=== PATIENT | female | born 1975 | race Caucasian/White ===

== ENCOUNTER 2018-03-03 14:35 | Emergency (ER) | payer MEDICAID, SELFPAY ==
[2018-03-03 14:37] VITALS: BP 146/89; PULSE 102; RESP 16; TEMP 36.8; O2SAT 94; BMI 46.2
--- NOTE | 2018-03-03 15:16 | ED.DCSUM_ITS ---
- ER Visit Summary Date of Service: 03/03/18 Chief Complaint: Concern for hemorrhagic pyelonephritis History of Present Illness: The patient is a 42 F who is 15 weeks who presents concerned she may have hemorrhagic pyelonephritis. Patient states last night she noted abdominal bruising on her mid abdomen. She was washing she noted blood on her washcloth after cleansing her genital region. She does not know if it is vaginal blood or urethral. She is having left-sided abdominal and back pain. She has been having increased urination without dysuria. She denies any fever but states she has felt cold. No diarrhea or constipation. No nausea or vomiting. Patient denies any known history of bruising to the abdomen. She began a new job [employer] yesterday. Patient had a history of hemorrhagic pyelonephritis 5 years ago with a prior . Physical Examination: Vital signs: afebrile, hemodynamically stable, no hypoxia on room air General: well nourished, well developed, BMI of 46, in no distress Skin: warm, dry, no rash, no pallor, stripe of bruising on the anterior left mid abdomen, supraumbilical HEENT: normocephalic and atraumatic; PERRL, EOMI, moist mucous membranes Cardiovascular: Tachycardic rate and rhythm without murmurs, no peripheral edema, 2+ pulses all distal extremities Respiratory: No increased work of breathing, lungs are clear to auscultation bilaterally, no rales, rhonchi or wheezing Abdominal: Abdomen is soft, obese, diffusely tender to light palpation with normoactive bowel sounds, no guarding or rebound, no masses, bilateral CVA tenderness to light percussion, diffuse back tenderness to light palpation : No external genitalia lesions, no vaginal bleeding, no blood noted in vault, cervix nontender with closed os no adnexal tenderness MSK: Moves all extremities, no deformities, normal strength Neuro: Awake and alert, oriented ?4. No facial droop, sensation and motor function intact and symmetric Test Results: Abnormal Lab Results 03/03/18 03/03/18 03/03/18 14:50 15:20 15:20 WBC 8.9 RBC 3.93 L Hgb 12.1 Hct 34.9 L MCV 88.8 MCH 30.8 MCHC 34.7 RDW 13.7 RDW Differential 43.3 Plt Count 164 MPV 11.7 Immature Gran % (Auto) 1.000 H Neut % (Auto) 75.8 H Lymph % (Auto) 15.2 L Hand % (Auto) 6.6 Eos % (Auto) 1.3 Baso % (Auto) 0.1 Absolute Neuts (auto) 6.7 Absolute Lymphs (auto) 1.35 Total Counted Not Reportable Sodium 136 Potassium 3.4 L Chloride 103 Carbon Dioxide 25.0 Anion Gap 8 BUN 10 Creatinine 0.57 Estim Creat Clear Calc 94.24 Est GFR (MDRD) Af Amer 150 Est GFR (MDRD) Non-Af 124 BUN/Creatinine Ratio 17.5 Glucose 83 Calcium 8.6 Total Bilirubin 0.40 AST 11 L ALT 16 Alkaline Phosphatase 62 Total Protein 6.9 Albumin 2.8 L Globulin 4.1 Albumin/Globulin Ratio 0.7 L Urine Color Yellow Urine Clarity Clear Urine pH 6.0 Ur Specific [place] 1.020 Urine Protein 15 H Urine Glucose (UA) Normal Urine Ketones 5 H Urine Occult Blood Negative Urine Nitrite Negative Urine Bilirubin Negative Urine Urobilinogen 1 H Ur Leukocyte Esterase 25 H Urine RBC 0 SEEN Urine WBC 0 SEEN Ur Squamous Epith Cells 10-25 SEEN Urine Bacteria 0 SEEN Urine Mucus 1+ Medications Given Discontinued Medications Acetaminophen (Tylenol) 1,000 mg PO X1 ONE Stop: 03/03/18 15:39 Last Admin: 03/03/18 15:46 Dose: 1,000 mg Sodium Chloride () 1,000 mls @ 1,000 mls/hr IV .Q1H ONE Stop: 03/03/18 16:06 Last Admin: 03/03/18 15:46 Dose: 1,000 mls/hr Emergency Department Course and Treatment: Patient presents concern for recurrence of hemorrhagic pyelonephritis after noticing blood on her wash cloth last night and noticing bruising on her abdomen. Patient has a large amount of abdominal adipose tissue, and the bruising seems superficial on the skin. It is brownish yellow in color and appears subacute, and looks like she may have leaned against something causing the bruising. There is no ecchymosis such as Cullens Sign or Staley Turcios sign. Patient is diffusely tender on the back and abdomen with only light palpation, which does not exert force on the abdominal cavity and makes intra-abdominal pathology less suspicious. Pelvic exam will be performed showing no vaginal bleeding, lacerations, no external genital lesions, no urethral abnormalities. Urinalysis performed showed no signs of infection or hematuria. Patient was offered and declined pain medication initially but later asked for some and was given Tylenol. Patient's workup showed no abnormalities in electrolytes, renal function, or urine. She was feeling better added evaluation. She was discharged home with no signs of pyelonephritis or other infection. Treatment Plan: [] Disposition: [] Impression: Abdominal pain and female This note was generated with [employer] dictation software. It may contain incorrect words, spelling, and punctuation that were not noted in review of the chart prior to signing ED Disposition - Plan for ED Patient: Disposition: Home or Assisted Living Chief Complaint: Complaint Instructions: ED Abdominal Pain Unkn Cause Referrals: Care Physician,No Primary [NON-STAFF] - OB Physicians,[facility] [GROUP OF PHYSICIANS] - 3-5 Days if not improving Additional Instructions: Your urine showed no signs of infection or blood. Your lab work showed no concerning findings. Please continue Tylenol as needed for abdominal pain. Follow-up with your OB physician at [facility] if you continue to have cramping. If you have any worsening of your condition or any new concerning symptoms, please return immediately to the emergency department for another evaluation.
[2018-03-03 15:39] LABS: Absolute Lymphocyte Count 1.35 X10^3/ul (0.83-4.51); Absolute Neutrophil Count 6.7 X10^3/uL (2.0-7.7); Basophil# 0.01 X10^3/uL; Basophil% 0.1 % (0-1); Eosinophil# 0.12 X10^3/uL; Eosinophils% 1.3 % (0-5); Hematocrit 34.9 % (37-47); Hemoglobin 12.1 g/dl (12.0-15.0); Lymphocyte # 1.35 X10^3/ul (4.0); Lymphocyte % 15.2 % (19-41); Mean Corp Hgb Conc 34.7 g/gl (32-36); Mean Corpuscular Hgb 30.8 pg (27.0-32.0); Mean Corpuscular Volume 88.8 fL (81-99); Mean Platelet Vol. 11.7 fl (6.2-12.0); Monocyte# 0.59 X10^3/uL; Monocyte% 6.6 % (0-10); Neutrophil # 6.74 X10^3/uL (2.7-7.7); Neutrophil % 75.8 % (47-70); Platelet Count 164 K/mm3 (150-450); RBC Distribution Width CV 13.7 % (11.6-14.6); RBC Distribution Width SD 43.3 fl (35.1-43.9); Red Blood Count 3.93 M/mm3 (4.2-5.4); White Blood Count 8.9 K/mm3 (4.4-11.0)
[2018-03-03 15:44] LABS: POSITIVE COUNT NO; POSITIVE DIFFERENTIAL NO; POSITIVE MORPHOLOGY NO
[2018-03-03] MEDS: 0.9% Normal Saline 1,000 ML 1000 ML IV (15:46)
[2018-03-03] MEDS: Acetaminophen 500 MG Tablet 1000 MG PO (15:46)
[2018-03-03 15:47] LABS: ALB/GLOB Ratio 0.7 RATIO (0.9-2.4); AST(SGOT) 11 U/L (15-37); Alanine Aminotransfer ALT/SGPT 16 U/L (13-56); Albumin, Serum 2.8 g/dL (3.2-5.0); Alkaline Phosphatase 62 U/L (45-117); Anion Gap 8 (5-15); BUN 10 mg/dL (7-18); BUN/Creat Ratio 17.5 RATIO (10-20); Calcium,Total 8.6 mg/dL (8.5-10.1); Chloride 103 mmol/L (98-107); Creatinine, Serum 0.57 mg/dL (0.55-1.02); EST Glomerular Filtration Rate 124 mL/min (>60); Est Glom Filt Rate - Afr Amer 150 mL/min (>60); Estimated Creatinine Clearance 94.24 ml/min; Globulin 4.1 g/dL (2.2-4.2); Glucose 83 mg/dL (74-106); Potassium 3.4 mmol/L (3.5-5.1); Protein, Total 6.9 g/dL (6.4-8.2); Sodium Level 136 mmol/L (136-145)
[2018-03-03 15:51] LABS: Bacteria 0 SEEN /hpf (None Seen); Red Blood Cells-Urine 0 SEEN /hpf (0-5); White Blood Cells 0 SEEN /hpf (0-5)
[2018-03-03 15:53] LABS: Color, Urine Yellow (Yellow); Glucose, Dipstick Normal (Normal); Ketone-Dipstick 5 mg/dl (Negative); Leukocyte Esterase-Dipstick 25 /ul (Negative); Nitrite-Dipstick Negative (Negative); Occult Blood-Urine Negative /ul (Negative); Protein-Dipstick 15 mg/dl (Negative); Urine Bilirubin Dipstick Negative (Negative); Urine Clarity Clear (Clear); Urine Urobilinogen 1 mg/dl (Normal)
[2018-03-03 16:25] LABS: Mucous, Urine 1+ /hpf (<or=2+); Squamous Epithelial Cells - UA 10-25 SEEN /hpf (5-10)
[2018-03-03 16:36] VITALS: RESP 17
--- NOTE | 2018-03-03 16:47 | ED.DEP ---
ED Disposition - Plan for ED Patient: Disposition: Home or Assisted Living Chief Complaint: Complaint Instructions: ED Abdominal Pain Unkn Cause Referrals: Care Physician,No Primary [NON-STAFF] - OB Physicians,[facility] [GROUP OF PHYSICIANS] - 3-5 Days if not improving Additional Instructions: Your urine showed no signs of infection or blood. Your lab work showed no concerning findings. Please continue Tylenol as needed for abdominal pain. Follow-up with your OB physician at [facility] if you continue to have cramping. If you have any worsening of your condition or any new concerning symptoms, please return immediately to the emergency department for another evaluation.
--- NOTE | 2018-03-03 16:50 | DCINST.ED_ITS ---
ED Disposition - Plan for ED Patient: Disposition: Home or Assisted Living Chief Complaint: Complaint Instructions: ED Abdominal Pain Unkn Cause Referrals: Care Physician,No Primary [NON-STAFF] - OB Physicians,[facility] [GROUP OF PHYSICIANS] - 3-5 Days if not improving Additional Instructions: Your urine showed no signs of infection or blood. Your lab work showed no concerning findings. Please continue Tylenol as needed for abdominal pain. Follow-up with your OB physician at [facility] if you continue to have cramping. If you have any worsening of your condition or any new concerning symptoms, pl ease return immediately to the emergency department for another evaluation.
[2018-03-03 17:08] VITALS: BP 126/93; PULSE 85; RESP 17; O2SAT 98
== END 2018-03-03 17:10 | disposition home or self-care (01) ==
PROVIDERS: Emergency Provider Emergency Medicine; Family Provider Family Medicine; PCP Family Medicine
DX: O26.892 Other specified pregnancy related conditions, second trimester (principal); R10.9 Unspecified abdominal pain; O99.212 Obesity complicating pregnancy, second trimester; E66.9 Obesity, unspecified; Z68.42 Body mass index [BMI] 45.0-49.9, adult; Z3A.15 15 weeks gestation of pregnancy; O99.332 Smoking (tobacco) complicating pregnancy, second trimester
CPT/HCPCS: 80053; 81001; 85025; 96360; 99284; J7030; A4216

== ENCOUNTER → 2018-03-25 19:15 | Outpatient (CLI) | payer MEDICAID, SELFPAY ==
[2018-03-25 21:56] LABS: Chlamydia Trachomatis by PCR Negative (Negative); Neisserai gonorrhoeae by PCR Negative (Negative); Probe Check PASS; Sample Adequacy Control PASS; Specimen Processing Control PASS
[2018-03-30 14:41] LABS: HPV Reflexed? NOT INDICATED
== END ==
PROVIDERS: Family Provider Family Medicine; PCP Family Medicine; Referring Provider Obstetrics & Gynecology; Visit Provider Obstetrics & Gynecology
DX: Z32.01 Encounter for pregnancy test, result positive (principal); Z12.4 Encounter for screening for malignant neoplasm of cervix; Z11.3 Encounter for screening for infections with a predominantly sexual mode of transmission
CPT/HCPCS: 87491; 87591; 88175; G0145

== ENCOUNTER → 2018-04-08 16:24 | Outpatient (CLI) | payer MEDICAID, SELFPAY ==
[2018-04-08 17:11] LABS: Color, Urine Yellow (Yellow); Glucose, Dipstick Normal (Normal); Ketone-Dipstick 5 mg/dl (Negative); Leukocyte Esterase-Dipstick 25 /ul (Negative); Nitrite-Dipstick Negative (Negative); Occult Blood-Urine Negative /ul (Negative); Protein-Dipstick 15 mg/dl (Negative); Specific Gravity, Urine 1.025 (1.002-1.030); Urine Bilirubin Dipstick Negative (Negative); Urine Clarity Turbid (Clear); Urine Urobilinogen Normal (Normal)
[2018-04-08 17:34] LABS: Amphetamine Urine VISTA NEGATIVE (<1000 ng/mL); Barbiturate Urine VISTA NEGATIVE (< 200 ng/mL); Benzodiazepine Urine VISTA NEGATIVE (< 200 ng/mL); Cocaine Urine VISTA NEGATIVE (< 300 ng/mL); Ecstacy Urine VISTA NEGATIVE (< 500 ng/mL); Methadone Urine VISTA NEGATIVE (< 300 ng/mL); PCP Urine VISTA NEGATIVE (< 25 ng/mL); THC Urine VISTA POSITIVE (< 50 ng/mL); Vista UDS pH Range 6
[2018-04-08 17:38] LABS: Absolute Lymphocyte Count 1.46 X10^3/ul (0.83-4.51); Basophil# 0.01 X10^3/uL; Basophil% 0.1 % (0-1); Eosinophil# 0.12 X10^3/uL; Eosinophils% 1.3 % (0-5); Hematocrit 35.4 % (37-47); Hemoglobin 11.8 g/dl (12.0-15.0); Lymphocyte # 1.46 X10^3/ul (4.0); Lymphocyte % 15.8 % (19-41); Mean Corp Hgb Conc 33.3 g/gl (32-36); Mean Corpuscular Hgb 30.2 pg (27.0-32.0); Mean Corpuscular Volume 90.5 fL (81-99); Mean Platelet Vol. 12.7 fl (6.2-12.0); Monocyte# 0.52 X10^3/uL; Monocyte% 5.6 % (0-10); Neutrophil # 7.01 X10^3/uL (2.7-7.7); Neutrophil % 75.7 % (47-70); Platelet Count 179 K/mm3 (150-450); RBC Distribution Width CV 13.7 % (11.6-14.6); RBC Distribution Width SD 44.5 fl (35.1-43.9); Red Blood Count 3.91 M/mm3 (4.2-5.4); White Blood Count 9.3 K/mm3 (4.4-11.0)
[2018-04-08 18:06] LABS: POSITIVE COUNT NO; POSITIVE DIFFERENTIAL NO; POSITIVE MORPHOLOGY NO
[2018-04-08 18:14] LABS: Thyroid Stim Hormone (TSH) 0.89 uIU/mL (0.358-3.74)
[2018-04-08 18:31] LABS: COTININE Drug Screen Positive (<200 ng/mL)
[2018-04-08 18:54] LABS: HIV - WCH Non-Reactive (Nonreactive); Rubella IgG 292.3 IU/mL
[2018-04-09 01:59] LABS: Prenatal RPR NONREACTIVE (NONREACTIVE)
[2018-04-12 11:52] LABS: HEPATITIS B SURFACE AG Negative (Negative); Hep C Antibodies <0.1 s/co ratio (0.0-0.9)
== END ==
PROVIDERS: Family Provider Family Medicine; PCP Family Medicine; Visit Provider Obstetrics & Gynecology
DX: Z34.82 Encounter for supervision of other normal pregnancy, second trimester (principal)
CPT/HCPCS: 36415; 80307; 81002; 84443; 85025; 86703; 86762; 86803; 87340

== ENCOUNTER 2018-05-05 00:50 | Outpatient (CLI) | payer MEDICAID, SELFPAY ==
[2018-05-05 02:02] LABS: Mucous, Urine 0 SEEN /hpf (<or=2+)
[2018-05-05 02:04] LABS: Color, Urine Yellow (Yellow); Glucose, Dipstick Normal (Normal); Ketone-Dipstick 50 mg/dl (Negative); Leukocyte Esterase-Dipstick 25 /ul (Negative); Nitrite-Dipstick Negative (Negative); Occult Blood-Urine Negative /ul (Negative); Protein-Dipstick 15 mg/dl (Negative); Specific Gravity, Urine 1.025 (1.002-1.030); Urine Bilirubin Dipstick Negative (Negative); Urine Clarity Sl. Cloudy (Clear); Urine Urobilinogen Normal (Normal)
[2018-05-05 02:15] LABS: Bacteria RARE /hpf (None Seen); Red Blood Cells-Urine 0-5 SEEN /hpf (0-5); Squamous Epithelial Cells - UA 5-10 SEEN /hpf (5-10); White Blood Cells 0-5 SEEN /hpf (0-5)
[2018-05-05 02:21] VITALS: BMI 46.8
[2018-05-05] MEDS: Acetaminophen 500 MG Tablet 1000 MG PO (02:46)
--- NOTE | 2018-05-05 08:04 | OB.TRI.NOTE ---
History of Present Illness Date of Service: 05/05/18 Was patient seen by the physician?: Yes Reason For Visit: R/BILLIE TAYLOR PAIN Date of Service: 05/05/18 Gestational age: 24 weeks History of Present Illness: 43 yo female at 24 + wks. Presents with frontal COLEMAN x two days and states no relief with tylenol. Presented approx 2 am No tylenol since approx 6-6:30 pm day prior. Also C/O pain at LLQ. Denies constipation. On her feet a lot. H/O two prior C/S deliveries. Allergies acetaminophen [From Vicodin] Allergy (Verified 05/05/18 02:23) Itching hydrocodone bitartrate [From Vicodin] Allergy (Verified 05/05/18 02:23) Itching ondansetron HCl [From Zofran (as hydrochloride)] Allergy (Verified 05/05/18 02:23) Rash Penicillins [PCN] Allergy (Verified 05/05/18 02:23) Rash Laboratory Studies: Laboratory Tests 05/05/18 Range/Units 01:45 Urine Color Yellow (Yellow) Urine Clarity Sl. Cloudy (Clear) Urine pH 6.0 (5.0 - 8.0) Ur Specific [place] 1.025 (1.002-1.030) Urine Protein 15 H (Negative) mg/dl Urine Glucose (UA) Normal (Normal) mg/dl Urine Ketones 50 H (Negative) mg/dl Urine Occult Blood Negative (Negative) /ul Urine Nitrite Negative (Negative) Urine Bilirubin Negative (Negative) mg/dL Urine Urobilinogen Normal (Normal) mg/dl Ur Leukocyte Esterase 25 H (Negative) /ul Urine RBC 0-5 SEEN (0-5) /hpf Urine WBC 0-5 SEEN (0-5) /hpf Ur Squamous Epith Cells 5-10 SEEN (5-10) /hpf Urine Bacteria RARE (None Seen) /hpf Urine Mucus 0 SEEN (<or=2+) /hpf Review of Systems HEENT: Reports: Head Aches - frontal x two days Gastrointestinal: Reports: Abdominal Pain - LLQ from upper to lower abdomen. Denies: Constipation, Diarrhea Genitourinary: Denies: Dysuria - states pain does not feel like a kidney stone (had one prior) Physical Exam Vitals: BP wnl See nurse separate chart for details. General: Alert, Oriented x3, Cooperative, No apparent distress HEENT: Atraumatic Abdomen: Soft, Gravid, Obese Neurological: Cranial nerves II-XII grossly intact NST - FHR Rate Baby A Baseline: 110s NST Reactive:: Appropriate for gestational age Uterine Activity:: no UCs noted. Impression/Plan 24 + wk EGA H/O two prior C/S deliveries H/O kidney stones UA sent and negative for infection. Rare bacteria, no blood. SpGr 1.025 Encouraged to drink more [place]: no UCs LLQ abdominal pain likely musculoskeletal. Tylenol, rest, maternity support band recommended. Advised prior pregnancies, now 43 yo. COLEMAN: suspect sinus COLEMAN. Recommend rest, home to sleep. May also take Benadryl at home Tylenol 1 gm po given Sudafed 30 mg po x one. COLEMAN improved Elected to go home. RTO for next ofc appt as scheduled.
--- OUTSIDE RECORDS SUMMARY | 2018-06-30 10:46 | XMS RPT_ITS ---
:1975 Author Organization OHIP Care Team Providers Name Role Phone Nehemias Willingham Attending Unavailable Nehemias Willingham Referring Unavailable Baker, Dylan Primary Care Unavailable Estephania Dozier Attending Unavailable Baker, Dylan Primary Care Unavailable Nehemias Willingham Attending Unavailable Samuel, Dylan Primary Care Unavailable Nehemias Willingham Referring Unavailable Nehemias Willingham Attending Unavailable Baker, Dylan Primary Care Unavailable Patsy Traore Attending Unavailable Baker, Dylan Primary Care Unavailable JAQUELIN WEATHERS GARCÍA Attending Unavailable NO, PHYSICIAN Primary Care Unavailable HANNA CHINCHILLA Attending Unavailable RUBY CAMPBELL Primary Care Unavailable RUBY CAMPBELL Attending Unavailable RUBY CAMPBELL Primary Care Unavailable Ivanauskas, Saulius Admitting Unavailable Ivanauskas, Saulius Attending Unavailable No Doctor Assigned, Nodr Primary Care Unavailable Eugenio Baker Attending Unavailable No Doctor Assigned, Nodr Primary Care Unavailable PROBLEMS PROBLEMS DATE TYPE CONDITION / CODE ATTENDING STATUS SOURCE 03/26/2018 Unknown Z32.01 - Encounter Nehemias Willingham Active [facility] for test, Community result positive / Hospital Z32.01(ICD-10) Repository 03/26/2018 Unknown Z12.4 - Encounter SealNehemias nunez [facility] for screening for Community malignant neoplasm Hospital of cervix / Repository Z12.4(ICD-10) 03/26/2018 Unknown Z11.3 - Encounter SealNehemias nunez Active [facility] for screening for Community infections with a Hospital predominantly Repository sexual mode of transmission / Z11.3(ICD-10) 01/05/2018 Admitting Less than 8 weeks ME JASIELENAL Active [facility] diagnosis gestation of GARCÍA Repository / Z3A.01(ICD-10) 01/05/2018 Admitting Constipation, JASIEL, JAQUELIN Active [facility] diagnosis unspecified / GARCÍA Repository K59.00(ICD-10) 01/05/2018 Admitting Nausea / JASIEL, JAQUELIN Active [facility] Two diagnosis R11.0(ICD-10) GARCÍA Repository 01/05/2018 Admitting Other specified JASIEL, JAQUELIN Active [facility] diagnosis related GARCÍA Repository conditions, first trimester / O26.891(ICD-10) 01/05/2018 Admitting Unspecified JASIEL, JAQUELIN Active [facility] diagnosis abdominal pain / GARCÍA Repository R10.9(ICD-10) 01/05/2018 Admitting Unspecified JASIEL, JAQUELIN Active [facility] diagnosis hemorrhoids / GARCÍA Repository K64.9(ICD-10) 06/08/2017 Admitting Unknown / HANNA CHINCHILLA Diagnosis UNK(Unknown) [facility] Repository PROCEDURES PROCEDURES No Procedure Records FoundRESULTS RESULTS URINALYSIS, COMPLETE Collected: 05/05/2018 Status: F Source: [facility] 1:45 AM [facility] REPOSITORY Order Comment: How was Urine Obtained? CLEAN CATCH TYPE CODE TESTS RESULT OUT OF RANGE REFERENCE UNITS LAB L400.3000 Yellow COLOR Normal Yellow LAB L400.3050 Clear Normal CLARITY Sl. Cloudy LAB L400.3200 Normal mg/dl Normal GLUCOSE, UR Normal LAB L400.3300 Negative mg/dL Normal BILIRUBIN URINE Negative LAB L400.3400 Negative mg/dl High 50 KETONE UR LAB L400.3465 1.002-1.030 Normal SP.GR. DIPSTX 1.025 LAB L400.3550 5.0 - 8.0 pH UR Normal 6.0 LAB L400.3600 Negative mg/dl High PROT 15 DIPSTX LAB L400.3700 Normal mg/dl Normal UROBILI Normal LAB L400.3750 Negative Normal NITRITE UR Negative LAB L400.3780 Negative /ul Normal OCCULT BLOOD-UR Negative LAB L400.3800 Negative /ul High LEUK 25 ESTERASE LAB L400.4050 0-5 /hpf WBC Normal 0-5 SEEN LAB L400.4100 0-5 /hpf Normal RBC-UA 0-5 SEEN LAB L400.4150 5-10 /hpf SQUAM Normal EPI 5-10 SEEN LAB L400.4300 None Seen /hpf Normal BACTERIA RARE LAB L400.4350 <or=2+ /hpf 0 Normal MUCUS, URINE SEEN Performed By: #### L400.0001 #### [facility] [address] [place], [address] URINE DRUG SCREEN Collected: 04/08/2018 Status: F Source: [facility] ([place]) 4:27 PM [facility] REPOSITORY Order Comment: List of Drugs Taken or Suspected? U TYPE CODE TESTS RESULT OUT OF RANGE REFERENCE UNITS LAB L505.0075 TO BE Normal CONFIRMED Result Comment: CONFIRMATORY TESTING FOR ALL POSITIVE URINE DRUG SCREEN RESULTS WILL ONLY BE SENT OUT UPON PHYSICIAN ORDER. [place] Urine Drug Screen methods provide only preliminary analytical test results. A more specific alternate chemical method must be used in order to obtain a confirmed analytical result. Gas chromatography/mass spectrometery (GC/MS) is the preferred confirmatory method. Clinical consideration and professional judgement should be applied to any drug of abuse test result, particularly when preliminary positive results are used. URINE TCA TESTING MUST BE ORDERED SEPARATELY. USE TEST MNEMONIC: [facility] LAB L505.5005 VISTA UDS PH 6 Normal LAB L505.5015 <1000 ng/mL AMPHETAMINES Normal NEGATIVE LAB L505.5025 < 200 ng/mL BARBITIURATES Normal NEGATIVE LAB L505.5035 < 200 ng/mL BENZODIAZIPINE Normal NEGATIVE LAB L505.5045 < 300 ng/mL COCAINE Normal NEGATIVE LAB L505.5055 < 500 ng/mL ECSTACY Normal NEGATIVE LAB L505.5065 < 300 ng/mL METHADONE Normal NEGATIVE LAB L505.5075 < 300 ng/mL OPIATES Normal NEGATIVE LAB L505.5085 < 25 ng/mL PCP Normal NEGATIVE LAB L505.5095 < 50 High ng/mL THC POSITIVE Performed By: #### L505.5000, L505.6240 #### [facility] [address] [facility] [place], [place], [id number] NICOTINE URINE DRUG Collected: 04/08/2018 Status: F Source: [facility] SCREEN 4:27 PM [facility] REPOSITORY Order Comment: List of Drugs Taken or Suspected? U TYPE CODE TESTS RESULT OUT OF RANGE REFERENCE UNITS LAB L505.6250 TO BE Normal CONFIRMED Result Comment: CONFIRMATORY TESTING FOR ALL POSITIVE URINE DRUG SCREEN RESULTS WILL ONLY BE SENT OUT UPON PHYSICIAN ORDER. The results of Urine Drug Screen methods provide only preliminary analytical test results. A more specific alternate chemical method must be used in order to obtain a confirmed analytical result. Gas chromatography/mass spectrometery (GC/MS) is the preferred confirmatory method. Clinical consideration and professional judgement should be applied to any drug of abuse test result, particularly when preliminary positive results are used. LAB L505.6270 <200 ng/mL High COT DRG Positive SCREEN Result Comment: Cotinine is the first-stage metabolite of Nicotine. Performed By: #### L505.5000, L505.6240 #### [facility] [address] [place], [address] URINALYSIS, ROUTINE Collected: 04/08/2018 Status: F Source: [facility] ([place]) 4:27 PM [facility] REPOSITORY Order Comment: How was Urine Obtained? CLEAN CATCH TYPE CODE TESTS RESULT OUT OF RANGE REFERENCE UNITS LAB L400.3000 Yellow COLOR Normal Yellow LAB L400.3050 Clear Normal CLARITY Turbid LAB L400.3200 Normal mg/dl Normal GLUCOSE, UR Normal LAB L400.3300 Negative mg/dL Normal BILIRUBIN URINE Negative LAB L400.3400 Negative mg/dl High 5 KETONE UR LAB L400.3465 1.002-1.030 Normal SP.GR. DIPSTX 1.025 LAB L400.3550 5.0 - 8.0 pH UR Normal 6.0 LAB L400.3600 Negative mg/dl High PROT 15 DIPSTX LAB L400.3700 Normal mg/dl Normal UROBILI Normal LAB L400.3750 Negative Normal NITRITE UR Negative LAB L400.3780 Negative /ul Normal OCCULT BLOOD-UR Negative LAB L400.3800 Negative /ul High LEUK 25 ESTERASE Performed By: #### L400.2010 #### [facility] [address] [place], [place], [address] CBC W/DIFF, AUTOMATED Collected: 04/08/2018 Status: F Source: [place] 4:27 PM [facility] REPOSITORY TYPE CODE TESTS RESULT OUT OF RANGE REFERENCE UNITS LAB L100.1000 4.4-11.0 K/mm3 Normal WBC 9.3 LAB L100.1200 4.2-5.4 M/mm3 Low RBC 3.91 LAB L100.1300 12.0-15.0 g/dl Low HGB 11.8 LAB L100.1400 37-47 % Low HCT 35.4 LAB L100.1500 81-99 fL Normal MCV 90.5 LAB L100.1600 27.0-32.0 pg Normal MCH 30.2 LAB L100.1700 32-36 g/gl Normal MCHC 33.3 LAB L100.1810 11.6-14.6 % Normal RDW CV 13.7 LAB L100.1820 35.1-43.9 fl High RDW SD 44.5 LAB L100.1900 150-450 K/mm3 Normal PLT 179 LAB L100.2000 6.2-12.0 fl High MPV 12.7 LAB L100.2100 47-70 % High NEUT% 75.7 LAB L100.2200 19-41 % Low LY% 15.8 LAB L100.2300 0-10 % Normal MONO% 5.6 LAB L100.2400 0-5 % Normal EO% 1.3 LAB L100.2500 0-1 % Normal BASO% 0.1 LAB L100.2550 0.0-0.9 % High IM GRAN % 1.500 Result Comment: IG% - Immature Granulocytes (promyelocytes, myelocytes and metamyelocytes) > 1% indicates that a LEFT SHIFT is Present. LAB L100.2620 2.0-7.7 X10 3/uL Normal Absolute Neut 7.0 LAB L100.2720 0.83-4.51 X10 3/ul Normal Absolute Lymph 1.46 Performed By: #### L100.0100 #### [facility] [address] [facility] [facility] [address] THYROID STIM HORMONE Collected: 04/08/2018 Status: F Source: [place] ([place]) 4:27 PM [facility] REPOSITORY TYPE CODE TESTS RESULT OUT OF RANGE REFERENCE UNITS LAB L501.9520 0.358-3.74 uIU/mL Normal TSH 0.89 Performed By: #### L501.9520 #### [facility] [id number] T AND S-NO Collected: 04/08/2018 Status: F Source: [place] CHARGE W/PNP 4:27 PM [facility] REPOSITORY Order Comment: Reason for Type AND Screen/Red Cells: Surgery? N TYPE CODE TESTS RESULT OUT OF RANGE REFERENCE UNITS LAB B10.0800 A Normal BLOOD NEGATIVE TYPE GEL LAB B100.4050 Normal Ab SCREEN NEGATIVE GEL Performed By: #### B100.7550 #### [facility]. [place], [place], [address] RUBELLA IGG Collected: 04/08/2018 Status: F Source: [facility] 4:27 PM [facility] REPOSITORY TYPE CODE TESTS RESULT OUT OF RANGE REFERENCE UNITS LAB L509.4000 IU/mL Normal Rubella IgG 292.3 Result Comment: Antibody results Interpretation of Immune Status < 5 IU/ml Presumed Non-immune 5 - < 10 IU/ml Equivocal > or = 10 IU/ml Presumed Immune Performed By: #### L509.4000, L3890.6005 #### [facility] [place], [address] HIV - WCH Collected: 04/08/2018 Status: F Source: [facility] 4:27 PM [facility] REPOSITORY TYPE CODE TESTS RESULT OUT OF RANGE REFERENCE UNITS LAB L3890.6005 Nonreactive Normal HIV - [facility] Non-Reactive Performed By: #### L509.4000, L3890.6005 #### [facility] [address] [place], [place], [id number] RPR Collected: 04/08/2018 Status: F Source: [facility] 4:27 PM [facility] REPOSITORY TYPE CODE TESTS RESULT OUT OF REFERENCE UNITS RANGE LAB L700.5100 NONREACTIVE Normal RPR NONREACTIVE Performed By: #### L700.5100 #### [facility] [address] [place], [place], [address] HEPATITIS B SURFACE Collected: 04/08/2018 Status: F Source: [place] AG 4:27 PM [facility] REPOSITORY TYPE CODE TESTS RESULT OUT OF RANGE REFERENCE UNITS LAB L3100.0400 Negative Normal HB Negative SURF AG Result Comment: Performed at: - [facility] [id number] Hunter Trapper: Cortes Orozco PhD, Phone: [phone] Performed By: #### L3100.0390, L3100.0625 #### [facility] (refer to report for specific site) refer to report for address and phone number HEPATITIS C ANTIBODIES Collected: 04/08/2018 Status: F Source: [place] 4:27 PM [facility] REPOSITORY TYPE CODE TESTS RESULT OUT OF RANGE REFERENCE UNITS LAB L3100.0650 0.0-0.9 s/co ratio Normal HEP C AB <0.1 Result Comment: Negative: < 0.8 Indeterminate: 0.8 - 0.9 Positive: > 0.9 The CDC recommends that a positive HCV antibody result be followed up with a HCV Nucleic Acid Amplification test (060988). Performed By: #### L3100.0390, L3100.0625 #### [facility] (refer to report for specific site) refer to report for address and phone number CT/NG WCH BY PCR Collected: 03/25/2018 Status: F Source: [facility] 3:30 PM [facility] REPOSITORY TYPE CODE TESTS RESULT OUT OF RANGE REFERENCE UNITS LAB L8200.2100 Negative Normal Chlam Negative Trac PCR LAB L8200.2200 Negative Normal NG by Negative PCR Performed By: #### L8200.2000 #### [facility] [address] 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 of containers..01 ThinPrep Vial TYPE CODE TESTS RESULT OUT OF RANGE REFERENCE UNITS LAB L7400.0800 . Normal DIAGN Comment Result Comment: NEGATIVE FOR INTRAEPITHELIAL LESION AND MALIGNANCY. LAB L7400.0900 . Normal ADEQ Comment Result Comment: Satisfactory for evaluation. Endocervical and/or squamous metaplastic cells (endocervical component) are present. LAB L7400.1400 . Normal PERFORM Comment Result Comment: Lisa Fonseca, Energy Consultant (ASCP) LAB L7400.2575 . Normal TEST METHOD Comment Result Comment: This liquid based ThinPrep(R) pap test was screened with the use of an image guided system. LAB L7400.2600 . Normal . COMM LAB L7400.2700 . Normal PAPSMR Comment Result Comment: The Pap smear is a screening test designed to aid in the detection of premalignant and malignant conditions of the uterine cervix. It is not a diagnostic procedure and should not be used as the sole means of detecting cervical cancer. Both false-positive and false-negative reports do occur. LAB L7400.2800 . Normal HPV RFLX Comment Result Comment: The HPV DNA reflex criteria were not met with this specimen result therefore, no HPV testing was performed. Performed at: [address] [id number] Hunter Trapper: Jodie Moseley MD, Phone: [phone] Performed By: #### L7400.0350 #### [facility] (refer to report for specific site) refer to report for address and phone number EMERGENCY DEPARTMENT Observed: 03/04/2018 Status: F Source: [place] SUMMARY 2:01 AM [facility] REPOSITORY [facility] Medical Records Department [address] [place] [address] Emergency Department Summary 03/03/18 1512 MR#: [id number] Acct: [id number] Name: DEANNA ALMANZA Rep #: [id number] : 1975 42 From: Estephania Dozier MD PCP: Eugenio Baker MD Status: DEP ER - ER Visit Summary Date of Service: 03/03/18 Chief Complaint: Concern for hemorrhagic pyelonephritis History of Present Illness: The patient is a 42 F who is 15 weeks who presents concerned she may have hemorrhagic pyelonephritis. Patient states last night she noted abdominal bruising on her mid abdomen. She was washing she noted blood on her washcloth after cleansing her genital region. She does not know if it is vaginal blood or urethral. She is having left-sided abdominal and back pain. She has been having increased urination without dysuria. She denies any fever but states she has felt cold. No diarrhea or constipation. No nausea or vomiting. Patient denies any known history of bruising to the abdomen. She began a new job [employer] yesterday. Patient had a history of hemorrhagic pyelonephritis 5 years ago with a prior . Physical Examination: Vital signs: afebrile, hemodynamically stable, no hypoxia on room air General: well nourished, well developed, BMI of 46, in no distress Skin: warm, dry, no rash, no pallor, stripe of bruising on the anterior left mid abdomen, supraumbilical HEENT: normocephalic and atraumatic; PERRL, EOMI, moist mucous membranes Cardiovascular: Tachycardic rate and rhythm without murmurs, no peripheral edema, 2+ pulses all distal extremities Respiratory: No increased work of breathing, lungs are clear to auscultation bilaterally, no rales, rhonchi or wheezing Abdominal: Abdomen is soft, obese, diffusely tender to light palpation with normoactive bowel sounds, no guarding or rebound, no masses, bilateral CVA tenderness to light percussion, diffuse back tenderness to light palpation : No external genitalia lesions, no vaginal bleeding, no blood noted in vault, cervix nontender with closed os no adnexal tenderness MSK: Moves all extremities, no deformities, normal strength Neuro: Awake and alert, oriented 4. No facial droop, sensation and motor function intact and symmetric Test Results: Abnormal Lab Results Medications Given Discontinued Medications Acetaminophen (Tylenol) 1,000 mg PO X1 ONE Stop: 03/03/18 15:39 Last Admin: 03/03/18 15:46 Dose: 1,000 mg Sodium Chloride () 1,000 mls @ 1,000 mls/hr IV .Q1H ONE Stop: 03/03/18 16:06 Last Admin: 03/03/18 15:46 Dose: 1,000 mls/hr Emergency Department Course and Treatment: Patient presents concern for recurrence of hemorrhagic pyelonephritis after noticing blood on her wash cloth last night and noticing bruising on her abdomen. Patient has a large amount of abdominal adipose tissue, and the bruising seems superficial on the skin. It is brownish yellow in color and appears subacute, and looks like she may have leaned against something causing the bruising. There is no ecchymosis such as Cullens Sign or Staley Chinchilla sign. Patient is diffusely tender on the back and abdomen with only light palpation, which does not exert force on the abdominal cavity and makes intra-abdominal pathology less suspicious. Pelvic exam will be performed showing no vaginal bleeding, lacerations, no external genital lesions, no urethral abnormalities. Urinalysis performed showed no signs of infection or hematuria. Patient was offered and declined pain medication initially but later asked for some and was given Tylenol. Patient's workup showed no abnormalities in electrolytes, renal function, or urine. She was feeling better added evaluation. She was discharged home with no signs of pyelonephritis or other infection. Treatment Plan: [] Disposition: [] Impression: Abdominal pain and female This note was generated with Autopilot (formerly Bisl[employer]) dictation software. It may contain incorrect words, spelling, and punctuation that were not noted in review of the chart prior to signing ED Disposition - Plan for ED Patient: Disposition: Home or Assisted Living Chief Complaint: Complaint Instructions: ED Abdominal Pain Unkn Cause Referrals: Care Physician,No Primary [NON-STAFF] - OB Physicians,[facility] [GROUP OF PHYSICIANS] - 3-5 Days if not improving Additional Instructions: Your urine showed no signs of infection or blood. Your lab work showed no concerning findings. Please continue Tylenol as needed for abdominal pain. Follow- up with your OB physician at [facility] if you continue to have cramping. If you have any worsening of your condition or any new concerning symptoms, please return immediately to the emergency department for another evaluation. What to do if you have Problems For any increased pain, shortness of breath, bleeding, nausea or vomiting, chest pain, or any unexpected problems, contact your Primary Care Provider. Call [facility] ([phone]) or report to the closest Emergency Room. Call 911 if necessary. 03/04/18 0201 <Electronically signed by Estephania Dozier MD> Date Estephania Dozier MD Cosigner Signature (If Indicated): Date CC: Eugenio Baker MD DISCHARGE INSTRUCTION Observed: 03/04/2018 Status: F Source: [place] 12:24 AM [facility] REPOSITORY [facility] Medical Records Department [address] [place] [id number] Discharge Instruction 03/03/18 1647 MR#: [id number] Acct: [id number] Name: DEANNA ALMANZA Chapito Rep #: [id number] : 1975 42 From: Estephania Dozier MD PCP: Eugenio Baker MD Status: [facility] ER ED Disposition - Plan for ED Patient: Disposition: Home or Assisted Living Chief Complaint: Complaint Instructions: ED Abdominal Pain Unkn Cause Referrals: Care Physician,No Primary [NON-STAFF] - [facility] Physicians,[facility] [GROUP OF PHYSICIANS] - 3-5 Days if not improving Additional Instructions: Your urine showed no signs of infection or blood. Your lab work showed no concerning findings. Please continue Tylenol as needed for abdominal pain. Follow- up with your OB physician at [facility] if you continue to have cramping. If you have any worsening of your condition or any new concerning symptoms, please return immediately to the emergency department for another evaluation. What to do if you have Problems For any increased pain, shortness of breath, bleeding, nausea or vomiting, chest pain, or any unexpected problems, contact your Primary Care Provider. Call [facility] ([phone]) or report to the closest Emergency Room. Call 911 if necessary. 03/04/18 0024 <Electronically signed by Estephania Dozier MD> Date Estephania Dozier MD Cosigner Signature (If Indicated): Date CC: Eugenio Baker MD CBC W/DIFF, AUTOMATED Collected: 03/03/2018 Status: F Source: [place] 3:20 PM [facility] REPOSITORY TYPE CODE TESTS RESULT OUT OF RANGE REFERENCE UNITS LAB L100.1000 4.4-11.0 K/mm3 Normal WBC 8.9 LAB L100.1200 4.2-5.4 M/mm3 Low RBC 3.93 LAB L100.1300 12.0-15.0 g/dl Normal HGB 12.1 LAB L100.1400 37-47 % Low HCT 34.9 LAB L100.1500 81-99 fL Normal MCV 88.8 LAB L100.1600 27.0-32.0 pg Normal MCH 30.8 LAB L100.1700 32-36 g/gl Normal MCHC 34.7 LAB L100.1810 11.6-14.6 % Normal RDW CV 13.7 LAB L100.1820 35.1-43.9 fl Normal RDW SD 43.3 LAB L100.1900 150-450 K/mm3 Normal PLT 164 LAB L100.2000 6.2-12.0 fl Normal MPV 11.7 LAB L100.2100 47-70 % High NEUT% 75.8 LAB L100.2200 19-41 % Low LY% 15.2 LAB L100.2300 0-10 % Normal MONO% 6.6 LAB L100.2400 0-5 % Normal EO% 1.3 LAB L100.2500 0-1 % Normal BASO% 0.1 LAB L100.2550 0.0-0.9 % High IM GRAN % 1.000 Result Comment: IG% - Immature Granulocytes (promyelocytes, myelocytes and metamyelocytes) > 1% indicates that a LEFT SHIFT is Present. LAB L100.2620 2.0-7.7 X10 3/uL Normal Absolute Neut 6.7 LAB L100.2720 0.83-4.51 X10 3/ul Normal Absolute Lymph 1.35 Performed By: #### L100.0100 #### [facility] [address] [place], [address] COMPREHENSIVE METABOLIC Collected: 03/03/2018 Status: F Source: [facility] 3:20 PM [facility] REPOSITORY TYPE CODE TESTS RESULT OUT OF RANGE REFERENCE UNITS LAB L501.0100 74-106 mg/dL Normal GLU 83 Result Comment: Please note revised GLUCOSE reference range effective 2017. LAB L501.1000 7-18 mg/dL Normal BUN 10 LAB L501.1100 0.55-1.02 mg/dL Normal CREAT,SERUM 0.57 Result Comment: The validity of the calculated GFR AND GFRAA in patients over 70 years has not been determined. Clinical correlation is essential. LAB L501.1110 >60 mL/min Normal EST GFR 124 Result Comment: Non- GFR Calc LAB L501.1115 >60 mL/min Normal EST GFR - AA 150 Result Comment: GFR Calc LAB L501.1255 ml/min Normal Estimated CRCL 94.24 LAB L501.1300 10-20 RATIO Normal BUN/CRE 17.5 LAB L501.1500 6.4-8. g/dL Normal 2 T PROT 6.9 LAB L501.1800 3.2-5. g/dL Low 0 ALB 2.8 LAB L501.1950 2.2-4. g/dL Normal 2 GLOB 4.1 LAB L501.2000 0.9-2. RATIO Low 4 A/G 0.7 LAB L501.2200 8.5-10 mg/dL Normal .1 CA 8.6 LAB L501.4100 15-37 U/L Low AST 11 LAB L501.4305 45-117 U/L Normal ALK P 62 LAB L501.4405 13-56 U/L Normal ALT 16 LAB L501.4600 0.20-1 mg/dL Normal .00 T BILI 0.40 LAB L501.5300 136-14 mmol/L Normal 5 NA 136 LAB L501.5600 3.5-5. mmol/L Low 1 K 3.4 LAB L501.5900 98-107 mmol/L Normal CL 103 LAB L501.6100 21.0-3 mmol/L Normal 2.0 CO2 25.0 LAB L501.6200 5-15 Normal GAP 8 Performed By: #### L500.4050 #### [facility] [address] [place], [address] URINALYSIS, COMPLETE Collected: 03/03/2018 Status: F Source: [place] 2:50 PM [facility] REPOSITORY Order Comment: How was Urine Obtained? CLEAN CATCH TYPE CODE TESTS RESULT OUT OF RANGE REFERENCE UNITS LAB L400.3000 Yellow COLOR Normal Yellow LAB L400.3050 Clear Normal CLARITY Clear LAB L400.3200 Normal mg/dl Normal GLUCOSE, UR Normal LAB L400.3300 Negative mg/dL Normal BILIRUBIN URINE Negative LAB L400.3400 Negative mg/dl High 5 KETONE UR LAB L400.3465 1.002-1.030 Normal SP.GR. DIPSTX 1.020 LAB L400.3550 5.0 - 8.0 pH UR Normal 6.0 LAB L400.3600 Negative mg/dl High PROT 15 DIPSTX LAB L400.3700 Normal mg/dl High 1 UROBILI LAB L400.3750 Negative Normal NITRITE UR Negative LAB L400.3780 Negative /ul Normal OCCULT BLOOD-UR Negative LAB L400.3800 Negative /ul High LEUK 25 ESTERASE LAB L400.4050 0-5 /hpf WBC 0 Normal SEEN LAB L400.4100 0-5 /hpf 0 Normal RBC-UA SEEN LAB L400.4150 5-10 /hpf SQUAM Normal EPI 10-25 SEEN LAB L400.4300 None Seen /hpf 0 Normal BACTERIA SEEN LAB L400.4350 <or=2+ /hpf 1+ Normal MUCUS, URINE Performed By: #### L400.0001 #### [facility] [place], [address] US OB 1ST TRIMESTER Observed: 01/05/2018 Status: F Source: [facility] TRANSABDOMINAL SINGLE 3:55 PM TWO REPOSITORY FETUS Order Comment: Reason for exam?:constipation Injury/Trauma or Illness?:Illness/Other How long have you had these symptoms (acute/chronic)?:Unknown History of cancer?:. Surgeries, chemotherapy, or radiation?:. Type of Exam?:Unknown Additional signs and symptoms?:. EXAMINATION: US OB 1ST TRIMESTER TRANSABDOMINAL SINGLE FETUS HISTORY: ORDERING SYSTEM PROVIDED HISTORY: + test. Presents with abd cramp and constipation., TECHNOLOGIST PROVIDED HISTORY: Reason for exam: constipation Illness/Other Cancer History: . Surgery, RadiationHistory: . Encounter Type: Unknown Additional signs and symptoms: . ORDERING SYSTEM PROVIDED DIAGNOSIS CODES: COMPARISON: Pelvic ultrasound dated 06/16/2015. TECHNIQUE: Transabdominal and transvaginal sonographic imaging of the pelvis using grayscale B-mode, and M-mode. FINDINGS: TRANSABDOMINAL: The uterus measures 12 x 7.3 x 6.8 cm and contains a probable gestational sac that is not well visualized transabdominally. The ovaries are not well visualized transabdominally. TRANSVAGINAL: The uterus is anteverted. There is a gestational sac with yolk sac and pole in the endometrial cavity. The heart rate is 150 beats per minute. The average crown-rump length is 0.65 cm, which corresponds to an estimated gestational age of 6 weeks and 4 days. The gestational sac measures 2 cm, which corresponds to an estimated gestational age of 6 weeks and 6 days. No focal abnormality associated with the gestational sac. The right ovary measures 2.3 x 2.2 x 1.7 cm, and is normal in size, shape and echogenicity. The left ovary measures 2.4 x 2.4 x 1.8 cm and contains a cystic lesion measuring 1.5 x 1.9 x 2.1 cm, likely representing a corpus luteal cyst. IMPRESSION: 1. Single live intrauterine with heart rate of 150 beats per minute. The estimated gestational age is 6 weeks and 4 days, with an estimated due date of 08/26/2018. 2. Probable corpus luteal cyst in the left ovary. [facility] Workstation ID: [id number] Dictated by: UVALDO FRANK on ThuJan 05, 2018 4:01:14 PM EDT Transcribed by: KEON BERMUDEZ on ThuJan 05, 2018 4:04:18 PM EDT Finalized by: UVALDO FRANK on ThuJan 05, 2018 5:19:28 PM EDT PATIENT SUMMARY Observed: 06/26/2017 Status: F Source: [facility] 12:48 PM HEALTH SYSTEM REPOSITORY PATIENT DISCHARGE INSTRUCTIONS If you are having an emergency and are not able to reach your physician, CALL 911 or go to the nearest emergency room and take this document with you. [facility] [place] 06/26/17 12:48 [address] [place]. [address] PATIENT INFORMATION Name: DEANNA ALMANZA Address: [address] [place] [id number] Age: 42 Years Phone: [phone] : 1975 12:00 MRN: [id number] Sex: Female Race: White Ethnicity: Not Hispan/Lat Admitted From: Clinic or [facility] Medical Service: Orthopedic Surgery Nurse Unit/Bed: ([place]) [facility] N/A Admit Date: 06/26/2017 06:49 PCP: Ruby Campbell DO PHYSICIANS INVOLVED WITH CARE Attending Physicians: Hanna Chinchilla MD - Orthopaedic Surg Admitting Physician: None found Primary Care Physician:Ruby Campbell DO,,,,,,, - Consults: None found FOLLOW-UP APPOINTMENTS: Provider: Specialty: Address: Date: Hanna Chinchilla MD Orthopaedic Surg [address] [address] (1) Two Weeks Provider: Specialty: Address: Date: Ruby Mireles Adrian DO [address] [place] [facility] [address] (1) Follow-up as needed ALLERGIES: Zofran : Reaction:Rash amoxicillin : Reaction:Rash Vicodin : Reaction:Rash MEASUREMENTS: Last Charted: Weight: Admission 118.0 kg /260 lbs 2 oz ( 06/26/17 07:53:00 ) MEDICATIONS For: DEANNA ALMANZA This is your list of medication(s). Keep it with you at all times. Your doctor may have changed doses, add, held or stopped some of your medications. Please share this information with your family alondra r. Carry this list of medications with you in case of an emergency. Update it when medications are stopped, doses are changed, or new medications (including [id number]-aprpkmi products) are added. Ask your doctor if you have any questions. THESE ARE THE MEDICATIONS YOU SHOULD BE TAKING Acetaminophen-OxyCODONE (acetaminophen-oxyCODONE 325 mg-5 mg oral tablet) May take 1-2 Tab PO q4-6 hours ICD G56.22; as needed Pain/Discomfort. Refills: 0. dicyclomine (Bentyl 10 mg oral capsule) 1 Capsule By Mouth 4 Times/Day for 7 Days. Refills: 0. naproxen (naproxen 500 mg oral enteric coated tablet) 1 Tab(s) By Mouth As Needed. omeprazole 20 Milligram By Mouth once a day. promethazine (Phenergan 12.5 mg oral tablet) 1 Tab(s) By Mouth every 4 hours as needed for nausea/vomiting. Refills: 0. MEDICATION CHANGE DETAILS (Not your Final Home Medication List) During the course of your visit, your home medication list was updated with the most current information. The details of those changes are shown below: NEW MEDICATIONS Printed Prescriptions Acetaminophen-OxyCODONE (acetaminophen-oxyCODONE 325 mg-5 mg oral tablet) May take 1-2 Tab PO q4-6 hours ICD G56.22; as needed Pain/Discomfort. Refills: 0. Comment UPDATED MEDICATIONS None UNCHANGED MEDICATIONS Other Medications dicyclomine (Bentyl 10 mg oral capsule) 1 Capsule By Mouth 4 Times/Day for 7 Days. Refills: 0. Comment naproxen (naproxen 500 mg oral enteric coated tablet) 1 Tab(s) By Mouth As Needed. Comment omeprazole 20 Milligram By Mouth once a day. Comment promethazine (Phenergan 12.5 mg oral tablet) 1 Tab(s) By Mouth every 4 hours as needed for nausea/vomiting. Refills: 0. Comment STOP TAKING THESE MEDICATIONS None DO NOT TAKE UNTIL YOU TALK TO YOUR DOCTOR None NON-MEDICATION PRESCRIPTION SCHEDULING PHONE NUMBER: ADVANCE DIRECTIVE/HEALTH CARE DECISIONS: Advance Directive/Health Care Decisions Executed by Patient: : No Information Obtained From: Patient Advance Directive Health Care Information Offered: Patient declines SUICIDE HOTLINE: Your mental and emotional well-being are important. If you are in a mental health crisis, or having thoughts of suicide, please call the nationwide suicide hotline, anytime day or night, at 8-993-305-RQKZ. Important information about accessing your health information through the [facility] patient portal If you initiated the self-registration process for [facility] during your stay, please check your personal email for an invitation to enroll in [facility] and complete the steps outlined in the email. If you would prefer to enroll while in the hospital, ask a member of your care team. We would be happy to assist you. If you have already enrolled in [facility], go to [email or web address] to login and access your health information. Thank you for choosing [facility]. PATIENT EDUCATION What You Should Know About Opioid Medicine What is an Opioid? Opioid medications are used to treat moderate to severe pain. Morphine, Oxycodone (Percocet?), Hydromorphone (Dilaudid?) and Hydrocodone ([place]?) are some types of opioids. How do Opioids work? Opioids reduce the pain signals sent to your brain, which decrease your feelings of pain. Opioids may reduce your pain, but may not take all the pain away. What are the risks from taking opioids? Prescription opioids carry serious risks of physical dependence, addiction and overdose, with lobsterman use. If you take too much of an opioid it can cause sudden . Other risks include but are not limited to: - Physical dependence means you have symptoms of withdrawal when a medication is stopped. - Addiction is a brain disease. Medications change the structure of the brain and how the brain works. These brain changes may be long lasting and can lead to harmful behaviors. - Overdose means you took too much medication. Opioid overdose can result in . Make sure you read all of the medication sheet you received with your prescription. Call 911 right away if you have any of these signs of overdose: - Pale or bluish skin color - Trouble breathing - Severe confusion; not knowing where you are - Your heart is beating slower than normal - You see or hear things that are not real Tell the people you live with that you are taking a medicine that can stop your breathing. Ask them to watch for slow, shallow, or trouble breathing. Tell them to call 911 right away if you have trouble breathing or they cannot wake you up. What you need to know while taking Opioid medication: - Do Not take more medication, or higher doses than prescribed, as you may stop breathing or pass out. - Do not take opioids more often or in higher doses than prescribed. Call your doctor if your pain is not controlled. - Do Not drink alcohol (beer, wine or liquor) while taking this medication, as you may stop breathing or pass out. - Do Not take sleeping pills (like zolpidem (Ambien?) or temazepam (Restoril?)or anti-anxiety medication (like alprazolam (Xanax?), diazepam (Valium?), and lorazepam (Ativan ?) while taking this me dication, as you may stop breathing or pass out. - Do Not crush or alter opioid medication or take it in ways not prescribed by your doctor. - Do Not drive or do tasks that require you to be alert after taking this medication. - If you are , talk to your doctor. Opioids may harm your or baby. What are the side effects from taking opioids? The most common side effects are: - Hard stools (Constipation) - Upset stomach, throwing up and dry mouth - Feeling sleepy - Feeling more pain - Confusion - Depression, low mood, feeling sad or nervous - Itching and sweating - Trouble passing urine Will I become addicted to opioid medication? Addiction is not common when this medication is used for a short time. But, when opioid medications are misused addiction is possible. Talk with your doctor about how to switch to using only non-opio id pain treatment. Please talk to your doctor about your concerns about addiction. How do I safely store and dispose of my opioids? Storage: - Keep your medications secure. - Keep your medications, including any medication patches,out of reach of others (this includes children, friends, family and pets). - Keep your opioids, and all medications, in the pill bottle from the pharmacy. Keep the lid closed. Disposal: - Safely throw out unused opioids: Contact your local pharmacy for how to throw out unused opioid medications or find your local medicine take-back site (http://disposemymeds.org/) - Follow these steps if you can't find a medicine take- back site to throw out , unused or unwanted medicines: Step #1: Mix medicine with used coffee grounds, dirt, or christa litter. Step #2: Put medicines in a sealed plastic bag. Step #3: Place plastic bag in the trash. Step #4: Take prescription bottle and scratch out personal information, then recycle or throw away. - Throw out patch medications by folding them in half with the sticky sides together,and then flushing them down a toilet. Do not place them in the household trash where children or pets can find them. It is against the law to share or sell your opioid medication. What else can I use to treat my pain? Non-opioid pain medications (such as Tylenol?, Motrin?, and Aleve?) may also help with your pain. If your doctor approves, these medications may be used with an opioid medication ordered for you. Non- opioid pain medications also have risks and side effects; please ask your doctor if these medications are safe for you. Many opioid medications also have acetaminophen (Tylenol?) in it. Very bad, and sometimes deadly, liver problems can happen with too much acetaminophen use. What are other ways to help ease your pain? - Heat or ice - Stretching - A pillow under the painful area - Massage - Talking to someone about how your thoughts and feelings affect your pain - Listening to music Talk to your doctor to make sure these actions are safe for you PATIENT DISCHARGE INSTRUCTION Signature Page for: DEANNA ALMANZA Date/Time: 06/26/2017 12:48:18 A Clinician has explained the information on my discharge instructions and has provided me with a copy. My questions have been answered to my satisfaction. Patient Signature Date/Time Responsible Party Date/Time Relationship to Patient Clinician Signature Date/Time CLINICAL SUMMARY Observed: 06/26/2017 Status: F Source: [facility]ACI 12:48 PM HEALTH SYSTEM REPOSITORY CLINICAL SUMMARY Please take this summary document to your follow up appointments. Diony [facility] [place] 06/26/17 12:48 [address] [place]. [address] PATIENT INFORMATION Name: DEANNA ALMANZA Address: [address] [facility] [address] Age: 42 Years Phone: [phone] : 1975 12:00 MRN: [id number] Sex: Female Race: White Ethnicity: Not Hispan/Lat Admitted From: Clinic or [facility] Medical Service: Orthopedic Surgery Nurse Unit/Bed: ([place]) [facility] N/A Admit Date: 06/26/2017 06:49 PCP: Ruby Campbell DO PHYSICIANS INVOLVED WITH CARE Attending Physicians: Tam CHAUDHRY , Hanna Adam Orthopaedic Surg Admitting Physician: None found Primary Care Physician:Ruby Campbell DO,,,,,,, - Consults: None found Problems Active Bipolar 1 disorder Anxiety GERD (gastroesophageal reflux disease) Ulcerative colitis CD (celiac disease) Allergies Zofran (Rash) amoxicillin (Rash) Vicodin (Rash) Procedures Transposition of ulnar nerve at elbow (06/26/2017) MEASUREMENTS: Last Charted: Weight: Admission 118.0 kg /260 lbs 2 oz ( 06/26/17 07:53:00 ) VITAL SIGNS: Last Charted: Pulse Rate: 86 BPM (06/26 12:25) Blood Pressure: 142/74 mm Hg (06/26 12:25) Pain Score: 0(06/26 12:25) Last Bowel Movement: Date/Time: 06/26 08:00 06/25/2017 00:00 MENTAL STATUS: Level of Conciousness: Alert (06/26 12:25) Orientation: Oriented x 4 (06/26 12:25) MEDICATIONS ORDERED / RECOMMENDED TO BE CONTINUED for: DEANNA ALMANZA Acetaminophen-OxyCODONE (acetaminophen-oxyCODONE 325 mg-5 mg oral tablet) May take 1-2 Tab PO q4-6 hours ICD G56.22; as needed Pain/Discomfort. Refills: 0. dicyclomine (Bentyl 10 mg oral capsule) 1 Capsule By Mouth 4 Times/Day for 7 Days. Refills: 0. naproxen (naproxen 500 mg oral enteric coated tablet) 1 Tab(s) By Mouth As Needed. omeprazole 20 Milligram By Mouth once a day. promethazine (Phenergan 12.5 mg oral tablet) 1 Tab(s) By Mouth every 4 hours as needed for nausea/vomiting. Refills: 0. MEDICATION CHANGE DETAILS NEW MEDICATIONS Printed Prescriptions Acetaminophen-OxyCODONE (acetaminophen-oxyCODONE 325 mg-5 mg oral tablet) May take 1-2 Tab PO q4-6 hours ICD G56.22; as needed Pain/Discomfort. Refills: 0. Comment UPDATED MEDICATIONS None UNCHANGED MEDICATIONS Other Medications dicyclomine (Bentyl 10 mg oral capsule) 1 Capsule By Mouth 4 Times/Day for 7 Days. Refills: 0. Comment naproxen (naproxen 500 mg oral enteric coated tablet) 1 Tab(s) By Mouth As Needed. Comment omeprazole 20 Milligram By Mouth once a day. Comment promethazine (Phenergan 12.5 mg oral tablet) 1 Tab(s) By Mouth every 4 hours as needed for nausea/vomiting. Refills: 0. Comment STOP TAKING THESE MEDICATIONS None DO NOT TAKE UNTIL YOU TALK TO YOUR DOCTOR None RECONCILING PROVIDER(S) 06/26/17 10:52:44 EST Electronically Signed by Jose Alfredo Rust MD Acetaminophen-OxyCODONE (acetaminophen-oxyCODONE 325 mg- 5 mg oral tablet) dicyclomine (Bentyl 10 mg oral capsule) naproxen (naproxen 500 mg oral enteric coated tablet) omeprazole promethazine (Phenergan 12.5 mg oral tablet) Inpatient Medication History (active at the time of summary): Do not administer these medications until re-evaluated by a provider at the next level of care. oxygen Nasal Cannula, FIO2/LPM: 2, Target O2 Sat: Greater Than 92%, Supplemental oxygen titration to maintain saturation greater than 92% Lidocaine 1% Inj 2 mL PF (Xylocaine GEq) (lidocaine) 2 mg = 0.2 mL, IntraDermal, Inject, preop, x 30 Day(s) Pharmacy Communication Order 1 Each, Comm, Communication, x 30 Day(s) COMMENTS and SPECIAL INSTRUCTIONS: A significant weight variance has been documented. Verify with the patient's nurse that the weight is correct. Make sure that a correct weight is entered if this variance is an error. Medication doses that are weight based may need to be adjusted. Previous documented Weight is 118.6 kg. Current documented Weight is 11.6 kg. Ketorolac 30 mg/mL Vial 1 mL (Toradol GEq) (Toradol Inj*) 30 mg = 1 mL, IV Push, Inject, Once, PRN, Pain/Discomfort, 06/26/17 10:49:00 EST COMMENTS and SPECIAL INSTRUCTIONS: Do NOT give with other NSAID Medications HYDROmorphone 0.5 mg/0.5 mL INJ 0.5 mL (Dilaudid GEq) (Dilaudid Inj*) 0.5 mg = 0.5 mL, IV Push, Inject, Once, PRN, Pain/Discomfort, 06/26/17 10:49:00 EST COMMENTS and SPECIAL INSTRUCTIONS: May repeat x 1 in 15 minutes if pain persists. OxyCODONE/Acetaminophen 5 mg/325 mg Tab (Percocet GEq) (Percocet 5 mg/325 mg*) 2 Tab, PO, Tab, Once, PRN Pain/Discomfort, 06/26/17 10:49:00 EST COMMENTS and SPECIAL INSTRUCTIONS: Maximum 4 Gm Acetaminophen/Day for Adults Ondansetron 2 mg/mL Inj 2 mL (Zofran GEq) (Zofran Inj*) 4 mg = 2 mL, IV Push, Inject, Once, PRN, Nausea/Vomiting, 06/26/17 10:49:00 EST COMMENTS and SPECIAL INSTRUCTIONS: Administer IV Over 2 Minutes Promethazine 25 mg/mL Inj 1 mL (Phenergan GEq) (Phenergan Inj) 6.25 mg = 0.25 mL, IV Push, Inject, Once, PRN, Nausea/Vomiting, 06/26/17 10:49:00 EST COMMENTS and SPECIAL INSTRUCTIONS: May repeat x 1 in 15 minutes if nausea/vomiting persists FentaNYL 50 mcg/mL Inj 2 mL (Sublimaze GEq) (Sublimaze) 25 mcg = 0.5 mL, IV Push, Inject, Q5min, PRN, Pain - Mild, x 4 Time(s)/Dose(s), 06/26/17 10:09:00 EST COMMENTS and SPECIAL INSTRUCTIONS: Mild pain is defined on a numeric rating scale of 1-3. (Medication is to be administered in PACU Only) TOTAL FENTANYL SHOULD NOT EXCEED 200mcg FentaNYL 50 mcg/mL Inj 2 mL (Sublimaze GEq) (Sublimaze) 50 mcg = 1 mL, IV Push, Inject, Q5min, PRN, Pain - Severe, x 2 Time(s)/Dose(s), 06/26/17 10:09:00 EST COMMENTS and SPECIAL INSTRUCTIONS: in PACU ONLY - 50 mcg up to a maximum cumulative dose of 200 mcg. Severe pain is defined on a numeric rating scale of 10/10. (Medication is to be administered in PACU Only) TOTAL FENTANYL SHOULD NOT EXCEED 200mcg HYDROmorphone 0.5 mg/0.5 mL INJ 0.5 mL (Dilaudid GEq) (Dilaudid Inj*) 0.5 mg = 0.5 mL, IV Push, Inject, Q5min, PRN, Pain - Moderate, x 8 Time(s)/Dose(s), 06/26/17 10:09:00 EST COMMENTS and SPECIAL INSTRUCTIONS: in PACU ONLY; 0.5 mg to a maximum cumulative dose of 4 mg. Moderate pain is defined on the numeric rating scale as 4-9. (Medication is to be administered in PACU Only) EPHEDrine 5 mg/mL Syringe 5 mL (EPHEDrine Inj*) 5 mg = 1 mL, IV Push, Inject, Q5min, PRN, See Comments, x 5 Time(s)/Dose(s), 06/26/17 10:09:00 EST COMMENTS and SPECIAL INSTRUCTIONS: PRN for hypotension. Give if systolic less than 80 and/or diastolic less than 40. (Medication is to be administered in PACU Only) HydrALAZINE 20 mg/mL Vial 1 mL (Apresoline GEq) (Apresoline Inj*) 5 mg = 0.25 mL, IV Push, Inject, Q20min, PRN, See Comments, x 4 Time(s)/Dose(s), 06/26/17 10:09:00 EST COMMENTS and SPECIAL INSTRUCTIONS: PRN for hypertension. Give if systolic exceeds 200 and/or diastolic exceeds 110. (Medication is to be administered in PACU Only) Labetalol 5 mg/mL Syringe 4 mL (Trandate GEq) (Labetalol (Trandate/Normodyne)*) 5 mg = 1 mL, IV Push, Inject, Q5min, PRN, See Comments, x 5 Time(s)/Dose(s), 06/26/17 10:09:00 EST COMMENTS and SPECIAL INSTRUCTIONS: PRN SBP Greater than 200, DBP Greater than 110. Hold for pulse less than 60. (Medication is to be administered in PACU Only) Naloxone 0.4 mg/mL Vial 1 mL (Narcan GEq) (Narcan*) 0.04 mg = 0.1 mL, IV Push, Inject, Q1min, PRN, See Comments, x 5 Time(s)/Dose(s), 06/26/17 10:09:00 EST COMMENTS and SPECIAL INSTRUCTIONS: Notify anesthesia with inadequate respiration and sedation level without significant discomfort. May repeat at 1 minute intervals up to a total of 5 doses or 0.4 mg. (Medication is to be administered in PACU Only) Meperidine 25 mg/mL Syringe 1 mL (Demerol GEq) (Demerol Inj*) 12.5 mg = 0.5 mL, IV Push, Inject, Q20min, PRN, See Comments, x 2 Time(s)/Dose(s), 06/26/17 10:09:00 EST COMMENTS and SPECIAL INSTRUCTIONS: PRN for shivering (Medication is to be administered in PACU Only) EPHEDrine 5 mg/mL Syringe 5 mL (EPHEDrine Inj) 25 mg = 5 mL, IM, Inject, Once, PRN, See Comments, 06/26/17 10:09:00 EST COMMENTS and SPECIAL INSTRUCTIONS: For persistent hypotension for SBP less than 80. (Medication is to be administered in PACU Only) DiphenhydrAMINE 50 mg/mL Vial 1 mL (Benadryl GEq) (Benadryl Inj) 12.5 mg = 0.25 mL, IV Push, Inject, Q20min, PRN, Itching/Pruritus, x 2 Time(s)/Dose(s), 06/26/17 10:09:00 EST COMMENTS and SPECIAL INSTRUCTIONS: (Medication is to be administered in PACU Only) Albuterol 2.5 mg/3 mL Inh Aniya (Proventil/Ventolin GEq) (Albuterol Inh Aniya) 5 mg = 6 mL, Nebul, Aniya, Q30min, PRN, Shortness of Breath, x 2 Time(s)/Dose(s), 06/26/17 10:09:00 EST COMMENTS and SPECIAL INSTRUCTIONS: (Medication is to be administered in PACU Only) Promethazine 25 mg/mL Inj 1 mL (Phenergan GEq) (Promethazine Inj) 6.25 mg = 0.25 mL, IV, Inject, Q30min, PRN, Nausea/Vomiting, x 2 Time(s)/Dose(s), 06/26/17 10:09:00 EST COMMENTS and SPECIAL INSTRUCTIONS: Second line anti-emetic. May repeat to a maximum of 12.5 mg(PACU use only) Scopolamine 1.5 mg Patch (Transderm Scop GEq) (Scopolamine Patch) 1.5 mg = 1 Patch, TransDermal, Patch, Once, PRN, Nausea/Vomiting, 06/26/17 10:09:00 EST COMMENTS and SPECIAL INSTRUCTIONS: Third line anti-emetic. Use only if not applied in pre-op or OR (PACU use only) Haloperidol Lactate 5 mg/mL Vial 1 mL (Haldol GEq) (Haldol Lactate Inj) 0.5 mg = 0.1 mL, IV Push, Inject, Q5min, PRN, Nausea/Vomiting, x 4 Time(s)/Dose(s), 06/26/17 10:09:00 EST COMMENTS and SPECIAL INSTRUCTIONS: Haloperidol is the first line PONV agent. PACU USE ONLY. Maximum dose 2mg total, including any dose given in operating room. Do not exceed 5 mg/min (for IV Push). Atropine 0.1 mg/mL Syringe 10 mL 0.5 mg = 5 mL, IV Push, Inject, Q3min, PRN, See Comments, x 6 Time(s)/Dose(s), 06/26/17 10:09:00 EST COMMENTS and SPECIAL INSTRUCTIONS: as needed for symptomatic bradycardia with a heart rate less than 50 beats per minute. If needed, may repeat doses in 3 - 5 minutes up to a TOTAL of 3 mg. Nitroglycerin Subl Tab 0.4 mg #25 (Nitrostat GEq) (Nitrostat*) 0.4 mg = 1 Tab, Subl, Tab Subl, Q5min, PRN, See Comments, x 30 Day(s), 06/26/17 10:09:00 EST COMMENTS and SPECIAL INSTRUCTIONS: PRN Chest Pain - Administer Q5 min x 3 doses as needed per episode of chest pain. If no relief after 3 doses contact Physician. Hold if systolic blood pressure less than 100 mmHg. Patch Removal 1 Patch, TransDermal, Patch, Once, Nausea/Vomiting COMMENTS and SPECIAL INSTRUCTIONS: SCOPOLAMINE *Check for Patch from Home* Remove Old Patch Before Applying New Lactated Ringers 1,000 mL 1,000 mL, 25 mL/hr, IV, x 1 Time(s)/Dose(s), 1,000 mL, Infusion, 117.6 kg Last Dose: 06/26/17 08:14:00 Lactated Ringers (Lactated Ringers Bolus) 500 mL, IV, Infusion, Q30min, x 3 Time(s)/Dose(s), PRN See Comments, 06/26/17 10:09:00 EST COMMENTS and SPECIAL INSTRUCTIONS: Bolus for pt presenting with hypotension or decreased urine output. Call anesthesiologist carbon setter if hypotension persists after first bolus. (Medication is to be administered in PACU Only) INACTIVE MEDICATIONS GIVEN IN THE LAST 36 HOURS: Medications Discontinued or Completed in the last 36 hours: Midazolam 1 mg/mL Vial 2 mL (Versed GEq) 2 mg = 2 mL, IV, Inject, Once Last Dose: 06/26/17 10:48:00 COMMENTS and SPECIAL INSTRUCTIONS: 2mg/2mL Dose/Total Volume (Anesthesia) FentaNYL 50 mcg/mL Inj 2 mL (Sublimaze GEq) 50 mcg = 1 mL, IV, Inject, Once Last Dose: 06/26/17 10:43:00 COMMENTS and SPECIAL INSTRUCTIONS: 50mcg/1mL Dose/Total Volume (Anesthesia) FentaNYL 50 mcg/mL Inj 2 mL (Sublimaze GEq) 25 mcg = 0.5 mL, IV, Inject, Once Last Dose: 06/26/17 10:30:00 COMMENTS and SPECIAL INSTRUCTIONS: 25mcg/0.5mL Dose/Total Volume (Anesthesia) FentaNYL 50 mcg/mL Inj 2 mL (Sublimaze GEq) 25 mcg = 0.5 mL, IV, Inject, Once Last Dose: 06/26/17 10:19:00 COMMENTS and SPECIAL INSTRUCTIONS: 25mcg/0.5mL Dose/Total Volume (Anesthesia) FentaNYL 50 mcg/mL Inj 2 mL (Sublimaze GEq) 25 mcg = 0.5 mL, IV, Inject, Once Last Dose: 06/26/17 10:09:00 COMMENTS and SPECIAL INSTRUCTIONS: 25mcg/0.5mL Dose/Total Volume (Anesthesia) FentaNYL 50 mcg/mL Inj 2 mL (Sublimaze GEq) 25 mcg = 0.5 mL, IV, Inject, Once Last Dose: 06/26/17 10:01:00 COMMENTS and SPECIAL INSTRUCTIONS: 25mcg/0.5mL Dose/Total Volume (Anesthesia) FentaNYL 50 mcg/mL Inj 2 mL (Sublimaze GEq) 50 mcg = 1 mL, IV, Inject, Once Last Dose: 06/26/17 09:43:00 COMMENTS and SPECIAL INSTRUCTIONS: 50mcg/1mL Dose/Total Volume (Anesthesia) FentaNYL 50 mcg/mL Inj 2 mL (Sublimaze GEq) 25 mcg = 0.5 mL, IV, Inject, Once Last Dose: 06/26/17 09:37:00 COMMENTS and SPECIAL INSTRUCTIONS: 25mcg/0.5mL Dose/Total Volume (Anesthesia) FentaNYL 50 mcg/mL Inj 2 mL (Sublimaze GEq) 25 mcg = 0.5 mL, IV, Inject, Once Last Dose: 06/26/17 09:30:00 COMMENTS and SPECIAL INSTRUCTIONS: 25mcg/0.5mL Dose/Total Volume (Anesthesia) Dexamethasone Sodium Phosphate 4 mg/mL Vial 1 mL (Decadron GEq) 4 mg = 1 mL, IV, Inject, Once Last Dose: 06/26/17 09:30:00 COMMENTS and SPECIAL INSTRUCTIONS: 4mg/1mL Dose/Total Volume (Anesthesia) FentaNYL 50 mcg/mL Inj 2 mL (Sublimaze GEq) 25 mcg = 0.5 mL, IV, Inject, Once Last Dose: 06/26/17 09:25:00 COMMENTS and SPECIAL INSTRUCTIONS: 25mcg/0.5mL Dose/Total Volume (Anesthesia) Lidocaine 2% Vial 5 mL PF (Xylocaine GEq) 100 mg = 5 mL, IV, Inject, Once Last Dose: 06/26/17 09:23:00 COMMENTS and SPECIAL INSTRUCTIONS: 100mg/5mL Dose/Total Volume (Anesthesia) Propofol 10 mg/mL Vial 20 mL (Diprivan GEq) 200 mg = 20 mL, IV, Inject, Once Last Dose: 06/26/17 09:23:00 COMMENTS and SPECIAL INSTRUCTIONS: 200mg/20mL Dose/Total Volume (Anesthesia) FentaNYL 50 mcg/mL Inj 2 mL (Sublimaze GEq) 25 mcg = 0.5 mL, IV, Inject, Once Last Dose: 06/26/17 09:20:00 COMMENTS and SPECIAL INSTRUCTIONS: 25mcg/0.5mL Dose/Total Volume (Anesthesia) Clindamycin (RTU) 900 mg, IVPB, preop,, x 30 Day(s), 06/26/17 9:07:00 EST, Prophylaxis Last Dose: 06/26/17 09:35:00 Haloperidol Lactate 5 mg/mL Vial 1 mL (Haldol GEq)(unverified) 2 mg = 0.4 mL, IV Push, Inject, Once,, 06/26/17 10:50:00 EST Last Dose: 06/26/17 10:50:00 Lactated Ringers 1000 mL IV, 1,000 mL, Infusion, Once Last Dose: 06/26/17 10:50:00 FOLLOW-UP APPOINTMENTS: Provider: Specialty: Address: Date: Hanna Chinchilla MD Orthopaedic Surg [address] [address] (1) Two Weeks Provider: Specialty: Address: Date: Ruby aCmpbell DO [address] [facility] [address] (1) Follow-up as needed ADVANCE DIRECTIVE/HEALTH CARE DECISIONS: Advance Directive/Health Care Decisions Executed by Patient: : No Information Obtained From: Patient Advance Directive Health Care Information Offered: Patient declines Physician Signature Date/Time PATIENT EDUCATION ANESTHESIA POSTOPERATIVE Observed: 06/26/2017 Status: F Source: [facility] NOTE 12:25 PM HEALTH SYSTEM REPOSITORY Patient: DEANNA ALMANZA MRN: ([id number] Age: 42 years Sex: Female : 1975 Associated Diagnoses: None Author: Sergo Rubio DO Supervising Physician Comments Documentation By: Consulting Physician. Subjective Subjective: Patient participated in the evaluation: Yes. Nausea: not present. Vomiting: not present. Pain: acceptable pain control. Objective Objective: Vital Signs: Last Charted Vital Signs Temperature: 97.4 (06/26 12:15) Pulse: 93 (06/26 12:15) Respiration: 17 (06/26 12:15) BP: 160/95 (06/26 12:15) Pulse Ox: 94 (06/26 12:15) Oxygen Delivery: Room air (06/26 12:15) Pain Score: 10 (06/26 10:49) . Mental Status: Unchanged from preanesthesia assessment. Postoperative hydration: adequate. Assessment Assessment: Post anesthetic condition: no anesthetic complications. Airway patent: yes. Plan Plan: Postanesthesia Plan: post anesthetic surveillance concluded. POST OPERATIVE NOTE Observed: 06/26/2017 Status: F Source: [facility] 10:46 AM HEALTH SYSTEM REPOSITORY Patient: DEANNA ALMANZA MRN: [id number])-[id number] Age: 42 years Sex: Female : 1975 Associated Diagnoses: None Author: Hanna Chinchilla MD Operative Information Date of surgery: 06/26/17 09:43 . Postoperative Diagnosis: G56.22 Lesion of ulnar nerve, left upper limb . Procedure Performed: Primary Procedure: ULNAR TRANSPOSITION LEFT ELBOW . Surgeon: Primary Surgeon: Hanna Chinchilla MD . 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 Type of Anesthesia: General Laryngeal Mask Airway. Estimated Blood Loss: Minimal less than 10mL. Procedure Findings: same. Specimen(s) Removed: None. PREOP NURSING Observed: 06/26/2017 Status: C Source: [facility] 10:42 AM [facility] RE[facility]IT[facility] PreOp Nursing Record Summary Primary Physician: Hanna Chinchilla MD Finalized Date/Time: 06/26/17 13:02:22 Pt. Name: DEANNA ALMANZA/Sex: 1975 Female Med Rec #: [id number] Physician: Financial #: [id number] Pt. Type: A Room/Bed: [address] [place] [address] Admit/Disch: 06/26/17 06:49:00 - Institution: [facility] PreOp Case Times Entry 1 PreOp Case Times In Room Time 06/26/17 07:40:00 Out Room Time 06/26/17 09:15:00 Last Modified By: Lyubov Bahena RN 06/26/17 09:55:03 [facility] PreOp Case Attendees Entry 1 Case Attendee Ravinder THAPA , Whitley Sweeney RN Last Modified By: Whitley Castellon RN 06/26/17 08:36:54 Finalized By: Fallon Yanez RN Document Signatures Signed By: Lyubov Bahena RN 06/26/17 09:55 Fallon Yanez RN 06/26/17 13:02 OR NURSING Observed: 06/26/2017 Status: F Source: [facility] 10:42 AM [facility] OR Nursing Record Summary Primary Physician: Hanna Chinchilla MD Finalized Date/Time: 06/26/17 11:03:27 Pt. Name: DEANNA ALMANZA/Sex: 1975 Female Med Rec #: [id number] Physician: Financial #: [id number] Pt. Type: A Room/Bed: / Admit/Disch: 06/26/17 06:49:00 - Institution: [facility] OR Case Times Entry 1 Patient Times Patient In Room 06/26/17 09:16:00 Patient Out Room 06/26/17 10:44:00 Surgical Times Start Time 06/26/17 09:43:00 Stop Time 06/26/17 10:42:00 Last Modified By: Josef RN , Lyubov 06/26/17 10:53:26 [facility] Case Attendees Entry 1 Entry 2 Entry 3 Case Attendee Tam CHAUDHRY , Hanna Winston MD , Zander TREVINO, Mina Ashby Role Performed Primary Surgeon Anesthesiologist Nurse Vp Project Time In 06/26/17 09:16:00 06/26/17 09:16:00 06/26/17 09:16:00 Time Out 06/26/17 10:44:00 06/26/17 10:44:00 06/26/17 10:44:00 Procedure Release Elbow(Left) Release Elbow(Left) Release Elbow(Left) Attendee Comment Relief Reason Last Modified By: Josef RN , Lyubov Bahena RN , Lyubov Bahena RN , Lyubov 06/26/17 10:53:32 06/26/17 10:53:32 06/26/17 10:53:32 Entry 4 Entry 5 Entry 6 Case Attendee Lillian RN , Xena Bahena RN , Lyubov Bustillos, Attendee Other Role Performed First Scrub jewelry mechanic Student Java Programmer Analyst Time In 06/26/17 09:16:00 06/26/17 09:16:00 06/26/17 09:16:00 Time Out 06/26/17 10:44:00 06/26/17 10:44:00 06/26/17 10:44:00 Procedure Release Elbow(Left) Release Elbow(Left) Release Elbow(Left) Attendee Comment MARY LUITEL-FORTIS Relief Reason Last Modified By: Josef RN , Lyubov Bahena RN , Lyubov Bahena RN , Lyubov 06/26/17 10:53:32 06/26/17 10:53:32 06/26/17 10:53:32 Entry 7 Case Attendee Jose Alfredo Rust MD Role Performed Resident Time In 06/26/17 09:16:00 Time Out 06/26/17 10:44:00 Procedure Release Elbow(Left) Attendee Comment Relief Reason Last Modified By: Josef THAPA , Lyubov 06/26/17 10:53:32 [facility] OR General Case License Inspector 1 OR CO W 16 ASA Class 3 Case Wound Class Clean Specialty Orthopedic Surgery Case Level Ortho Major Diagnosis Preop Diagnosis G56.22 Lesion of ulnar Postop Same As Preop Yes nerve, left upper limb Postop Diagnosis G56.22 Lesion of ulnar nerve, left upper limb This is a down time No record. Last Modified By: Lyubov Bahena RN 06/26/17 09:13:33 [facility] Surgical Procedures Entry 1 Procedure Release Elbow Primary Procedure Yes Modifiers Left Procedure Wound Clean Class Primary Surgeon Tam CHAUDHRY , Hanna Smith Surgical Service Orthopedic Surgery Anesthesia Type General Procedure Performed ULNAR TRANSPOSITION LEFT ELBOW Start 06/26/17 09:43:00 Stop 06/26/17 10:42:00 Last Modified By: Lyubov Bahena RN 06/26/17 10:45:15 [facility] OR Patient Positioning Entry 1 Body Position Supine Pressure Points Yes Assessed? Right Arm Position On armboard Left Arm Position On armboard Positioning Device Hand Table Right Leg Position Straight Left Leg Position Straight Safety Strap Applied Yes Safety Strap Thighs Procedure Release Elbow(Left) Location Last Modified By: Lyubov Bahena RN 06/26/17 11:03:22 [facility] OR Tourniquet Entry 1 Site Upper arm left Applied By Yocasta CHAUDHRY, Jose Alfredo Padbethany Webroll/Softroll Cuff Size 18 Inch Unit ID Number H Setting 250 mmHg Inflated 06/26/17 09:42:00 Deflated 06/26/17 10:40:00 Last Modified By: Lyubov Bahena RN 06/26/17 10:41:02 [facility] Skin Prep Entry 1 Hair Removal Method None Skin Prep Prep Agents Chlorhexidine Gluconate Prep Site left arm 2% w Alcohol Procedure Release Elbow(Left) Last Modified By: Lyubov Bahena RN 06/26/17 09:13:55 [facility] Fire Risk Assessment Entry 1 Alcohol Based Prep Yes Solution Dry Time >3 Minutes or According to Manufactures Instructions. No Pooling Observed. (No Alcohol Prep used Select N/A) Fire Risk Factors Yes = 1, No or N/A = 0 Procedure Yes Open O2 Source No Site/Incision Above (Face Mask/Nasal Xyphoid Process Cannula) Ignition source Yes Fire Risk Total 2 (Cautery, Laser, Score Fiberoptic Light Source) Last Modified By: Lyubov Bahena RN 06/26/17 09:53:43 Post-Care Text: Standard Fire Safety precautions - Score 1 or 2 Prep drying time - minimum three minutes Protected heat source (i.e bovie damon) Standard draping procedure HIGH RISK FIRE PRACTICES - SCORE 3 *RN verbalizes to the team the presence of high-risk score and verifies the fire triangle *Write High Risk on the white board *Verbally confirm lowest effective setting on the heat source *Minimize 02 entrapment by proper draping of the patient *Encourage use of wet sponges *Available basin with sterile water and bulb syringe for suppression *Anesthesia Awareness and communication of oxygen flows/concentration *Allow for dispersion of 02 at least 1 minute before and during electrosurgical and laser use and communicate to surgeon *Use lowest tolerable concentration of 02 (less than 30% when able) [facility] OR Surgical Safety Checklist Entry 1 TIme Out Verified 06/26/17 09:41:00 Procedure Release Elbow(Left) At: Pre-Induction Patient confirms Before Introduction of Additional identity, site and Incision/Suspend surgical team and/or Verification procedure, Anesthesia all Activities new members, Entire safety check complete, (Before surgical team verbally pulse ox on, Confirm Incision/Start of confirm patient, site, patient allergies, Procedure) procedure, Surgeon Patient aspiration risk reviews: what are the was assessed and critical or unexpected equipment/assistance steps, operative available if necessary, duration, and Blood loss assessment; anticipated blood if risk of >500 mL loss?, Anesthesia blood loss (7mL/kg in reviews: are there any children) adequate IV patient-specific access, fluids and/or concerns?, Nursing team blood products planned, reviews: has sterility Implants, devices, been confirmed and are special equipment there any available and patient-specific functioning concerns?, Antibiotic infused/ing and redosing discussed if applicable, Relevant images and results properly labeled and correctly displayed if applicable Fire Risk Yes Assessment Completed Last Modified By: Lyubov Bahena RN 06/26/17 09:53:06 [facility] Cautery Entry 1 Cautery and Settings Type Bipolar Unit ID Number [id number] Last Modified By: Lyubov Bahena RN 06/26/17 09:53:18 [facility] Medication Entry 1 Medication COW BUPIVACAINE 0.5% Medication Dosage 30 ML 5MG/ML INJECTION MARCAINE Route of INJECTION Meds Administered By Tam CHAUDHRY [facility] Administration Last Modified By: Lyubov Bahena RN 06/26/17 09:53:34 [facility] Irrigation Entry 1 Irrigant 0.9% Saline Irrigant Volume 1000 mL Last Modified By: Lyubov Bahena RN 06/26/17 09:52:30 [facility] Counts Entry 1 Entry 2 Instrument Count N/A N/A Surgeon Notified of No Count Sponge Count Initial Count Done 1st count correct X-ray Taken No No Sharps/Miscellaneous Initial Count Done 1st count correct Count RN Performing Count Lillian THAPA , Lyubov Donnelly RN Count Performed with Case, Attendee Other Case, Attendee Other Comment Procedure Release Elbow(Left) Release Elbow(Left) Last Modified By: Josef THAPA , Lyubov Bahena RN , Lyubov 06/26/17 09:53:55 06/26/17 10:26:17 [facility] Dressing/Packing Entry 1 Entry 2 Entry 3 Dressing Dressing/Packing DRESSING ADAPTIC 3 X 16 BANDAGE ELAST [id number] GAUZE BANDAGE ROLL Type NON-ADHERING [id number] LF STER [id number] KERLIX [id number] Dressing/Packing LEFT ARM Site Tape Dressing/Packing Comment Last Modified By: Josef THAPA , Lyubov Bahena RN , Lyubov Bahena RN , Lyubov 06/26/17 10:26:04 06/26/17 10:26:04 06/26/17 10:26:04 Entry 4 Entry 5 Dressing Dressing/Packing DRESSING PAD ABD [id number] SLING ARM CHIEFTAIN LG Type STERILE [id number] Dressing/Packing Site Tape Dressing/Packing Comment Last Modified By: Josef THAPA , Lyubov Bahena RN , Lyubov 06/26/17 10:26:04 06/26/17 10:29:58 [facility] Temperature Regulation Entry 1 Unit ID NA Warm blankets, Warm fluids Last Modified By: Lyubov Bahena RN 06/26/17 09:54:02 [facility] Final Count Entry 1 Sponges Correct Yes Sharps/Miscellaneous Yes Correct Instruments Correct n/a Count Performed with Case, Attendee Other RN Performing Count Lyubov Bahena RN Surgeon Notified of Yes Count X-ray Taken No Procedure Release Elbow(Left) Last Modified By: Lyubov Bahena RN 06/26/17 10:26:30 [facility] OR PNDS Risk of Impaired Skin Entry 1 Interventions/Activi Identifies physical OUTCOME STATEMENTS: The patient is free ties: alterations that may from visible signs and affect symptoms of injury procedure-specific related to positioning, positioning., Positions immobilization, the patient., pressure and/or Implements protective shearing forces. measures to prevent skin or tissue injury due to thermal, chemical, or mechanical sources., Uses supplies and equipment within safe parameters., Evaluates for signs and symptoms of injury as a result of positioning, immobilization, pressure and/or shearing forces. Last Modified By: Lyubov Bahena RN 06/26/17 09:54:07 [facility] OR PNDS Risk of Infection Entry 1 INTERVENTIONS/ACTIVI Implements aseptic OUTCOME STATEMENT: The patient is free of TIES: technique., Classifies signs and symptoms of surgical wound., infection at the Assesses susceptibility conclusion of the for infection., operative period. Performs skin preparations., Protects from cross-contamination., Monitors for signs and symptoms of infection., Initiates traffic control. Last Modified By: Lyubov Bahena RN 06/26/17 09:54:13 [facility] OR PNDS Risk of Injury Entry 1 Interventions/Activi Implements protective OUTCOME STATEMENT: The patient is free ties: measures to prevent from visible signs and injury due to symptoms of injury electrical sources., related to electrical, Implements protective mechanical, radiation measures to prevent or laser. injury due to mechanical sources, Implements latex allergy precautions as needed, Records devices implanted during invasive procedure., Performs required counts., Evaluates for signs and symptoms of laser, electrical, mechanical and radiation injury. Last Modified By: Lyubov Bahena RN 06/26/17 09:54:17 [facility] Patient Debriefing Entry 1 Patient Debriefing Verify name of Skin Assessment Unchanged from procedure(s) performed After Pre-Procedure including site/side, Sponge and needle counts are correct, N/A review specimens and how each is labeled, Discuss equipment, instrument problems reported and case improvements, Review aquino concerns for further patient management Last Modified By: Lyubov Bahena RN 06/26/17 09:54:24 [facility] Transport from OR Entry 1 Patient Status Awakening Post-op Destination PACU Phase I Via Bed Last Modified By: Lyubov Bahena RN 06/26/17 09:54:38 Case Comments <None> Finalized By: Lyubov Bahena RN Document Signatures Signed By: Lyubov Bahena RN 06/26/17 11:03 PACU I NURSING Observed: 06/26/2017 Status: C Source: [facility] 10:42 AM [facility] RE[facility]IT[facility] PACU I Nursing Record Summary Primary Physician: Hanna Chinchilla MD Finalized Date/Time: 06/26/17 13:02:56 Pt. Name: DEANNA ALMANZA/Sex: 1975 Female Med Rec #: [id number] Physician: Financial #: [id number] Pt. Type: A Room/Bed: 0416/ Admit/Disch: 06/26/17 06:49:00 - Institution: [facility] Main PACU I Case Times Entry 1 In PACU I 06/26/17 10:48:00 Ready for PACU I 06/26/17 12:15:00 Discharge Discharge from PACU 06/26/17 12:15:00 PACU I Discharge NA I Delay Reason Last Modified By: Aura Sanchez RN 06/26/17 12:18:13 [facility] Main PACU I Case Attendees Entry 1 Case Attendee Daniel THAPA , Aura Ackerman Role Performed RN Last Modified By: Aura Sanchez RN 06/26/17 10:57:45 Finalized By: Fallon Yanez RN Document Signatures Signed By: Aura Sanchez RN 06/26/17 12:18 Aura Sanchez RN 06/26/17 12:18 Fallon Yanez RN 06/26/17 13:02 POST PACU NURSING Observed: 06/26/2017 Status: F Source: [facility] 10:42 AM [facility] RE[facility] PACU II Nursing Record Summary Primary Physician: Hanna Chinchilla MD Finalized Date/Time: 06/26/17 14:46:33 Pt. Name: DEANNA ALMANZA/Sex: 1975 Female Med Rec #: [id number] Physician: Financial #: [id number] Pt. Type: A Room/Bed: [facility]6/ Admit/Disch: 06/26/17 06:49:00 - 06/26/17 13:43:00 Institution: [facility] OR PACU II Case Times Entry 1 In PACU II 06/26/17 12:25:00 Ready for PACU II 06/26/17 13:41:00 Discharge Discharge from PACU 06/26/17 13:41:00 II Last Modified By: Amna Garcia RN 06/26/17 13:41:43 [facility] PACU II Case Attendees Entry 1 Case Attendee Amna Garcia RN Role Performed RN Last Modified By: Amna Garcia RN 06/26/17 13:41:22 Finalized By: Fallon Yanez RN Document Signatures Signed By: Fallon Yanez RN 06/26/17 14:46 ANESTHESIA PREOPERATIVE Observed: 06/26/2017 Status: F Source: [facility] ASSESSMENT 9:02 AM [facility] SYSTEM REPOSITORY Patient: DEANNA ALMANZA MRN: [id number] Age: 42 years Sex: Female : 1975 Associated Diagnoses: None Author: Mina Fermin CRNA Surgery Date: 06/26/17 Preoperative Information Source of History Source of History: the patient. Planned Procedure Planned Procedure left elbow ulnar transposition . Histories Past Medical History: Active Anxiety Bipolar 1 disorder CD (celiac disease) GERD (gastroesophageal reflux disease) Ulcerative colitis Resolved Kidney calculi , Cardiovascular: Greater than or equal to 4 metabolic equivalents (METS) without symptoms, Respiratory, Renal, Endocrine, Neurological, Musculoskeletal, Gastrointestinal, Hematology, 06/26 07:54 Gastro-esophageal reflux disease without esophagitis - Marc[facility] Franco CNP 06/26 07:54 Lesion of ulnar nerve, left upper limb - Marciano Franco CNP 06/26 07:54 Encounter for preprocedural cardiovascular examination - Marciano Franco CNP Social History: Type of Tobacco Use: Cigarettes Pt Accepted Tobacco Use..: No Tobacco Use Cessation I..: No Smoking Status: Former smoker, quit within the past 30 days How Often Do You Drink ..: Never (0) Surgical/Procedure History: Surgical/Procedure Hx Hernia umbilical ([id number]). Gallbladder laparascopic cholecystectomy ([id number]). delivery ([id number]). Lithotripsy ([id number]). Anesthesia History: No previous anesthetic complications, PONV Risk Factors (One point for each of the following risk factors): A. Nonsmoker (_) B. Female (X_) C. Previous PONV (_) D. Hx Motion Sickness (_) E. Surgery > 30 min use (X_) F. PONV Risk Score [2_] 06/26 07:54 [facility] 06/26 07:54 Lesion of ulnar nerve, left upper limb - [facility] Marciano MAYEN 06/26 07:54 Encounter for preprocedural cardiovascular examination - [facility] Marciano MAYEN Social History Drug Use Medications Allergies Zofran: Severity not charted, Rash amoxicillin: Severity not charted, Rash Vicodin: Severity not charted, Rash All Medications Admission Med Reconciliation: Not Complete Home Medications: omeprazole 20 mg, PO, Daily,,, Each Last Dose: 06/25/17 18:00 Still taking, as prescribed naproxen 500 mg = 1 Tab, PO, PRN,,, Each Last Dose: Not Charted dicyclomine 10 mg = 1 Cap, PO, QID, x 7 Day(s), 28,, Cap Last Dose: Not Charted promethazine 12.5 mg = 1 Tab, PO, Q4h, PRN, Last Dose: Not Charted Inpatient Medications: Lidocaine 1% Inj 2 mL PF (Xylocaine GEq) 2 mg = 0.2 mL, IntraDermal, Inject, preop x 30 Day(s) Last Dose: Not Given Pharmacy Communication Order (unverified) 1 Each, Comm, Communication x 30 Day(s) , Comment: A significant weight variance has been documented. Verify with the patient's nurse that the weight is correct. Make sure that a correct Last Dose: Not Given Current IV Orders: CeFAZolin 2 Gm, IVPB, preop x 30 Day(s) Last Dose: Not Given Comment: Refrigerate Lactated Ringers 1,000 mL 1,000 mL, 1,000 mL, 25 mL/hr, IV x 1 Time(s)/Dose(s), Infusion, 117.6 kg Last Dose: 06/26/17 08:14:00 Quality Measures Documentation Surgical care core measures Physical Examination VS/Measurements: Last Charted Vital Signs Temperature: 97.7 (06/26 08:00) Pulse: 76 (06/26 08:00) Respiration: 20 (06/26 08:00) BP: 128/81 (06/26 08:00) Pulse Ox: 96 (06/26 08:00) Oxygen Delivery: Room air (06/26 08:00) Pain Score: 6 (06/26 08:00) , Measurements Height: 152.40 cm /60.00 in (Pt reported) (06/26/2017 07:53:00) Weight: 118 kg/ 260 lbs 2.3 oz (Actual) (06/26/2017 07:53:00) Body Surface Area: 2.24 m2 Body Mass Index: 50.81 . Mouth/Airway: Dental (from Forms) No dental information charted . Mallampati: Class 2. Dental status: Teeth in good repair. Neck: Full range of movement. Mouth: Mouth opening unrestricted. Jaw: Normal jaw. Respiratory: Breath sounds equal bilaterally, no wheezing, no rhonchi, no rales. Cardiovascular: Cardiac sounds: regular rhythm, no murmurs, no gallops. Neurologic: Oriented to person, time, place, and situation. No gross neurological deficits noted. Results Review General results Laboratory Last 90 Days Hematology 06/04/17 13:53, WBC = 6.1 thou/mcL 06/04/17 13:53, RBC = 4.41 million/mcL 06/04/17 13:53, Hb = 12.9 gm/dL 06/04/17 13:53, Hematocrit = 38.3 % 06/04/17 13:53, Platelets = 199 thou/mcL 06/04/17 13:53, MCV = 86.9 FL 06/04/17 13:53, MCH = 29.3 Picograms 06/04/17 13:53, RDW = 14.1 % 06/04/17 13:53, MCHC = 33.7 gm/dL 06/04/17 13:53, Neutrophil Ab = 4.10 thou/mcL 06/04/17 13:53, Monocyte Ab = 0.40 thou/mcL 06/04/17 13:53, Eosinophil Ab = 0.20 thou/mcL 06/04/17 13:53, Basophil Ab = 0.00 thou/mcL 06/04/17 13:53, Lymphocyte Ab = 1.50 thou/mcL Other Labs 06/04/17 13:53, MPV = 10.3 FL 06/04/17 13:53, Neutrophil = 66.1 % 06/04/17 13:53, Lymphocyte = 24.3 % 06/04/17 13:53, Monocyte = 6.3 % 06/04/17 13:53, Eosinophil = 2.6 % 06/04/17 13:53, Basophil = 0.7 % 04/16/17 14:17, HCG Quantitative = <1 mIU/mL Point Of Care Tests No point of care testing charted Assessment ASA Classification 3. Oral intake status Nothing after midnight. Plan Anesthesia Discussion The patient was interviewed:: Yes. The patient was examined:: Yes. Informed Consent:: Obtained. The anesthetic plan, options, risks, and benefits were discussed:: With the patient. Anesthesia Preoperative Plan Proposed Anesthesia Type: General with Laryngeal Mask Airway. The participation of Certified Registered Nurse Anesthetists was discussed: Yes. Patient requests/comments: Blood Product Preference: Yes blood products. The following risks/potential anesthesia problems were discussed: Nausea, Vomiting, Headache, Sore throat, Dental injury, Serious complications. Preoperative Information Planned Procedure left elbow ulnar transposition HISTORY AND PHYSICAL Observed: 06/26/2017 Status: F Source: [facility] 7:23 AM [facility] REPOSITORY Patient: DEANNA ALMANZA MRN: ([id number] Age: 42 years Sex: Female : 1975 Associated Diagnoses: None Author: Marciano Mccray CNP Supervising Physician Comments Documentation By: Nurse Practitioner. Admission Information Reason for admission Chief complaint: preoperative risk assessment. Source of History Source of History: the patient. History of Present Illness 42 year old female relates history of left elbow pain, began in 02/2018, radiates into left hand, reports chronic numbness/tingling in half of left hand. Has had symptoms evaluated, been diagnosed with lesion of ulnar nerve, left upper limb, and plans to have ulnar transposition left elbow today with Dr. Chinchilla. Presents today for a perioperative risk assessment prior to surgery. Climbs stairs in h ome, denies dyspnea/chest pain with activity, able to reach 4 mets. Patient denies history of adverse reaction to anesthesia. PCP: Dr. Campbell Director Of Land: None Past Medical History Active Anxiety Bipolar 1 disorder CD (celiac disease) GERD (gastroesophageal reflux disease) Ulcerative colitis Surgical History Surgical/Procedure Hx Hernia umbilical ([id number]). Gallbladder laparascopic cholecystectomy ([id number]). delivery ([id number]). Lithotripsy (296358541). Health Status Allergies Allergic Reactions (Selected) Severity Not Documented Amoxicillin- Rash. Ibuprofen- Nausea and vomiting control behavior. Vicodin- Rash. Zofran- Rash. Medication List (Selected) Prescriptions Prescribed Bentyl 10 mg oral capsule: 1 Cap, PO, QID, for 7 Day(s), 28 Cap, 0 Refill(s) Pepcid 40 mg oral tablet: 1 Tab, PO, Daily, 15 Tab, 0 Refill(s) Zofran ODT 4 mg oral tablet, disintegratin Tab, Subl, Q6h, for 2 Day(s), PRN: Nausea and Vomitting, 8 Tab, 0 Refill(s) Documented Medications Documented naproxen 500 mg oral enteric coated tablet: 1 Tab, PO, PRN, Each, 0 Refill(s) Review of Systems Review of Systems Constitutional: fever (low grade fever at home of 99.0), denies chills, denies general weakness. Head/Neck: denies lightheadedness, denies neck pain. Eye: denies visual disturbance. Ear/Nose/Mouth/Throat: nasal congestion, denies earache, denies sore throat. Neurologic: paresthesias (HPI), denies seizure, denies syncope. Cardiovascular: denies chest pain, denies palpitations, denies peripheral edema. Respiratory: cough, denies shortness of breath. Gastrointestinal: diarrhea (recently then resolved), denies abdominal pain, denies nausea, denies vomiting, denies constipation, denies melena, denies reflux symptoms. Genitourinary: denies dysuria, denies frequency, denies hematuria. Musculoskeletal: joint pain, denies back pain. Skin: denies breakdown, denies rash, denies lesion. Endocrine: denies hyperglycemia. Hematologic: denies anemia, denies bleeding tendency, denies bruising tendency. Psychiatric: anxiety, bipolar disorder , denies depression, denies suicidal. Pertinent positives noted above. The remainder of review of systems x 10 is negative except as stated above and in the HPI. Sleep Apnea Screenin. Snoring? N 2. Tired during the day? N 3. Observed apnea? N 4. Are you being treated for HTN? N 5. BMI>35? Y 6. Age >50? N 7. Male? N Score: Greater than 3 positive responses indicates high risk for sleep apnea Social History Social History (from Forms) Type of Tobacco Use: Cigarettes Pt Accepted Tobacco Use..: No Tobacco Use Cessation I..: No Smoking Status: Former smoker, quit within the past 30 days How Often Do You Drink ..: Never (0) Family History Sjorgen's syndrome, HTN Physical Examination Last Charted Vital Signs Temperature 97.7 Pulse 76 Respirations 20 Blood Presure 128/81 Pulse ox 96% room air Pain 6 General Vital Signs/Measurements 48 hour : Vital Signs/Measurements 06/24/2017 10:32 EST Weight 117.6 kg (Modified) Weight Type Pt reported Weight Lb 259 lbs (Modified) Weight Oz 4.22 oz (Modified) Height 152.4 cm Height Type Pt reported Height Ft 5 ft Height in 0 Inch BSA 2.08 m2 (Modified) Body Mass Index 50.6 kg/m2 (Modified) . Exam: Alert and oriented x3, vital signs stable, no acute distress, calm, appropriate, cooperative. Nutritional status: obese. Eye Eye: Bilateral, PERRL, conjunctiva clear, extraocular movement intact. HENT/Mouth Head: normocephalic, atraumatic, no abrasions, face symmetrical. Ear: hearing grossly normal. Nose: no discharge. Throat: no erythema, no enlargement of tonsils noted, no edema of uvula or posterior pharynx noted, no drainage, no exudates. Mouth: lips pink, mucosal lining pink and moist without lesions, no masses, normal tongue, teeth in adequate repair. Neck Exam: supple, no lymphadenopathy, no thyromegaly, no masses, trachea midline, no carotid bruits. Respiratory Lungs: bilateral, clear to auscultation, breath sounds equal. Respirations even and unlabored. Cardiovascular Exam: Regular rate and rhythm, no murmur, no lower extremity edema, capillary return brisk. Posterior tibial pulses + 2 palpable.. Gastrointestinal Exam: bowel sounds present, abdomen soft, non tender, no masses palpated, no distention, no organomegaly. obese; limited exam secondary to body habitus. Abdomen non-distended. Musculoskeletal Movement of extremities x 4. No limitation in range of motion or strength of extremities is noted.. Integumentary Exam: no rashes. General: intact, warm, dry. Neurologic Exam: Alert and oriented x 3, cranial nerves intact. Psychiatric Exam: alert, appropriate, calm, cooperative. Results Review Urine test from today is negative Impression and Plan Impression: 42 year old female with history of lesion of ulnar nerve, left upper limb, that presents today for a preoperative evaluation prior to a scheduled ulnar transposition left elbow today with Dr. Chinchilla. Impression and Plan Diagnosis Preoperative cardiovascular examination (BKY58-RN Z01.810, Working, Medical). Lesion of ulnar nerve, left upper limb (JIE13-TO G56.22, Working, Medical). GERD (gastroesophageal reflux disease) (EWE74-JD K21.9, Working, Patient Stated). Narrative Description: 1. Preoperative Risk Assessment- According to ACC/AHA guidelines, this patient is considered low risk for this intermediate risk procedure, with a revised cardiac risk index score of: 0.4%. This [place] ent is considered low risk for pulmonary complications with this procedure. Reflux symptoms controlled with medication. OPERATIVE/PROCEDURE REPORT Observed: 06/26/2017 Status: F Source: [facility] 12:00 AM [facility] REPOSITORY DICTATED BY:HANNA CHINCHILLA MD SERVICE DATE:06/26/2017 PREOPERATIVE DIAGNOSIS: Ulnar nerve entrapment, left elbow. POSTOPERATIVE DIAGNOSIS: Ulnar nerve entrapment, left elbow. PROCEDURE: Left ulnar nerve transposition. SURGEON: Hanna Chinchilla MD PREFABRICATED HOUSES TRIMMER: Jose Alfredo Rust MD ANESTHESIA: General. DESCRIPTION OF PROCEDURE: After satisfactory induction of general anesthesia, the left arm was prepped and draped in the usual fashion. Tourniquet was in place and was inflated to 250 mmHg. A timeout was taken to confirm the a ppropriate patient, the appropriate extremity and the appropriate procedure. We made a curvilinear incision centered over the medial epicondyle. This was carried down through skin and subcutaneous tis micaela. Hemostasis was obtained with bipolar electrocautery. We identified the ulnar nerve just behind the epicondyle and opened up the fascia over it. It was noted that particularly just behind the epi condyle, this nerve was significantly encased in scar tissue. We did release this proximally under direct vision. We were able to palpate up to the arcade and did not find any further entrapment. Dis tally, we did a significant amount of dissection to get this nerve free from behind the epicondyle. We did encounter 1 major branch to the extensor carpi radialis brevis that was preserved. We release d the nerve down into the substance of the ECRB such that we could easily transpose it anterior to the epicondyle. We removed a considerable amount of fat from the fascia anterior to the epicondyle and were able to easily transpose the nerve. We irrigated the surgical incision at that point. We then placed interrupted sutures of 0 Vicryl to maintain a tunnel anterior to the epicondyle. We closed t he previous tunnel with interrupted sutures of 3-0 Vicryl, the subcutaneous with interrupted sutures of 3-0 Vicryl and the skin with interrupted simple sutures of 3-0 nylon. Surgical incision was infil trated with 0.5% Marcaine. Compression dressing was applied. The patient tolerated the procedure well and was sent to PACU in good condition. DEANNA ALMANZA Birthdate: 1975 #: [id number] D/06/26/2017 14:02:28 T/06/26/2017 14:30:27 VOICE JOB ID:[id number] Diony Rebollar thanks you for the opportunity to care for your patient. DID: [id number] CBC WITH DIFFERENTIAL Collected: 06/04/2017 Status: F Source: [facility] 1:53 PM [facility] SYSTEM REPOSITORY TYPE CODE TESTS RESULT OUT OF REFERENCE UNITS RANGE LAB 05994-3(LO 0.0-12.0 % INC) Normal Monocyte 6.3 LAB 58913-5(LO 80.0-97.0 FL INC) MCV Normal 86.9 LAB 80499-6(LO 6.2-12.1 FL INC) MPV Normal 10.3 LAB 06935-4(LO 0.0-2.0 % INC) Normal Basophil 0.7 LAB 704-7(LOIN 0.00-0.20 thou/mcL C) Normal Basophil 0.00 Absolute LAB 97442-8(LO 3.80-5.10 million/mcL INC) Red Normal Blood Cell 4.41 Count LAB 731-0(LOIN 1.00-4.80 thou/mcL C) Normal Lymphocyte 1.50 Absolute LAB 45949-5(LO 32.0-36.0 gm/dL INC) MCHC Normal 33.7 LAB 64167-3(LO 22.0-44.0 % INC) Normal Lymphocyte 24.3 LAB 40024-2(LO 35.0-45.0 % INC) Normal Hematocrit 38.3 LAB 08716-0(LO 142-424 thou/mcL INC) Normal Platelet Count 199 LAB 25394-9(LO 0.0-7.0 % INC) Normal Eosinophil 2.6 LAB 711-2(LOIN 0.00-0.70 thou/mcL C) Normal Eosinophil 0.20 Absolute LAB 19203-8(LO 4.6-10.2 thou/mcL INC) WBC Normal Count 6.1 LAB 58978-8(LO 27.0-34.0 Picograms INC) MCH Normal 29.3 LAB 03791-3(LO 40.0-70.0 % INC) Normal Neutrophil 66.1 LAB 751-8(LOIN 1.80-7.70 thou/mcL C) Normal Neutrophil 4.10 Absolute LAB 718-7(LOIN 12.0-16.0 gm/dL C) Normal Hemoglobin 12.9 LAB 742-7(LOIN 0.00-0.90 thou/mcL C) Normal Monocyte 0.40 Absolute LAB 13663-1(LO 11.0-14.8 % INC) RDW Normal 14.1 Performed By: #### 89218-6 #### [facility] [address] [place], [place] ALLERGIES ALLERGIES DATE TYPE / NAME / CODE REACTION SEVERITY SOURCE CODE 05/24/2018 Drug hydrocodone Itching Unknown [place] Allergy/41 bitartrate/[id number] [facility] [id number][facility] 05/24/2018 Drug ondansetron Rash Unknown [place] Allergy/41 HCl/[id number](RXNOR Community 6938391([facility]) Repository 05/24/2018 Drug Penicillins/[id number] Rash Unknown [place] Allergy/41 76(RXNORM) [facility] 5061474([facility]) Repository 05/24/2018 Drug acetaminophen/H25740 Itching Unknown [place] Allergy/41 1605(RXNORM) Community 1235162( Hospital OMED CT) Repository 01/05/2018 DRUG/07038 OXYCODONE-ACETAMINOP Nausea [facility] 1003(SNOME HEN Repository D CT) 01/16/2015 DRUG METOCLOPRAMIDE HCL Other [facility] INGREDI/41 Repository 2766621(SN OMED CT) 01/15/2015 DRUG/83915 HYDROCODONE-ACETAMIN [facility] 1003(SNOME OPHEN Repository D CT) 01/15/2015 DRUG ONDANSETRON [facility] INGREDI/41 Repository 1664935(SN OMED CT) 01/15/2015 Drug PENICILLINS [facility] Class/4195 Repository 26216([facility] ED CT) Drug/48174 Reglan aggitation [facility]) System Repository Drug/84058 penicillins [facility] 1003([facility]) System Repository Drug/82962 Vicodin Itching [facility] 1003([facility]) System Repository Drug/86967 Zofran [facility] 1003([facility]) System Repository ENCOUNTERS ENCOUNTERS ADMIT/DISCHARGE ACCOUNT NUMBER ADMITTING ENCOUNTER LOCATION SOURCE CLASS 05/24/2018/05/24/20 [id number] Ambulatory [address] ing:WPOUTRoom Repository : WP015 05/05/2018/05/05/20 [id number] Ambulatory [address] ing:WPOUTRoom Repository : WP016 04/08/2018 [id number] Ambulatory [facility] ing:WOBLAB Repository 03/25/2018 [id number] Ambulatory [facility] ing:LABSPEC Repository 03/03/2018/03/03/20 [id number] Emergency [address] ing:ED Repository 03/01/2018/03/01/20 [id number] [facility] 02/22/2018/02/23/20 [id number] [place], Emergency [address] [facility] ing[facility] EDRoom: WR Repository 02/22/2018 [id number] Ambulatory [address] [place] [address] Repository 01/05/2018/01/06/20 [id number] Emergency Building:EDBD [place] [address] Room: O39Bed: Two 39 Repository 06/26/2017/06/26/19 [id number] Ambulatory [place] 18 WestBuilding: Health System 4NWHRoom: Repository 0416Bed: 06/04/2017/06/04/20 [id number] Ambulatory [facility] 17 WestBuilding: Health System BRMO Repository PAYERS PAYERS ENCOUNTER GUARANTOR PAYER SUBSCRIBER SOURCE 05/24/2018 DEANNA ALMANZA433 Primary DEANNA Uriarte [place] MARKET Insurance:CARESOURCEP DAVISDOB: [facility] Number: [id number] Hospital 35[address]Zer: [phone] [id number] Repository [phone] () Date:2018-05-24[address]ATTN: [place] [address]ZP: 05/24/2018 Secondary NOT GIVENUNK [place] Insurance:SELF PAY [facility] Number: Effective Repository Date:2018-05-24 05/05/2018 DEANNA ALMANZA433 Primary DEANNA Uriarte [place] MARK[address] Insurance:CARESOURCEP DAVISDOB: [facility] Number: [id number] Hospital [address]Fow: [phone] [id number] Repository [phone] () Date:2018-05-05[address]ATTN: [place] [address]BR: 05/05/2018 Secondary NOT GIVENUNK [place] Insurance:SELF PAY [facility] Number: Effective Repository Date:2018-05-05 04/08/2018 DEANNA Uriarte Primary DEANNA M [place] [id number] TR Insurance:CARESOURCEP ARCHIEDOB: [address] Number: [id number] [address]Xyb: [id number] Repository Date:2018-04-08P O (HP) [address]ATTN: [place] [address]KM: 04/08/2018 Secondary NOT GIVENUNK [place] Insurance:SELF PAY [facility] Number: Effective Repository Date:2018-04-08 03/25/2018 DEANNA Uriarte Primary DEANNA Geller [id number] TR Insurance:CARESOURCEP DAVISDOB: [address] Number: [id number] [facility] Hospital [address]Xtw: [id number] Repository Date:2018-03-25P O () [address]ATTN: [place] [address]KK: 03/25/2018 Secondary NOT GIVENUNK [place] Insurance:SELF PAY [facility] Number: Effective Repository Date:2018-03-25 03/03/2018 DEANNA Uriarte Primary DEANNA Geller [id number] TR Insurance:CARESOURCEP DAVISDOB: [address] Number: [id number] [facility] Hospital [address]Jqk: [id number] Repository Date:2018-03-03P O () [address]ATTN: [place] [address]ZM: 03/03/2018 Secondary NOT GIVENUNK [place] Insurance:SELF PAY [facility] Number: Effective Repository Date:2018-03-03 03/01/2018 DEANNA Uriarte Primary DEANNA Darlingarisameera ALMANZADOB: Insurance:CARESOURCE DAVISDOB: [facility] Number: [id number] [place] [address] Effective 8 [facility] Repository [address] [place] [address], Date:2018-02-25 - [address] [place] [address] [id number] [place] [address]Ovq: Name:CD:[id number]: [address], [place] (HP) [phone]: [phone] (HP) [phone] (WP) 02/22/2018 DEANNA SLAEHB: Insurance:JAMILASOSUZANNE SALEHB: [facility] [id number] [facility] Number: [id number] System Effective ELESS Repository [facility], Date:2018-02-22 - [place], [place] [address]Obp: [id number] [place] [address]Jxm: Name:CD:[id number] () [address] [place] [address] ()Tel: [phone]: (WP) [phone] 02/22/2018 DEANNA Uriarte [place] THERESEB: Insurance:[facility] CALIF[facility]NIAB: [facility] olicy Number: [id number] Repository [facility] [address] Effective Date: [address] [place] [address], Name:[address] [address]Djg: 8730Day[facility] [address]Gpn: [phone]: [phone] ([phone] (HP) 01/05/2018 DEANNA Uriarte Primary DEANNA Uriarte [facility] ARCHIEDOB: Insurance:JAMILASOSUZANNE SALEHB: Repository MANAGED [id number] RACINE MEDICAIDPolicy CHRISTIANO CAINVAYEMI, Number: [place], [place] [address]Ltk: [id number] [place] [address]Nfz: Date:8437-27-62[address] (HP) [address], [place] (HP) [address]UP: 06/26/2017 DEANNA [place]oz[place] THERESEB: Insurance:CARESOSUZANNE SALEHB: [facility] [place] MEDICAID[place] [id number] Repository CHRISTIANO Number: CORY BASSETT [id number]: Date:2014-12-06 - [id number] (HP)Tel: [phone]) Name:YULIET Robertson-0000 () [address] [address]DZ: 06/04/2017 DEANNA Uriarte Primary DEANNA Uriarte [place] THERESEB: Insurance:[facility]: [facility] [place] MEDICAID[place] [id number] Repository CHRISTIANO Number: CORY BASSETT [id number] [address]Lpr: Date:2014-12-06 - [id number] (HP)Tel: [phone]) Name:YULIET AGUILERA 000-0000 (WP) [address], [place] [address]GL:
== END 2018-05-05 03:40 | disposition home or self-care (01) ==
LOC: WPOUT 01:05 → WP 01:05
PROVIDERS: Family Provider Family Medicine; PCP Family Medicine; Visit Provider Obstetrics & Gynecology
DX: O26.892 Other specified pregnancy related conditions, second trimester (principal); R10.32 Left lower quadrant pain; Z3A.24 24 weeks gestation of pregnancy; Z87.442 Personal history of urinary calculi; Z88.0 Allergy status to penicillin; Z88.5 Allergy status to narcotic agent; O34.219 Maternal care for unspecified type scar from previous cesarean delivery
CPT/HCPCS: 59050; 81001; 99218; G0378

== ENCOUNTER 2018-05-24 07:10 | Outpatient (CLI) | payer MEDICAID, SELFPAY ==
[2018-05-24 07:48] VITALS: BMI 47.0
--- NOTE | 2018-05-24 08:12 | OB.TRI.NOTE ---
History of Present Illness Date of Service: 05/24/18 Was patient seen by the physician?: Yes Reason For Visit: DECREASED MOVEMENT Date of Service: 05/24/18 Final ANIKET: 09/01/18 Final ANIKET Source: US <20 weeks Gestational age: 25 Weeks and 5 Days History of Present Illness: Reports decreased movement overnight. Denies contractions, bleeding. Allergies acetaminophen [From Vicodin] Allergy (Verified 05/24/18 07:48) Itching hydrocodone bitartrate [From Vicodin] Allergy (Verified 05/24/18 07:48) Itching ondansetron HCl [From Zofran (as hydrochloride)] Allergy (Verified 05/24/18 07:48) Rash Penicillins [PCN] Allergy (Verified 05/24/18 07:48) Rash Physical Exam General: Alert, Oriented x3, Cooperative, No apparent distress Lungs: Clear to auscultation, Normal air movement Abdomen: Bowel Sounds Present, Soft, Non Tender, Gravid, Appropriate for Gestational Age Extremities:: No edema Neurological: Neuro grossly intact NST - FHR Rate Baby A Baseline: 150s Decelerations:: None NST Reactive:: Appropriate for gestational age FHR Category:: Category I Uterine Activity:: none Impression/Plan Feeling movement here today. Normal heart beat. Reassured.
--- OUTSIDE RECORDS SUMMARY | 2018-08-25 17:07 | XMS RPT_ITS ---
:1975 Author Organization OHIP Care Team Providers Name Role Phone Nehemias Willingham Attending Unavailable Nehemias Willingham Referring Unavailable Samuel, Dylan Primary Care Unavailable Estephania Dozier Attending Unavailable Samuel, Dylan Primary Care Unavailable Nehemias Willingham Attending Unavailable Samuel, Dylan Primary Care Unavailable Nehemias Willingham Referring Unavailable Nehemias Willingham Attending Unavailable Baker, Dylan Primary Care Unavailable Campbell Virgen Attending Unavailable Campbell Virgen Referring Unavailable Dylan Baker Primary Care Unavailable Patsy Traore Attending Unavailable Dylan Baker Primary Care Unavailable JASIELJAQUELIN Attending Unavailable NO, PHYSICIAN Primary Care Unavailable Ivanauskmylene, ulius Admitting Unavailable Ivanauskas, Saulius Attending Unavailable No Doctor Assigned, Nodr Primary Care Unavailable Eugenio aBker Attending Unavailable No Doctor Assigned, Nodr Primary Care Unavailable PROBLEMS PROBLEMS DATE TYPE CONDITION / CODE ATTENDING STATUS SOURCE 03/26/2018 Unknown Z32.01 - Encounter Nehemias Willingham Active [facility] for test, Community result positive / Hospital Z32.01(ICD-10) Repository 03/26/2018 Unknown Z12.4 - Encounter Nehemias Willingham Active [facility] for screening for Community malignant neoplasm Hospital of cervix / Repository Z12.4(ICD-10) 03/26/2018 Unknown Z11.3 - Encounter Maulik Nehemias Active [facility] for screening for Community infections with a Hospital predominantly Repository sexual mode of transmission / Z11.3(ICD-10) 01/05/2018 Admitting Less than 8 weeks ME JASIELENAL Active [facility] Two diagnosis gestation of GARCÍA Repository / Z3A.01(ICD-10) 01/05/2018 Admitting Constipation, JASIEL, JAQUELIN Active [facility] Two diagnosis unspecified / GARCÍA Repository K59.00(ICD-10) 01/05/2018 Admitting Nausea / JASIEL, JAQUELIN Active [facility] Two diagnosis R11.0(ICD-10) GARCÍA Repository 01/05/2018 Admitting Other specified JASIEL, JAQUELIN [facility] Two diagnosis related GARCÍA Repository conditions, first trimester / O26.891(ICD-10) 01/05/2018 Admitting Unspecified JASIEL, JAQUELIN Active [facility] Two diagnosis abdominal pain / GARCÍA Repository R10.9(ICD-10) 01/05/2018 Admitting Unspecified JASIEL, JAQUELIN Active [facility] Two diagnosis hemorrhoids / GARCÍA Repository K64.9(ICD-10) PROCEDURES PROCEDURES No Procedure Records FoundRESULTS RESULTS URINALYSIS, COMPLETE Collected: 06/14/2018 Status: F Source: [facility] 9:30 PM [facility] REPOSITORY Order Comment: How was Urine Obtained? CLEAN CATCH TYPE CODE TESTS RESULT OUT OF RANGE REFERENCE UNITS LAB L400.3000 Yellow COLOR Normal Yellow LAB L400.3050 Clear Normal CLARITY Clear LAB L400.3200 Normal mg/dl Normal GLUCOSE, UR Normal LAB L400.3300 Negative mg/dL Normal BILIRUBIN URINE Negative LAB L400.3400 Negative mg/dl High KETONE UR 150 Result Comment: CRITICAL VALUE *H CRITICAL VALUE VERIFIED. CALLED TO [facility] 06/14/18 2201 Yany Carter. RESULTS READ BACK BY SAME . LAB L400.3465 1.002-1.030 Normal SP.GR. DIPSTX 1.025 LAB L400.3550 5.0 - 8.0 pH Normal UR 6.0 LAB L400.3600 Negative mg/dl High 15 PROT DIPSTX LAB L400.3700 Normal mg/dl High 1 UROBILI LAB L400.3750 Negative Normal NITRITE UR Negative LAB L400.3780 Negative /ul Normal OCCULT Negative BLOOD-UR LAB L400.3800 Negative /ul High 25 LEUK ESTERASE LAB L400.4050 0-5 /hpf Normal WBC 0-5 SEEN LAB L400.4100 0-5 /hpf 0 Normal RBC-UA SEEN LAB L400.4150 5-10 /hpf Normal SQUAM EPI 5-10 SEEN LAB L400.4300 None Seen /hpf Normal BACTERIA RARE LAB L400.4350 <or=2+ /hpf 1+ Normal MUCUS, URINE Performed By: #### L400.0001, M100.0650 #### [facility] [address] [place], [place], [address] Observed: 06/14/2018 Status: F Source: [facility] CULTURE, URINE 9:30 PM [facility] REPOSITORY Urine Culture ORGANISM 1: Mixed Gram Positive Organisms Declo Count >100,000 MIX CULTURE Mixed contaminants. Submit a new specimen if indicated. Performed By: #### L400.0001, M100.0650 #### [facility] [address]. [place], [place], [address] AMPHETAMINE URINE VISTA Collected: 06/14/2018 Status: F Source: [facility] 9:30 PM [facility] REPOSITORY TYPE CODE TESTS RESULT OUT OF REFERENCE UNITS RANGE LAB L505.5020 <1000 ng/mL Normal AMPHETAMINES NEGATIVE Performed By: #### L505.5020 #### [facility] [address] [place], [address] FIBRONECTIN Collected: 06/14/2018 Status: F Source: [facility] 9:00 PM [facility] REPOSITORY TYPE CODE TESTS RESULT OUT OF RANGE REFERENCE UNITS LAB L205.0100 Normal fFN Negative Performed By: #### L205.0000 #### [facility] [address] [place], [place], [address] URINALYSIS, COMPLETE Collected: 05/05/2018 Status: F Source: [facility] 1:45 AM [facility] REPOSITORY Order Comment: How was Urine [...] URINE SEEN Performed By: #### L400.0001 #### [facility] [address] [place], [address] URINE DRUG SCREEN Collected: 04/08/2018 Status: F Source: [facility] (VISTA) 4:27 PM [facility] REPOSITORY Order Comment: List of Drugs Taken or Suspected? U TYPE CODE TESTS RESULT OUT OF RANGE REFERENCE UNITS LAB L505.0075 TO BE Normal CONFIRMED Result Comment: CONFIRMATORY TESTING FOR ALL POSITIVE URINE DRUG SCREEN RESULTS WILL ONLY BE SENT OUT UPON PHYSICIAN ORDER. VISTA Urine Drug Screen methods provide only preliminary [...] POSITIVE Performed By: #### L505.5000, L505.6240 #### [facility] [address] [place], [address] NICOTINE URINE DRUG Collected: 04/08/2018 Status: F Source: [facility] SCREEN 4:27 PM [facility] REPOSITORY Order Comment: List of Drugs Taken [...] Nicotine. Performed By: #### L505.5000, L505.6240 #### [facility] [address] [place], [address] URINALYSIS, ROUTINE Collected: 04/08/2018 Status: F Source: [facility] (DIPSTICK) 4:27 PM [facility] REPOSITORY Order Comment: How was Urine [...] 25 ESTERASE Performed By: #### L400.2010 #### [facility] [address] [place], [address] CBC W/DIFF, AUTOMATED Collected: 04/08/2018 Status: F Source: [facility] 4:27 PM [facility] REPOSITORY TYPE CODE TESTS RESULT OUT OF [...] Lymph 1.46 Performed By: #### L100.0100 #### [facility] [address] [place], [place], [address] THYROID STIM HORMONE Collected: 04/08/2018 Status: F Source: [facility] (TSH) 4:27 PM [facility] REPOSITORY TYPE CODE TESTS RESULT OUT OF RANGE REFERENCE UNITS LAB L501.9520 0.358-3.74 uIU/mL Normal TSH 0.89 Performed By: #### L501.9520 #### [facility] [address] [place], [place], [address] T AND S-NO Collected: 04/08/2018 Status: F Source: [facility] CHARGE W/PNP 4:27 PM [facility] REPOSITORY Order Comment: Reason for Type AND Screen/Red Cells: Surgery? N TYPE CODE TESTS RESULT OUT OF RANGE REFERENCE UNITS LAB B10.0800 A Normal BLOOD NEGATIVE TYPE GEL LAB B100.4050 Normal Ab SCREEN NEGATIVE GEL Performed By: #### B100.7550 #### [facility] [address] [place], [place], [address] RUBELLA IGG Collected: 04/08/2018 Status: F Source: [facility] 4:27 PM [facility] REPOSITORY TYPE CODE TESTS RESULT OUT OF RANGE REFERENCE UNITS LAB L509.4000 IU/mL Normal Rubella IgG 292.3 Result Comment: Antibody results Interpretation of Immune Status < 5 IU/ml Presumed Non-immune 5 - < 10 IU/ml Equivocal > or = 10 IU/ml Presumed Immune Performed By: #### L509.4000, L3890.6005 #### [facility] [address] [place], [place], [address] HIV - [facility] Collected: 04/08/2018 Status: F Source: [facility] 4:27 PM [facility] REPOSITORY TYPE CODE TESTS RESULT OUT OF RANGE REFERENCE UNITS LAB L3890.6005 Nonreactive Normal HIV - [facility] Non-Reactive Performed By: #### L509.4000, L3890.6005 #### [facility] [address] [place], [place], [address] RPR Collected: 04/08/2018 Status: F Source: [facility] 4:27 PM [facility] REPOSITORY TYPE CODE TESTS RESULT OUT OF REFERENCE UNITS RANGE LAB L700.5100 NONREACTIVE Normal RPR NONREACTIVE Performed By: #### L700.5100 #### [facility] [address] [place], [place], [address] HEPATITIS B SURFACE Collected: 04/08/2018 Status: F Source: [facility] AG 4:27 PM [facility] REPOSITORY TYPE CODE TESTS RESULT OUT OF RANGE REFERENCE UNITS LAB L3100.0400 Negative Normal HB Negative SURF AG Result Comment: Performed at: - [facility] [id number] Stock Wetter: Cortes Orozco PhD, Phone: [phone] Performed By: #### L3100.0390, L3100.0625 #### [facility] (refer to report for specific site) refer to report for address and phone number HEPATITIS C ANTIBODIES Collected: 04/08/2018 Status: F Source: [facility] 4:27 PM [facility] REPOSITORY TYPE CODE TESTS RESULT OUT OF RANGE REFERENCE UNITS LAB L3100.0650 0.0-0.9 s/co ratio Normal HEP C AB <0.1 Result Comment: Negative: < 0.8 Indeterminate: 0.8 - 0.9 Positive: > 0.9 The CDC recommends that a positive HCV antibody result be followed up with a HCV Nucleic Acid Amplification test (495961). Performed By: #### L3100.0390, L3100.0625 #### [facility] (refer to report for specific site) refer to report for address and phone number CT/NG W[facility] BY PCR Collected: 03/25/2018 Status: F Source: [facility] 3:30 PM [facility] REPOSITORY TYPE CODE TESTS RESULT OUT OF RANGE REFERENCE UNITS LAB L8200.2100 Negative Normal Chlam Negative Trac PCR LAB L8200.2200 Negative Normal NG by Negative PCR Performed By: #### L8200.1999 #### [facility] [address] [place], [address] PAP I-G W/RFX HRHPV Collected: 03/25/2018 Status: F Source: [facility] 3:30 PM [facility] REPOSITORY Order Comment: CYTOLOGY INFORMATION: - CLINICAL INFORMATION: - DATE LMP/MENOPAUSE: 11/23/17 LMP - COLLECTION VIAL: Thin Prep Vial - RESEARCH LEADER SOURCE: CERVICAL/ENDOCERVICAL - COLLECTION TECHNIQUE: BRUSH/SPATULA Specimen Comment: [id number] Specimen Comment: Source.............Cervix;Endocervix Specimen Comment: LMP / Prev Treat...BDV=[id number] Specimen Comment: No. of containers..01 ThinPrep Vial TYPE CODE TESTS RESULT OUT OF RANGE REFERENCE UNITS LAB L7400.0800 . Normal DIAGN Comment Result Comment: NEGATIVE FOR INTRAEPITHELIAL LESION AND MALIGNANCY. LAB L7400.0900 . Normal ADEQ Comment Result Comment: Satisfactory for evaluation. Endocervical and/or squamous metaplastic cells (endocervical component) are present. LAB L7400.1400 . Normal PERFORM Comment Result Comment: Lisa Fonseca, Card Game Operator (ASCP) LAB L7400.2575 . Normal TEST METHOD [...] no HPV testing was performed. Performed at: - [facility] [place] [id number] Stock Wetter: Jodie Moseley MD, Phone: [phone] Performed By: #### L7400.0350 #### [facility] (refer to report for specific site) refer to report for address and phone number EMERGENCY DEPARTMENT Observed: 03/04/2018 Status: F Source: [facility] SUMMARY 2:01 AM [facility] Medical Records Department [address] [place] [address] Emergency Department Summary 03/03/18 1512 MR#: [id number] Acct: [id number] Name: DEANNA ALMANZA Rep #: [id number] : 1975 42 From: Estephania Dozier MD [...] ecchymosis such as Cullens Sign or Staley Turcios sign. Patient is diffusely tender on the [...] and female This note was generated with [employer] dictation software. It may contain incorrect words, spelling, and punctuation that were not noted in review of the chart prior to signing ED Disposition - Plan for ED Patient: Disposition: Home or Assisted Living Chief Complaint: Complaint Instructions: ED Abdominal Pain Unkn Cause Referrals: Care Physician,No Primary [NON-STAFF] - [facility] Physicians,[facility] [GROUP OF PHYSICIANS] - 3-5 Days if not improving Additional Instructions: Your urine showed no signs of infection or blood. Your lab work showed no concerning findings. Please continue Tylenol as needed for abdominal pain. Follow- up with your OB physician at [facility] if you continue to have cramping. If you have any worsening of your condition or any new concerning symptoms, please return immediately to the emergency department for another evaluation. What to do if you have Problems For any increased pain, shortness of breath, bleeding, nausea or vomiting, chest pain, or any unexpected problems, contact your Primary Care Provider. Call [facility] ([phone]) or report to the closest Emergency Room. Call 911 if necessary. 03/04/18 0201 <Electronically signed by Estephania Dozier MD> Date Estephania Dozier MD Cosigner Signature (If Indicated): Date CC: Eugenio Baker MD DISCHARGE INSTRUCTION Observed: 03/04/2018 Status: F Source: [facility] 12:24 AM [facility] REPOSITORY [facility] Medical Records Department [address] [place] [address] Discharge Instruction 03/03/18 1647 MR#: [id number] Acct: [id number] Name: DEANNA ALMANZA Rep #: [id number] : 1975 42 From: Estephania Dozier MD PCP: Eugenio Baker MD Status: DEP ER ED Disposition - Plan for ED Patient: Disposition: Home or Assisted Living Chief Complaint: Complaint Instructions: ED Abdominal Pain Unkn Cause Referrals: Care Physician,No Primary [NON-STAFF] - [facility] Phys[facility] [GROUP OF PHYSICIANS] - 3-5 Days if not improving Additional Instructions: Your urine showed no signs of infection or blood. Your lab work showed no concerning findings. Please continue Tylenol as needed for abdominal pain. Follow- up with your OB physician at [facility] if you continue to have cramping. If you have any worsening of your condition or any new concerning symptoms, please return immediately to the emergency department for another evaluation. What to do if you have Problems For any increased pain, shortness of breath, bleeding, nausea or vomiting, chest pain, or any unexpected problems, contact your Primary Care Provider. Call [facility] ([phone]) or report to the closest Emergency Room. Call 911 if necessary. 03/04/18 0024 <Electronically signed by Estephania Dozier MD> Date Estephania Dozier MD Cosigner Signature (If Indicated): Date CC: Eugenio Baker MD CBC W/DIFF, AUTOMATED Collected: 03/03/2018 Status: F Source: [facility] 3:20 PM [facility] REPOSITORY TYPE CODE TESTS RESULT OUT OF [...] Lymph 1.35 Performed By: #### L100.0100 #### [facility] [address] [place], [address] COMPREHENSIVE METABOLIC Collected: 03/03/2018 Status: F Source: [facility] 3:20 PM [facility] REPOSITORY TYPE CODE TESTS RESULT OUT OF [...] GAP 8 Performed By: #### L500.4050 #### [facility] [address] [facility]. [place], [place], [id number] URINALYSIS, COMPLETE Collected: 03/03/2018 Status: F Source: [facility] 2:50 PM [facility] REPOSITORY Order Comment: How was Urine [...] MUCUS, URINE Performed By: #### L400.0001 #### [facility] [address] [place], [address] US OB 1ST TRIMESTER Observed: 01/05/2018 Status: F Source: [facility] TRANSABDOMINAL SINGLE 3:55 PM TWO REPOSITORY [...] corpus luteal cyst in the left ovary. [employer] Workstation ID: [id number] Dictated by: UVALDO FRANK on ThuJan 05, 2018 4:01:14 PM EDT Transcribed by: KEON BERMUDEZ on ThuJan 05, 2018 4:04:18 PM EDT Finalized by: UVALDO FRANK on ThuJan 05, 2018 5:19:28 PM EDT ALLERGIES ALLERGIES DATE TYPE / NAME / CODE REACTION SEVERITY SOURCE CODE 06/14/2018 Drug hydrocodone Itching Unknown [facility] Allergy/41 bitartrate/[id number] [facility] 9404397([facility](RXNORM) [facility]) Repository 06/14/2018 Drug ondansetron Rash Unknown [facility] Allergy/41 HCl/[id number](RXNOR Community 2750955([facility]) Repository 06/14/2018 Drug Penicillins/[id number] Rash Unknown [facility] Allergy/41 76(RXNORM) Community 3555850([facility]) Repository 06/14/2018 Drug acetaminophen/K02529 Itching Unknown [facility] Allergy/41 1605(RXNORM) Community 3934916([facility]) Repository 01/05/2018 DRUG/18569 OXYCODONE-ACETAMINOP Nausea [facility] 1003(SNOME HEN Repository D CT) 01/16/2015 DRUG METOCLOPRAMIDE HCL Other [facility] INGREDI/41 Rep[facility] 6649121[facility] 01/15/2015 DRUG/87377 HYDROCODONE-ACETAMIN [facility] 1003(SNOME OPHEN Repository D CT) 01/15/2015 DRUG ONDANSETRON [facility] INGREDI/41 Repository 6456657(SN OMED CT) 01/15/2015 Drug PENICILLINS [facility] Class/4195 Repository 53742(SN ED CT) Drug/12255 Reglan aggitation [facility] 1003([facility] CT) System Repository Drug/60023 penicillins [facility] 1003([facility] CT) System Repository Drug/79731 Vicodin Itching [facility] 1003([facility] CT) System Repository Drug/88941 Zofran [facility] 1003([facility] CT) System Repository ENCOUNTERS ENCOUNTERS ADMIT/DISCHARGE ACCOUNT NUMBER ADMITTING ENCOUNTER LOCATION SOURCE CLASS 06/14/2018/06/14/19 [id number] Ambulatory [address] ing:WPOUTRoom Repository : WP012 05/24/2018/05/24/20 [id number] Ambulatory [address] ing:WPOUTRoom Repository : WP015 05/05/2018/05/05/20 [id number] Ambulatory [address] ing:WPOUTRoom Repository : WP016 04/08/2018 [id number] Ambulatory [facility] ing:WOBLAB Repository 03/25/2018 [id number] Ambulatory [facility] ing:LABSPEC Repository 03/03/2018/03/03/20 [id number] Emergency [address] ing:ED Repository 03/01/2018/03/01/20 [id number] Ambulatory Medical [address] Repository [facility] 02/22/2018/02/23/20 [id number] [facility] [address] ing:[facility] EDRoom: WR Repository 02/22/[id number] Repository 01/05/2018/01/06/20 [id number] Emergency Building:EDBD [place] [address] Room: O39Bed: Two 39 Repository PAYERS PAYERS ENCOUNTER GUARANTOR PAYER SUBSCRIBER SOURCE 06/14/2018 DEANNA Uriarte [id number] Primary DEANNA Geller MARK[address] Insurance:CARESOURCEP DAVISDOB: [facility] Number: [id number] Hospital [address]Amc: [phone] [id number] Repository [phone] () Date:2018-06-14[address]ATTN: [place] [address]AP: 06/14/2018 Secondary NOT GIVENUNK [facility] Insurance:SELF PAY [facility] Number: Effective Repository Date:2018-06-14 05/24/2018 DEANNA ALMANZA433 Primary DEANNA [address] Insurance:CARESOURCEP DAVISDOB: [facility] Number: [id number] Hospital [address]Rfo: [phone]) [id number] Repository [phone] () Date:2018-05-24[address]ATTN: [place] [address]JD: 05/24/2018 Secondary NOT GIVENUNK [facility] Insurance:SELF PAY [facility] Number: Effective Repository Date:2018-05-24 05/05/2018 DEANNA Uriarte [id number] Primary DEANNA [address] Insurance:CARESOURCEP DAVISDOB: [facility] Number: [id number] Hospital [address]Tlq: [phone]) [id number] Repository [phone] () Date:2018-05-05[address]ATTN: [place] [address]ON: 05/05/2018 Secondary NOT GIVENUNK [facility] Insurance:SELF PAY [facility] Number: Effective Repository Date:2018-05-05 04/08/2018 DEANNA Uriarte Primary DEANNA Geller [id number] TR Insurance:CARESOURCEP DAVISDOB: [address] Number: [id number] [facility] [address]Kpm: [id number] Repository Date:2018-04-08P O () [address]ATTN: [place] [address]FZ: 04/08/2018 Secondary NOT GIVENUNK [facility] Insurance:SELF PAY [facility] Number: Effective Repository Date:2018-04-08 03/25/2018 DEANNA Uriarte Primary DEANNA Geller [id number] TR Insurance:CARESOURCEP DAVISDOB: [address] Number: [id number] County General Hospital [address]Rrc: [id number] Repository Date:2018-03-25P O () [address]ATTN: [place] [address]YI: 03/25/2018 Secondary NOT GIVENUNK [facility] Insurance:SELF PAY [facility] Number: Effective Repository Date:2018-03-25 03/03/2018 DEANNA Uriarte Primary DEANNA Geller [id number] TR Insurance:CARESOURCEP DAVISDOB: [address] Number: [id number] County General Hospital [address]Amd: [id number] Repository Date:2018-03-03P O () [address]ATTN: [place] [address]RB: 03/03/2018 Secondary NOT GIVENUNK [facility] Insurance:SELF PAY [facility] Number: Effective Repository Date:2018-03-03 03/01/2018 DEANNA Uriarte Primary DEANNA [place] THERESEB: Insurance:CARESOURCE DAVISDOB: [facility] [id number] [facility] Number: [id number] [facility] Effective 8 [facility] Repository [address] [place] [address], Date:2018-02-25 - [address] [place] [address] [id number] [place] [address]Lhv: Name:CD:[id number]: [address], [place] (HP) [phone]: [phone] ([phone] (WP) 02/22/2018 DEANNA Uriarte Primary DEANNA Uriarte [employer] SALEHB: Insurance:CARESOSUZANNE ALMANZADOB: [facility] [id number] MCAIDPolic Number: [id number] System SS Effective ELESS Repository [facility], Date:2018-02-22 - [place], [place] [address]Bdb: [id number] [place] [address]Wyg: Name:CD:[id number] (HP) [address] (HP)Tel: 000 [phone]: ([phone] 02/22/2018 DEANNA Uriarte [facility]NA [facility]aresourcNewYork[facility] HospitalB: [facility] olicy Number: [id number] Repository [facility] Effective Date: [address], Name:[address] [address]Har: 8030DayTim[facility]os [facility] [address]Lik: [phone]: [phone] ([phone] (HP) 01/05/2018 DEANNA Uriarte [facility]: Insurance:CARESOTRENTTyron ALMANZAB: Repository MANAGED [id number] RACINE MEDICAIDPolicy CHRISTIANO BURROUGHS, Number: [place] [address]Uaq: [id number] [address]Zib: Date:4550-42-25GU [address] (HP) [address], [place] ([place]) [phone]:
== END 2018-05-24 08:20 | disposition home health service (06) ==
LOC: WPOUT 07:16 → WP 07:17
PROVIDERS: Family Provider Family Medicine; PCP Family Medicine; Referring Provider Obstetrics & Gynecology; Visit Provider Obstetrics & Gynecology
DX: O36.8120 Decreased fetal movements, second trimester, not applicable or unspecified (principal); Z3A.25 25 weeks gestation of pregnancy
CPT/HCPCS: 59050; 99218; G0378

== ENCOUNTER 2018-06-14 20:41 | Outpatient (CLI) | payer MEDICAID, SELFPAY ==
[2018-06-14 21:04] VITALS: BMI 44.9
[2018-06-14 21:59] LABS: Fetal Fibronectin Negative
[2018-06-14 21:59] LABS: Red Blood Cells-Urine 0 SEEN /hpf (0-5)
[2018-06-14] MEDS: Acetaminophen 500 MG Tablet 1000 MG PO (22:00)
[2018-06-14 22:02] LABS: Color, Urine Yellow (Yellow); Glucose, Dipstick Normal (Normal); Leukocyte Esterase-Dipstick 25 /ul (Negative); Nitrite-Dipstick Negative (Negative); Occult Blood-Urine Negative /ul (Negative); Protein-Dipstick 15 mg/dl (Negative); Specific Gravity, Urine 1.025 (1.002-1.030); Urine Bilirubin Dipstick Negative (Negative); Urine Clarity Clear (Clear); Urine Urobilinogen 1 mg/dl (Normal)
[2018-06-14 22:05] LABS: Ketone-Dipstick 150 mg/dl (Negative)
[2018-06-14 22:12] LABS: Amphetamine Urine VISTA NEGATIVE (<1000 ng/mL)
[2018-06-14 22:35] LABS: Squamous Epithelial Cells - UA 5-10 SEEN /hpf (5-10)
[2018-06-14 22:36] LABS: Bacteria RARE /hpf (None Seen); Mucous, Urine 1+ /hpf (<or=2+); White Blood Cells 0-5 SEEN /hpf (0-5)
--- NOTE | 2018-07-01 09:22 | OB.TRI.NOTE ---
History of Present Illness Date of Service: 06/14/18 Was patient seen by the physician?: No Reason For Visit: R/O LABOR Date of Service: 06/14/18 Final ANIKET: 08/31/18 Final ANIKET Source: US <20 weeks Gestational age: 28 Weeks and 4 Days History of Present Illness: 28-week intrauterine presents with vaginal discharge and some pressure. care remarkable for 2 prior C-sections and being a smoker. Allergies acetaminophen [From Vicodin] Allergy (Verified 06/14/18 22:19) Itching hydrocodone bitartrate [From Vicodin] Allergy (Verified 06/14/18 22:19) Itching ondansetron HCl [From Zofran (as hydrochloride)] Allergy (Verified 06/14/18 22:19) Rash Penicillins [PCN] Allergy (Verified 06/14/18 22:19) Rash Laboratory Studies: Laboratory Tests 06/14/18 06/14/18 06/14/18 Range/Units 21:30 21:30 21:00 Urine Color Yellow (Yellow) Urine Clarity Clear (Clear) Urine pH 6.0 (5.0 - 8.0) Ur Specific [place] 1.025 (1.002-1.030) Urine Protein 15 H (Negative) mg/dl Urine Glucose (UA) Normal (Normal) mg/dl Urine Ketones 150 H (Negative) mg/dl Urine Occult Blood Negative (Negative) /ul Urine Nitrite Negative (Negative) Urine Bilirubin Negative (Negative) mg/dL Urine Urobilinogen 1 H (Normal) mg/dl Ur Leukocyte Esterase 25 H (Negative) /ul Urine RBC 0 SEEN (0-5) /hpf Urine WBC 0-5 SEEN (0-5) /hpf Ur Squamous Epith Cells 5-10 SEEN (5-10) /hpf Urine Bacteria RARE (None Seen) /hpf Urine Mucus 1+ (<or=2+) /hpf Ur Amphetamines Screen NEGATIVE (<1000 ng/mL) Fibronectin Negative NST - FHR Rate Baby A NST Reactive:: Appropriate for gestational age Impression/Plan 28+ week intrauterine with vaginal discharge, likely yeast. ROM test negative. heart tones reassuring with minimal contractions noted on monitor and no contractions noted by patient. UA sent and will await culture and sensitivity. fibronectin negative. Return if contractions ensue, vaginal bleeding, or decreased movement. Otherwise, routine follow-up in the office.
== END 2018-06-14 23:00 | disposition home or self-care (01) ==
LOC: WPOUT 20:46 → WP 20:47
PROVIDERS: Family Provider Family Medicine; PCP Family Medicine; Referring Provider Obstetrics & Gynecology; Visit Provider Obstetrics & Gynecology
DX: O26.892 Other specified pregnancy related conditions, second trimester (principal); N89.8 Other specified noninflammatory disorders of vagina; O34.211 Maternal care for low transverse scar from previous cesarean delivery; Z3A.28 28 weeks gestation of pregnancy; O99.332 Smoking (tobacco) complicating pregnancy, second trimester; O09.522 Supervision of elderly multigravida, second trimester
CPT/HCPCS: 59025; 59050; 81001; 82731; 87086; 87088; 99218; G0378

== ENCOUNTER 2018-07-08 20:02 | Observation (INO) | payer MEDICAID, SELFPAY ==
[2018-07-08 20:03] VITALS: BP 151/86; PULSE 105; RESP 18; TEMP 36.7; O2SAT 98; BMI 47.6
--- NOTE | 2018-07-08 20:28 | CT_ITS ---
STUDY: CTA CHEST REASON FOR EXAM: Female, 43 years old. Shortness of breath and 33 weeks RADIATION DOSAGE (If Supplied By Facility): CTDIvol = ( 16.65 ) mGy, DLP = ( 618.78 ) mGycm TECHNIQUE: The examination was performed with the intravenous administration of 100ML ml of Isovue 370 contrast material. Post-processing of the angiographic images was performed, with multiplanar reformation and 3D reconstruction. Individualized dose optimization techniques were used for this CT. COMPARISON: None. FINDINGS: Normal enhancement of the main pulmonary artery and right and left pulmonary arteries. There is limited enhancement of the bilateral peripheral pulmonary arteries. Motion also limits sensitivity. There is no demonstrated pulmonary embolism. Normal thoracic aorta and visualized great vessels. There is no demonstrated aortic dissection. Mild cardiac megaly and coronary artery disease. Normal mediastinum. Calcified hilar nodes on the left. Normal visualized trachea and bronchi. The lungs are well expanded. Calcified granuloma left lower lobe. Lungs are otherwise clear. Normal pleura. Normal chest wall structures. Normal osseous structures. Normal visualized upper abdomen. CT/CTA Chest W/WO Contrast IMPRESSION: Coronary artery disease. No demonstrated major central pulmonary embolism or arterial dissection. Small peripheral emboli cannot be excluded due to motion. Electronically Signed: Franco Gandhi MD at 21:50 EST , Service support ,
--- NOTE | 2018-07-08 20:28 | EKG12_ITS ---
Test Reason : CP Blood Pressure : / mmHG Vent. Rate : 103 BPM Atrial Rate : 103 BPM P-R Int : 116 ms QRS Dur : 074 ms QT Int : 368 ms P-R-T Axes : 041 035 040 degrees QTc Int : 482 ms Sinus tachycardia Otherwise normal ECG Confirmed by KATHARINA CHAUDHRY, KATHERINE ([id number]), content editor VIRAL SAHA ([id number]) on 07/13/2018 8:41:35 AM Referred By: POLLY Confirmed By:KATHERINE POSADAS MD
--- NOTE | 2018-07-08 20:34 | ED.DCSUM_ITS ---
- ER Visit Summary Date of Service: 07/08/18 Chief Complaint: Chest pain History of Present Illness: The patient is a 43 F sudden midsternal chest pain rating to her back started 3 PM. Dyspnea. Nausea vomiting since this morning. Patient 33-week gestation. Followed by Dr. Willingham. She went to OB triage, was sent directly down here. No testing performed upstairs. Tobacco history. Father with AR at the age of 42. No history of diabetes, hypertension, hypercholesteremia. No alcohol history. In addition reported left-sided headache since 1 PM prior to all of his symptoms. States dizzy. No abdominal pain. No complications with previous . Physical Examination: General: Alert and oriented ?3, no acute distress HEENT: Normocephalic, atraumatic. Moist mucosa membranes Neck: supple, nontender. Cardiovascular: Regular tachycardic rate 105 and rhythm, no murmurs Respiratory: Normal breath sounds, symmetric, no distress Abdomen: Soft, nontender, nondistended Extremities: Nontender, mild lower extremity edema, pulses intact ?4 Neuro: no focal neurological deficits. 3+ patellar reflexes bilaterally. Test Results: EKG sinus rate of 103, no ST or T wave changes. Hemoglobin 9.8 platelets 198 white count 13. Sodium 137 potassium 3.4 creatinine 0.53. Liver enzymes normal. Troponin negative. Uric acid 4.4. Urine with 25 leukocytes and [address] at bedtime no evidence of PE or dissection. No infiltrates. Emergency Department Course and Treatment: Patient to have blood pressure 155/86, in the room with a medium cuff recheck 161/95. She is present with preeclampsia symptoms. She has chest pains or tachycardia. Workup initiated to rule out PE with her symptoms in . Risk and benefits discussed with radiation. Interim blood pressure with manual cuff was 112/66, with patient size a larger cuff was placed with blood pressure checked at 119/69. She did have preeclampsia workup with her PE rule out. There is no PE infiltrates. heart tones 132. She had proteinuria. Uric acid liver enzymes kidney function and platelets and hemoglobin are all stable. She is hyperreflexive, however she reports to me that she is always that hyper reflexive. She was treated with morphine and Phenergan initially symptoms were subsiding. However on recheck states her headache was slightly returning. Cardiac workup PE being negative and stable. I discussed with covering SAND MIXER Dr. Tahira Bowden discussed patient's symptoms and findings. She agrees patient will need to be monitored in the hospital at the [facility] with blood pressure tabs with preeclampsia symptoms. Patient and family updated. Urine protein and creatinine ratio is pending. Treatment Plan: [] Disposition: Admission to [facility] Impression: 1. Chest pain 2. Headache 3. Transient elevated blood pressure 4. Third trimester This note was generated with The Author [employer] software. It may contain incorrect words, spelling, and punctuation that were not noted in review of the chart prior to signing ED Disposition - Plan for ED Patient: Disposition: Acute Care Hospital [facility] Diagnosis: Chest pain, Headache, Transient elevated blood pressure, Third trimester Referrals: NOT,DEFINED [NON-STAFF] -
[2018-07-08] MEDS: 0.9% Normal Saline 1,000 ML 1000 ML IV (20:36)
[2018-07-08] MEDS: proMETHazine 25 MG/ML Syringe 6.25 MG IV (20:36)
[2018-07-08] MEDS: Morphine 4 MG/ML Syringe IV (20:36)
[2018-07-08 20:41] LABS: Red Blood Cells-Urine 0 SEEN /hpf (0-5); White Blood Cells 0 SEEN /hpf (0-5)
[2018-07-08 20:44] LABS: Color, Urine Yellow (Yellow); Glucose, Dipstick Normal (Normal); Ketone-Dipstick 5 mg/dl (Negative); Leukocyte Esterase-Dipstick 25 /ul (Negative); Nitrite-Dipstick Negative (Negative); Occult Blood-Urine Negative /ul (Negative); Protein-Dipstick 15 mg/dl (Negative); Urine Bilirubin Dipstick Negative (Negative); Urine Clarity Sl. Cloudy (Clear); Urine Urobilinogen 1 mg/dl (Normal)
[2018-07-08 20:45] LABS: Hematocrit 30.1 % (37-47); Hemoglobin 9.8 g/dl (12.0-15.0); Mean Corp Hgb Conc 32.6 g/gl (32-36); Mean Corpuscular Hgb 28.6 pg (27.0-32.0); Mean Corpuscular Volume 87.8 fL (81-99); Mean Platelet Vol. 10.5 fl (6.2-12.0); Platelet Count 198 K/mm3 (150-450); RBC Distribution Width CV 14.4 % (11.6-14.6); RBC Distribution Width SD 45.9 fl (35.1-43.9); Red Blood Count 3.43 M/mm3 (4.2-5.4)
[2018-07-08 20:47] VITALS: O2SAT 97
[2018-07-08 20:48] LABS: Differential Indicated MANUAL DIFF; POSITIVE COUNT YES; POSITIVE DIFFERENTIAL NO; POSITIVE MORPHOLOGY YES
[2018-07-08 20:55] LABS: International Normalized Ratio 0.9; Prothrombin Time (Protime)PT. 12.5 SECONDS (11.7-14.9)
[2018-07-08 20:56] LABS: Partial Thromboplast Time 28.4 Seconds (24.1-36.2)
[2018-07-08 20:57] VITALS: BP 112/66; BP 119/69; PULSE 98
[2018-07-08 21:00] LABS: Bacteria RARE /hpf (None Seen); Mucous, Urine 1+ /hpf (<or=2+); Squamous Epithelial Cells - UA 5-10 SEEN /hpf (5-10)
[2018-07-08 21:01] LABS: AST(SGOT) 8 U/L (15-37); Alanine Aminotransfer ALT/SGPT 10 U/L (13-56); Albumin, Serum 2.5 g/dL (3.2-5.0); Alkaline Phosphatase 100 U/L (45-117); Anion Gap 10 (5-15); BUN 8 mg/dL (7-18); BUN/Creat Ratio 15.1 RATIO (10-20); Bilirubin, Direct 0.07 mg/dL (0.00-0.30); Chloride 106 mmol/L (98-107); Creatinine, Serum 0.53 mg/dL (0.55-1.02); EST Glomerular Filtration Rate 135 mL/min (>60); Est Glom Filt Rate - Afr Amer 164 mL/min (>60); Estimated Creatinine Clearance 100.34 ml/min; Globulin 4.3 g/dL (2.2-4.2); Glucose 75 mg/dL (74-106); Potassium 3.4 mmol/L (3.5-5.1); Protein, Total 6.8 g/dL (6.4-8.2); Sodium Level 137 mmol/L (136-145)
[2018-07-08 21:03] VITALS: BP 128/75; PULSE 94; O2SAT 98
[2018-07-08 21:12] LABS: Eosinophil 1 % (0-5); Lymphocyte 7 % (19-41); Metamyelocyte 1 % (0-1); Monocyte 1 % (0-10); Myelocyte 1 (0-0); Neutrophil-Band 1 % (0-5); Neutrophil-Segmented 88 % (47-70); Total Cells Counted 100 (MANUAL DIFF)
[2018-07-08 21:15] LABS: Absolute Lymphocyte Count 0.91 X10^3/ul (0.83-4.51); Absolute Neutrophil Count 11.6 X10^3/uL (2.0-7.7); Anisocytosis RARE; Platelet Estimate ADEQUATE (ADEQ); Toxic Granulation RARE
[2018-07-08 21:37] LABS: Uric Acid 4.4 mg/dL (2.6-6.0)
[2018-07-08 22:33] LABS: Protein, Urine (Random) 7.4 mg/dL (<11.9); Protein:Creat Ratio 149 mg/g CRE (0-200)
--- NOTE | 2018-07-08 22:52 | ED.RN ---
Patient expresses wanting to leave AMA. Emotional support and education given at length to patient and . Pt still want to go home. Dr. Tracey and Dr. Morejon notified. Dr. Tracey spoke with patient and reviewed risks of leaving. Pt states she will come back to ED if symptoms worsen. Dr. Morejon instructs patient to call office in AM to get an appt tomorrow.
[2018-07-08 23:45] VITALS: BP 121/77; PULSE 98; RESP 31; O2SAT 96
--- NOTE | 2018-07-08 23:46 | ED.RN ---
THIS RN WITNESSED DISCUSSION HAD WITH PT REGARDING RISKS OF AND DEMISE IF PATIENT LEAVES
[2018-07-09 15:56] LABS: Pathologist Review Reviewed
== END 2018-07-08 22:32 | disposition left against medical advice (07) ==
LOC: ED 22:20 → WP 22:33
PROVIDERS: Admitting Provider Obstetrics & Gynecology; Emergency Provider Emergency Medicine; Referring Provider Obstetrics & Gynecology; Visit Provider Obstetrics & Gynecology
DX: O26.893 Other specified pregnancy related conditions, third trimester (principal); Z3A.33 33 weeks gestation of pregnancy; R03.0 Elevated blood-pressure reading, without diagnosis of hypertension; R06.00 Dyspnea, unspecified; R11.2 Nausea with vomiting, unspecified
CPT/HCPCS: 96374; 96375; 71275; 80048; 80076; 81001; 82570; 84156; 84484; 84550; 85025; 85610; 85730; 87086; 87088; 93005; 99284; J7030; Q9967; A4216

== ENCOUNTER 2018-07-15 15:30 | Outpatient (CLI) | payer MEDICAID, SELFPAY ==
[2018-07-15 15:44] VITALS: BMI 47.9
--- NOTE | 2018-07-21 09:17 | OB.TRI.NOTE ---
History of Present Illness Was patient seen by the physician?: No Reason For Visit: DECREASED MOVEMENT Date of Service: 07/15/18 Final ANIKET: 08/31/18 Final ANIKET Source: US <20 weeks Gestational age: 33 Weeks and 2 Days History of Present Illness: 33+ week intrauterine presents with decreased movement. care remarkable for being a smoker and having 2 prior C-sections. Allergies acetaminophen [From Vicodin] Allergy (Verified 07/08/18 20:07) Itching hydrocodone bitartrate [From Vicodin] Allergy (Verified 07/08/18 20:07) Itching ondansetron HCl [From Zofran (as hydrochloride)] Allergy (Verified 07/08/18 20:07) Rash Penicillins [PCN] Allergy (Verified 07/08/18 20:07) Rash NST - FHR Rate Baby A NST Reactive:: Yes FHR Category:: Category I Impression/Plan 33+ week intrauterine with decreased movement. Reactive nonstress test noted. Will release to home with routine instructions and follow-up.
== END 2018-07-15 16:30 | disposition home or self-care (01) ==
LOC: WPOUT 15:33 → WP 07-16 09:29
PROVIDERS: Referring Provider Obstetrics & Gynecology; Visit Provider Obstetrics & Gynecology
DX: O36.8130 Decreased fetal movements, third trimester, not applicable or unspecified (principal); O34.219 Maternal care for unspecified type scar from previous cesarean delivery; O99.333 Smoking (tobacco) complicating pregnancy, third trimester; Z3A.33 33 weeks gestation of pregnancy
CPT/HCPCS: 59025; 59050; 99218; G0378

== ENCOUNTER 2018-07-29 13:56 | Outpatient (CLI) | payer MEDICAID, SELFPAY ==
[2018-07-29 14:40] VITALS: BMI 48.2
[2018-07-29 15:06] LABS: ROM Internal Control Test YES-OK TO RESULT pt. (Internal QC); ROM Patient Test Negative (Negative); Record Kit Lot#, ROM+ J7836
--- NOTE | 2018-08-03 08:27 | OB.TRI.HP_ITS ---
History of Present Illness Date of Service: 07/29/18 Was patient seen by the physician?: No Reason For Visit: R/O LABOR Date of Service: 07/29/18 Final ANIKET: 08/31/18 Final ANIKET Source: US <20 weeks Gestational age: 36 Weeks and 0 Days History of Present Illness: C/O contractions possible leaking fluid Allergies acetaminophen [From Vicodin] Allergy (Verified 07/08/18 20:07) Itching hydrocodone bitartrate [From Vicodin] Allergy (Verified 07/08/18 20:07) Itching ondansetron HCl [From Zofran (as hydrochloride)] Allergy (Verified 07/08/18 20 :07) Rash Penicillins [PCN] Allergy (Verified 07/08/18 20:07) Rash Laboratory Studies: Laboratory Tests 07/29/18 Range/Units 14:25 Vag Amniotic Fld Detect Negative (Negative) Physical Exam General: Alert, Oriented x3, Cooperative, No apparent distress Lungs: Clear to auscultation, Normal air movement Abdomen: Soft, Non Tender, Non-Distended, Gravid, Appropriate for Gestational Age Neurological: Neuro grossly intact GRADUATION COACH: Normal external genitalia Estimated gestational size: Appropriate for gestational size Presentation: Cephalic Cervix Dilation (cm): 1 Station: -3 Effacement (%): 0 NST - FHR Rate Baby A Baseline: 120s Variability:: Moderate Accelerations:: 15 x 15 Decelerations:: None NST Reactive:: Yes, Appropriate for gestational age FHR Category:: Category I Uterine Activity:: rare Impression/Plan No signs of active labor or PPROM. Reassuring FHR tracing.
--- NOTE | 2018-08-04 08:52 | OB.TRI.NOTE ---
History of Present Illness Date of Service: 08/03/18 Was patient seen by the physician?: No Reason For Visit: R/O LABOR Date of Service: 08/03/18 Final ANIKET: 08/31/18 Final ANIKET Source: US <20 weeks Gestational age: 36 Weeks and 1 Days Allergies acetaminophen [From Vicodin] Allergy (Verified 07/08/18 20:07) Itching hydrocodone bitartrate [From Vicodin] Allergy (Verified 07/08/18 20:07) Itching ondansetron HCl [From Zofran (as hydrochloride)] Allergy (Verified 07/08/18 20:07) Rash Penicillins [PCN] Allergy (Verified 07/08/18 20:07) Rash Laboratory Studies: Laboratory Tests 07/29/18 Range/Units 14:25 Vag Amniotic Fld Detect Negative (Negative) Physical Exam General: Alert, Oriented x3, Cooperative, No apparent distress Lungs: Clear to auscultation, Normal air movement Abdomen: Soft, Non Tender, Non-Distended, Gravid, Appropriate for Gestational Age Neurological: Neuro grossly intact INDUSTRIAL SOCIOLOGIST: Normal external genitalia Estimated gestational size: Appropriate for gestational size Presentation: Cephalic Cervix Dilation (cm): 1 Station: -2 NST - FHR Rate Baby A Baseline: 120s Variability:: Moderate Accelerations:: 15 x 15 Decelerations:: None NST Reactive:: Yes, Appropriate for gestational age FHR Category:: Category I Uterine Activity:: rare Impression/Plan No evidence of active labor or PPROM. Cervix unchanged. Will followup in office this week.
--- NOTE | 2018-08-04 08:56 | OB.TRI.HP_ITS ---
History of Present Illness Date of Service: 08/03/18 Was patient seen by the physician?: No Reason For Visit: R/O LABOR Date of Service: 08/03/18 Final ANIKET: 08/31/18 Final ANIKET Source: US <20 weeks Gestational age: 36 Weeks and 1 Days Allergies acetaminophen [From Vicodin] Allergy (Verified 07/08/18 20:07) Itching hydrocodone bitartrate [From Vicodin] Allergy (Verified 07/08/18 20:07) Itching ondansetron HCl [From Zofran (as hydrochloride)] Allergy (Verified 07/08/18 20:07) Rash Penicillins [PCN] Allergy (Verified 07/08/18 20:07) Rash Laboratory Studies: Laboratory Tests 07/29/18 Range/Units 14:25 Vag Amniotic Fld Detect Negative (Negative) Physical Exam General: Alert, Oriented x3, Cooperative, No apparent distress Lungs: Clear to auscultation, Normal air movement Abdomen: Soft, Non Tender, Non-Distended, Gravid, Appropriate for Gestational Age Neurological: Neuro grossly intact 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 Cervix unchanged. Will followup in office this week.
== END 2018-07-29 16:00 | disposition home or self-care (01) ==
LOC: WPOUT 13:58 → OBT 13:59
PROVIDERS: Referring Provider Obstetrics & Gynecology; Visit Provider Obstetrics & Gynecology
DX: O62.9 Abnormality of forces of labor, unspecified (principal); Z3A.36 36 weeks gestation of pregnancy
CPT/HCPCS: 59025; 59050; 84112; 99218; G0378

== ENCOUNTER 2018-08-03 08:35 | Outpatient (CLI) | payer MEDICAID, SELFPAY ==
[2018-08-03 09:08] VITALS: BMI 48.1
[2018-08-03 09:15] LABS: Color, Urine Yellow (Yellow); Glucose, Dipstick Normal (Normal); Ketone-Dipstick Negative (Negative); Leukocyte Esterase-Dipstick 25 /ul (Negative); Mucous, Urine 0 SEEN /hpf (<or=2+); Nitrite-Dipstick Negative (Negative); Occult Blood-Urine Negative /ul (Negative); Protein-Dipstick Negative (Negative); Red Blood Cells-Urine 0 SEEN /hpf (0-5); Specific Gravity, Urine 1.015 (1.002-1.030); Squamous Epithelial Cells - UA 0 SEEN /hpf (5-10); Urine Bilirubin Dipstick Negative (Negative); Urine Clarity Clear (Clear); Urine Urobilinogen Normal (Normal); Urine pH 6.5 (5.0 - 8.0)
[2018-08-03 09:21] LABS: Bacteria 1+ /hpf (None Seen); White Blood Cells 0-5 SEEN /hpf (0-5)
[2018-08-03 09:59] LABS: Amphetamine Urine VISTA NEGATIVE (<1000 ng/mL); Barbiturate Urine VISTA NEGATIVE (< 200 ng/mL); Benzodiazepine Urine VISTA NEGATIVE (< 200 ng/mL); Cocaine Urine VISTA NEGATIVE (< 300 ng/mL); Ecstacy Urine VISTA NEGATIVE (< 500 ng/mL); Methadone Urine VISTA NEGATIVE (< 300 ng/mL); PCP Urine VISTA NEGATIVE (< 25 ng/mL); THC Urine VISTA POSITIVE (< 50 ng/mL); Vista UDS pH Range 6
--- NOTE | 2018-08-19 08:15 | OB.TRI.NOTE ---
History of Present Illness Date of Service: 08/13/18 Was patient seen by the physician?: No Reason For Visit: R/O LABOR Date of Service: 08/13/18 Final ANIKET Source: US <20 weeks History of Present Illness: Complains of contraction like pains Allergies hydrocodone bitartrate [From Vicodin] Allergy (Verified 07/08/18 20:07) Itching ondansetron HCl [From Zofran (as hydrochloride)] Allergy (Verified 08/08/18 00:16) Other blisters to back of her neck Penicillins [PCN] Allergy (Verified 07/08/18 20:07) Rash - Pertinent Past Medical History Medical History: Past Medical History (Last Updated 08/08/18 @ 08:17 by Patsy Traore MD) Chest pain (Resolved) Crohns disease (Resolved) Depression (Resolved) Headache (Resolved) IBS (irritable bowel syndrome) (Resolved) Panic attacks (Resolved) Recurrent urinary tract infection (Resolved) Third trimester (Resolved) Transient elevated blood pressure (Resolved) Ulcerative colitis (Resolved) Laboratory Studies: Laboratory Tests 08/03/18 08/03/18 Range/Units 09:05 09:05 Urine Color Yellow (Yellow) Urine Clarity Clear (Clear) Urine pH 6.5 (5.0 - 8.0) Ur Specific Ware 1.015 (1.002-1.030) Urine Protein Negative (Negative) mg/dl Urine Glucose (UA) Normal (Normal) mg/dl Urine Ketones Negative (Negative) mg/dl Urine Occult Blood Negative (Negative) /ul Urine Nitrite Negative (Negative) Urine Bilirubin Negative (Negative) mg/dL Urine Urobilinogen Normal (Normal) mg/dl Ur Leukocyte Esterase 25 H (Negative) /ul Urine RBC 0 SEEN (0-5) /hpf Urine WBC 0-5 SEEN (0-5) /hpf Ur Squamous Epith Cells 0 SEEN (5-10) /hpf Urine Bacteria 1+ (None Seen) /hpf Urine Mucus 0 SEEN (<or=2+) /hpf Urine Opiates Screen NEGATIVE (< 300 ng/mL) Urine Methadone Screen NEGATIVE (< 300 ng/mL) Ur Barbiturates Screen NEGATIVE (< 200 ng/mL) Ur Phencyclidine Scrn NEGATIVE (< 25 ng/mL) Ur Amphetamines Screen NEGATIVE (<1000 ng/mL) U Methamphetamin-MDMA NEGATIVE (< 500 ng/mL) U Benzodiazepines Scrn NEGATIVE (< 200 ng/mL) Urine Cocaine Screen NEGATIVE (< 300 ng/mL) U Cannabinoids Screen POSITIVE H (< 50 ng/mL) Ur Drug Screen Comment Physical Exam General: Alert, Oriented x3, Cooperative, No apparent distress Lungs: Clear to auscultation, Normal air movement Abdomen: Soft, Non Tender, Non-Distended, Gravid, Appropriate for Gestational Age Extremities:: No edema Neurological: Neuro grossly intact REAL ESTATE MANAGER: Normal external genitalia Estimated gestational size: Appropriate for gestational size Presentation: Cephalic NST - FHR Rate Baby A Baseline: 130s Variability:: Moderate Accelerations:: 15 x 15 Decelerations:: None NST Reactive:: Yes, Appropriate for gestational age FHR Category:: Category I Uterine Activity:: irregular contractions Impression/Plan No signs of active labor. Discharged with f/u.
== END 2018-08-03 10:30 | disposition home or self-care (01) ==
LOC: WPOUT 08:41 → OBT 08:43
PROVIDERS: Referring Provider Obstetrics & Gynecology; Visit Provider Obstetrics & Gynecology
DX: O62.9 Abnormality of forces of labor, unspecified (principal); Z3A.00 Weeks of gestation of pregnancy not specified
CPT/HCPCS: 59025; 59050; 80307; 81001; 99218; G0378

== ENCOUNTER 2018-08-08 01:04 | Inpatient (IN) | payer MEDICAID, SELFPAY ==
[2018-08-08] VITALS (28 sets, daily range): BP systolic 95–142; BP diastolic 58–97; PULSE 75–115; RESP 16–28; TEMP 36.3–37.3; O2SAT 92–98; BMI 46.6
[2018-08-08] MEDS: Lactated Ringers 1,000 ML 999 ML IV (00:35)
--- NOTE | 2018-08-08 00:47 | NURSING ---
0046-limited care only 2 vists noted
[2018-08-08 01:00] LABS: ROM Internal Control Test YES-OK TO RESULT pt. (Internal QC)
[2018-08-08 01:01] LABS: ROM Patient Test POSITIVE (Negative)
[2018-08-08 01:02] LABS: Record Kit Lot#, ROM+ J7836
[2018-08-08 01:09] LABS: Amphetamine Urine VISTA NEGATIVE (<1000 ng/mL); Barbiturate Urine VISTA NEGATIVE (< 200 ng/mL); Benzodiazepine Urine VISTA NEGATIVE (< 200 ng/mL); Cocaine Urine VISTA NEGATIVE (< 300 ng/mL); Ecstacy Urine VISTA NEGATIVE (< 500 ng/mL); Methadone Urine VISTA NEGATIVE (< 300 ng/mL); PCP Urine VISTA NEGATIVE (< 25 ng/mL); THC Urine VISTA POSITIVE (< 50 ng/mL); Vista UDS pH Range 6
[2018-08-08] MEDS: Betamethasone/Betamethasone 30 MG/5 ML Vial 12 MG IM (01:09)
[2018-08-08] MEDS: Lactated Ringers 1,000 ML 150 ML IV ×4 (01:44→14:22)
--- NOTE | 2018-08-08 01:44 | PCM.DCCSEC ---
Discharge Diet: No Restrictions Discharge Activity: May Shower, May Take a Tub Bath Return to work on:: 09/20/18 May resume sexual activity in: 4-6 weeks Lifting Restrictions: 20 pounds Additional Activity Instructions:: Nothing in the vagina for 4-6 weeks. You may return to work/school in 6 weeks. Additional Instructions: If you experience any of the following, contact your healthcare provider. Bleeding that soaks a pad every hour for 2 hours Fever 100.4 or higher Unrelieved incision or abdominal pain Swelling, redness, discharge or bleeding from your incision Problems urinating (including inability to urinate or burning while urinating). Visual changes Severe headache Flu-like symptoms Pain or redness in one of both of your breasts Pain, warmth, tenderness or swelling in your legs, especially the calf area Frequent nausea and vomiting Symptoms of depression or anxiety If you experience any of the following, call 911 or go to the nearest Emergency Room. Chest pain Problems breathing Seizure activity Partial or complete paralysis of a body part, slurred speech, weakness or drooping of the face, or a sudden inability to walk or hold your balance Allergies/Adverse Reactions: Allergies acetaminophen [From Vicodin] Allergy (Verified 07/08/18 20:07) Itching hydrocodone bitartrate [From Vicodin] Allergy (Verified 07/08/18 20:07) Itching ondansetron HCl [From Zofran (as hydrochloride)] Allergy (Verified 08/08/18 00:16) Other blisters to back of her neck Penicillins [PCN] Allergy (Verified 07/08/18 20:07) Rash Medications to take at Discharge Prenatabs FA 1 tab PO DAILY 05/05/18 Calcium Carbonate [Tums] 400 mg PO PRN 08/03/18 Docusate Sodium [Colace] 100 mg PO BID #30 capsule 08/08/18 Naproxen [Naprosyn] 250 - 500 mg PO TID PRN PRN #30 tablet 08/08/18 Oxycodone [Oxyir] 5 mg PO Q6H PRN PRN 7 Days #20 tablet 08/08/18 Polyethylene Glycol 3350 [Miralax] 17 gm PO DAILY PRN #14 packet 08/08/18 The following prescriptions were given: Oxycodone [Oxyir] 5 mg PO Q6H PRN PRN 7 Days #20 tablet PRN Reason: Mod-Severe Pain (4-03/17) Naproxen [Naprosyn] 250 - 500 mg PO TID PRN PRN #30 tablet PRN Reason: Mild-Mod Pain (1-5) Polyethylene Glycol 3350 [Miralax] 17 gm PO DAILY PRN #14 packet PRN Reason: Constipation Docusate Sodium [Colace] 100 mg PO BID #30 capsule Follow-Up: Call to make an appointment with your doctor for an incision check in 1-2 weeks. You will also need a 6 week post- follow up appointment. Test results from this visit will be discussed in further detail at your follow-up appointment, if applicable. Please Follow Up With: Nehemias Willingham MD - [phone] When: Call to make an appointment for an incision check in 2 weeks. Primary Care Physician: Care Physician,No Primary [Primary Care Provider] - Proposed Discharge Date: 08/11/18
[2018-08-08 01:45] LABS: Hemoglobin 9.9 g/dl (12.0-15.0); Mean Corp Hgb Conc 31.9 g/gl (32-36); Mean Corpuscular Hgb 27.1 pg (27.0-32.0); Mean Corpuscular Volume 84.9 fL (81-99); Mean Platelet Vol. 11.1 fl (6.2-12.0); Platelet Count 232 K/mm3 (150-450); RBC Distribution Width CV 15.2 % (11.6-14.6); Red Blood Count 3.65 M/mm3 (4.2-5.4); White Blood Count 10.9 K/mm3 (4.4-11.0)
--- NOTE | 2018-08-08 01:47 | DCINST_ITS ---
Discharge Diet: No Restrictions Discharge Activity: May Shower, May Take a Tub Bath Return to work on:: 09/20/18 May resume sexual activity in: 4-6 weeks Lifting Restrictions: 20 pounds Additional Activity Instructions:: Nothing in the vagina for 4-6 weeks. You may return to work/school in 6 weeks. Additional Instructions: If you experience any of the following, contact your healthcare provider. * Bleeding that soaks a pad every hour for 2 hours * Fever 100.4 or higher * Unrelieved incision or abdominal pain * Swelling, redness, discharge or bleeding from your incision * Problems urinating (including inability to urinate or burning while urinating). * Visual changes * Severe headache * Flu-like symptoms * Pain or redness in one of both of your breasts * Pain, warmth, tenderness or swelling in your legs, especially the calf area * Frequent nausea and vomiting * Symptoms of depression or anxiety If you experience any of the following, call 911 or go to the nearest Emergency Room. * Chest pain * Problems breathing * Seizure activity * Partial or complete paralysis of a body part, slurred speech, weakness or drooping of the face, or a sudden inability to walk or hold your balance Allergies/Adverse Reactions: Allergies acetaminophen [From Vicodin] Allergy (Verified 07/08/18 20:07) Itching hydrocodone bitartrate [From Vicodin] Allergy (Verified 07/08/18 20:07) Itching ondansetron HCl [From Zofran (as hydrochloride)] Allergy (Verified 08/08/18 00:16) Other blisters to back of her neck Penicillins [PCN] Allergy (Verified 07/08/18 20:07) Rash Medications to take at Discharge Prenatabs FA 1 tab PO DAILY 05/05/18 Calcium Carbonate [Tums] 400 mg PO PRN 08/03/18 Docusate Sodium [Colace] 100 mg PO BID #30 capsule 08/08/18 Naproxen [Naprosyn] 250 - 500 mg PO TID PRN PRN #30 tablet 08/08/18 Oxycodone [Oxyir] 5 mg PO Q6H PRN PRN 7 Days #20 tablet 08/08/18 Polyethylene Glycol 3350 [Miralax] 17 gm PO DAILY PRN #14 packet 08/08/18 The following prescriptions were given: Oxycodone [Oxyir] 5 mg PO Q6H PRN PRN 7 Days #20 tablet PRN Reason: Mod-Severe Pain (4-03/17) Naproxen [Naprosyn] 250 - 500 mg PO TID PRN PRN #30 tablet PRN Reason: Mild-Mod Pain (1-5) Polyethylene Glycol 3350 [Miralax] 17 gm PO DAILY PRN #14 packet PRN Reason: Constipation Docusate Sodium [Colace] 100 mg PO BID #30 capsule Follow-Up: Call to make an appointment with your doctor for an incision check in 1-2 weeks. You will also need a 6 week post- follow up appointment. Test results from this visit will be discussed in further detail at your follow- up appointment, if applicable. Please Follow Up With: Nehemias Willingham MD - [phone] When: Call to make an appointment for an incision check in 2 weeks. Primary Care Physician: Care Physician,No Primary [Primary Care Provider] - Proposed Discharge Date: 08/11/18
[2018-08-08 01:48] LABS: Scan Indicated on CBC? Y/N NO
[2018-08-08] MEDS: Sodium Citrate/Citric Acid 30 ML UDC PO (01:52)
[2018-08-08] MEDS: Cefazolin 2 GM in 0.9% Normal Saline 100 ML IV (02:18)
[2018-08-08] MEDS: Oxytocin 30 units/NS 500 ml 30 UNITS/500 ML IV.SOLN 167 UNITS IV (02:35)
[2018-08-08] MEDS: Ketorolac 30 MG/ML Syringe IV ×3 (03:00→23:40)
--- NOTE | 2018-08-08 03:00 | PLAC_PTH ---
PATIENT: DEANNA BRADEN LOC: [facility] U#:[id number] AGE/SX: 43/F ROOM: WP007 RE08/08/[address]: Dr. Patsy Traore MD : 1975 BED: 1 DIS: 08/10/2018 SPEC #: [id number] RECD: 08/08/18 06:08 STATUS: STEFF BOWEN #: [id number] RAHUL: 08/08/18 03:[address]: Patsy Traore DEPT: SURGICAL PATHOLOGY RECD BY: Cliff Galvez ENTERED: 08/09/18 13:39 SP TYPE: PLACENTA OTHR DR: No Primary Care Phys Tissues: Placenta, NOS Procedures: Surgery Specimen Level V HEADER OPERATION: Repeat section PRE-OP DIAGNOSIS: SROM, tox positive (THC), limited care TISSUE SUBMITTED: Placenta MICROSCOPIC DIAGNOSIS Squires placenta (510 gm): Umbilical cord - trivascular with no inflammation. Placental membranes - minimal chronic decidual inflammation. Placental disc - mild Audi-Victor M change, intervillous congestion and focal intravillous congestion. AM:helen 08/11/18 MICROSCOPIC DESCRIPTION Slides are reviewed. GROSS DESCRIPTION SPECIMEN: PLACENTA / CLINICAL INFORMATION: A. Weight: 2.934 kg B. Gestational Age: 36 weeks C. Sex: Female PLACENTAL WEIGHT (POST FIXATION): 510 gm PLACENTAL DIMENSIONS: 18 x 17 x 3.5 cm PLACENTAL SHAPE: Usual ovoid PLACENTAL WEIGHT FOR GESTATIONAL AGE: Within 10-99th percentile MEMBRANES - Present A. Insertion: Marginal B. Site of rupture from edge: At edge of placental disc C. Color of membrane: Moseley-fan D. Abnormalities: None UMBILICAL CORD - Present A. Color: Moseley-fan B. Insertion: Central C. Length: 24 cm D. Diameter: 1 cm E. Number of vessels: Three F. Abnormalities: None PLACENTAL DISC - Present A. Color of surface: Moseley-fan B. surface abnormalities: None C. Maternal cotyledons: Intact with minimal tears D. Attached retro placental clot: No clot E. Cut surface: Dark red and spongy F. Lesions: None G. Separate clot: Absent SECTIONS SUBMITTED: 1. Membrane roll 2. Cord, maternal end 3. Cord, end 4. Placental disc, and maternal surfaces 5. Placental disc, and maternal surfaces 6. Placental disc, and maternal surfaces SJ:helen 08/10/18 TC:5 CPT: 95304
--- NOTE | 2018-08-08 03:04 | PCM.OPRPT ---
Report of Operation Date of Procedure: 08/08/18 Pre-Operative Diagnosis: 36 5/7 wk SROM , prior C section times two Post-Operative Diagnosis: Same Surgery/Procedure Performed:: repeat C section Description of Surgical Findings:: Preoperative diagnosis: 36 5/7 wk EGA SROM Prior C sections, planned repeat C section Postop diagnosis: 36 5/7 wk EGA SROM Prior C sections, planned repeat C section Findings: At amniotomy, very minimalclear fluid was noted. Squires viable female in vertex presentation. Apgars 8/9, Baby weight: 6#12 oz There was a normal appearing uterus, fallopian tubes and ovaries bilaterally. There were minimal filmy adhesions between the bladder and lower uterine segment. Suture noted from prior surgery, along the fascia elevator serviceman: Ly Quintero Type of Anesthesia:: Spinal Anesthesiologist: Antolin Garvin Specimen's removed: placenta. Cord gases and cord blood for typing. Drains: [place], conc appearing urine Estimated Blood Loss (mL): 600 Fluids Replaced: LR Description of Procedure: PATH: Routine cord blood for typing collected. Routine cord gases were sent. Narrative account: After the risks, benefits and alternatives of the procedure were reviewed with the patient, informed consent was obtained. The patient was taken to the Operating room with an IV running, and placed in a seated position on the operating table for placement of the spinal. Once the spinal had been administered, she was briefly frog-legged for Toledo catheter placement, and vaginal vault prep then repositioned to dorsal supine position with leftward displacement of the uterus. Tissue retention straps were placed to expose the lower abdomen beneath the pannus, and she was then prepped and draped in the usual sterile fashion. Once the spinal was deemed adequate, a Pfannenstiel skin incision was created using the knife (through the prior skin incision scar). The incision was carried down to the rectus fascia using the knife. The fascia was nicked in the midline. The fascial incision was extended bilaterally using curved Renteria scissors. The superior aspect of the fascial incision was grasped with Evert clamps and tented up and the underlying rectus abdominal muscles were dissected free. In a similar manner, the inferior aspect of the facial incision was grasped with Evert clamps tented up and the underlying rectus abdominal muscles were dissected free. The rectus abdominis muscles were in the midline and the peritoneum was identified and entered by blunt dissection high in the incision. The peritoneum was stretched laterally and a bladder blade was inserted. The incision was restricted, and the R rectus body was divided with scissors. The uterine incision was then created using Metzenbaum scissors. The operators fingertips were used to extend the uterine incision by blunt dissection in a caudad- cephalad orientation . Very minimal clear fluid was noted at amniotomy. The vertex was then delivered atraumatically through the incision. The OP and nares were bulb suctioned on the abdomen. The shoulders delivered easily . There was a loose body cord, cord around the ankles noted. The cord was reduced and then clamped x two and cut. And the infant was handed off to the nurse awaiting delivery after briefly showing her to her parents. The baby had a spontaneous, vigorous cry. The placenta was then delivered. The uterus was exteriorized and cleared of clots and debris . The uterine incision was repaired with 1 Vicryl in a running locked fashion. A second imbricating layer was then placed, using 1 Monocryl in running nonlocked fashion. Bovie cautery was used to treat any bleeding areas . Horizontal mattress stitches of 1 Vicryl were placed along the incision. Excellent hemostasis was noted. At this point the uterus was returned to the abdominal cavity. The gutters were cleared of clots and debris and the incision at the uterus was inspected. Sergio was applied along the entire incision for continued hemostasis. Excellent hemostasis was noted. The peritoneal edges and rectus abdominis muscles were reapproximated in the midline with interrupted vertical mattress sutures of 1 Vicryl. Excellent hemostasis was noted at the subfascial space Sergio was dusted over this layer as well. The fascia was closed in a running nonlocked fashion with a Stratofix. The Subcutaneous fatty tissue was Bovie cauterized as needed for hemostasis. Sergio was liberally dusted at this layer to prevent seroma formation. This layer was then reapproximated in a single layer closure of running 3-0 Vicryl to eliminate space. The skin edges were closed in a Subcuticular stitch of 4-0 Monocryl. The incision was cleansed. Cavilon, Steristrips, and silver Mepilex dressing were applied to the skin . The patient was then transferred to the recovery room bed in stable condition after tolerating the procedure well. Sponge, lap, needle and instrument counts correct times two. Medications given preop and intraoperatively included: Ancef 2 gm given technical solutions engineer to the operating room. The patient also received Pitocin given IV after cord clamp, and Toradol 30 mg IV times one. For a complete listing of medications given preop and intraoperatively, please see the anesthesia record. - Complications none - Admit VTE Documentation VTE Present on Admission: No VTE Mechan Device Prophylaxis: SCD's VTE Pharm Prophylaxis ordered?: Yes
[2018-08-08 03:11] LABS: Group B Strep DNA By PCR Negative (Negative); Internal Control PASS; Probe Check PASS; Specimen Processing Control PASS
--- NOTE | 2018-08-08 03:11 | OP.PCM_ITS ---
Report of Operation Date of Procedure: 08/08/18 Pre-Operative Diagnosis: 36 5/7 wk SROM , prior C section times two Post-Operative Diagnosis: Same Surgery/Procedure Performed:: repeat C section Description of Surgical Findings:: Preoperative diagnosis: 36 5/7 wk EGA SROM Prior C sections, planned repeat C section Postop diagnosis: 36 5/7 wk EGA SROM Prior C sections, planned repeat C section Findings: At amniotomy, very minimalclear fluid was noted. Squires viable female in vertex presentation. Apgars 8/9, Baby weight: 6#12 oz There was a normal appearing uterus, fallopian tubes and ovaries bilaterally. There were minimal filmy adhesions between the bladder and lower uterine segment. Suture noted from prior surgery, along the fascia network field engineer: Ly Quintero Type of Anesthesia:: Spinal Anesthesiologist: Antolin Garvin Specimen's removed: placenta. Cord gases and cord blood for typing. Drains: Toledo, conc appearing urine Estimated Blood Loss (mL): 600 Fluids Replaced: LR Description of Procedure: PATH: Routine cord blood for typing collected. Routine cord gases were sent. Narrative account: After the risks, benefits and alternatives of the procedure were reviewed with the patient, informed consent was obtained. The patient was taken to the Operating room with an IV running, and placed in a seated position on the operating table for placement of the spinal. Once the spinal had been administered, she was briefly frog-legged for Toledo catheter placement, and vaginal vault prep then repositioned to dorsal supine position with leftward displacement of the uterus. Tissue retention straps were placed to expose the lower abdomen beneath the pannus, and she was then prepped and draped in the usual sterile fashion. Once the spinal was deemed adequate, a Pfannenstiel sk in incision was created using the knife (through the prior skin incision scar). The incision was carried down to the rectus fascia using the knife. The fascia was nicked in the midline. The fascial incision was extended bilaterally using curved Renteria scissors. The superior aspect of the fascial incision was grasped with Evert clamps and tented up and the underlying rectus abdominal muscles were dissected free. In a similar manner, the inferior aspect of the facial incision was grasped with Evert clamps tented up and the underlying rectus abdominal muscles were dissected free. The rectus abdominis muscles were in the midline and the peritoneum was identified and entered by blunt dissection high in the incision. The peritoneum was stretched laterally and a bladder blade was inserted. The incision was restricted, and the R rectus body was divided with scissors. The uterine incision was then created using Metzenbaum scissors. The operators fingertips were used to extend the uterine incision by blunt dissection in a caudad- cephalad orientation . Very minimal clear fluid was noted at amniotomy. The vertex was then delivered atraumatically through the incision. The OP and nares were bulb suctioned on the abdomen. The shoulders delivered easily . There was a loose body cord, cord around the ankles noted. The cord was reduced and then clamped x two and cut. And the was handed off to the nurse awaiting delivery after briefly showing her to her parents. The baby had a spontaneous, vigorous cry. The placenta was then delivered. The uterus was exteriorized and cleared of clots and debris . The uterine incision was repaired with 1 Vicryl in a running locked fashion. A second imbricating layer was then placed, using 1 Monocryl in running nonlocked fashion. Bovie cautery was used to treat any bleeding areas . Horizontal mattress stitches of 1 Vicryl were placed along the incision. Excellent hemostasis was noted. At this point the uterus was returned to the abdominal cavity. The gutters were cleared of clots and debris and the incision at the uterus was inspected. Sergio was applied along the entire incision for continued hemostasis. Excellent hemostasis was noted. The peritoneal edges and rectus abdominis muscles were reapproximated in the midline with interrupted vertical mattress sutures of 1 Vicryl. Excellent hemostasis was noted at the subfascial space Sergio was dusted over this layer as well. The fascia was closed in a running nonlocked fashion with a Stratofix. The Subcutaneous fatty tissue was Bovie cauterized as needed for hemostasis. Sergio was liberally dusted at this layer to prevent seroma formation. This layer was then reapproximated in a single layer closure of running 3-0 Vicryl to eliminate space. The skin edges were closed in a Subcuticular stitch of 4-0 Monocryl. The incision was cleansed. Cavilon, Steristrips, and silver Mepilex dressing were applied to the skin . The patient was then transferred to the recovery room bed in stable condition after tolerating the procedure well. Sponge, lap, needle and instrument counts correct times two. Medications given preop and intraoperatively included: Ancef 2 gm given international sales representative to the operating room. The patient also received Pitocin given IV after cord clamp, and Toradol 30 mg IV times one. For a complete listing of medications given preop and intraoperatively, please see the anesthesia record. - Complications none - Admit VTE Documentation VTE Present on Admission: No VTE Mechan Device Prophylaxis: SCD's VTE Pharm Prophylaxis ordered?: Yes
[2018-08-08] MEDS: miSOPROStol 200 MCG Tablet 1000 MCG RECTAL (03:20)
--- NOTE | 2018-08-08 05:17 | NURSING ---
0500- placed back on 2l via nc for ox down to 92% on ra.
[2018-08-08] MEDS: Lactated Ringers 500 ML IV (05:35)
[2018-08-08 06:38] LABS: Pathology Specimen OB SEE PATHOLOGY REPORT
[2018-08-08] MEDS: Nystatin Ointment 1 APPLIC TOPICAL ×2 (06:51→20:54)
[2018-08-08] MEDS: DiphenhydrAMINE 25 MG Capsule PO (07:48)
--- NOTE | 2018-08-08 08:13 | PCM.PN.OB ---
Subjective: s/p Repeat C Section. Day of Delivery Sitting up in bed nursing. Smoker and willing to use nicotine patch. Pain control adequate Very poor urine output/ concentrated appearing urine. Unable to give Toradol. C/O itching and benadryl given. - Physical Exam General: Alert, Oriented x3, Cooperative, No apparent distress HEENT: Atraumatic Oral: Moist Mucosa Abdomen: Obese Psych/Mental Status: Normal Affect Vital Signs Temp Pulse Resp BP Pulse Ox 97.7 F L 77 18 124/63 H 97 08/08/18 06:30 08/08/18 07:38 08/08/18 07:38 08/08/18 06:30 08/08/18 06:30 Oxygen Flow Rate (L/min) 96 Oxygen Delivery Method Nasal Cannula Weight: 108.3 kg Body Mass Index (BMI) 46.6 Intake and Output for Last 24 Hours 08/06/18 08/07/18 08/08/18 23:59 23:59 23:59 Intake Total 3773 / 3773 Output Total Balance 3742 / 3742 Laboratory Tests Past 24 Hrs 08/07/18 08/07/18 08/07/18 00:30 23:55 23:55 WBC RBC Hgb Hct MCV MCH MCHC RDW RDW Differential Plt Count MPV Vag Amniotic Fld Detect POSITIVE H Urine Opiates Screen NEGATIVE Urine Methadone Screen NEGATIVE Ur Barbiturates Screen NEGATIVE Ur Phencyclidine Scrn NEGATIVE Ur Amphetamines Screen NEGATIVE U Methamphetamin-MDMA NEGATIVE U Benzodiazepines Scrn NEGATIVE Urine Cocaine Screen NEGATIVE U Cannabinoids Screen POSITIVE H Ur Drug Screen Comment Group B Strep DNA Negative Specimen Comment Not Reportable Blood Type Antibody Screen Screen Baby's Blood Type Baby's MELVIN 08/08/18 08/08/18 08/08/18 00:35 00:35 07:20 WBC 10.9 RBC 3.65 L Hgb 9.9 L Hct 31.0 L MCV 84.9 MCH 27.1 MCHC 31.9 L RDW 15.2 H RDW Differential 47.0 H Plt Count 232 MPV 11.1 Vag Amniotic Fld Detect Urine Opiates Screen Urine Methadone Screen Ur Barbiturates Screen Ur Phencyclidine Scrn Ur Amphetamines Screen U Methamphetamin-MDMA U Benzodiazepines Scrn Urine Cocaine Screen U Cannabinoids Screen Ur Drug Screen Comment Group B Strep DNA Specimen Comment Blood Type A NEGATIVE Antibody Screen NEGATIVE Screen NEGATIVE Baby's Blood Type A POSITIVE Baby's MELVIN NEGATIVE Medical Necessity - Tobacco Use Smoking Status: Heavy Smoker (>10/day) Assessment/Plan All Active Problems Anorexia (Resolved) Gastric peptic ulcer (Resolved) Celiac disease (Resolved) Chest pain (Resolved) Crohns disease (Resolved) Depression (Resolved) Headache (Resolved) IBS (irritable bowel syndrome) (Resolved) Panic attacks (Resolved) Recurrent urinary tract infection (Resolved) Renal lithiasis (Resolved) Third trimester (Resolved) Transient elevated blood pressure (Resolved) Ulcerative colitis (Resolved) Day of Delivery Repeat C/S, SROM at 36 5/7 wk 1.) Oliguria. Bolus given and little response. Likely third spacing. Hold toradol. Continue care. Anticipate spontaneous diuresis soon. Consider diuretic. Continue acevedo catheter 2.) Pain control --adequate. 3.) Smoker RX Nicoderm patch. 4.) H/O depression. Watch for s/sx of PP depression director of cardiopulmonary services appt. 5.) Drug use throughout . Two OB appts, multiple missed appt and last one prior to her delivery was at 24 wks. No glucola done. Will order HgbA1C with AM blood draw. director of cardiopulmonary services consult 6.) High BMI: Lovenox to start POD#1 SCDs. 7.) A negative. Antibody neg (no RhoGAM given in as noncompliant with visits) Baby A positive. RhoGAM to be given. Increase diet and activity as tolerated. Continue postop care.
--- NOTE | 2018-08-08 08:18 | PN.OBGYN_ITS ---
Subjective: s/p Repeat C Section. Day of Delivery Sitting up in bed nursing. Smoker and willing to use nicotine patch. Pain control adequate Very poor urine output/ concentrated appearing urine. Unable to give Toradol. C/O itching and benadryl given. - Physical Exam General: Alert, Oriented x3, Cooperative, No apparent distress HEENT: Atraumatic Oral: Moist Mucosa Abdomen: Obese Psych/Mental Status: Normal Affect Vital Signs Temp Pulse Resp BP Pulse Ox 97.7 F L 77 18 124/63 H 97 08/08/18 06:30 08/08/18 07:38 08/08/18 07:38 08/08/18 06:30 08/08/18 06:30 Oxygen Flow Rate (L/min) 96 Oxygen Delivery Method Nasal Cannula Weight: 108.3 kg Body Mass Index (BMI) 46.6 Intake and Output for Last 24 Hours 08/06/18 08/07/18 08/08/18 23:59 23:59 23:59 Intake Total 3773 / 3773 Output Total Balance 3742 / 3742 Laboratory Tests Past 24 Hrs 08/07/18 08/07/18 08/07/18 00:30 23:55 23:55 WBC RBC Hgb Hct MCV MCH MCHC RDW RDW Differential Plt Count MPV Vag Amniotic Fld Detect POSITIVE H Urine Opiates Screen NEGATIVE Urine Methadone Screen NEGATIVE Ur Barbiturates Screen NEGATIVE Ur Phencyclidine Scrn NEGATIVE Ur Amphetamines Screen NEGATIVE U Methamphetamin-MDMA NEGATIVE U Benzodiazepines Scrn NEGATIVE Urine Cocaine Screen NEGATIVE U Cannabinoids Screen POSITIVE H Ur Drug Screen Comment Group B Strep DNA Negative Specimen Comment Not Reportable Blood Type Antibody Screen Screen Baby's Blood Type Baby's MELVIN 08/08/18 08/08/18 08/08/18 00:35 00:35 07:20 WBC 10.9 RBC 3.65 L Hgb 9.9 L Hct 31.0 L MCV 84.9 MCH 27.1 MCHC 31.9 L RDW 15.2 H RDW Differential 47.0 H Plt Count 232 MPV 11.1 Vag Amniotic Fld Detect Urine Opiates Screen Urine Methadone Screen Ur Barbiturates Screen Ur Phencyclidine Scrn Ur Amphetamines Screen U Methamphetamin-MDMA U Benzodiazepines Scrn Urine Cocaine Screen U Cannabinoids Screen Ur Drug Screen Comment Group B Strep DNA Specimen Comment Blood Type A NEGATIVE Antibody Screen NEGATIVE Screen NEGATIVE Baby's Blood Type A POSITIVE Baby's MELVIN NEGATIVE Medical Necessity - Tobacco Use Smoking Status: Heavy Smoker (>10/day) Assessment/Plan All Active Problems Anorexia (Resolved) Gastric peptic ulcer (Resolved) Celiac disease (Resolved) Chest pain (Resolved) Crohns disease (Resolved) Depression (Resolved) Headache (Resolved) IBS (irritable bowel syndrome) (Resolved) Panic attacks (Resolved) Recurrent urinary tract infection (Resolved) Renal lithiasis (Resolved) Third trimester (Resolved) Transient elevated blood pressure (Resolved) Ulcerative colitis (Resolved) Day of Delivery Repeat C/S, SROM at 36 5/7 wk 1.) Oliguria. Bolus given and little response. Likely third spacing. Hold toradol. Continue care. Anticipate spontaneous diuresis soon. Consider diuretic. Continue acevedo catheter 2.) Pain control --adequate. 3.) Smoker RX Nicoderm patch. 4.) H/O depression. Watch for s/sx of PP depression student services director appt. 5.) Drug use throughout . Two OB appts, multiple missed appt and last one prior to her delivery was at 24 wks. No glucola done. Will order HgbA1C with AM blood draw. student services director consult 6.) High BMI: Lovenox to start POD#1 SCDs. 7.) A negative. Antibody neg (no RhoGAM given in as noncompliant with visits) Baby A positive. RhoGAM to be given. Increase diet and activity as tolerated. Continue postop care.
[2018-08-08] MEDS: Ferrous Sulfate 325 MG Tablet PO ×2 (14:21→20:54)
[2018-08-08] MEDS: Famotidine 20 MG Tablet PO (17:46)
[2018-08-08] MEDS: Calcium Carbonate 500 MG Tablet PO (17:47)
[2018-08-09] VITALS: O2SAT 98
[2018-08-09] MEDS: 0.9% Saline Lock 10 ML Syringe IV ×2 (03:32→05:30)
[2018-08-09] MEDS: Ketorolac 30 MG/ML Syringe IV (05:30)
[2018-08-09 06:22] LABS: Anion Gap 12 (5-15); BUN 11 mg/dL (7-18); BUN/Creat Ratio 19.1 RATIO (10-20); Calcium,Total 8.5 mg/dL (8.5-10.1); Chloride 105 mmol/L (98-107); Creatinine, Serum 0.58 mg/dL (0.55-1.02); EST Glomerular Filtration Rate 123 mL/min (>60); Est Glom Filt Rate - Afr Amer 149 mL/min (>60); Estimated Creatinine Clearance 91.69 ml/min; Glucose 97 mg/dL (74-106); Potassium 3.7 mmol/L (3.5-5.1); Sodium Level 138 mmol/L (136-145)
[2018-08-09 06:28] LABS: Hematocrit 25.9 % (37-47); Hemoglobin 8.2 g/dl (12.0-15.0); Mean Corp Hgb Conc 31.7 g/gl (32-36); Mean Corpuscular Hgb 26.9 pg (27.0-32.0); Mean Corpuscular Volume 84.9 fL (81-99); Platelet Count 165 K/mm3 (150-450); RBC Distribution Width CV 15.1 % (11.6-14.6); RBC Distribution Width SD 46.9 fl (35.1-43.9); Red Blood Count 3.05 M/mm3 (4.2-5.4); White Blood Count 14.6 K/mm3 (4.4-11.0)
[2018-08-09 06:37] LABS: Scan Indicated on CBC? Y/N NO
--- NOTE | 2018-08-09 08:25 | PCM.PN.OB ---
Subjective: POD#1 Repeat C/S Doing OK. Out to smoke at 6 am and requested the Nicotine patch be removed as states made her feel jittery. Pain control adequate for now. States good urine output and the Toledo was removed. IV S/L removed so she may go out AMA to smoke. - Physical Exam General: Alert, Oriented x3, Cooperative, No apparent distress Neck: Supple Abdomen: Soft - Fundus firm minimally tender c/w postop status, at 2 cm inferior to umbilicus, Obese Skin: Incision - Silver mepilex dressing CDI. Peeling up at L side. no shadow drainage. Psych/Mental Status: Normal Affect Vital Signs Temp Pulse Resp BP Pulse Ox 97.8 F 75 18 142/97 H 98 08/08/18 23:58 08/08/18 23:58 08/08/18 23:58 08/08/18 23:58 08/09/18 00:00 Oxygen Flow Rate (L/min) 96 Oxygen Delivery Method Room Air Weight: 108.3 kg Body Mass Index (BMI) 46.6 Intake and Output for Last 24 Hours 08/07/18 08/08/18 08/09/18 23:59 23:59 23:59 Intake Total 7577 / 7577 431 / 431 Output Total 731 / 731 300 / 300 Balance 6846 / 6846 131 / 131 Laboratory Tests Past 24 Hrs 08/09/18 08/09/18 08/09/18 05:45 05:45 05:45 WBC 14.6 H RBC 3.05 L Hgb 8.2 L Hct 25.9 L MCV 84.9 MCH 26.9 L MCHC 31.7 L RDW 15.1 H RDW Differential 46.9 H Plt Count 165 MPV 11.0 Sodium 138 Potassium 3.7 Chloride 105 Carbon Dioxide 21.0 Anion Gap 12 BUN 11 Creatinine 0.58 Estim Creat Clear Calc 91.69 Est GFR (MDRD) Af Amer 149 Est GFR (MDRD) Non-Af 123 BUN/Creatinine Ratio 19.1 Glucose 97 Hemoglobin A1c Pending Calcium 8.5 Medical Necessity - Tobacco Use Smoking Status: Heavy Smoker (>10/day) Assessment/Plan All Active Problems (Last Updated 08/08/18 @ 08:17 by Patsy Traore MD) Anorexia (Resolved) Gastric peptic ulcer (Resolved) Celiac disease (Resolved) Chest pain (Resolved) Crohns disease (Resolved) Depression (Resolved) Headache (Resolved) IBS (irritable bowel syndrome) (Resolved) Panic attacks (Resolved) Recurrent urinary tract infection (Resolved) Renal lithiasis (Resolved) Third trimester (Resolved) Transient elevated blood pressure (Resolved) Ulcerative colitis (Resolved) POD#1 Repeat C/S, SROM at 36 5/7 wk 1.) Oliguria. Resolved. Toledo removed for voiding trial 2.) Pain control --adequate. 3.) Smoker RX Nicoderm patch removed and pt going out to smoke instead AMA. 4.) H/O depression. Watch for s/sx of PP depression coordinator of health services appt. 5.) Drug use throughout . Two OB appts, multiple missed appt and last one prior to her delivery was at 24 wks. No glucola done. Will order HgbA1C with AM blood draw. coordinator of health services consult 6.) High BMI: Lovenox to start today. 7.) A negative. Baby A positive. RhoGAM given. 8.) Chronic anemia of now with superimposed acute blood loss anemia. Iron bid Increase diet and activity as tolerated. Continue postop care.
--- NOTE | 2018-08-09 08:29 | PN.OBGYN_ITS ---
Subjective: POD#1 Repeat C/S Doing OK. Out to smoke at 6 am and requested the Nicotine patch be removed as states made her feel jittery. Pain control adequate for now. States good urine output and the Toledo was removed. IV S/L removed so she may go out AMA to smoke. - Physical Exam General: Alert, Oriented x3, Cooperative, No apparent distress Neck: Supple Abdomen: Soft - Fundus firm minimally tender c/w postop status, at 2 cm inferior to umbilicus, Obese Skin: Incision - Silver mepilex dressing CDI. Peeling up at L side. no shadow drainage. Psych/Mental Status: Normal Affect Vital Signs Temp Pulse Resp BP Pulse Ox 97.8 F 75 18 142/97 H 98 08/08/18 23:58 08/08/18 23:58 08/08/18 23:58 08/08/18 23:58 08/09/18 00:00 Oxygen Flow Rate (L/min) 96 Oxygen Delivery Method Room Air Weight: 108.3 kg Body Mass Index (BMI) 46.6 Intake and Output for Last 24 Hours 08/07/18 08/08/18 08/09/18 23:59 23:59 23:59 Intake Total 7577 / 7577 431 / 431 Output Total 731 / 731 300 / 300 Balance 6846 / 6846 131 / 131 Laboratory Tests Past 24 Hrs 08/09/18 08/09/18 08/09/18 05:45 05:45 05:45 WBC 14.6 H RBC 3.05 L Hgb 8.2 L Hct 25.9 L MCV 84.9 MCH 26.9 L MCHC 31.7 L RDW 15.1 H RDW Differential 46.9 H Plt Count 165 MPV 11.0 Sodium 138 Potassium 3.7 Chloride 105 Carbon Dioxide 21.0 Anion Gap 12 BUN 11 Creatinine 0.58 Estim Creat Clear Calc 91.69 Est GFR (MDRD) Af Amer 149 Est GFR (MDRD) Non-Af 123 BUN/Creatinine Ratio 19.1 Glucose 97 Hemoglobin A1c Pending Calcium 8.5 Medical Necessity - Tobacco Use Smoking Status: Heavy Smoker (>10/day) Assessment/Plan All Active Problems (Last Updated 08/08/18 @ 08:17 by Patsy Traore MD) Anorexia (Resolved) Gastric peptic ulcer (Resolved) Celiac disease (Resolved) Chest pain (Resolved) Crohns disease (Resolved) Depression (Resolved) Headache (Resolved) IBS (irritable bowel syndrome) (Resolved) Panic attacks (Resolved) Recurrent urinary tract infection (Resolved) Renal lithiasis (Resolved) Third trimester (Resolved) Transient elevated blood pressure (Resolved) Ulcerative colitis (Resolved) POD#1 Repeat C/S, SROM at 36 5/7 wk 1.) Oliguria. Resolved. Toledo removed for voiding trial 2.) Pain control --adequate. 3.) Smoker RX Nicoderm patch removed and pt going out to smoke instead AMA. 4.) H/O depression. Watch for s/sx of PP depression student services coordinator appt. 5.) Drug use throughout . Two OB appts, multiple missed appt and last one prior to her delivery was at 24 wks. No glucola done. Will order HgbA1C with AM blood draw. student services coordinator consult 6.) High BMI: Lovenox to start today. 7.) A negative. Baby A positive. RhoGAM given. 8.) Chronic anemia of now with superimposed acute blood loss anemia. Iron bid Increase diet and activity as tolerated. Continue postop care.
[2018-08-09 08:58] LABS: Hemoglobin A1c 5.3 % (4.2-6.3)
[2018-08-09 10:15] VITALS: BP 143/84; PULSE 80; RESP 18; TEMP 36.1
[2018-08-09] MEDS: Enoxaparin 40 MG/0.4 ML Syringe SC (10:32)
[2018-08-09] MEDS: Famotidine 20 MG Tablet PO ×2 (10:32→23:37)
[2018-08-09] MEDS: Nystatin Ointment 1 APPLIC TOPICAL ×2 (10:32→23:38)
[2018-08-09] MEDS: Naproxen 250 MG Tablet PO (12:04)
[2018-08-09] MEDS: Ferrous Sulfate 325 MG Tablet PO ×2 (12:05→17:11)
[2018-08-09] MEDS: Acetaminophen 500 MG Tablet 1000 MG PO (13:41)
[2018-08-09 14:00] VITALS: BP 140/90; PULSE 83; RESP 18; TEMP 36.7
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
[2018-08-09] MEDS: Senna/Docusate Sodium 1 Tablet PO (17:10)
[2018-08-09] MEDS: oxyCODONE 5 MG Tablet PO ×2 (17:11→23:38)
[2018-08-09 19:45] VITALS: BP 148/71; PULSE 91; RESP 18; TEMP 36.5; O2SAT 95
[2018-08-10 03:40] VITALS: BP 140/86; PULSE 88; RESP 18; TEMP 36.4; O2SAT 95
[2018-08-10] MEDS: oxyCODONE 5 MG Tablet PO ×2 (03:40→09:53)
--- NOTE | 2018-08-10 08:19 | PN.OBGYN_ITS ---
Subjective: POD#2 repeat C/S at 36+ wk with SROM. Poor compliance with care. Doing well and wants to go home today. Still wants tubal ligation. Advised needs to come in to office to sign federal consent for tubal and this is needed 30 d or more prior to procedure. Pain control adequate and walking around and standing well. Breast feeding. Has been going out to smoke. - Physical Exam General: Alert, Oriented x3, Cooperative, No apparent distress HEENT: Atraumatic Neck: Supple Abdomen: Soft - fundus firm minimally tender c/w postop status. Skin: Incision - Mepilex beginning to peel up. Moist skin beneath pannus. Mepilex removed. Steristrips applied. Psych/Mental Status: Normal Affect Vital Signs Temp Pulse Resp BP Pulse Ox 97.6 F L 88 18 140/86 H 95 08/10/18 03:40 08/10/18 03:40 08/10/18 03:40 08/10/18 03:40 08/10/18 03:40 Oxygen Flow Rate (L/min) 96 Oxygen Delivery Method Room Air Weight: 108.3 kg Body Mass Index (BMI) 46.6 Intake and Output for Last 24 Hours 03/09/2408/10/18 23:59 23:59 23:59 Intake Total 7577 / 7577 431 / 431 Output Total 731 / 731 300 / 300 Balance 6846 / 6846 131 / 131 Microbiology Past 72 Hours 08/08/18 Unknown Group B Streptococcus Culture - Final Genital vaginal Group B Beta Streptococcus is not isolated. Laboratory Tests Past 24 Hrs 08/09/18 05:45 Hemoglobin A1c 5.3 Medical Necessity - Tobacco Use Smoking Status: Heavy Smoker (>10/day) Assessment/Plan All Active Problems (Last Updated 08/08/18 @ 08:17 by Patsy Traore MD) Anorexia (Resolved) Gastric peptic ulcer (Resolved) Celiac disease (Resolved) Chest pain (Resolved) Crohns disease (Resolved) Depression (Resolved) Headache (Resolved) IBS (irritable bowel syndrome) (Resolved) Panic attacks (Resolved) Recurrent urinary tract infection (Resolved) Renal lithiasis (Resolved) Third trimester (Resolved) Transient elevated blood pressure (Resolved) Ulcerative colitis (Resolved) POD#2 Repeat C/S, SROM at 36 5/7 wk 1.) Oliguria. Resolved. Voiding well 2.) Pain control --adequate. 3.) Smoker going out to smoke. 4.) H/O depression. technical services rep appt. 5.) Drug use throughout . Two OB appts, multiple missed appt and last one prior to her delivery was at 24 wks. HgbA1C WNL. A neg but antibody screen neg. Infant A positive. Given RhoGAM 6.) High BMI: Lovenox to continue until discharge 7.) Chronic anemia of now with superimposed acute blood loss anemia. Iron bid Discharge home Advised to come for postop check in 1-2 wk to office. She is to call to make appt Advised re BTO, vs bilateral salpingectomy. Still wants to have her tubes tied. Advised NEEDS TO SIGN FEDERAL CONSENT FOR TUBAL. This will be done in office in 1-2 wks. Then OK to schedule L/S bilateral salpingectomy for potential dec risk of ovarian cancer. (mentions an aunt with that dx).
[2018-08-10 08:20] VITALS: BP 106/78; PULSE 82; RESP 18; TEMP 36.5; O2SAT 97
--- NOTE | 2018-08-10 08:23 | PCM.DC.SUM ---
Discharge Date and Diagnosis Date of Admission: 08/08/18 - 36 5/7 wk SROM prior C/S Date of Discharge: 08/10/18 - Same POD#2 repeat C/S Hospital Course and Treatment Operations: - - repeat C section Summary of Care Provided: The patient is a 43 year old female with h/o prior C/S times two. Presents for evaluation with possible SROM. Very little care and has not been in to the office since 24 wks. Did not do Glucola. Did not get RhoGAM. Did not sign federal consent for tubal ligation paperwork. Very noncompliant with care. Each tox screen also positive for marijuana / THC. ROM plus test positive. Admitted for repeat C/S. Anemia noted preop. Procedure uncomplicated and delivered a viable female . Apgars 8/9, Baby weight: 6#12 oz Minimal adhesions noted within the abdomen/ pelvis Preop Hgb 9.9 g/dl. Postop hgb: 8.2 gm/dl. Postop course uneventful. Took her Nicotine patch of by POD#1 and had IV and S/L removed to go out to smoke. Ambulating well. Tolerating PO. Pain control adequate. Requests dischg home on POD#2 Advised must come in to ofc in 1-2 wk for postop incision check and to sign federal consent for bilateral salpingectomy. prefers this for potential dec risk of ovarian cancer. - Physical Exam Vital Signs Temp Pulse Resp BP Pulse Ox 97.6 F L 88 18 140/86 H 95 08/10/18 03:40 08/10/18 03:40 08/10/18 03:40 08/10/18 03:40 08/10/18 03:40 Oxygen Flow Rate (L/min) 96 Oxygen Delivery Method Room Air Weight: 108.3 kg Body Mass Index (BMI) 46.6 Intake and Output for Last 24 Hours 08/08/18 08/09/18 08/10/18 23:59 23:59 23:59 Intake Total 7577 / 7577 431 / 431 Output Total 731 / 731 300 / 300 Balance 6846 / 6846 131 / 131 Microbiology Past 72 Hours 08/08/18 Unknown Group B Streptococcus Culture - Final Genital vaginal Group B Beta Streptococcus is not isolated. Laboratory Tests Past 24 Hrs 08/09/18 05:45 Hemoglobin A1c 5.3 Discharge Diet: No Restrictions Discharge Activity: May Shower, May Take a Tub Bath Return to work on:: 09/20/18 May resume sexual activity in: 4-6 weeks Additional Activity Instructions:: Nothing in the vagina for 4-6 weeks. You may return to work/school in 6 weeks. Home Medications: Medications to take at Discharge Prenatabs FA 1 tab PO DAILY 05/05/18 Calcium Carbonate [Tums] 400 mg PO PRN 08/03/18 Docusate Sodium [Colace] 100 mg PO BID #30 capsule 08/08/18 Naproxen [Naprosyn] 250 - 500 mg PO TID PRN PRN #30 tablet 08/08/18 Oxycodone [Oxyir] 5 mg PO Q6H PRN PRN 7 Days #20 tablet 08/08/18 Polyethylene Glycol 3350 [Miralax] 17 gm PO DAILY PRN #14 packet 08/08/18 Following Prescrptions Were Given to Patient: Oxycodone [Oxyir] 5 mg PO Q6H PRN PRN 7 Days #20 tablet PRN Reason: Mod-Severe Pain (4-10/10) Naproxen [Naprosyn] 250 - 500 mg PO TID PRN PRN #30 tablet PRN Reason: Mild-Mod Pain (1-5/10) Polyethylene Glycol 3350 [Miralax] 17 gm PO DAILY PRN #14 packet PRN Reason: Constipation Docusate Sodium [Colace] 100 mg PO BID #30 capsule Primary Care Physician: Care Physician,No Primary [Primary Care Provider] - Please Follow Up With: Nehemias Willingham MD - [phone] When: Call to make an appointment for an incision check in 2 weeks. Medical Necessity - Tobacco Use Smoking Status: Heavy Smoker (>10/day) Meaningful Use Info Meaningful Use Diagnoses (Choose all that apply): None applicable
[2018-08-10] MEDS: Famotidine 20 MG Tablet PO (09:54)
[2018-08-10] MEDS: Enoxaparin 40 MG/0.4 ML Syringe SC (10:40)
--- NOTE | 2018-08-10 12:15 | CASEMGMT ---
Social Work Labor and Delivery Unit Call to [facility] ([facility]) at [phone]. Referral for substance exposed during and positive drug screens for mom and baby at delivery. Reported other risk factors/concerns for this family: family history of children services involvement, maternal mental health history, stressors during , and limited care. Reported strengths relating to community agencies that mother of baby had identified june linked with. [facility] to open a case due to baby's positive drug screen and contact will be made when family is at home. No other services requested or indicated. -JASMIN Issa, TOOL ROOM LATHE OPERATOR
== END 2018-08-10 11:35 | disposition home or self-care (01) | DRG 540 ==
LOC: WPOUT 01:06 → WP 02:50
PROVIDERS: Admitting Provider Obstetrics & Gynecology; Referring Provider Obstetrics & Gynecology; Visit Provider Obstetrics & Gynecology
DX: O60.14X0 Preterm labor third trimester with preterm delivery third trimester, not applicable or unspecified (principal); O34.211 Maternal care for low transverse scar from previous cesarean delivery; O99.334 Smoking (tobacco) complicating childbirth; O99.344 Other mental disorders complicating childbirth; F32.9 Major depressive disorder, single episode, unspecified; F12.90 Cannabis use, unspecified, uncomplicated; O26.833 Pregnancy related renal disease, third trimester; O90.81 Anemia of the puerperium; D62 Acute posthemorrhagic anemia; O09.33 Supervision of pregnancy with insufficient antenatal care, third trimester; Z3A.36 36 weeks gestation of pregnancy; Z37.0 Single live birth; Z91.19 Patient's noncompliance with other medical treatment and regimen; Z86.32 Personal history of gestational diabetes
CPT/HCPCS: 36415; 59025; 59050; 80048; 80307; 83036; 84112; 85027; 85461; 86850; 86900; 87081; 87653; 88307; 90384; 94762; 99218; J7120; A4216; G0378; J0702; J2405; J2790

== ENCOUNTER 2018-09-03 13:21 | Outpatient (CLI) | payer MEDICAID, SELFPAY ==
[2018-08-08 00:43] VITALS: BMI 46.6
[2018-09-03 13:22] VITALS: BP 167/113; PULSE 77; RESP 18; TEMP 36.6; O2SAT 96; BMI 42.0
--- NOTE | 2018-09-03 13:47 | RAD_ITS ---
STUDY: X-RAY CHEST REASON FOR EXAM: Female, 43 years old. Cough. Flulike symptoms. Hypertension. TECHNIQUE: Single AP portable view of the chest. COMPARISON: None. FINDINGS: EKG electrodes are seen. The lungs are clear and expanded. Scattered calcified granulomas. There is no demonstrated pleural abnormality. Normal size heart. Normal mediastinum and autumn. Normal visualized pulmonary arteries. Normal visualized aortic arch and descending thoracic aorta. Normal visualized thoracic spine. Normal visualized ribs, clavicles, and shoulders. There is no demonstrated abnormality of the visualized soft tissue structures of the upper abdomen. RAD/Chest 1 View (Portable) IMPRESSION: No acute abnormality is seen. Electronically Signed: Rohit Mendez, at 14:19 EDT , Service support ,
--- NOTE | 2018-09-03 13:48 | EKG12_ITS ---
Test Reason : DYSRHYTHMIA Blood Pressure : / mmHG Vent. Rate : 077 BPM Atrial Rate : 077 BPM P-R Int : 124 ms QRS Dur : 074 ms QT Int : 458 ms P-R-T Axes : 052 016 026 degrees QTc Int : 518 ms Normal sinus rhythm Prolonged QT Abnormal ECG Confirmed by HAMILTON CHAUDHRY, PERLITA ([id number]), editorial writer ELLY DARBY ([id number]) on 09/06/2018 1:45:47 PM Referred By: GORAN Confirmed By:PERLITA VILLASENOR MD
--- NOTE | 2018-09-03 13:49 | CT_ITS ---
STUDY: CT BRAIN WITH AND WITHOUT CONTRAST REASON FOR EXAM: Female, 43 years old. Post headaches. RADIATION DOSAGE (If Supplied By Facility): CTDIvol = ( 60.81 ) mGy, DLP = ( 1989.96 ) mGycm TECHNIQUE: Transaxial CT imaging of the brain was performed pre and post contrast administration. The examination was performed with intravenous administration of 50 IV Isovue 370. Individualized dose optimization techniques were used for this CT. COMPARISON: None. FINDINGS: Normal soft tissue structures. Normal calvarium. Normal size ventricles and extra-axial spaces for the patient's age. Normal white matter tracts of the cerebral hemispheres. Normal basal ganglia and thalami. Normal brainstem. Normal cerebellum. There is no intracranial hemorrhage. There are no findings of an acute ischemic infarction. Normal visualized paranasal sinuses. CT/Brain/Head W/WO Contrast IMPRESSION: Normal unenhanced and enhanced CT scan of the brain. Electronically Signed: Rohit Mendez, at 15:37 EDT , Service support ,
[2018-09-03] MEDS: Ketorolac 30 MG/ML Syringe IV (14:15)
[2018-09-03 14:19] VITALS: BP 186/117; BP 196/126; PULSE 74; RESP 15; TEMP 36.6; O2SAT 99
[2018-09-03 14:19] LABS: Mucous, Urine 0 SEEN /hpf (<or=2+)
[2018-09-03 14:22] LABS: Color, Urine Yellow (Yellow); Glucose, Dipstick Normal (Normal); Ketone-Dipstick Negative (Negative); Leukocyte Esterase-Dipstick 100 /ul (Negative); Nitrite-Dipstick Negative (Negative); Occult Blood-Urine 50 /ul (Negative); Protein-Dipstick Negative (Negative); Urine Bilirubin Dipstick Negative (Negative); Urine Clarity Sl. Cloudy (Clear); Urine Urobilinogen Normal (Normal)
[2018-09-03 14:26] LABS: Absolute Lymphocyte Count 1.46 X10^3/ul (0.83-4.51); Absolute Neutrophil Count 3.9 X10^3/uL (2.0-7.7); Basophil# 0.03 X10^3/uL; Basophil% 0.5 % (0-1); Eosinophil# 0.28 X10^3/uL; Eosinophils% 4.6 % (0-5); Hematocrit 40.7 % (37-47); Hemoglobin 12.5 g/dl (12.0-15.0); Lymphocyte # 1.46 X10^3/ul (4.0); Lymphocyte % 24.1 % (19-41); Mean Corp Hgb Conc 30.7 g/gl (32-36); Mean Corpuscular Hgb 25.6 pg (27.0-32.0); Mean Corpuscular Volume 83.4 fL (81-99); Mean Platelet Vol. 11.4 fl (6.2-12.0); Monocyte% 6.6 % (0-10); Neutrophil # 3.87 X10^3/uL (2.7-7.7); Neutrophil % 63.7 % (47-70); Platelet Count 212 K/mm3 (150-450); RBC Distribution Width CV 15.9 % (11.6-14.6); RBC Distribution Width SD 48.2 fl (35.1-43.9); Red Blood Count 4.88 M/mm3 (4.2-5.4); White Blood Count 6.1 K/mm3 (4.4-11.0)
[2018-09-03 14:27] LABS: POSITIVE COUNT NO; POSITIVE DIFFERENTIAL NO; POSITIVE MORPHOLOGY NO
[2018-09-03 14:28] LABS: Bacteria 1+ /hpf (None Seen); Red Blood Cells-Urine 0-5 SEEN /hpf (0-5); Squamous Epithelial Cells - UA 0-5 SEEN /hpf (5-10); White Blood Cells 10-25 SEEN /hpf (0-5)
[2018-09-03 14:38] LABS: AST(SGOT) 16 U/L (15-37); Alanine Aminotransfer ALT/SGPT 16 U/L (13-56); Albumin, Serum 3.5 g/dL (3.2-5.0); Alkaline Phosphatase 101 U/L (45-117); Anion Gap 4 (5-15); BUN 18 mg/dL (7-18); BUN/Creat Ratio 23.1 RATIO (10-20); Bilirubin, Direct 0.06 mg/dL (0.00-0.30); Calcium,Total 8.5 mg/dL (8.5-10.1); Chloride 108 mmol/L (98-107); Creatinine, Serum 0.78 mg/dL (0.55-1.02); EST Glomerular Filtration Rate 87 mL/min (>60); Est Glom Filt Rate - Afr Amer 105 mL/min (>60); Estimated Creatinine Clearance 68.18 ml/min; Globulin 3.9 g/dL (2.2-4.2); Glucose 81 mg/dL (74-106); Potassium 3.8 mmol/L (3.5-5.1); Protein, Total 7.4 g/dL (6.4-8.2); Sodium Level 138 mmol/L (136-145); Uric Acid 5.8 mg/dL (2.6-6.0)
[2018-09-03] MEDS: DiphenhydrAMINE 50 MG/ML Syringe 25 MG IV (15:57)
[2018-09-03] MEDS: Acetaminophen 500 MG Tablet 1000 MG PO (15:59)
[2018-09-03 16:00] VITALS: BP 166/98; PULSE 71; RESP 20; TEMP 36.4; O2SAT 99
[2018-09-03] MEDS: Ceftriaxone 1 GM/50 ML BAG IV (16:36)
--- NOTE | 2018-09-03 17:20 | ED.VISSUMM ---
- ER Visit Summary Date of Service: 09/03/18 Chief Complaint: Short of breath, chills, headache, nausea and vomiting History of Present Illness: The patient is a 43 F who delivered a child via on August 08. She had problems with hypertension prior to delivery. Blood pressure was okay at discharge and she has not checked her blood pressure since. Patient presents today with headache, mild cough, congestion, nausea and vomiting. She states her main complaint is headache. Physical Examination: Blood pressure in triage was 167/113, other vitals normal. Patient is sitting upright in bed. He is in no acute distress and nontoxic appearing. Heart is regular rate and rhythm. Lung sounds are clear. Abdomen is soft and nontender. Neuro exam reveals normal strength and sensation throughout. Test Results: EKG is sinus at 77 with no acute ischemia. Portable chest x-ray shows no acute abnormality. CBC and chemistry studies normal. LFTs normal. Urinalysis shows 10-25 white cells with 1+ bacteria. Uric acid is 5.8. Emergency Department Course and Treatment: Triage nurse came to me as soon as the patient signed in. I spoke with Dr. Tahira Bowden to determine if the patient should be seen here or in OB triage. She asked that we keep the patient here for initial imaging and treatment. I spoke with CT staff about ordering the appropriate CT to ensure no evidence of dural venous thrombus. They spoke with the radiologist and they agreed that CT scan with IV contrast would be appropriate. This is read as normal. Patient reportedly had no ride home initially. She was initially given Toradol and 10 mg of labetalol. Repeat blood pressure is 173/98. She is then given Tylenol and Benadryl for further headache stating that her is coming. She refused Reglan. She was given an additional dose of labetalol 10 mg. Rocephin was given for a UTI. At this time blood pressure is 166/101. I spoke with Dr. Tahira Bowden. She asked that the patient come down to OB triage and she will see the patient there. Treatment Plan: [] Disposition: Discharge to OB triage Impression: 1. Cephalgia 2. Hypertension 3. UTI 4. Recent This note was generated with [employer] dictation software. It may contain incorrect words, spelling, and punctuation that were not noted in review of the chart prior to signing ED Disposition - Plan for ED Patient: Referrals: Care Physician,No Primary [Primary Care Provider] -
--- NOTE | 2018-09-03 17:23 | ED.DCSUM_ITS ---
- ER Visit Summary Date of Service: 09/03/18 Chief Complaint: Short of breath, chills, headache, nausea and vomiting History of Present Illness: The patient is a 43 F who delivered a child via C- section on August 08. She had problems with hypertension prior to delivery. Blood pressure was okay at discharge and she has not checked her blood pressure since. Patient presents today with headache, mild cough, congestion, nausea and vomiting. She states her main complaint is headache. Physical Examination: Blood pressure in triage was 167/113, other vitals normal. Patient is sitting upright in bed. He is in no acute distress and nontoxic appearing. Heart is regular rate and rhythm. Lung sounds are clear. Abdomen is soft and nontender. Neuro exam reveals normal strength and sensation throughout. Test Results: EKG is sinus at 77 with no acute ischemia. Portable chest x-ray shows no acute abnormality. CBC and chemistry studies normal. LFTs normal. Urinalysis shows 10-25 white cells with 1+ bacteria. Uric acid is 5.8. Emergency Department Course and Treatment: Triage nurse came to me as soon as the patient signed in. I spoke with Dr. Tahira Bowden to determine if the patient should be seen here or in OB triage. She asked that we keep the patient here for initial imaging and treatment. I spoke with CT staff about ordering the appropriate CT to ensure no evidence of dural venous thrombus. They spoke with the radiologist and they agreed that CT scan with IV contrast would be appropriate. This is read as normal. Patient reportedly had no ride home initially. She was initially given Toradol and 10 mg of labetalol. Repeat blood pressure is 173/98. She is then given Tylenol and Benadryl for further headache stating that her is coming. She refused Reglan. She was given an additional dose of labetalol 10 mg. Rocephin was given for a UTI. At this time blood pressure is 166/101. I spoke with Dr. Tahira Bowden. She asked that the patient come down to OB triage and she will see the patient there. Treatment Plan: [] Disposition: Discharge to OB triage Impression: 1. Cephalgia 2. Hypertension 3. UTI 4. Recent This note was generated with [employer] dictation software. It may contain incorrect words, spelling, and punctuation that were not noted in review of the chart prior to signing ED Disposition - Plan for ED Patient: Referrals: Care Physician,No Primary [Primary Care Provider] -
--- NOTE | 2018-09-03 17:23 | ED.DEP ---
ED Disposition - Plan for ED Patient: Disposition: Home or Assisted Living Instructions: Understanding Preeclampsia Referrals: Calista Morejon MD [STAFF PHYSICIAN] -
[2018-09-03 17:35] VITALS: BP 165/95; PULSE 71; RESP 18; O2SAT 96
--- NOTE | 2018-09-03 18:36 | OB.TRI.NOTE ---
- Problem List (1) Hypertension Status: Chronic Qualifiers: Hypertension type: unspecified Qualified Code(s): I10 - Essential (primary) hypertension (2) Maternal hypertension affecting puerperium Status: Acute History of Present Illness Date of Service: 09/03/18 Was patient seen by the physician?: Yes Reason For Visit: POST HEADACHE AND BLOOD PRESSURE Final ANIKET Source: US <20 weeks History of Present Illness: 43yo presents on POD#26 s/p repeat LTCS sent from the ER for persistently elevated blood pressures to r/o preeclampsia. Patient presented to ER with headache and flu-like symptoms but was found to have UTI and treated with Rociphen in ED. She had hypertensive urgency and was given 10mg IV Labetalol x 2 as well as Toradol for headache. A Head CT with contrast was negative for intracranial pathology. 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 She relocated to this area from [place] late last year and received sporadic care with Ivan Willingham MD. Denies history of recurrent UTI, chronic hypertension or prior need to take blood pressure medication. Patient last seen in office 2 weeks ago for postop incision check. BP there was mildly elevated per records. She was diagnosed with a yeast infection at incision and prescribed a yeast cream with resolution of symptoms, but it returned. Patient is anxious to go home. Reports her breast are full and she needs to feed baby. Allergies hydrocodone bitartrate [From Vicodin] Allergy (Verified 09/03/18 13:32) Itching ondansetron HCl [From Zofran (as hydrochloride)] Allergy (Verified 09/03/18 13:32) Other blisters to back of her neck Penicillins [PCN] Allergy (Verified 09/03/18 13:32) Rash metoclopramide [From Reglan] Adverse Reaction (Verified 09/03/18 18:48) Other - Pertinent Past Medical History Medical History: Past Medical History (Last Updated 09/03/18 @ 18:52 by Calitsa Morejon MD) H/O gestational diabetes mellitus, not currently (Acute) Long QT interval (Acute) Pt had cardiac cath with arrhythmia and relates now resolved History of kidney stones Chest pain (Resolved) Crohns disease (Resolved) Depression (Resolved) Headache (Resolved) IBS (irritable bowel syndrome) (Resolved) Panic attacks (Resolved) Recurrent urinary tract infection (Resolved) Third trimester (Resolved) Transient elevated blood pressure (Resolved) Ulcerative colitis (Resolved) in remission Surgical History: Past Surgical History (Last Updated 09/03/18 @ 18:52 by Calista Morejon MD) Hx of cholecystectomy 2000 Previous section 2006, 2012, 2019 S/P hernia repair 2013 Laboratory Studies: Laboratory Tests 09/03/18 09/03/18 09/03/18 Range/Units 14:10 14:10 14:05 WBC 6.1 (4.4-11.0) K/mm3 RBC 4.88 (4.2-5.4) M/mm3 Hgb 12.5 (12.0-15.0) g/dl Hct 40.7 (37-47) % MCV 83.4 (81-99) fL MCH 25.6 L (27.0-32.0) pg MCHC 30.7 L (32-36) g/gl RDW 15.9 H (11.6-14.6) % RDW Differential 48.2 H (35.1-43.9) fl Plt Count 212 (150-450) K/mm3 MPV 11.4 (6.2-12.0) fl Immature Gran % (Auto) 0.500 (0.0-0.9) % Neut % (Auto) 63.7 (47-70) % Lymph % (Auto) 24.1 (19-41) % Rains % (Auto) 6.6 (0-10) % Eos % (Auto) 4.6 (0-5) % Baso % (Auto) 0.5 (0-1) % Absolute Neuts (auto) 3.9 (2.0-7.7) X10^3/uL Absolute Lymphs (auto) 1.46 (0.83-4.51) X10^3/ul Total Counted Not Reportable Sodium 138 (136-145) mmol/L Potassium 3.8 (3.5-5.1) mmol/L Chloride 108 H (98-107) mmol/L Carbon Dioxide 26.0 (21.0-32.0) mmol/L Anion Gap 4 L (5-15) BUN 18 (7-18) mg/dL Creatinine 0.78 (0.55-1.02) mg/dL Estim Creat Clear Calc 68.18 ml/min Est GFR (MDRD) Af Amer 105 (>60) mL/min Est GFR (MDRD) Non-Af 87 (>60) mL/min BUN/Creatinine Ratio 23.1 H (10-20) RATIO Glucose 81 (74-106) mg/dL Uric Acid 5.8 (2.6-6.0) mg/dL Calcium 8.5 (8.5-10.1) mg/dL Total Bilirubin 0.30 (0.20-1.00) mg/dL Direct Bilirubin 0.06 (0.00-0.30) mg/dL AST 16 (15-37) U/L ALT 16 (13-56) U/L Alkaline Phosphatase 101 (45-117) U/L Total Protein 7.4 (6.4-8.2) g/dL Albumin 3.5 (3.2-5.0) g/dL Globulin 3.9 (2.2-4.2) g/dL Urine Color Yellow (Yellow) Urine Clarity Sl. Cloudy (Clear) Urine pH 5.0 (5.0 - 8.0) Ur Specific [place] 1.020 (1.002-1.030) Urine Protein Negative (Negative) mg/dl Urine Glucose (UA) Normal (Normal) mg/dl Urine Ketones Negative (Negative) mg/dl Urine Occult Blood 50 H (Negative) /ul Urine Nitrite Negative (Negative) Urine Bilirubin Negative (Negative) mg/dL Urine Urobilinogen Normal (Normal) mg/dl Ur Leukocyte Esterase 100 H (Negative) /ul Urine RBC 0-5 SEEN (0-5) /hpf Urine WBC 10-25 SEEN (0-5) /hpf Ur Squamous Epith Cells 0-5 SEEN (5-10) /hpf Urine Bacteria 1+ (None Seen) /hpf Urine Mucus 0 SEEN (<or=2+) /hpf Review of Systems Constitutional: Denies: Fever, Fatigue HEENT: Denies: Sore Throat Cardiovascular: Denies: Chest Pain, Edema Respiratory: Denies: Cough, Shortness of Breath Gastrointestinal: Denies: Abdominal Pain, Nausea, Vomiting Genitourinary: Denies: Dysuria Physical Exam Vitals: Vital Signs Temp Pulse Resp BP Pulse Ox 97.6 F L 71 18 165/95 H 96 09/03/18 16:00 09/03/18 17:35 09/03/18 17:35 09/03/18 17:35 09/03/18 17:35 General: Alert, Oriented x3, Cooperative, No apparent distress, - - Appears older than stated age HEENT: Atraumatic, Normocephalic Cardiovascular: Regular rate, Regular Rhythm, Normal S1, Normal S2, No murmurs Lungs: Clear to auscultation, Normal air movement Abdomen: Soft, Non Tender, Non-Distended, - - Incision with glossy erythema at right and moisture present - no defects Extremities:: No edema Neurological: Deep Tendon Reflexes 2+/4 and Symmetrical, Neuro grossly intact, - - no clonus Impression/Plan 43yo with headache, hypertension approximately 3-4 weeks s/p repeat section. -No clear evidence of preeclampsia of this time based on labs or exam, however, pt with hypertensive urgency. -Reviewed with patient my concerns and discussed plan to administer antihypertensives further. -Patient indicated she was not going to stay, was concerned about going to work at 3am and they have one car and she needs to care for . I reviewed with her that I could not guarantee her how long her stay would be however recommend at least initial period of observation as leaving was against my medical recommendation. She declined. I reviewed with her risks of delaying or forgoing treatment may including heart failure/cardiomyopathy, stroke with neurologic deficit, possibly including inability to care for self or family members, as well as . -I advised her to resume home yeast cream for incisional infection. -I also recommended she call office to schedule BP follow up in next 3-7 days. -Patient reported understanding and left AMA. -Rx Macrobid for UTI Code Visit Office Visits / Consults: [id number] OV L3 New
== END 2018-09-03 18:30 | disposition left against medical advice (07) ==
LOC: ED 17:24 → WPOUT 17:54 → WP 17:55
PROVIDERS: Emergency Provider Emergency Medicine; Visit Provider Obstetrics & Gynecology
DX: O16.5 Unspecified maternal hypertension, complicating the puerperium (principal); Z90.49 Acquired absence of other specified parts of digestive tract
CPT/HCPCS: 70470; 71045; 80048; 80076; 81001; 84550; 85025; 93005; 99218; 99283; J7030; J7040; Q9967; A4216; G0378

== ENCOUNTER 2018-09-06 21:50 | Outpatient (CLI) | payer MEDICAID, SELFPAY ==
[2018-09-06] VITALS (16 sets, daily range): BP systolic 149–236; BP diastolic 84–123; PULSE 75–90; RESP 16–18; O2SAT 92–98; BMI 42.0
[2018-09-06] MEDS: 0.9% NaCl Peripheral Flush Adult/Peds IV ×4 (22:10→23:29)
[2018-09-06] MEDS: Magnesium Sulfate 20 GM/500 ML BAG IV (22:36)
[2018-09-06] MEDS: Acetaminophen 500 MG Tablet 1000 MG PO (22:40)
[2018-09-06 22:46] LABS: Hematocrit 38.1 % (37-47); Hemoglobin 12.3 g/dl (12.0-15.0); Mean Corp Hgb Conc 32.3 g/gl (32-36); Mean Corpuscular Hgb 26.2 pg (27.0-32.0); Mean Corpuscular Volume 81.2 fL (81-99); Mean Platelet Vol. 11.2 fl (6.2-12.0); Platelet Count 218 K/mm3 (150-450); RBC Distribution Width CV 16.2 % (11.6-14.6); RBC Distribution Width SD 48.5 fl (35.1-43.9); Red Blood Count 4.69 M/mm3 (4.2-5.4); Scan Indicated on CBC? Y/N NO; White Blood Count 7.3 K/mm3 (4.4-11.0)
[2018-09-06 22:49] LABS: International Normalized Ratio 0.9; Partial Thromboplast Time 29.7 Seconds (24.1-36.2); Prothrombin Time (Protime)PT. 12.1 SECONDS (11.7-14.9)
[2018-09-06 22:54] LABS: AST(SGOT) 12 U/L (15-37); Alanine Aminotransfer ALT/SGPT 18 U/L (13-56); Creatinine, Serum 0.89 mg/dL (0.55-1.02); EST Glomerular Filtration Rate 74 mL/min (>60); Est Glom Filt Rate - Afr Amer 90 mL/min (>60); Uric Acid 4.9 mg/dL (2.6-6.0)
[2018-09-06] MEDS: Morphine 2 MG/ML Syringe IV (23:05)
--- NOTE | 2018-09-06 23:25 | RAD_ITS ---
HISTORY: CHEST PAIN, SHORTNESS OF BREATH EXAM:XR Chest 1 View COMPARISON: None FINDINGS: EKG leads in place. Shallow inspiration, and allowing for this, the heart appears upper normal in size. Left hilar and AP window small calcified lymph nodes compatible with benign granulomatous change No vascular congestion, pleural effusion, or acute pulmonary infiltration. No pneumothorax. The bony thorax appears intact. RAD/Chest 1 View (Portable) IMPRESSION: No acute cardiopulmonary disease. at 2350 Reported and signed by: Kevin Dias MD Electronically Signed: Kevin Dias, at 23:49 EDT Tel , Service support ,
[2018-09-06] MEDS: Ketorolac 30 MG/ML Syringe IV (23:29)
[2018-09-06] MEDS: Labetalol 100 MG Tablet 200 MG PO (23:52)
[2018-09-06] MEDS: Zolpidem Tartrate 5 MG Tablet PO (23:56)
[2018-09-07] VITALS (33 sets, daily range): BP systolic 114–197; BP diastolic 58–106; PULSE 65–88; RESP 16–20; TEMP 36.4–37.1; O2SAT 92–97
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
--- NOTE | 2018-09-07 00:25 | EKG12_ITS ---
Test Reason : Blood Pressure : / mmHG Vent. Rate : 074 BPM Atrial Rate : 074 BPM P-R Int : 136 ms QRS Dur : 076 ms QT Int : 486 ms P-R-T Axes : 061 040 037 degrees QTc Int : 539 ms Normal sinus rhythm Prolonged QT Abnormal ECG When compared with ECG of 03-SEP-2018 14:10, No significant change was found Confirmed by KATHARINA CHAUDHRY, KATHERINE ([id number]), technical editor ELLY DARBY ([id number]) on 09/13/2018 1:15:57 PM Referred By: Patsy Traore Confirmed By:KATHERINE POSADAS MD
[2018-09-07] MEDS: 0.9% NaCl Peripheral Flush Adult/Peds IV (01:17)
[2018-09-07] MEDS: proMETHazine 25 MG/ML Syringe IV (01:18)
--- NOTE | 2018-09-07 03:01 | PCM.PN.BLA ---
Progress Note PROGRESS NOTE Hypertensive protocol Labetalol and hydralazine followed, and oral Labetalol started. BPs remain elevated: 197/106 189/84, 183/93, 183/101. Hydralazine being given IV now. Pt states headache still present Hospitalist consulted by phone and order entered for consult hypertensive adult 1 mo , hypertensive crisis with preeclampsia labs all WNL. Norvasc 5 mg po and Lisinopril 10 mg po. Hydralazine prn ordered. Last two BPs: 148/95 157/87-- 0311 am
[2018-09-07] MEDS: amLODIPine 5 MG Tablet PO ×2 (03:23→09:43)
[2018-09-07] MEDS: Lisinopril 5 MG Tablet PO ×3 (03:23→10:40)
--- NOTE | 2018-09-07 08:23 | PCM.PN.BLA ---
Progress Note PROGRESS NOTE -- hypertensive crisis POD#30 today from C/S on 08/08/18 (minimal care during ) Snoring, sleeping soundly and does not awaken to noise in room . Appears comfortable. BPs 130-150/ 70-90s since approx 3 am. Latest BP 114/62 no further hydralazine needed. S/P lisinopril dose and Norvasc with good response A/P : hypertensive crisis. Likely chronic HTN poorly compliant in past with BP meds. Signed out AMA prior with HTN and COLEMAN. PIH labs all WNL. BPs improved after meds given. Continue care for now. Likely dischg later today if stable, on BP meds and will need to follow up with PCP re ongoing care for HTN unrelated to .
[2018-09-07] MEDS: Nystatin Ointment 1 APPLIC TOPICAL ×2 (09:48→14:51)
--- NOTE | 2018-09-07 10:07 | NURSING ---
Pt's BP was 171/82 at 0915 and RN in room at 0935 and pt sitting up in bed stating that she has a frontal headache that she rates a 7-8/10 on the pain scale but pt refused Toradol/Tylenol that is ordered stating that it didn't help last night. RN gave Norvasc and lisinopril as scheduled at 0943 and then rechecked pt's BP 10 minutes later and it was 149/86. RN called Dr. Traore office and spoke with Divya, office nurse to notify of BP's and action and pt requesting something else for COLEMAN pain medication and inquiring about when she might be d/c to home. [facility] in to see pt and discuss pt's ability to obtain medications since difficulty with transportation before.
--- NOTE | 2018-09-07 10:17 | NURSING ---
Dr. Traore called RN back at this time and plan to increase lisinopril to 10 mg po for BP, order Fiorcet for COLEMAN, and Claritin daily PRN for possible allergies.
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
[2018-09-07] MEDS: Loratadine 10 MG Tablet PO (11:02)
[2018-09-07] MEDS: Acetaminophen/Butalbital/Caffe 1 Tablet PO ×2 (11:04→17:13)
--- NOTE | 2018-09-07 13:53 | PCM.DC ---
- Discharge Diagnoses Current Active Problems: Chronic hypertension You will use the following diet at home:: No restrictions Discharge Activity: Return to Normal Activity Return to work on:: 09/27/18 May resume sexual activity in: 2 weeks Lifting Restrictions: 20# or less until 6 wk check Call your doctor if you observe: Fever of 101 or Higher, Uncontrolled pain Additional Instructions: TAKE YOUR MEDICATION DAILY. Allergies/Adverse Reactions: Allergies hydrocodone bitartrate [From Vicodin] Allergy (Verified 09/03/18 13:32) Itching ondansetron HCl [From Zofran (as hydrochloride)] Allergy (Verified 09/03/18 13:32) Other blisters to back of her neck Penicillins [PCN] Allergy (Verified 09/03/18 13:32) Rash metoclopramide [From Reglan] Adverse Reaction (Verified 09/03/18 18:48) Other Medications to take at Discharge Nitrofurantoin Macrocrystals [Macrobid] 100 mg PO Q12 #10 capsule 09/03/18 Amlodipine Besylate [Norvasc] 5 mg PO DAILY PRN #30 tablet 09/07/18 Lisinopril [Prinivil] 10 mg PO DAILY #30 tablet 09/07/18 The following prescriptions were given: Amlodipine Besylate [Norvasc] 5 mg PO DAILY PRN #30 tablet Lisinopril [Prinivil] 10 mg PO DAILY #30 tablet Primary Care Physician: Care Physician,No Primary [Primary Care Provider] - Test Results: Test results from this visit will be discussed in further detail at your follow-up appointment, if applicable. Please Follow Up With: Patsy Traore MD - [phone] When: in 2 wks for postop / appointment AND for Proposed Discharge Date: 09/07/18
--- NOTE | 2018-09-07 13:56 | DCINST_ITS ---
- Discharge Diagnoses Current Active Problems: Chronic hypertension You will use the following diet at home:: No restrictions Discharge Activity: Return to Normal Activity Return to work on:: 09/27/18 May resume sexual activity in: 2 weeks Lifting Restrictions: 20# or less until 6 wk check Call your doctor if you observe: Fever of 101 or Higher, Uncontrolled pain Additional Instructions: TAKE YOUR MEDICATION DAILY. Allergies/Adverse Reactions: Allergies hydrocodone bitartrate [From Vicodin] Allergy (Verified 09/03/18 13:32) Itching ondansetron HCl [From Zofran (as hydrochloride)] Allergy (Verified 09/03/18 13:32) Other blisters to back of her neck Penicillins [PCN] Allergy (Verified 09/03/18 13:32) Rash metoclopramide [From Reglan] Adverse Reaction (Verified 09/03/18 18:48) Other Medications to take at Discharge Nitrofurantoin Macrocrystals [Macrobid] 100 mg PO Q12 #10 capsule 09/03/18 Amlodipine Besylate [Norvasc] 5 mg PO DAILY PRN #30 tablet 09/07/18 Lisinopril [Prinivil] 10 mg PO DAILY #30 tablet 09/07/18 The following prescriptions were given: Amlodipine Besylate [Norvasc] 5 mg PO DAILY PRN #30 tablet Lisinopril [Prinivil] 10 mg PO DAILY #30 tablet Primary Care Physician: Care Physician,No Primary [Primary Care Provider] - Test Results: Test results from this visit will be discussed in further detail at your follow- up appointment, if applicable. Please Follow Up With: Patsy Traore MD - [phone] When: in 2 wks for postop / appointment AND for Proposed Discharge Date: 09/07/18
--- NOTE | 2018-09-07 13:56 | NURSING ---
Pt stated that Dr. Traore told her she could be d/c to home but no order noted in computer so RN called and spoke with Dana, office nurse. Dana returned call and order that pt may go home later this evening if BP's remain stable throughout this afternoon. Also medications faxed/called to [facility] for pt to take her first month's doses with her to go home.
== END 2018-09-07 17:30 | disposition home or self-care (01) ==
LOC: WPOUT 22:06 → WP 22:07
PROVIDERS: Referring Provider Obstetrics & Gynecology; Visit Provider Obstetrics & Gynecology
DX: O16.5 Unspecified maternal hypertension, complicating the puerperium (principal); I16.9 Hypertensive crisis, unspecified; Z91.14 Patient's other noncompliance with medication regimen
CPT/HCPCS: 96374; 96375 ×4; 96376 ×2; 36415; 71045; 82565; 84450; 84460; 84550; 85027; 85610; 85730; 93005; 99218; A4216; G0378

== ENCOUNTER 2018-09-27 05:56 | Day surgery (SDC) | payer MEDICAID, SELFPAY ==
[2018-08-08 00:43] VITALS: BMI 46.6
[2018-09-06 22:07] VITALS: BMI 42.0
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
[2018-09-27] VITALS (7 sets, daily range): BP systolic 107–128; BP diastolic 57–86; PULSE 70–105; RESP 16–20; TEMP 36.2–36.9; O2SAT 95–99; BMI 42.1
[2018-09-27 06:46] LABS: Hematocrit 39.9 % (37-47); Hemoglobin 13.1 g/dl (12.0-15.0); Mean Corp Hgb Conc 32.8 g/gl (32-36); Mean Corpuscular Hgb 26.4 pg (27.0-32.0); Mean Corpuscular Volume 80.4 fL (81-99); Mean Platelet Vol. 10.4 fl (6.2-12.0); Platelet Count 227 K/mm3 (150-450); RBC Distribution Width CV 17.8 % (11.6-14.6); RBC Distribution Width SD 52.8 fl (35.1-43.9); Red Blood Count 4.96 M/mm3 (4.2-5.4); White Blood Count 6.8 K/mm3 (4.4-11.0)
[2018-09-27 06:52] LABS: Scan Indicated on CBC? Y/N NO
[2018-09-27 06:54] LABS: Internal QC Validated? YES +Cl - CLEAR BKGD; Pregnancy, Urine Negative Negative
--- NOTE | 2018-09-27 07:24 | PCM.DC.TUB ---
Discharge Diet: No Restrictions Discharge Activity: May not drive while taking narcotic pain medications., May Shower, May Take a Tub Bath Return to work on:: 09/29/18 May resume sexual activity in: 1 week Weight Bearing Status: Weight bearing as tolerated Call your doctor if you observe: Fever of 101 or Higher, Using more than one pad per hour, Uncontrolled pain Cleanse incision/area with: Soap & Water, Keep Dressing Clean & Dry Additional Instructions: You may take two Tylenol 500 mg tab by mouth every 8 hrs. Add 1 tablet of OxyIR by mouth every 6 hrs OxyIR for more severe pain OK to take either three Ibuprofen or two Aleve every 8 hrs in addition to the above medications if needed for pain. Allergies/Adverse Reactions: Allergies hydrocodone bitartrate [From Vicodin] Allergy (Verified 09/03/18 13:32) Itching ondansetron HCl [From Zofran (as hydrochloride)] Allergy (Verified 09/03/18 13:32) Other blisters to back of her neck Penicillins [PCN] Allergy (Verified 09/03/18 13:32) Rash metoclopramide [From Reglan] Adverse Reaction (Verified 09/03/18 18:48) Other Medications to take at Discharge Lisinopril [Prinivil] 10 mg PO DAILY #30 tablet 09/07/18 Amlodipine Besylate [Norvasc] 5 mg PO DAILY 09/20/18 Oxycodone [Oxyir] 5 mg PO Q6H PRN PRN 2 Days #10 tablet 09/27/18 The following prescriptions were given: Oxycodone [Oxyir] 5 mg PO Q6H PRN PRN 2 Days #10 tablet PRN Reason: Mod-Severe Pain (4-10/10) Orders to be completed after discharge: 12 Lead EKG [CVS] Time Frame: 09/20/18, Facility: [facility], Location: Cardiovascular Services Basic Metabolic Profile (BMP) Time Frame: 09/20/18, Location: Laboratory Primary Care Physician: Care Physician,No Primary [Primary Care Provider] - Test Results: Test results from this visit will be discussed in further detail at your follow-up appointment, if applicable. Please Follow Up With: Patsy Troare MD - [phone] When: in two weeks for postoperative appointment Proposed Discharge Date: 09/27/18
--- NOTE | 2018-09-27 07:29 | DCINST_ITS ---
Discharge Diet: No Restrictions Discharge Activity: May not drive while taking narcotic pain medications., May Shower, May Take a Tub Bath Return to work on:: 09/29/18 May resume sexual activity in: 1 week Weight Bearing Status: Weight bearing as tolerated Call your doctor if you observe: Fever of 101 or Higher, Using more than one pad per hour, Uncontrolled pain Cleanse incision/area with: Soap & Water, Keep Dressing Clean & Dry Additional Instructions: You may take two Tylenol 500 mg tab by mouth every 8 hrs. Add 1 tablet of OxyIR by mouth every 6 hrs OxyIR for more severe pain OK to take either three Ibuprofen or two Aleve every 8 hrs in addition to the above medications if needed for pain. Allergies/Adverse Reactions: Allergies hydrocodone bitartrate [From Vicodin] Allergy (Verified 09/03/18 13:32) Itching ondansetron HCl [From Zofran (as hydrochloride)] Allergy (Verified 09/03/18 13:32) Other blisters to back of her neck Penicillins [PCN] Allergy (Verified 09/03/18 13:32) Rash metoclopramide [From Reglan] Adverse Reaction (Verified 09/03/18 18:48) Other Medications to take at Discharge Lisinopril [Prinivil] 10 mg PO DAILY #30 tablet 09/07/18 Amlodipine Besylate [Norvasc] 5 mg PO DAILY 09/20/18 Oxycodone [Oxyir] 5 mg PO Q6H PRN PRN 2 Days #10 tablet 09/27/18 The following prescriptions were given: Oxycodone [Oxyir] 5 mg PO Q6H PRN PRN 2 Days #10 tablet PRN Reason: Mod-Severe Pain (4-10/10) Orders to be completed after discharge: 12 Lead EKG [CVS] Time Frame: 09/20/18, Facility: [facility], Location: Cardiovascular Services Basic Metabolic Profile (BMP) Time Frame: 09/20/18, Location: Laboratory Primary Care Physician: Care Physician,No Primary [Primary Care Provider] - Test Results: Test results from this visit will be discussed in further detail at your follow- up appointment, if applicable. Please Follow Up With: Patsy Traore MD - [phone] When: in two weeks for postoperative appointment Proposed Discharge Date: 09/27/18
--- NOTE | 2018-09-27 07:30 | FALS_PTH ---
PATIENT: DEANNA BRDAEN LOC: [facility] [place] U#:[id number] AGE/SX: 43/F ROOM: RE09/27/[address]: Dr. Patsy Traore MD : [id number] BED: DIS: 09/27/2018 SPEC #: [id number] RECD: 09/27/18 11:19 STATUS: STEFF BOWEN #: [id number] RAHUL: 09/27/18 07:[address]: Patsy Traore DEPT: SURGICAL PATHOLOGY RECD BY: Cliff Galvez ENTERED: 09/27/18 11:19 SP TYPE: FALL TUBES OTHR DR: No Primary Care Phys Tissues: Fallopian tube Procedures: Surgery Specimen Level II HEADER OPERATION: Laparoscopic salpingectomy PRE-OP DIAGNOSIS: Requests sterilization TISSUE SUBMITTED: Bilateral fallopian tubes MICROSCOPIC DIAGNOSIS Bilateral fallopian tubes, salpingectomy: Bilateral fallopian tubes including fimbrial ends, no pathologic diagnosis. ALKA:helen 4/23/19 MICROSCOPIC DESCRIPTION Slides are reviewed. GROSS DESCRIPTION Received is one container labeled with the patient's name and designated bilateral fallopian tubes. The specimen consists of bilateral fallopian tubes including fimbrial ends measuring 5.5 cm in length and 0.5 cm in diameter and 4.5 cm in length and 0.5 cm in diameter. Sections do not reveal any mass lesion. The fallopian tubes are not identified as right or left. Sections reveal unremarkable cut surfaces. Grinder Set Up Operator Centerless sections are submitted in two cassettes with each cassette containing one fallopian tube. / ALKA:helen 09/27/18 TC:4 CPT: 70354 x2
--- NOTE | 2018-09-27 07:59 | PCM.OPRPT ---
Report of Operation Date of Procedure: 09/27/18 Pre-Operative Diagnosis: sterilization request Post-Operative Diagnosis: Same Surgery/Procedure Performed:: Laparoscopic bilateral salpingectomy Description of Surgical Findings:: Findings: There is a normal-appearing anteverted uterus. Minimal adhesions were noted between the uterus and bladder. Fallopian tubes and ovaries are within normal limits. Gross inspection of the bowel, omentum, liver edge are also within normal limits. Photos were taken of the uterus and ovaries after the bilateral partial salpingectomy, and of the right upper quadrant/liver edge. general farmer: Letty Wolfe Type of Anesthesia:: General Anesthesiologist: Kelsie Paiz Special Medications: Toradol 30 mg IV times one. 10 CC 1/2 % marcaine with epinephrine Specimen's removed: bilateral fallopian tubes Drains: Joao zhang Estimated Blood Loss (mL): 20 cc Fluids Replaced: LR Description of Procedure: Narrative account: After the risks, benefits, alternatives of the procedure have been reviewed with the patient, informed consent was obtained. The patient was taken to the operating room with an IV running. She was positioned on the operating table in dorsal supine position, where she was given general anesthesia. Once asleep she was repositioned into the dorsal lithotomy position and prepped and draped in the usual sterile fashion. A red Zhang catheter was used to drain the bladder prior to initiating the case. A single-toothed tenaculum and Richi cannula were placed into the cervix to allow manipulation of the cervix and uterus during the case. Attention was then turned to the anterior abdominal wall where 0.5% percent Marcaine with epinephrine was instilled at the suprapubic and infraumbilical skin and at a point midway between the two, in the midline. Skin incisions were then created in the midline at the suprapubic skin, at the infraumbilical skin, and at a point in the midline midway between the two. While maintaining upward traction of the anterior abdominal wall, a Veress needle was inserted through the umbilical incision into the peritoneal cavity. There was free drop of saline, low opening pressure and free flow of CO2 noted. Once the intra-abdominal pressure had reached 12 mmHg the Veress needle was removed and a bladeless 5 mm trocar was inserted through the infraumbilical skin incision into the peritoneal cavity. Correct placement was confirmed using the scope. Under direct visualization then with the patient in Trendelenburg position, a bladeless 5 mm trocar was inserted in through the suprapubic skin incision into the peritoneal cavity and at the mid-lower abdominal incision midway between the infraumbilical and suprapubic trocars. The uterus was anteverted and both ovaries and fallopian tubes were within normal limits. The right fallopian tube was grasped and retracted medially and using a LigaSure device the right fallopian tube was excised from the ovary and mesosalpinx to the level of the uterine fundus. Excellent hemostasis was noted at the excision site. The [right] fallopian tube was brought through the suprapubic trocar and set aside for later pathology review. In a similar manner the [left] fallopian tube was grasped and retracted medially and the fallopian tube was excised and removed from the abdominal cavity through the suprapubic trocar. The fallopian tubes were sent to pathology. Excellent hemostasis was noted by visualization of the pelvis, ovaries, and remaining mesosalpinx. Photos were taken of the uterus and bilateral remaining ovaries and of the right upper quadrant and liver edge. At this point the procedure was terminated. The pneumoperitoneum was reduced and the instruments and trocars were removed from the anterior abdominal wall skin. The skin incisions were closed with 4-0 Monocryl in a subcuticular fashion Dermabond and op sites were applied to the skin. The single-toothed tenaculum and Richi cannula were then removed from the vagina. The patient was returned to dorsal supine position. She was awakened from general anesthesia. She was transferred to the recovery room bed in stable condition after tolerating the procedure well. Sponge, lap, needle and instrument counts were correct x two. Medications given preop and intra-op included: 10 cc of half percent Marcaine with epinephrine used as a subcutaneous block, and Toradol 30 mg IV x1. For a complete listing of medications given preop and intra-op please see the anesthesia record.
[2018-09-27] MEDS: Bupiv/Epi 0.5% Mpf 30 ML Vial (08:01)
== END 2018-09-27 11:46 | disposition home or self-care (01) ==
LOC: SDC 05:56 → AC 05:57
PROVIDERS: Referring Provider Obstetrics & Gynecology; Visit Provider Obstetrics & Gynecology
PROC: (CPT 58661; principal; 2018-09-27 07:15)
DX: Z30.2 Encounter for sterilization (principal); I10 Essential (primary) hypertension; Z90.49 Acquired absence of other specified parts of digestive tract; F17.210 Nicotine dependence, cigarettes, uncomplicated; Z87.442 Personal history of urinary calculi
CPT/HCPCS: 58661; 36415; 81025; 85027; 88302; J7120; J2405

== ENCOUNTER → 2019-01-12 20:28 | Outpatient (CLI) | payer MEDICAID, SELFPAY ==
[2018-09-27 06:46] VITALS: BMI 42.1
== END ==
DX: G47.33 Obstructive sleep apnea (adult) (pediatric) (principal)
CPT/HCPCS: 95810

== ENCOUNTER → 2019-01-26 23:38 | Outpatient (CLI) | payer MEDICAID, SELFPAY ==
[2018-09-27 06:46] VITALS: BMI 42.1
== END ==
DX: G47.33 Obstructive sleep apnea (adult) (pediatric) (principal)
CPT/HCPCS: 95811

== ENCOUNTER 2019-01-29 10:13 | Emergency (ER) | payer MEDICAID, SELFPAY ==
[2018-09-27 06:46] VITALS: BMI 42.1
[2019-01-29 10:14] VITALS: BP 123/76; PULSE 81; RESP 15; TEMP 36.5; O2SAT 95; BMI 48.2
[2019-01-29 10:38] LABS: Absolute Lymphocyte Count 1.54 X10^3/uL (0.83-4.51); Absolute Neutrophil Count 3.6 X10^3/uL (2.0-7.7); Basophil# 0.04 X10^3/uL; Basophil% 0.7 % (0-1); Eosinophil# 0.17 X10^3/uL; Eosinophils% 2.9 % (0-5); Hematocrit 38.1 % (37-47); Hemoglobin 12.7 g/dL (12.0-15.0); Lymphocyte # 1.54 X10^3/ul (4.0); Lymphocyte % 26.5 % (19-41); Mean Corp Hgb Conc 33.3 g/dL (32-36); Mean Corpuscular Hgb 29.1 pg (27.0-32.0); Mean Corpuscular Volume 87.4 fL (81-99); Mean Platelet Vol. 11.1 fl (6.2-12.0); Monocyte# 0.43 X10^3/uL; Monocyte% 7.4 % (0-10); NRBC Flagged by Analyzer 0 % (0-5); Neutrophil # 3.58 X10^3/uL (2.7-7.7); Neutrophil % 61.6 % (47-70); Platelet Count 207 K/mm3 (150-450); RBC Distribution Width CV 14.6 % (11.6-14.6); RBC Distribution Width SD 47.4 fl (35.1-43.9); Red Blood Count 4.36 M/mm3 (4.2-5.4); White Blood Count 5.8 K/mm3 (4.4-11.0)
[2019-01-29 10:46] LABS: Internal QC Validated? YES +Cl - CLEAR BKGD; Pregnancy, Serum, hCG Quali. NEGATIVE Negative
--- NOTE | 2019-01-29 11:53 | ED.DCSUM_ITS ---
History of Present Illness Informant: Patient Issue: Vaginal bleeding Onset: Yesterday Context: Gradual Onset Timing: Continuous Current Severity: Heavy Current pads/hr: 1 Maximum Severity: Heavy Maximum pads/hr: 1 Associated Symptoms: Irregular Period Test: Negative Sexually: Active Control: No control Narrative: 43-year-old female presents with heavy vaginal bleeding for the past couple of days. Cycle came early this month and is only been about 3 weeks since her last period. She denies any history of irregular periods. Is not on control. She has never needed medications for irregular bleeding. She is not having any significant abdominal pain just some mild cramping. She is not on blood thinners. No other history of bleeding at this time. Prior similar symptoms: No Recent Illness/Hospitalization: No <Norbert Ashley - Last Filed: 01/29/19 11:53> <Deborah Jenkins - Last Filed: 01/29/19 12:29> Chief Complaint: Vag Bleeding Past Medical History Prior records reviewed: Yes Surgical History: cholecystectomy, dilatation and curettage, - - Umbilical hernia repair and colonoscopy Smoking Status: Current every day smoker <Norbert Ashley - Last Filed: 01/29/19 11:53> <Deborah Jenkins - Last Filed: 01/29/19 12:29> - Allergies and Home Meds Allergies/Adverse Reactions: Allergies hydrocodone bitartrate [From Vicodin] Allergy (Verified 01/29/19 10:14) Itching ondansetron HCl [From Zofran (as hydrochloride)] Allergy (Verified 01/29/19 10:14) Other blisters to back of her neck Penicillins [PCN] Allergy (Verified 01/29/19 10:14) Rash metoclopramide [From Reglan] Adverse Reaction (Verified 01/29/19 10:14) Other Primary Care Physician: Oma Thompson NP-C [Primary Care Provider] - Review of Systems All systems negative except as indicated Genitourinary: Reports: - - vaginal bleeding <Norbert Ashley - Last Filed: 01/29/19 11:53> Physical Exam Vital Signs/Narrative: Vital Signs Temp Pulse Resp BP Pulse Ox 01/29/19 10:14 97.7 F L 81 15 123/76 H 95 Inital Vital Signs reviewed: Yes General: Well nourished, Well developed Head: Normocephalic, Atraumatic Eyes: Perrl, EOMI ENT: Moist mucous membranes Neck: Supple, Nontender Cardiovascular: Regular rate, Regular rhythm Respiratory: No distress, CTA bilaterally, Chest nontender Abdomen: Soft, Nontender, Nondistended, Normal bowel sounds, No masses : Speculum exam: - - patient refused speculum exam Back: Nontender, Normal Inspection. Negative for: CVA tenderness Extremities: Nontender Skin: Normal color, No rash Neurological: Alert, Oriented x3 <Norbert Ashley - Last Filed: 01/29/19 11:53> Vital Signs/Narrative: Vital Signs Temp Pulse Resp BP Pulse Ox 01/29/19 12:09 70 15 129/84 H 01/29/19 10:14 97.7 F L 81 15 123/76 H 95 <Deborah Jenkins - Last Filed: 01/29/19 12:29> Diagnostic/Tx/Re-eval - Medical Decision/Diagnostic Studies Vital signs remained stable and the patient's blood counts are unremarkable she is not having any significantly heavy bleeding during her emergency department stay. She is not on blood thinners. Her abdomen is soft and nontender. She is able to tolerate by mouth. She was reassured. She was advised to call her CASTINGS TRIMMER on Thursday, which is in 2 days. She was advised that if the bleeding worsens she is to return to the emergency department. <Norbert Ashley - Last Filed: 01/29/19 11:53> - Medical Decision/Diagnostic Studies Patient seen with Norbert, see the note for full details complaint is vaginal bleeding, the abdomen soft nontender physical exam is unremarkable at this time all the above was discussed with patient screening labs treatment plan as above <Deborah Jenkins - Last Filed: 01/29/19 12:29> ED Disposition <Norbert Ashley - Last Filed: 01/29/19 11:53> <Deborah Jenkins - Last Filed: 01/29/19 12:29> - Plan for ED Patient: Disposition: Home or Assisted Living Diagnosis: Abnormal uterine bleeding Instructions: Dysfunctional Uterine Bleeding Prescriptions: Medroxyprogesterone Acetate 10 mg PO DAILY 5 Days #5 tab Transmission Status: Received by [facility] Referrals: Oma Thompson, AFFILIATE MANAGER-C [Primary Care Provider] -
[2019-01-29 12:09] VITALS: BP 129/84; PULSE 70; RESP 15
== END 2019-01-29 12:09 | disposition home or self-care (01) ==
PROVIDERS: Emergency Medicine; Emergency Provider Physician Assistant Medical; Family Provider Nurse Practitioner Family; PCP Nurse Practitioner Family
DX: N93.9 Abnormal uterine and vaginal bleeding, unspecified (principal); F17.200 Nicotine dependence, unspecified, uncomplicated; Z88.0 Allergy status to penicillin; Z88.5 Allergy status to narcotic agent; Z88.8 Allergy status to other drugs, medicaments and biological substances; Z90.49 Acquired absence of other specified parts of digestive tract
CPT/HCPCS: 84703; 85025; 99285; A4216

== ENCOUNTER → 2019-02-11 11:10 | Outpatient (CLI) | payer MEDICAID, SELFPAY ==
[2019-01-29 10:14] VITALS: BMI 48.2
== END ==
PROVIDERS: Family Provider Nurse Practitioner Family; PCP Nurse Practitioner Family; Referring Provider Nurse Practitioner Family; Visit Provider Nurse Practitioner Family
DX: G47.33 Obstructive sleep apnea (adult) (pediatric) (principal)

== ENCOUNTER 2019-08-14 16:25 | Emergency (ER) | payer MEDICAID, SELFPAY ==
[2019-08-14 16:27] VITALS: BP 164/117; PULSE 110; RESP 16; TEMP 36.3; O2SAT 96; BMI 54.3
--- NOTE | 2019-08-14 16:46 | EKG12_ITS ---
Test Reason : PAIN Blood Pressure : / mmHG Vent. Rate : 091 BPM Atrial Rate : 091 BPM P-R Int : 126 ms QRS Dur : 072 ms QT Int : 392 ms P-R-T Axes : 011 038 039 degrees QTc Int : 482 ms Normal sinus rhythm Abnormal ECG Confirmed by KATHERINE POSADAS MD ([id number]), editor magazine VIRAL SAHA ([id number]) on 08/15/2019 3:25:06 PM Referred By: GISSELLE/MR Confirmed By:KATHERINE POSADAS MD
--- NOTE | 2019-08-14 16:48 | ED.VIS.CHEST ---
History of Present Illness Informant: Patient Onset: Weeks - 2 weeks Activity at onset: Rest Timing: Intermittent Quality: - - Spasming pain Location: Substernal Current Severity: Mild Maximum Severity: Severe Worsened By: Nothing Relieved By: Nothing Associated Symptoms: Negative for: Nausea, Vomiting, Diaphoresis, Dyspnea, Cough, Fever, Lightheadedness, Acid Reflux, Palpitations Narrative: 44-year-old female presents to the emergency department with chest pain. She is a daily smoker but denies any other significant past medical history. She has been having these intermittent episodes of pain that she describes as spasms in the front of her chest that radiate to her ribs and back. Nothing really makes them better or worse. She has no exertional symptoms. She is not short of breath. She has no lightheadedness dizziness nausea vomiting or diaphoresis. No leg pain or swelling recent travel or surgery or history of DVT or PE. She is not on control. Sister of an [place] at age 40. That is her concern today. She has never had a cardiac work-up. She is not on any daily medicines. Prior Similar Symptoms: No Recent Illness/Hospitalization: No CVD Risk Factors: Family History 1' </=55, Smoking. Negative for: Hypertension, Diabetes, Hypercholesterolemia PE Risk Factors: Negative for: Recent Travel/Surgery, Recenet Immobilization, Prior DVT or PE, OCP + Smoking + >/=35 TAD Risk Factors: Family History. Negative for: Marfan's Syndrome, Hypertension <Norbert Ashley - Last Filed: 08/14/19 17:57> <Yamil Stone - Last Filed: 08/14/19 19:38> Chief Complaint: Other, Pain/Inj Past Medical History Prior records reviewed: Yes Past Medical History: - - Daily smoker, gestational diabetes, gestational hypertension Surgical History: cholecystectomy, dilatation and curettage, - - Umbilical hernia repair and colonoscopy Smoking Status: Current every day smoker <Norbert Ashley - Last Filed: 08/14/19 17:57> <Yamil Stone - Last Filed: 08/14/19 19:38> - Allergies and Home Meds Allergies/Adverse Reactions: Allergies hydrocodone bitartrate [From Vicodin] Allergy (Verified 08/14/19 16:26) Itching ondansetron HCl [From Zofran (as hydrochloride)] Allergy (Verified 08/14/19 16:26) Other blisters to back of her neck Penicillins [PCN] Allergy (Verified 08/14/19 16:26) Rash metoclopramide [From Reglan] Adverse Reaction (Verified 08/14/19 16:26) Other Primary Care Physician: Oma Thompson NP-C [NON-STAFF] - Review of Systems All systems negative except as indicated General: Denies: Chills, Fever Eyes: Denies: Visual changes - bilaterally, Blurred Vision - bilaterally, Diplopia ENT: Denies: Rhinorrhea, Sore throat Cardiovascular: Reports: Chest pain. Denies: Palpitations, Heart racing Respiratory: Denies: Dyspnea, Cough, Sputum, Dyspnea on exertion, Orthopnea, Paroxysmal nocturnal dyspnea Gastrointestinal: Denies: Abdominal pain, Nausea, Vomiting, Diarrhea, Melena, Hematochezia Genitourinary: Denies: Dysuria, Hematuria, Frequency Musculoskeletal: Reports: Back pain. Denies: Myalgias, Arthralgias, Neck pain, Swelling, Extremity Pain Skin: Denies: Rash, Abscess, Abrasions, Wounds Neurological: Denies: Headache, Weakness Hematologic: Denies: Easy bruising, Easy bleeding <Norbert Ashley - Last Filed: 08/14/19 17:57> Physical Exam Vital Signs/Narrative: Vital Signs Temp Pulse Resp BP Pulse Ox 08/14/19 16:27 97.3 F L 110 H 16 164/117 H 96 Inital Vital Signs reviewed: Yes General: Well nourished, Well developed, Obese, No Acute Distress Head: Normocephalic, Atraumatic Eyes: Perrl, EOMI ENT: Moist mucous membranes Neck: Supple, Nontender Cardiovascular: Regular rate, Regular rhythm, No murmurs Respiratory: No distress, CTA bilaterally, Chest nontender Abdomen: Soft, Nontender, Nondistended, Normal bowel sounds, No masses Back: Nontender, Normal Inspection Extremities: Nontender, No edema Skin: Normal color, No rash Neurological: Alert, Oriented x3, Normal Gait Psychological: Normal affect, Normal Mood <Norbert Ashley - Last Filed: 08/14/19 17:57> Vital Signs/Narrative: Vital Signs Temp Pulse Resp BP Pulse Ox 08/14/19 18:59 98 20 H 170/91 H 98 08/14/19 16:27 97.3 F L 110 H 16 164/117 H 96 <Yamil Stone - Last Filed: 08/14/19 19:38> Diagnostic/Tx/Re-eval Chest X-Ray - ED: 2 View, Read by ED Physician, Read by Radiologist, No Acute Disease - Rhythm Strip Rhythm Strip: Sinus Tach Rate: 111 Ectopy: None - EKG Initial EKG Interpretation: Sinus Rhythm, No Acute Injury Pattern Prior: Unchanged Treatment: Toradol IV Repeat Eval: Pain Free PRABHAKAR Risk: No Positive PRABHAKAR Elements Score: 0 - Medical Decision Making On arrival EKG showed sinus rhythm rate of [address] There were no ST segment or T wave changes. Normal intervals and no ectopy. She was given Toradol for pain. We pursued a more thorough work-up as the patient was concern regarding her family history and symptoms. Because she was initially tachycardic and is on control we did obtain a d-dimer. That is pending. Her CBC BMP and troponin are all unremarkable as is her chest x-ray. Repeat exam she is pain-free. Heart score calculated at 2. D-dimer is elevated we will obtain a CTA <Norbert Ashley - Last Filed: 08/14/19 17:57> - Medical Decision Making Attending Note: I evaluated this patient with the midlevel provider. I performed my own face to face evaluation and agree with the above noted history and physical. I agree with the plan of care and the disposition. Patient presented secondary to an atypical sounding chest pain. CBC chemistry troponin were unremarkable. Chest x-ray was unremarkable. D-dimer was ordered due to the patient's history of exogenous hormone use and tachycardia which was found to be mildly positive. CT angiogram of the chest was performed which showed no evidence of pulmonary emboli, but did demonstrate evidence of the patient having coronary artery disease. Her heart score is still technically 2, and her chest pain sounds rather atypical and is not exertional or classic angina. I recommended to the patient that potentially she should be admitted for cardiac work-up and stress testing, but she states that she cannot be admitted to due to the fact that she has 4 kids. I contacted the patient's primary care physician, Dr. Oakes who agrees to see the patient in early follow-up this week. As the patient has been persistently hypertensive we will start her on metoprolol as well as aspirin. A lipid panel was sent. Patient understands signs and symptoms for which to return. <Yamil Stone - Last Filed: 08/14/19 19:38> ED Disposition <Norebrt Ashley - Last Filed: 08/14/19 17:57> <Yamil Stone - Last Filed: 08/14/19 19:38> - Plan for ED Patient: Disposition: Home or Assisted Living Diagnosis: Coronary artery disease Instructions: Understanding Coronary Artery Disease (CAD) Prescriptions: Aspirin [Aspirin, Baby] 81 mg PO DAILY@0800 #30 tab.chew Prescription Printed Metoprolol Tartrate 25 mg PO BID #20 tab Prescription Printed Referrals: Jose Oakes DO [Primary Care Provider] - As soon as possible
[2019-08-14 17:07] LABS: Hematocrit 42.2 % (37-47); Hemoglobin 13.6 g/dL (12.0-15.0); Mean Corp Hgb Conc 32.2 g/dL (32-36); Mean Corpuscular Hgb 28.5 pg (27.0-32.0); Mean Corpuscular Volume 88.5 fL (81-99); Mean Platelet Vol. 10.7 fl (6.2-12.0); Platelet Count 247 K/mm3 (150-450); RBC Distribution Width CV 14.7 % (11.6-14.6); RBC Distribution Width SD 47.5 fl (35.1-43.9); Red Blood Count 4.77 M/mm3 (4.2-5.4); White Blood Count 10.5 K/mm3 (4.4-11.0)
--- NOTE | 2019-08-14 17:10 | RAD_ITS ---
STUDY: X-RAY CHEST REASON FOR EXAM: Female, 44 years old. BACK AND RIBS SPASMS INTERMITTENT X 2 WEEKS. N/V TECHNIQUE: PA and lateral COMPARISON: None. FINDINGS: The lungs are clear and expanded. Tiny calcified granuloma in left upper lobe There is no demonstrated pleural abnormality. Normal size heart. Normal mediastinum and autumn. Normal visualized pulmonary arteries. Normal visualized aortic arch and descending thoracic aorta. Normal visualized thoracic spine. Normal visualized ribs, clavicles, and shoulders. There is no demonstrated abnormality of the visualized soft tissue structures of the upper abdomen. RAD/Chest PA and Lateral IMPRESSION: Old granulomatous disease. No evidence for acute cardiopulmonary pathology Electronically Signed: Wojciech Mixon MD at 18:11 EDT , Service support ,
[2019-08-14] MEDS: Ketorolac 15 MG/ML Vial IV (17:26)
[2019-08-14] MEDS: 0.9% Normal Saline 1,000 ML 1000 ML IV (17:27)
[2019-08-14 17:28] LABS: Anion Gap 6 (5-15); BUN 17 mg/dL (7-18); BUN/Creat Ratio 18.6 RATIO (10-20); Calcium,Total 8.7 mg/dL (8.5-10.1); Chloride 103 mmol/L (98-107); Creatinine, Serum 0.92 mg/dL (0.55-1.02); EST Glomerular Filtration Rate 71 mL/min (>60); Est Glom Filt Rate - Afr Amer 86 mL/min (>60); Estimated Creatinine Clearance 57.22 ml/min; Glucose 105 mg/dL (74-106); Potassium 3.7 mmol/L (3.5-5.1); Sodium Level 137 mmol/L (136-145)
[2019-08-14 17:55] LABS: D-Dimer Quantitative (DVT/PE) 0.72 FEU/ug/m (0.27-0.49)
--- NOTE | 2019-08-14 17:57 | CT_ITS ---
STUDY: CTA CHEST REASON FOR EXAM: Female, 44 years old. Chest pain and back pain, poor appetite RADIATION DOSAGE (If Supplied By Facility): CTDIvol = ( 7.98 ) mGy, DLP = ( 484.34 ) mGycm TECHNIQUE: The examination was performed with the intravenous administration of Isovue 370 100ml. Post-processing of the angiographic images was performed, with multiplanar reformation and 3D reconstruction. Individualized dose optimization techniques were used for this CT. COMPARISON: 08 July 2018 FINDINGS: Examination is technically suboptimal due to patient''s severely elevated body habitus. Image noise is elevated and contrast is suboptimally seen in the smaller pulmonary vessels. Diagnostic information is available. There is no large/central pulmonary embolism. Segmental branches are not reliably evaluable. Cardiac chamber is normal in size and shape. There is severely accelerated atherosclerosis of the coronary arteries. Lungs are clear. There is no pneumothorax, pulmonary edema or pleural effusions. Mediastinal contents are normal. Osseous structures are intact. Abdominal structures are unremarkable. CT/CTA Chest W/WO Contrast IMPRESSION: 1. No central/large pulmonary embolism. 2. Mildly/moderately technically limited exam. Recommend ultrasonography of the lower extremity venous systems for further risk stratification. 3. Severely accelerated coronary artery disease. 4. Severely elevated BMI. Electronically Signed: Jaylon Guzman, at 18:47 EDT Tel , Service support ,
[2019-08-14 18:59] VITALS: BP 170/91; PULSE 98; RESP 20; O2SAT 98
[2019-08-14] MEDS: Metoprolol Tartrate 25 MG Tablet PO (19:36)
[2019-08-14] MEDS: Aspirin 81 MG TAB.CHEW PO (19:36)
[2019-08-14 19:47] VITALS: BP 170/104; PULSE 90; RESP 18; O2SAT 100
--- NOTE | 2019-08-14 19:48 | ED.RN ---
REVIEWED D/C INSTRUCTIONS, FOLLOW UP CARE, PRESCRIPTIONS, AND S/S THAT WOULD WARRANT A RETURN TO THE ED WITH PT. PT VERBALIZED AN UNDERSTANDING AND DENIES FURTHER QUESTIONS FOR THIS RN. PT SKIN P/W/D, RESP EVEN AND UNLABORED, PT A&O X 3, NO DISTRESS NOTED. PT AMBULATED OUT OF ED, GAIT STEADY.
[2019-08-14 19:51] LABS: Cholesterol 273 mg/dL (200); High Density Lipoprotein 52 mg/dL; Triglycerides 220 mg/dL; Very Low Density Lipoprotein 44 mg/dL (5-40)
== END 2019-08-14 19:49 | disposition home or self-care (01) ==
PROVIDERS: Physician Assistant Medical; Emergency Provider Emergency Medicine; PCP Family Medicine
DX: I25.10 Atherosclerotic heart disease of native coronary artery without angina pectoris (principal); F17.200 Nicotine dependence, unspecified, uncomplicated; E66.9 Obesity, unspecified
CPT/HCPCS: 71046; 71275; 80048; 80061; 83735; 84484; 85027; 85379; 93005; 96361; 96374; 99285; J7030; Q9967

== ENCOUNTER → 2019-08-25 | Outpatient (CLI) | payer MEDICAID, SELFPAY ==
[2019-08-14 16:27] VITALS: BMI 54.3
--- NOTE | 2019-08-25 09:55 | STRESSREP ---
Stress Test Report Pharmacologic myocardial perfusion stress test. 44-year-old lady with a history of chest pain. Stress protocol: Resting EKG demonstrates normal sinus rhythm with a rate of 67 bpm normal intervals are noted resting blood pressure 732 over 70 mmHg. 0.4 mg of regadenoson was infused per usual protocol followed by Intravenous saline flush injection continuous EKG monitoring was performed. The maximum heart rate was 100 bpm which was 56% of maximum predicted heart rate the maximum workload was 1 metabolic equivalent. At rest there were no ST or T wave changes noted to suggest ischemia at peak infusion nonspecific ST-T wave changes were noted. No clinical angina was noted. The resting blood pressure was 132/70 with a final blood pressure 126/68. Myocardial perfusion protocol. 14.5 mCi of technetium 99m sestamibi was injected at rest. 0.4 mg of regadenoson was infused per usual protocol peak infusion 44.3 mCi of technetium 99m sestamibi was injected stress images were obtained stress and rest images were reconstructed and compared in the short axis vertical and horizontal long axis. Gated images were also obtained Perfusion SPECT analysis: Review of the stress images demonstrate normal uptake of tracer noted in all areas of the myocardium the resting images similar demonstrate normal uptake of tracer noted in all areas of the myocardium. Gated SPECT analysis: The gated ejection fraction is noted to be 71%. Conclusion: Normal pharmacologic myocardial perfusion stress test. Preserved ejection fraction.
== END | disposition home or self-care (01) ==
LOC: CVS 06:49
PROVIDERS: PCP Family Medicine; Referring Provider Family Medicine; Visit Provider Family Medicine
DX: I25.10 Atherosclerotic heart disease of native coronary artery without angina pectoris (principal); R07.9 Chest pain, unspecified; R06.02 Shortness of breath
CPT/HCPCS: 78452; 93017; A9500; A4216; J2785

== ENCOUNTER 2019-09-05 08:58 | Day surgery (SDC) | payer MEDICAID, SELFPAY ==
[2019-09-02 14:37] VITALS: BMI 54.8
[2019-09-05] VITALS (11 sets, daily range): BP systolic 113–148; BP diastolic 80–94; PULSE 71–94; RESP 16–27; TEMP 36.7–37; O2SAT 95–99; BMI 54.8; BMI 51.4
--- NOTE | 2019-09-05 11:26 | CL.D_ITS ---
Patient Name: DEANNA ALMANZA Study Date: 09/05/2019 Performing: Chriss Story MD Ht: 59.84 inches 152 cm : 1975 Wt: 279.99 lbs 127 kg Age: 44 Gender: female BSA: 2.15 PROCEDURE(S) PERFORMED DQ15-ILS/COR/LV ZN63-[id number] W OR WO PTCA, SINGLE CORONARY ARTERY CLINICAL PROFILE AND INDICATIONS Heart Failure: None CONCLUSIONS High-grade stenosis noted of the distal right coronary artery involving the posterior lateral vessel and moderately severe disease involving the left anterior descending artery with preserved ejection f raction RECOMMENDATIONS Referred for immediate PCI May consider PCI of the LAD at a later date DESCRIPTION OF PROCEDURE The patient arrived to the procedure lab. The risks and benefits of the procedure as well as a full d escription of our services here and current unavailability of surgical backup were fully explained to the patient and/or their significant other prior to the catheterization. The Timeout was completed, verifying the correct patient and procedure. The patient's procedural site was prepped and draped in the usual fashion. Local anesthetic was given subcutaneously to right groin region with Lidocaine 2%. Using a modified Seldinger technique, arterial access was obtained via the right femoral artery, a 5 Fr sheath was inserted. Left Coronary Artery selective angiography was performed in multiple views u sing a 5 Fr. JL4 catheter. Right Coronary Artery selective angiography was then performed in multiple views using a 5 Fr. 3DRC (Rene) catheter. Left Ventriculography was performed in ALBERTS projection using a 5 Fr. Pigtail catheter. LV to AO pullback pressures were then recorded.Contrast was injected through the sheath and the Right Iliac and Femoral artery were assessed for possible cata sure device.The arterial sheath was exchanged to a standard sheath. The arterial sheath was pulled an d a Mynx closure device was deployed for hemostasis CORONARY ANGIOGRAPHY DOMINANCE: Right Dominant LEFT HEART ASSESSMENT Normal LV wall motion Normal Left Ventricular systolic function LEFT MAIN: Mild calcification LEFT ANTERIOR DESCENDING ARTERY: PROX LAD: Mild calcification, Diffusely diseased up to 70 % CIRCUMFLEX ARTERY: Mild luminal irregularities less than 30% RIGHT CORONARY ARTERY: No significant disease noted RT PLV: 95 % Stenosis COMPLICATIONS No Complications PROCEDURE MEDICATIONS Versed 1 mg IV Versed 1 mg IV Fentanyl 25 mcg IV Versed 1 mg IV Fentanyl 25 mcg IV Versed 1 mg IV Fentanyl 25 mcg IV Oxygen: 2 L/min via nasal cannula Heparin 6000 unit(s) IV 09/05/2019 10:57:06 Nitro 200 mcg IC 09/05/2019 10:58:40 Nitro 200 mcg IC 09/05/2019 10:58:40 IV Bolus: .9 NaCl 500 ml total 09/05/2019 11:23:02 SUMMARY OF HEMODYNAMIC DATA Time AIR REST ECG 09:16:26 AO 132/82 (105) SA 10:40:10 LV 119/13, 20 10:48:25 LV 109/12, 21 10:48:32 LV 122/5, 23 10:49:12 LV 129/6, 21 10:49:18 LVp 127/3, 19 10:49:22 AOp 124/73 (96) 10:49:27 Signed By Chriss Story MD On 09/05/2019 11:25:25 Chriss Story MD
[2019-09-05 11:31] LABS: ACT Activated Clotting Time 213 sec (74-137)
--- NOTE | 2019-09-05 11:47 | CL.I_ITS ---
Patient Name: DEANNA ALMANZA Study Date: 09/05/2019 Performing: Gregory Jackson MD Ht: 59.84 inches 152 cm : 1975 Wt: 279.99 lbs 127 kg Age: 44 Gender: female BSA: 2.15 PROCEDURE(S) PERFORMED ZI06-FKG W OR WO PTCA, SINGLE CORONARY ARTERY CLINICAL PROFILE AND CO-MORBIDITIES Indications: New Onset Angina <= 2 months, Suspected CAD Heart Failure: None Stress/Imaging Date: 08/25/2019 Stress Test with SPECT MPI: Negative Angina Classification Anginal Classification w/in 2 Weeks: CCS II CAD Presentations: Unstable angina. Comorbidities/Risk Factors: Hypertension Dyslipidemia Family History of Premature CAD CONCLUSIONS Successful PTCA/KLARISSA distal RCA across bifurcation of PDA (double wire technique), utilizing a 4.0 x 2 0 Promus Synergy, post dilated proximally with a 5.0 x 8 NC balloon; 85%-->0%, no dissection. Pt had CP during stent deployment, but it appeared to be due more to IV contrast dye and stretching of vess el. RECOMMENDATIONS Highly recommend quitting all tobacco products Follow up with primary rigger up Risk factor modification ASA Indefinitley Plavix for at least 12 months Routine post interventional care Refer for Outpatient Cardiac Rehab Manual sheath removal per protocol Follow up with Dr. Story Successful Mynx Control closure of RFA. If pt continues to have exertional angina at home, would recommend elective PCI of proximal/mid LAD. D/w Dr Story. DESCRIPTION OF PROCEDURE The patient arrived to the procedure lab. The risks and benefits of the procedure as well as a full d escription of our services here and current unavailability of surgical backup were fully explained to the patient and/or their significant other prior to the catheterization. The Timeout was completed, verifying the correct patient and procedure. The patient's procedural site was prepped and draped in the usual fashion. Local anesthetic was given subcutaneously to right groin region with Lidocaine 2% Using a modified Seldinger technique,arterial access was obtained via the right femoral artery, a 5Fr sheath was inserted. Left Coronary Artery selective angiography was performed in multiple views usin g a 5 Fr. JL4 catheter. Right Coronary Artery selective angiography was then performed in multiple vi ews using a 5 Fr. 3DRC (Rene) catheter. Left Ventriculography was performed in ALBERTS projection usi ng a 5 Fr. Pigtail catheter. LV to AO pullback pressures were then recorded.The images were reviewed and options discussed. A decision was then made to proceed with an Intervention, IVUS o r other adjunct procedure. Arterial sheath was exchanged for a 6 Fr 45cm Sheath. HS II Guide catheter was inserted and engag ed into the RCA. Orient BMW (1) Guide wire was advanced to the PL branch of the RCA. Orient BMW (2) Guide wire was inserted as a rosalio wire advanced to the PA of the RCA Emerge 2.0 x 12 Balloon ca theter was inserted. Balloon catheter was advanced across lesion in the right coronary, distal. PTCA balloon inflated at 8 atms for 17 secs. PTCA balloon inflated at 6 atms for 10 secs. Synergy 4.0 x 20 Drug Eluting stent was inserted. Drug Eluting stent was advanced across the lesion in the right randell nary, distal. NC Emerge 5.0 x 8 Balloon catheter was inserted. Balloon catheter was advanced across l esion in the right coronary, distal. Contrast was injected through the sheath and the Right Iliac and Femoral artery were assessed for possible closure device. The arterial sheath was exchanged to a st andard sheath. The arterial sheath was pulled and a Mynx closure device was deployed for hemostasis INTERVENTION INFORMATION LESION SITE: RCA (Distal) Lesion Complexity: High/C, lesion at bifurcation: No, thrombus present: No, lesion length: 20 mm, cul prit lesion: Yes Pre Stenosis: 85 % Pre intervention PRABHAKAR flow: 3 PROCEDURE: Drug Eluting Stent with pre and post dilatation Post Stenosis: 0 % Post intervention PRABHAKAR flow: 3 Lesion Devices: Qompiumtronic 6 Fr HSII 100cm Guide Catheter Cook 6F 45cm Sheath [place] .014 BMW Orient Straight 190cm [place] .014 BMW Orient Straight 190cm Daniel Sci EMERGE MR 2.00x12 BALLOON Daniel Sci Synergy MR KLARISSA 4.00x20 Daniel Sci NC EMERGE MR 5.00x08 BALLOON COMPLICATIONS No Complications PROCEDURE MEDICATIONS Versed 1 mg IV Versed 1 mg IV Fentanyl 25 mcg IV Versed 1 mg IV Fentanyl 25 mcg IV Versed 1 mg IV Fentanyl 25 mcg IV Oxygen: 2 L/min via nasal cannula Heparin 6000 unit(s) IV 09/05/2019 10:57:06 Nitro 200 mcg IC 09/05/2019 10:58:40 Nitro 200 mcg IC 09/05/2019 10:58:40 IV Bolus: .9 NaCl 500 ml total 09/05/2019 11:23:02 SUMMARY OF HEMODYNAMIC DATA Time AIR REST ECG 09:16:26 AO 132/82 (105) SA 10:40:10 LV 119/13, 20 10:48:25 LV 109/12, 21 10:48:32 LV 122/5, 23 10:49:12 LV 129/6, 21 10:49:18 LVp 127/3, 19 10:49:22 AOp 124/73 (96) 10:49:27 Signed By Gregory Jackson MD On 09/05/2019 11:46:03 Gregory Jackson MD
--- NOTE | 2019-09-05 11:50 | EKG12_ITS ---
Test Reason : POST PCI Blood Pressure : / mmHG Vent. Rate : 076 BPM Atrial Rate : 076 BPM P-R Int : 130 ms QRS Dur : 080 ms QT Int : 432 ms P-R-T Axes : 072 043 048 degrees QTc Int : 486 ms Normal sinus rhythm Prolonged QT Abnormal ECG When compared with ECG of 14-AUG-2019 17:37, No significant change was found Confirmed by DENIZ CHAUDHRY, ELAN ([id number]), online content editor VIRAL SAHA ([id number]) on 09/13/2019 2:26:41 PM Referred By: KATHARINA Confirmed By:GIOVANI GUAMAN MD
[2019-09-05] MEDS: 0.9% Normal Saline 1,000 ML 150 ML IV (12:13)
[2019-09-05] MEDS: fentaNYL 100 MCG/2 ML Ampul 25 MCG IV ×2 (12:15→14:15)
[2019-09-05] MEDS: Midazolam 2 MG/2 ML Syringe IV (14:15)
--- NOTE | 2019-09-05 16:00 | NURSING ---
patient called out to this RN c/o SOB while she sleeps. 02 level 93% on RA, 2L NC oxygen applied. Lung sounds clear and diminished. Will continue to monitor.
--- NOTE | 2019-09-05 20:11 | NURSING ---
Addendum entered by [employer] 09/05/19 20:48: This nurse went over risks of leaving extensively with pt. Advised if she has any bleeding from cath site needs to report to ED. Pt voiced understanding. ELIER Baird Addendum entered by Iwona Arcadio 09/05/19 20:45: After spoke with pt this nurse back to room. Pt states that this nurse called ''the wrong'' . I called her current and not her ex-. Pt states that there is a restraining order between her and ex- which is why they could not get the kids over to her current husbands home. Pt states she is tired of everyone trying to control everything and wants her AMA papers ''now'' VS taken, pt signed AMA papers and and left at 2039. Dr. Jackson and Dr. Story notified. ELIER Baird Original Note: On report this nurse was advised that pt is requesting to leave tonight. Pt reports that her got called in to work and is not able to not go and will leave her children alone overnight if she cannot go home. Spoke with Dr. Jackson who states that he cannot discharge pt tonight. Spoke with pt again to see if she had anyone who could stay with her children overnight, or if they have a friend from school that they could stay with for the night. Pt states that there is no one that could watch her kids. This nurse and charge entry clerk, Amna Landa offered to call and speak her her and explain the extent of the situation to him, explain why she could not be discharged tonight. Pt states that he would not listen to us, does not want us to call him. Pt requested AMA papers. Call to Dr. Jackson to advise that Pt wanting to leave, did not want nurse to call her . Dr. Jackson this nurse needs to call and talk to him. Call to and explained situation. understanding, states that he has already talked to his boss, and he is okay to stay home and watch the children.
--- NOTE | 2019-09-06 07:05 | CRPHASE1 ---
Patient Communication PHII Cardiac Rehab Discussed with Patient:: Yes Guide to Cardiac Rehab Given to Patient:: Yes Cardiac Rehab Facility Choice List Given to Patient:: Yes Choice Program [facility] CR PHII:: Communication Given to CR, Refer to [facility] Refer Phase II Cardiac Rehab:: Yes Sessions:: 36 sessions - 3 days/wk, 12 weeks - Patient then discharged on 09/05/2019 Risk Factors/Lifestyle Family History: Family History (Last Reviewed 09/02/19 @ 15:[address] Chriss Story MD) Mother Hypertension Father Hypertension CAD (coronary artery disease) Sister Diabetes Myocardial infarction, Onset Age: 45 Sudden cardiac , Onset Age: 45 Cardiac Rehabilitation Info Cardiac Rehabilitation Program Information: Cardiac Rehabilitation is important for patients like you who are recovering from a heart problem. Cardiac rehabilitation programs are recognized as integral to the continued care of the patient with coronary heart disease. The cardiac rehabilitation program is designed to optimize a patient's physical, psychological, and social functioning. Health childbirth and infant care teacher work in cardiac rehabilitation programs and assist you with getting the treatments you need to get stronger and healthier - like exercise, healthy eating habits, and medications. Cardiac rehabilitation has been show to help people with heart problems live longer and have better life enjoyment than people who do not go to cardiac rehabilitation. Please contact the Cardiac Rehabilitation Program at [facility] at in two weeks if you have not heard from them.
--- NOTE | 2019-09-06 07:06 | CRPH1.INST_ITS ---
General Education CAD and cardiac anatomy and function:: Patient communicates acknowledgment Explanation of diagnoses and procedures:: Patient communicates acknowledgment Sign/Symptoms of VA:: Patient communicates acknowledgment Antiplatelet therapy: Patient communicates acknowledgment Proper use of NTG-SL: Patient communicates acknowledgment Emergency procedures and activation of EMS: Patient communicates acknowledgment Compliance of all prescribed medications: Patient communicates acknowledgment Smoking Patient Nicotine/Smoking Risk Factors Are:: Cigarettes Recommendations Include:: Smoking cessation strategies/Smoking packet, Second- hand smoke recommendation, Participation in a smoking cessation program Nicotine/Smoking Response Code:: Patient communicates acknowledgment Dyslipidemia Patient Dyslipidemia Risk Factors Are:: Total Cholesterol, Triglycerides, HDL, LDL Recommendations Include:: Lipid profile provided Dyslipidemia Response Code:: Patient communicates acknowledgment Overweight/Obesity Patient Overweight/Obesity Risk Factors Are:: Obesity - > or = 30 Recommendations Include:: Weight loss of 5-10%, Reduced calorie diet, Exercise 5-7 times/week Overweight/Obesity:: Patient communicates acknowledgment Hypertension Recommendations Include:: Maintain BP <130/85, BP <130/80 if diabetic, DASH dietary guidelines, Decrease/maintain normal body weight Hypertension:: Patient communicates acknowledgment Heart Disease Recommendations Include:: Educated family members of their risk, Educated family members of importance of prevention of heart disease Heart Disease Response Code:: Patient communicates acknowledgment
== END 2019-09-05 20:40 | disposition left against medical advice (07) ==
LOC: CLSP 09:00 → ICU 09-06 10:14
PROVIDERS: PCP Family Medicine; Visit Provider Internal Medicine Cardiovascular Disease
DX: I25.119 Atherosclerotic heart disease of native coronary artery with unspecified angina pectoris (principal); I10 Essential (primary) hypertension; E78.5 Hyperlipidemia, unspecified; F17.200 Nicotine dependence, unspecified, uncomplicated; Z79.82 Long term (current) use of aspirin; Z79.899 Other long term (current) drug therapy
CPT/HCPCS: 85347; 92928; 93005; 93458; 99152; 99153; C1760; J7030; J7040; Q9967; C1725; C1769; C1874; C1887; C1894; C9600

== ENCOUNTER → 2019-10-04 | Outpatient (CLI) | payer MEDICAID, SELFPAY ==
[2019-10-03 11:19] VITALS: BMI 51.4
--- NOTE | 2019-10-04 13:53 | ECHOD_ITS ---
Reason For Study: CHEST PAIN Procedure This was a 2D Doppler, Color Flow transthoracic echocardiogram. Exam performed in department. Left Ventricle Normal LV size. Left ventricular systolic function is normal. The estimated ejection fraction is 60 %. Stage 2 diastolic dysfunction. No regional wall motion abnormalities noted. Right Ventricle Normal RV size. Atria Normal left atrium. Normal right atrium. Mitral Valve Normal mitral valve. Tricuspid Valve Normal tricuspid valve. Aortic Valve The aortic valve is not well visualized. Pulmonic Valve Normal pulmonic valve. Great Vessels Normal aortic root. Pericardium/Pleural No pericardial effusion. MMode/2D Measurements & Calculations LVIDd: 4.4 cm IVSd: 1.1 cm Ao root diam: 2.8 cm LVIDs: 3.0 cm LVPWd: 1.1 cm RVDd: 3.2 cm FS: 32.0 % LAV(MOD-bp): 44.0 ml LA A4 area: 15.8 cm2 LA dimension(2D): 3.7 cm LAV(MOD-bp) Indexed: 21.0 ml/m2 LAV(MOD-sp2): 43.4 ml LAV(MOD-sp4): 43.6 ml RA A4 area: 11.0 cm2 Time Measurements MV dec time: 0.17 sec Doppler Measurements & Calculations MV E max mohinder: 93.3 cm/sec Lat Peak E' Mohinder: 5.6 cm/sec Med Peak E' Mohinder: 7.3 cm/sec MV A max mohinder: 69.8 cm/sec E/E' lat: 16.6 E/E' med: 12.8 MV E/A: 1.3 Ao V2 max: 120.3 cm/sec LV V1 max: 101.4 cm/sec PA V2 max: 107.8 cm/sec Ao max P.8 mmHg LV V1 max P.1 mmHg Interpretation Summary Normal LV size. Left ventricular systolic function is normal. The estimated ejection fraction is 60 %. Stage 2 diastolic dysfunction. Compared to prior study, there is no significant change. Ordering Physician: Jovita Gandhi Referring Physician: Jose Oakes Performed By: Kamilah Shelley RDCS, RVT
== END | disposition home or self-care (01) ==
LOC: CVS 13:53
PROVIDERS: PCP Family Medicine; Referring Provider Physician Assistant Medical; Visit Provider Physician Assistant Medical
DX: R07.9 Chest pain, unspecified (principal); I25.10 Atherosclerotic heart disease of native coronary artery without angina pectoris; E78.5 Hyperlipidemia, unspecified; I10 Essential (primary) hypertension
CPT/HCPCS: 93306

== ENCOUNTER 2019-10-14 08:03 | Day surgery (SDC) | payer MEDICAID, SELFPAY ==
[2019-10-03 11:19] VITALS: BMI 51.4
--- NOTE | 2019-10-10 02:43 | HP_ITS ---
HPI HPI History of Present Illness Surgical H&P: Yes Details: This is a 44 year old female that presents here today for an updated H&P for an upcoming heart cath on 10/14/[address] Story. She presented to our office a month ago with concerns over chest discomfort. She does have a family history of premature coronary artery disease and premature sudden cardiac . She was in the emergency room earlier in August for chest pain. Cardiac enzymes were normal. CT was negative for PE but did show significant coronary artery sclerosis. She had a stress test mid August which was negative for ischemia. She did undergo a diagnostic heart catheterization on September 04 which demonstrated left main mild calcification, proximal LAD mild calcification with diffusely diseased up to 70%, circumflex mild luminal irregularities less than 30%, RCA no significant disease, right posterior lateral 95% stenosis. She did undergo stenting of this vessel. It was recommended that if she continues to have chest discomfort that we consider stenting of her LAD. She called our office last week with concerns over increasing chest pain. Pt stated that she does not feel much better since she had her stent placed. She is needing to use her NTG 1-2 times per day last week, since I talked her to last week she sts that this has increased. She sts that she has been using 2-3 pills at a time. She is not doing anything in particular to have chest pain. She sts that this is now waking her up at night. She did have chest pain walking up to the office today. She does have SOB. She notes that she is SOB walking across the room she is SOB. She sts that she noted this discomfort about one week after her stent. She sts that she notes that this has progressed over the last 3 weeks. She does have orthopnea. She notes that her lips seem bluer. She called our office late last week to discuss this. She sts that if COVID was not going on she would have gone to the ER. She does not have any edema. She does not have any palpitations. She does not have any lightheadedness/dizziness. She does not feel that this discomfort is related to GERD. We did obtain an echo to evaluate for a pericardial effusion, this was negative. We did increase her Imdur to help with her chest pain. Unfortunately she still is smoking, but she is trying to quit. She sts that she had a sleep study done in the past, approx in 2004, this was negative. Intake Vital Signs 10/10/19 Height 5 ft 10/10/19 Weight: 284 lb 10/10/19 BP 122/86 H 10/10/19 Blood Pressure Location Rt brachial 10/10/19 Position Sitting 10/10/19 Respiration 20 H 10/10/19 Pulse 76 10/10/19 Pulse Source Monitor 10/10/19 Pulse Oximetry (%) 95 Intake Visit Reasons: UPDATE H&P AND EKG. Allergies hydrocodone bitartrate [From Vicodin] Allergy (Verified 10/03/19 11:17) Itching ondansetron HCl [From Zofran (as hydrochloride)] Allergy (Verified 10/03/19 11:17) Other Penicillins [PCN] Allergy (Verified 10/03/19 11:17) Rash metoclopramide [From Reglan] Adverse Reaction (Verified 10/03/19 11:17) Other Medications Metoprolol Tartrate 25 mg PO BID #20 tab 08/14/19 [Rx Confirmed 10/03/19] aspirin 325 mg tablet,delayed release 325 mg PO DAILY tab 09/02/19 [History Confirmed 10/03/19] atorvastatin 80 mg tablet 80 mg PO QHS tab 09/02/19 [History Confirmed 10/03/19] clopidogrel 75 mg tablet 75 mg PO DAILY #90 tab 09/02/19 [Rx Confirmed 10/03/19] lisinopril 10 mg tablet 10 mg PO DAILY #90 tab 09/02/19 [Rx Confirmed 10/03/19] isosorbide mononitrate 60 mg tablet,extended release 24 hr 60 mg PO BID #60 tab 10/03/19 [Rx Confirmed 10/03/19] nitroglycerin 0.4 mg sublingual tablet 0.4 mg SUBLINGUAL Q5-15M PRN #25 tab 10/03/19 [Rx Confirmed 10/03/19] amlodipine 2.5 mg tablet 2.5 mg PO DAILY #30 tab 10/10/19 [Rx Confirmed 10/10/19] PFS Social History (Updated 10/10/19 @ 14:43 by JOE Gudino) Smoking Status: Current every day smoker Tobacco: How many years used: 22 alcohol intake: current alcohol intake frequency: a few times a month Alcohol type: wine ROS Const Const: Positive for fatigue; negative for weakness, fever(s) or headache(s) Eyes Eyes: Negative for blind spots, loss of peripheral vision or transient loss of vision ENT ENT: Negative for headache(s), dizziness, tinnitus or Nosebleed/epistaxis Cardio Chest Pain: Yes Palpitations: No Edema: None Muscle aches with walking: None Resp Respiratory: Positive for SOB with activity, SOB at rest and SOB orthopnea\SOB lying down; negative for Cough GI GI: Negative nausea, vomiting, heartburn or vomiting blood/hematemesis : Negative for hematuria Musc Musc: Negative for muscle aches/ myalgia Neuro Neuro: Negative for dizziness, lightheadedness, near syncope, syncope, orthostatic symptoms, headache(s) or weakness Edwin Hematologic/Lymphatic: Negative for easy bleeding Endo Endo: Positive for fatigue Cardiology Exam Const Appearance: cooperative, no acute distress and well developed Nutritional Appearance: obese Orientation: alert, awake and oriented x3 Head Head: normocephalic and atraumatic Mouth: moist mucous membranes Eyes General: appearance normal, both eyes and all related structures Conjunctivae: conjunctivae normal Pupils: PERRL EOM: EOM intact bilaterally Neck Neck: normal visual inspection, no lymphadenopathy and no JVD Carotids: Negative bruit Neck Mass: Negative Neck mass Chest Chest inspection: normal inspection of the chest and symmetric chest movement Auscultation: Bilateral: Clear to Auscultation Cardio Palpation: normal PMI Rate: regular rate Rhythm: regular rhythm Heart sounds: S1 normal and S2 normal; negative rub, gallop or murmur GI GI: normal to inspection, soft, no hepatosplenomegaly, bowel sounds present and obese; negative tender Neuro General: alert, awake, oriented x3, CN's II-XI intact bilaterally and moves all extremities Extremities Pulses: Normal: Right Posterior Tibial Pulse, Left Posterior Tibial Pulse, Right Radial Pulse, Left Radial Pulse Lower Extremity Edema: None: Bilateral Psych Psychological: normal affect Assessment & Plan 1. Coronary artery disease with unstable angina pectoris I25.110 Plan With patient's continued chest discomfort she was advised to continue to use her nitro glycerin. She was advised that if she has any chest pain that does not go away with nitroglycerin that she should go to the emergency room. I am increasing her medications, we are adding amlodipine at 2.5 mg daily. She was given her instructions for her heart catheterization that is scheduled for October 14, 2019 Orders Orders: 12 Lead EKG performed by BMS Today Basic Metabolic Profile (BMP) Today Partial Thromboplast Time Today Prothrombin Time w/INR Today CBC W/Diff, Automated Today 2. Essential hypertension I10 Plan Blood pressure is controlled however with her continued chest discomfort we are adding Norvasc. Orders Orders: 12 Lead EKG performed by [facility]MS Today Basic Metabolic Profile (BMP) Today Partial Thromboplast Time Today Prothrombin Time w/INR Today CBC W/Diff, Automated Today 3. Hyperlipidemia E78.5 Plan Patient was advised to continue with her high intensity statin. Orders Orders: 12 Lead EKG performed by BMS Today Basic Metabolic Profile (BMP) Today Partial Thromboplast Time Today Prothrombin Time w/INR Today CBC W/Diff, Automated Today 4. Nicotine dependence F17.200 Plan Did discuss smoking cessation with patient. Will rediscuss this at her next office visit. Plan Detail Other Orders Orders: 12 Lead EKG performed by BMS Today Z95.5 Other Medications New: amlodipine (Norvasc) 2.5 mg PO DAILY 30 tabs 3RF Additional Comments At patient's next office visit would consider obtaining a sleep study to evaluate for obstructive sleep apnea, would also like to refer patient to cardiac rehab at that time. Follow Up 10/10/19 (keep as is) Coding Level of Care Code Off vis,est,level 4 Diagnoses Coronary artery disease with unstable angina pectoris I25.110 Essential hypertension I10 Hyperlipidemia E78.5 Nicotine dependence F17.200 Coding Level of Care Code Off vis,est,level 4 Diagnoses Coronary artery disease with unstable angina pectoris I25.110 Essential hypertension I10 Hyperlipidemia E78.5 Nicotine dependence F17.200 Supplemental Info Supplemental Information Labs LDL Cholesterol 177 mg/dL (0-130) H 08/14/19 HDL Cholesterol 52 mg/dL (40-) 08/14/19 Triglycerides 220 mg/dL (-199) H 08/14/19 VLDL Cholesterol 44 mg/dL (5-40) H 08/14/19 Diagnostics Electrocardiogram 09/05/19 Echocardiogram 10/04/19 Stress Test Nuclear Medicine 08/25/19 Stress Test 08/25/19 Cardiac Catheterization 09/05/19 Chest X-Ray 08/14/19 10/10/19 4624 <Electronically signed by Jovita Wilson> Date _ Jovita DIAZ
[2019-10-10 14:06] VITALS: BMI 55.4
[2019-10-10 15:36] LABS: Absolute Lymphocyte Count 1.65 X10^3/uL (0.83-4.51); Absolute Neutrophil Count 6.9 X10^3/uL (2.0-7.7); Basophil# 0.06 X10^3/uL; Basophil% 0.6 % (0-1); Eosinophil# 0.23 X10^3/uL; Eosinophils% 2.4 % (0-5); Hematocrit 40.4 % (37-47); Hemoglobin 12.9 g/dL (12.0-15.0); Lymphocyte # 1.65 X10^3/ul (4.0); Mean Corp Hgb Conc 31.9 g/dL (32-36); Mean Corpuscular Volume 87.6 fL (81-99); Mean Platelet Vol. 10.7 fl (6.2-12.0); Monocyte# 0.64 X10^3/uL; Monocyte% 6.6 % (0-10); NRBC Flagged by Analyzer 0 % (0-5); Neutrophil # 6.92 X10^3/uL (2.7-7.7); Neutrophil % 71.2 % (47-70); Platelet Count 258 K/mm3 (150-450); RBC Distribution Width CV 14.9 % (11.6-14.6); RBC Distribution Width SD 47.6 fl (35.1-43.9); Red Blood Count 4.61 M/mm3 (4.2-5.4); White Blood Count 9.7 K/mm3 (4.4-11.0)
[2019-10-10 15:55] LABS: Partial Thromboplast Time 29.5 Seconds (24.1-36.2); Prothrombin Time (Protime)PT. 12.7 SECONDS (11.7-14.9)
[2019-10-10 16:05] LABS: Anion Gap 4 (5-15); BUN 16 mg/dL (7-18); Calcium,Total 9.1 mg/dL (8.5-10.1); Chloride 107 mmol/L (98-107); Creatinine, Serum 0.89 mg/dL (0.55-1.02); EST Glomerular Filtration Rate 74 mL/min (>60); Est Glom Filt Rate - Afr Amer 89 mL/min (>60); Glucose 86 mg/dL (74-106); Potassium 3.9 mmol/L (3.5-5.1); Sodium Level 137 mmol/L (136-145)
[2019-10-12 07:37] VITALS: BMI 55.4
[2019-10-14] VITALS (14 sets, daily range): BP systolic 94–130; BP diastolic 64–84; PULSE 70–93; RESP 17–25; TEMP 36.7–36.9; O2SAT 94–99; BMI 55.5
[2019-10-14 08:27] LABS: Internal QC Validated? YES +Cl - CLEAR BKGD; Pregnancy, Urine Negative Negative
--- NOTE | 2019-10-14 10:25 | CL.D_ITS ---
Patient Name: DEANNA ALMANZA Study Date: 10/14/2019 Performing: Chriss Story MD Ht: 59.84 inches 152 cm : 1975 Wt: 284.4 lbs 129 kg Age: 44 Gender: female BSA: 2.16 PROCEDURE(S) PERFORMED VD64-ATT/COR/LV XB71-TLR W OR WO PTCA, SINGLE CORONARY ARTERY [id number], EACH ADD'L CORONARY ART, SAME MAJOR CLINICAL PROFILE AND INDICATIONS Indications: Suspected CAD Heart Failure: None Stress/Imaging Date: 08/26/19tress Test with SPECT MPI: Negative Angina Classification Anginal Classification w/in 2 Weeks: CCS III CAD Presentations: Unstable angina. CONCLUSIONS Significant coronary disease involving the proximal to mid left anterior descending artery with a leona g 80% stenotic lesion. Moderately severe disease noted in the circumflex artery. Previously stented right coronary artery is patent. RECOMMENDATIONS Referred for immediate PCI DESCRIPTION OF PROCEDURE The patient arrived to the procedure lab. The risks and benefits of the procedure as well as a full d escription of our services here and current unavailability of surgical backup were fully explained to the patient and/or their significant other prior to the catheterization. The Timeout was completed, verifying the correct patient and procedure. The patient's procedural site was prepped and draped in the usual fashion. Local anesthetic was given subcutaneously to right groin region with Lidocaine 2%. Using a modified Seldinger technique, arterial access was obtained via the right femoral artery, a 5 Fr sheath was inserted. Left Coronary Artery selective angiography was performed in multiple views u sing a 5 Fr. JL4 catheter. Right Coronary Artery selective angiography was then performed in multiple views using a 5 Fr. 3DRC (Rene) catheter. Left Ventriculography was performed in ALBERTS projection using a 5 Fr. Pigtail catheter. LV to AO pullback pressures were then recorded.The arterial sheath was pulled and a Mynx closure device was deployed for hemostasis CORONARY ANGIOGRAPHY DOMINANCE: Right Dominant LEFT HEART ASSESSMENT Left Ventricular Ejection Fraction: by LV Gram 65 % Normal LV wall motion Normal Left Ventricular systolic function LEFT MAIN: Angiographically normal LEFT ANTERIOR DESCENDING ARTERY: PROX LAD: 80 percent long % Stenosis CIRCUMFLEX ARTERY: MID CIRC: 70 % Stenosis RAMUS: Mild luminal irregularities less than 30% RIGHT CORONARY ARTERY: MID RCA: Previously placed stent is patent COMPLICATIONS No Complications PROCEDURE MEDICATIONS Versed 1 mg IV Versed 1 mg IV Fentanyl 50 mcg IV Fentanyl 25 mcg IV Versed 1 mg IV Fentanyl 25 mcg IV Oxygen: 2 L/min via nasal cannula Heparin 6000 unit(s) IV 10/14/2019 09:42:47 Nitro 200 mcg IC 10/14/2019 09:44:01 Nitro 200 mcg IC 10/14/2019 09:44:01 IV Bolus: .9 NaCl 300 ml total throughout procedure 10/14/2019 10:19:58 SUMMARY OF HEMODYNAMIC DATA Time AIR REST ECG 08:29:51 AO 95/70 (84) SA 09:23:40 LV 88/2, 11 09:31:14 LV 92/4, 11 09:31:21 LV 90/4, 12 09:32:16 LVp 92/6, 14 09:32:22 AOp 101/63 (81) 09:32:27 Signed By Chriss Story MD On 10/14/2019 10:24:26 Chriss Story MD
--- NOTE | 2019-10-14 11:00 | EKG12_ITS ---
Test Reason : POST PCI Blood Pressure : / mmHG Vent. Rate : 076 BPM Atrial Rate : 076 BPM P-R Int : 130 ms QRS Dur : 076 ms QT Int : 426 ms P-R-T Axes : 070 030 016 degrees QTc Int : 479 ms Normal sinus rhythm Normal ECG When compared with ECG of 05-SEP-2019 11:52, No significant change was found Confirmed by REID HURTADO ([id number]), editor news VIRAL SAHA ([id number]) on 10/24/2019 1:56:57 PM Referred By: Chriss Story Confirmed By:REID HURTADO
--- NOTE | 2019-10-14 11:05 | CRPHASE1 ---
Patient Communication Former Patient:: Phase I - Patient previously seen on 09/06/2019 follwoing previous PCI intervention. PHII Cardiac Rehab Discussed with Patient:: Yes Guide to Cardiac Rehab Given to Patient:: Yes Choice Program [facility] PHII:: Communication Given to CR, Refer to [facility] Refer Phase II Cardiac Rehab:: Yes - Physician Order in CR Sessions:: 36 sessions - 3 days/wk, 12 weeks Risk Factors/Lifestyle Family History: Family History (Last Reviewed 10/03/19 @ 11:17 by JOE Gudino) Mother Hypertension Father Hypertension CAD (coronary artery disease) Sister Diabetes Myocardial infarction, Onset Age: 45 Sudden cardiac , Onset Age: 45 Cardiac Rehabilitation Info Cardiac Rehabilitation Program Information: Cardiac Rehabilitation is important for patients like you who are recovering from a heart problem. Cardiac rehabilitation programs are recognized as integral to the continued care of the patient with coronary heart disease. The cardiac rehabilitation program is designed to optimize a patient's physical, psychological, and social functioning. Health director of career resources work in cardiac rehabilitation programs and assist you with getting the treatments you need to get stronger and healthier - like exercise, healthy eating habits, and medications. Cardiac rehabilitation has been show to help people with heart problems live longer and have better life enjoyment than people who do not go to cardiac rehabilitation. Please contact the Cardiac Rehabilitation Program at [facility] at in two weeks if you have not heard from them.
--- NOTE | 2019-10-14 11:06 | CRPH1.INSTRU ---
General Education CAD and cardiac anatomy and function:: Not instructed Explanation of diagnoses and procedures:: Not instructed Sign/Symptoms of CA:: Not instructed Antiplatelet therapy: Not instructed Proper use of NTG-SL: Not instructed Emergency procedures and activation of EMS: Not instructed Compliance of all prescribed medications: Not instructed - Patient preiously instructed by CR staff on 09/06/2019.
[2019-10-14] MEDS: 0.9% Normal Saline 1,000 ML 150 ML IV (11:25)
[2019-10-14] MEDS: fentaNYL 100 MCG/2 ML Ampul 25 MCG IV ×3 (11:27→17:11)
[2019-10-14 12:56] LABS: ACT Activated Clotting Time 208 sec (74-137)
--- NOTE | 2019-10-14 15:03 | CL.I_ITS ---
Patient Name: DEANNA ALMANZA Study Date: 10/14/2019 Performing: Gregory Jackson MD Ht: 60 inches 152 cm : 1975 Wt: 284.8 lbs 129 kg Age: 44 Gender: female BSA: 2.16 PROCEDURE(S) PERFORMED PP99-AVC W OR WO PTCA, SINGLE CORONARY ARTERY [id number], EACH ADD'L CORONARY ART, SAME MAJOR CLINICAL PROFILE AND CO-MORBIDITIES Indications: Suspected CAD, Worsening Angina, Stable Known CAD Heart Failure: None Stress/Imaging Date: 08/26/19 Stress Test with SPECT MPI: Negative Angina Classification Anginal Classification w/in 2 Weeks: CCS III CAD Presentations: Unstable angina. Unstable angina. Comorbidities/Risk Factors: Hypertension Dyslipidemia Prior PCI CONCLUSIONS Successful PTCA/KLARISSA to mid LAD with a 2.25 x 38 Promus Synergy, with a 3.0 x 16 Promus Synergy placed immediately upstream, post dilated with a 2.5 x 8 and 3.5 x 8 NC Balloon; 85%-->0%, no dissection. Pt had identical chest pain during balloon inflation. Successful PCI with PTCA to the ostial DIAG#1 after stent deployment with a 2.0 x 12 balloon; 75%-->3 0%, no dissection. RECOMMENDATIONS Highly recommend quitting all tobacco products Follow up with primary see wheeler Risk factor modification ASA Indefinitley Plavix for at least 12 months Routine post interventional care Refer for Outpatient Cardiac Rehab Manual sheath removal per protocol Follow up with Dr. Story Successful Mynx Control closure of RVA; will leave mid LCX for medical management. d/w Dr Story. DESCRIPTION OF PROCEDURE The patient arrived to the procedure lab. The risks and benefits of the procedure as well as a full d escription of our services here and current unavailability of surgical backup were fully explained to the patient and/or their significant other prior to the catheterization. The Timeout was completed, verifying the correct patient and procedure. The patient's procedural site was prepped and draped in the usual fashion. Local anesthetic was given subcutaneously to right groin region with Lidocaine 2% Using a modified Seldinger technique,arterial access was obtained via the right femoral artery, a 5Fr sheath was inserted. Left Coronary Artery selective angiography was performed in multiple views usin g a 5 Fr. JL4 catheter. Right Coronary Artery selective angiography was then performed in multiple vi ews using a 5 Fr. 3DRC (Rene) catheter. Left Ventriculography was performed in ALBERTS projection usi ng a 5 Fr. Pigtail catheter. LV to AO pullback pressures were then recorded.The images were reviewed and options discussed. A decision was then made to proceed with an Intervention, IVUS o r other adjunct procedure. Arterial sheath was exchanged for a 6 Fr Sheath. EBU 3.75 Guide catheter was inserted and engaged into the LCA. BMW Guide wire was advanced to the LAD. BMW Guide wire was inserted as a rosalio wire IN THE DIAG 2.00X12 EMERGE Balloon catheter was inserted. Balloon catheter was advanced across lesion i n the LAD, mid. PTCA balloon inflated at 7 atms for 12 secs. PTCA balloon inflated at 6 atms for 5 se cs. PTCA balloon inflated at 6 atms for 6 secs. 2.25X38 SYNERGY Drug Eluting stent was inserted. Drug Eluting stent was advanced across the lesion in the LAD, mid. 3.00X16 SYNERGY Drug Eluting stent was inserted. Drug Eluting stent was advanced across the lesion in the LAD, mid. 3.5X8 NC EMEREG Balloon catheter was inserted post stent. 2.50X12 NC EMERGE Balloon catheter was inserted post stent. Angiog simon performed post balloon dilatation. 2.00X12 EMERGE Balloon catheter was inserted. Balloon catheter was advanced across lesion in the first diagonal, ostial. PTCA balloon inflated at 6 atms for 9 secs. The arterial sheath was pulled and a Mynx closure device was deployed for hemostasis INTERVENTION INFORMATION LESION SITE: LAD (Mid) Lesion Complexity: High/C, lesion at bifurcation: Yes, thrombus present: No, lesion length: 54 mm, cu lprit lesion: Yes Pre Stenosis: 85 % Pre intervention PRABHAKAR flow: 3 PROCEDURE: Drug Eluting Stent with pre and post dilatation Post Stenosis: 0 % Post intervention PRABHAKAR flow: 3 Lesion Devices: [place] .014 BMW [place] Straight 190cm Medtronic 6 Fr EBU3.75 100cm Guide Catheter Daniel Sci EMERGE MR 2.00x12 BALLOON Daniel Sci Synergy MR KLARISSA 2.25x38 Daniel Sci Synergy MR KLARISSA 3.00x16 Daniel Sci NC EMERGE MR 3.50x08 BALLOON Daniel Sci NC EMERGE MR 2.50x12 BALLOON LESION SITE: 1st Diagonal (Ostial) Lesion Complexity: Non-High/Non-C, lesion at bifurcation: Yes, thrombus present: No, lesion length: 8 mm, culprit lesion: No Pre Stenosis: 75 % Pre intervention PRABHAKAR flow: 3 PROCEDURE: Balloon Angioplasty Post Stenosis: 30 % Post intervention PRABHAKAR flow: 3 Lesion Devices: [place] .014 BMW [place]ight 190cm Daniel Sci EMERGE MR 2.00x12 BALLOON COMPLICATIONS No Complications PROCEDURE MEDICATIONS Versed 1 mg IV Versed 1 mg IV Fentanyl 50 mcg IV Fentanyl 25 mcg IV Versed 1 mg IV Fentanyl 25 mcg IV Oxygen: 2 L/min via nasal cannula Heparin 6000 unit(s) IV 10/14/2019 09:42:47 Nitro 200 mcg IC 10/14/2019 09:44:01 Nitro 200 mcg IC 10/14/2019 09:44:01 IV Bolus: .9 NaCl 300 ml total throughout procedure 10/14/2019 10:19:58 SUMMARY OF HEMODYNAMIC DATA Time AIR REST ECG 08:29:51 AO 95/70 (84) SA 09:23:40 LV 88/2, 11 09:31:14 LV 92/4, 11 09:31:21 LV 90/4, 12 09:32:16 LVp 92/6, 14 09:32:22 AOp 101/63 (81) 09:32:27 Signed By Gregory Jackson MD On 10/14/2019 15:02:28 Gregory Jackson MD
--- NOTE | 2019-10-14 19:40 | NURSING ---
Pt demanding to leave AMA due to nobody helping her change her menses pads. After investigating, patient never requested to have assistance. Pt also complains of need for Fentanyl pain relief, in lieu of Tylenol, which is ordered for pain. Attempted to explain to patient, in order to go home she had to be without narcotic pain relief, and Tylenol would be attempted through night. Explained to pt the risks of leaving and explained that close observation, after cardiac catheterization is strongly suggested and encouraged. Pt refuses to acknowledge instructions. Juan Jose Stevenson RN, charge nurse, in to speak with pt, remove IV and have AMA papers signed. Pt is animate about leaving and has signed AMA paperwork.
== END 2019-10-14 19:37 | disposition left against medical advice (07) ==
LOC: CLSP 08:04 → ICU 13:39
PROVIDERS: Physician Assistant Medical; PCP Family Medicine; Referring Provider Internal Medicine Cardiovascular Disease; Visit Provider Internal Medicine Cardiovascular Disease
DX: I25.110 Atherosclerotic heart disease of native coronary artery with unstable angina pectoris (principal); F17.200 Nicotine dependence, unspecified, uncomplicated; I10 Essential (primary) hypertension; E78.5 Hyperlipidemia, unspecified; Z79.82 Long term (current) use of aspirin; Z79.899 Other long term (current) drug therapy
CPT/HCPCS: 36415; 80048; 81025; 85025; 85347; 85610; 85730; 92921; 92928; 93005; 93458; 97802; 99152; 99153; C1760; J7030; J7040; Q9967; C1725; C1769; C1874; C1887; C9600

== ENCOUNTER 2020-03-02 11:13 | Emergency (ER) | payer MEDICAID, SELFPAY ==
[2019-10-14 11:07] VITALS: BMI 55.5
[2020-03-02] VITALS (8 sets, daily range): BP systolic 116–160; BP diastolic 69–139; PULSE 69–100; RESP 15–21; TEMP 36.6; O2SAT 96–98; BMI 59.6
--- NOTE | 2020-03-02 11:20 | EKG12_ITS ---
Test Reason : CP Blood Pressure : / mmHG Vent. Rate : 099 BPM Atrial Rate : 099 BPM P-R Int : 120 ms QRS Dur : 080 ms QT Int : 374 ms P-R-T Axes : 058 031 014 degrees QTc Int : 479 ms Normal sinus rhythm Nonspecific ST abnormality Abnormal ECG Confirmed by KATHARINA CHAUDHRY, KATHERINE ([id number]), magazine editor ELLY DARBY ([id number]) on 03/07/2020 8:40:15 AM Referred By: TIERRA Confirmed By:KATHERINE POSADAS MD
[2020-03-02 11:38] LABS: Absolute Lymphocyte Count 1.32 X10^3/uL (0.83-4.51); Absolute Neutrophil Count 6.8 X10^3/uL (2.0-7.7); Basophil# 0.04 X10^3/uL; Basophil% 0.4 % (0-1); Eosinophils% 2.2 % (0-5); Hematocrit 39.4 % (37-47); Hemoglobin 12.3 g/dL (12.0-15.0); Lymphocyte # 1.32 X10^3/ul (4.0); Lymphocyte % 14.6 % (19-41); Mean Corp Hgb Conc 31.2 g/dL (32-36); Mean Corpuscular Hgb 27.5 pg (27.0-32.0); Mean Corpuscular Volume 87.9 fL (81-99); Mean Platelet Vol. 10.7 fl (6.2-12.0); Monocyte# 0.49 X10^3/uL; Monocyte% 5.4 % (0-10); NRBC Flagged by Analyzer 0 % (0-5); Neutrophil # 6.82 X10^3/uL (2.7-7.7); Neutrophil % 75.3 % (47-70); Platelet Count 259 K/mm3 (150-450); RBC Distribution Width CV 15.5 % (11.6-14.6); RBC Distribution Width SD 50.2 fl (35.1-43.9); Red Blood Count 4.48 M/mm3 (4.2-5.4); White Blood Count 9.1 K/mm3 (4.4-11.0)
[2020-03-02 11:50] LABS: Anion Gap 5 (5-15); BUN 18 mg/dL (7-18); BUN/Creat Ratio 17.3 RATIO (10-20); Calcium,Total 8.8 mg/dL (8.5-10.1); Chloride 103 mmol/L (98-107); Creatinine, Serum 1.04 mg/dL (0.55-1.02); EST Glomerular Filtration Rate 62 mL/min (>60); Est Glom Filt Rate - Afr Amer 74 mL/min (>60); Estimated Creatinine Clearance 50.62 ml/min; Glucose 176 mg/dL (74-106); Potassium 3.6 mmol/L (3.5-5.1); Sodium Level 135 mmol/L (136-145)
--- NOTE | 2020-03-02 11:50 | RAD_ITS ---
STUDY: X-RAY CHEST REASON FOR EXAM: Female, 44 years old. STERNAL CHEST PAIN FOR PAST SEVERAL HOURS, RIB and quot;SPASMS and quot; PAST SEVERAL DAYS TECHNIQUE: Single AP portable view of the chest. COMPARISON: Comparison is made with prior study dated 08/14/2019. FINDINGS: EKG electrodes are seen. Scattered calcified granulomas. No acute abnormality is seen. There is no demonstrated pleural abnormality. Normal size heart. Normal mediastinum and autumn. Normal visualized pulmonary arteries. Normal visualized aortic arch and descending thoracic aorta. Normal visualized thoracic spine. Normal visualized ribs, clavicles, and shoulders. There is no demonstrated abnormality of the visualized soft tissue structures of the upper abdomen. RAD/Chest 1 View (Portable) IMPRESSION: Normal x-ray examination of the chest. Electronically Signed: Rohit Mendez, at 12:19 EDT , Service support ,
--- NOTE | 2020-03-02 12:03 | ED.DCSUM_ITS ---
History of Present Illness Informant: Patient Onset: Days - 2 days Activity at onset: Exertion, Light Activity, Rest Timing: Continuous Quality: Sharp, Stabbing Location: Right Parasternal, Left Parasternal, Right Chest, Left Chest Current Severity: Severe Maximum Severity: Severe Worsened By: Exertion, Movement of Arm, Coughing Relieved By: Nothing Associated Symptoms: Dyspnea. Negative for: Nausea, Vomiting, Diaphoresis, Cough, Fever, Lightheadedness, Acid Reflux, Palpitations Narrative: 44-year-old female history of coronary artery disease presents to the emergency department with chest pain. Patient has had continuous chest pain for the last 2 days. She describes it as a spasming type pain around both sides of her ribs bilaterally. She complains of some associated shortness of breath. No fevers. No hemoptysis. She is not lightheaded or dizzy. No nausea vomiting or diaphoresis. No leg pain or swelling. She does have history of coronary disease with stents being placed about 4 or 5 months ago at this facility. She states that she has not felt back to herself since that time and is basically been short of breath since the procedure. She denies any sick contacts Prior Similar Symptoms: Yes, With Prior [place] Recent Illness/Hospitalization: Yes CVD Risk Factors: Hypertension, Hypercholesterolemia. Negative for: Diabetes, Family History 1' </=55, Smoking PE Risk Factors: Negative for: Recent Travel/Surgery, Recenet Immobilization, Prior DVT or PE, Cancer, OCP + Smoking + >/=35 TAD Risk Factors: Negative for: Marfan's Syndrome, Hypertension, Family History <Norbert Ashley - Last Filed: 03/02/20 15:02> <Phong Kim - Last Filed: 03/02/20 17:15> Chief Complaint: Chest Pain Past Medical History Prior records reviewed: Yes Past Medical History: - - Coronary artery disease Surgical History: angioplasty, cholecystectomy, dilatation and curettage, - - Umbilical hernia repair and colonoscopy Smoking Status: Current every day smoker Alcohol: None Drugs: None <Norbert Ashley - Last Filed: 03/02/20 15:02> <Phong Kim - Last Filed: 03/02/20 17:15> - Allergies and Home Meds Allergies/Adverse Reactions: Allergies hydrocodone bitartrate [From Vicodin] Allergy (Verified 03/02/20 11:18) Itching ondansetron HCl [From Zofran (as hydrochloride)] Allergy (Verified 03/02/20 11:18) Other blisters to back of her neck Penicillins [PCN] Allergy (Verified 03/02/20 11:18) Rash metoclopramide [From Reglan] Adverse Reaction (Verified 03/02/20 11:18) Other Primary Care Physician: Jose Oakes DO [Primary Care Provider] - Castro Guerrero MD [STAFF PHYSICIAN] - 03/09/20 3:00 pm Review of Systems All systems negative except as indicated General: Denies: Chills, Fever, Sweats Eyes: Denies: Visual changes - bilaterally, Diplopia ENT: Denies: Rhinorrhea, Sore throat Cardiovascular: Reports: Chest pain. Denies: Palpitations, Heart racing Respiratory: Reports: Dyspnea. Denies: Cough, Sputum, Dyspnea on exertion Gastrointestinal: Denies: Abdominal pain, Nausea, Vomiting, Diarrhea, Melena, Hematochezia Genitourinary: Denies: Dysuria, Hematuria, Frequency Musculoskeletal: Denies: Back pain, Extremity Pain Skin: Denies: Rash, Wounds Neurological: Denies: Headache, Weakness, Numbness <Norbert Ashley - Last Filed: 03/02/20 15:02> Physical Exam Vital Signs/Narrative: Vital Signs Temp Pulse Resp BP Pulse Ox 03/02/20 11:51 79 15 127/85 H 98 03/02/20 11:14 98 F 100 21 H 160/139 H Inital Vital Signs reviewed: Yes General: Well nourished, Well developed, No Acute Distress Head: Normocephalic, Atraumatic Eyes: Perrl, EOMI ENT: Moist mucous membranes, No rhinorrhea Neck: Supple, Nontender Cardiovascular: Regular rate, Regular rhythm, No murmurs Respiratory: No distress, CTA bilaterally, Chest nontender Abdomen: Soft, Nontender, Nondistended, Normal bowel sounds Back: Nontender, Normal Inspection Extremities: Nontender, No edema Skin: Normal color, No rash Neurological: Alert, Oriented x3, Cranial nerves II-XII grossly intact, Normal Strength, Normal Sensation Psychological: Normal affect, Normal Mood <Norbert Ashley Last Filed: 03/02/20 15:02> Vital Signs/Narrative: Vital Signs Pulse Resp BP Pulse Ox 03/02/20 15:27 69 15 124/73 H 97 03/02/20 15:00 88 16 116/71 97 03/02/20 14:00 78 121/69 H <Phong Kim - Last Filed: 03/02/20 17:15> Diagnostic/Tx/Re-eval Chest X-Ray - ED: 1 View, Read by ED Physician, Read by Radiologist, No Acute Disease Impressions Chest X-Ray 03/02/20 11:50 IMPRESSION: Normal x-ray examination of the chest. Electronically Signed: Rohit Mendez, at 12:19 EDT , Service support , 03/02/20 11:50 Chest 1 View (Portable) [RAD] Stat Laboratory Results 03/02/20 03/02/20 03/02/20 11:25 11:25 14:27 WBC 9.1 RBC 4.48 Hgb 12.3 Hct 39.4 MCV 87.9 MCH 27.5 MCHC 31.2 L RDW Std Deviation 50.2 H RDW Coeff of Martin 15.5 H Plt Count 259 MPV 10.7 Immature Gran % (Auto) 2.100 H Neut % (Auto) 75.3 H Lymph % (Auto) 14.6 L [place] % (Auto) 5.4 Eos % (Auto) 2.2 Baso % (Auto) 0.4 Absolute Neuts (auto) 6.8 Absolute Lymphs (auto) 1.32 Nucleated RBC % 0 Sodium 135 L Potassium 3.6 Chloride 103 Carbon Dioxide 27.0 Anion Gap 5 BUN 18 Creatinine 1.04 H Estim Creat Clear Calc 50.62 Est GFR (MDRD) Af Amer 74 Est GFR (MDRD) Non-Af 62 BUN/Creatinine Ratio 17.3 Glucose 176 H Calcium 8.8 Troponin I < 0.015 < 0.015 - Rhythm Strip Rhythm Strip: Sinus Rhythm Rate: 90 Ectopy: None - EKG Initial EKG Interpretation: Sinus Rhythm, No Acute Injury Pattern Prior: Unchanged Follow-up EKG Interpretation: Sinus Rhythm, No Acute Injury Pattern Prior: Unchanged Treatment: Aspirin, NTG SL Repeat Eval: Pain Free PRABHAKAR Risk: H/O CAD, ASA within 7 days Score: 2 - Medical Decision Making EKG on arrival was normal sinus rhythm rate of [address] segment or T wave changes. Normal intervals without ectopy. Patient given aspirin and nitroglycerin. The nitroglycerin resolved her pain. CBC and BMP are unremarkable. Initial troponin is negative. Chest x-ray was obtained which is unremarkable as well. I spoke with on-call aniline press worker Dr. Story, recommended that we obtain a second troponin and as long as that was negative discharge the patient home with a prescription for 5 mg of amlodipine and his office will call the patient to schedule for follow-up next week. P troponin is negative. Patient remains chest pain-free. Her appointment is March 09 at [address] Guerrero. We will begin the amlodipine today and continue her current medication regimen and follow-up as directed or if she develops worsening symptoms to return to the emergency department <Norbert Ashley - Last Filed: 03/02/20 15:02> - Medical Decision Making I supervised the PA and have performed my own pertinent history and physical. Results and treatment plan were discussed. HPI: Patient reports he has chest pain that began 2 days ago. It is a constant pain that is worsened by twisting. She denies any associated nausea or vomiting. No shortness of breath or diaphoresis. She reports that her pain is relieved by nitroglycerin. She is taken Tylenol, ibuprofen, and muscle relaxants without relief. PE: Vitals: Stable. Afebrile. General: Well-nourished and well-developed. Head: Normocephalic atraumatic. Neck: Supple, no lymphadenopathy. No JVD. Nontender. Cardiovascular: Regular rate and rhythm. No murmurs. Respiratory: No respiratory distress. Clear to auscultation bilaterally. Mild tenderness palpation over her sternum bilaterally that does not reproduce her pain. Abdominal: Soft, nontender, nondistended, normal bowel sounds. No guarding, rebound, or peritoneal signs. Back: Nontender. Extremities: Nontender, no edema. Skin: Normal color, no rash. Neurologic: Alert and oriented ?3. Cranial nerves II through XII are intact. Normal strength and sensation. Psych: Normal affect. Emergency Department course: Patient is resting comfortably. She refused pain medications. Her work-up was negative. 3-hour troponin was negative as well. Treatment Plan: Patient's pain is very atypical. It is reproduced with twisting. She will be discharged with instructions to follow-up with Dr. Guerrero for further evaluation and treatment. Return to the emergency department for any worsening symptoms. This note was generated with Wizeline dictation software. It may contain incorrect words, spelling, and punctuation that were not noted in review of the chart prior to signing. <Phong Kim - Last Filed: 03/02/20 17:15> ED Disposition <Norbert Ashley - Last Filed: 03/02/20 15:02> <Phong Kim - Last Filed: 03/02/20 17:15> - Plan for ED Patient: Disposition: Home or Assisted Living Diagnosis: Chest pain, Atherosclerosis of coronary artery without angina pectoris, Essential (primary) hypertension, Hyperlipidemia, Nicotine dependence Instructions: ED Chest Pain Atypical Unkn Cause Prescriptions: Amlodipine Besylate [Norvasc] 5 mg PO DAILY #30 tab Prescription Printed Referrals: Jose Oakes DO [Primary Care Provider] - Castro Guerrero MD [STAFF PHYSICIAN] - 03/09/20 3:00 pm
[2020-03-02] MEDS: Nitroglycerin SL (ED/IMG/CATH) 0.4 MG TABLET SUBLINGUAL (12:55)
--- NOTE | 2020-03-02 13:46 | EKG12_ITS ---
Test Reason : CP Blood Pressure : / mmHG Vent. Rate : 076 BPM Atrial Rate : 076 BPM P-R Int : 124 ms QRS Dur : 082 ms QT Int : 432 ms P-R-T Axes : 056 013 024 degrees QTc Int : 486 ms Normal sinus rhythm Abnormal ECG Confirmed by KATHARINA CHAUDHRY, KATHERINE ([id number]), clinical editor ELLY DARBY ([id number]) on 03/07/2020 8:40:04 AM Referred By: AP Confirmed By:KATHERINE POSADAS MD
== END 2020-03-02 15:28 | disposition home or self-care (01) ==
PROVIDERS: Emergency Provider Physician Assistant Medical; PCP Family Medicine
DX: R07.9 Chest pain, unspecified (principal); I25.10 Atherosclerotic heart disease of native coronary artery without angina pectoris; I10 Essential (primary) hypertension; E78.5 Hyperlipidemia, unspecified; F17.200 Nicotine dependence, unspecified, uncomplicated; Z79.899 Other long term (current) drug therapy
CPT/HCPCS: 71045; 80048; 84484; 85025; 93005; 99285

== ENCOUNTER → 2020-04-26 12:30 | Outpatient (CLI) | payer MEDICAID, SELFPAY ==
[2020-03-30 12:58] VITALS: BMI 57.2
--- NOTE | 2020-04-27 13:09 | PFT ---
INTRODUCTION: The patient is a 45-year-old female that presents for pulmonary function studies secondary to a diagnosis of shortness of breath. Respiratory therapy reports good patient effort. Bronchodilators were used during testing. INTERPRETATION: Forced expiration spirometry demonstrates the presence of a moderate large airways obstructive ventilatory defect. There was no significant response to aerosolized bronchodilators. Spirograms are of good quality and plateau gradually indicating slow emptying of the lungs. Body plethysmography was performed and revealed an elevated RV to 150% of predicted, indicative of underlying air trapping. Diffusing capacity by single breath CO is reduced at 42% of predicted. IMPRESSION: Irreversible moderate large airways obstructive ventilatory defect with associated air trapping and symmetric reduction in diffusing capacity.
== END ==
PROVIDERS: PCP Family Medicine; Referring Provider Physician Assistant Medical; Visit Provider Physician Assistant Medical
DX: I25.119 Atherosclerotic heart disease of native coronary artery with unspecified angina pectoris (principal); R06.00 Dyspnea, unspecified
CPT/HCPCS: 93225; 93226; 94060; 94726; 94729

== ENCOUNTER → 2020-06-04 12:33 | Outpatient (CLI) | payer MEDICAID, SELFPAY ==
[2020-05-14 14:23] VITALS: BMI 58.8
[2020-06-04 13:00] VITALS: PULSE 100; PULSE 101; PULSE 78; PULSE 82; PULSE 94; PULSE 97; PULSE 98; PULSE 99; O2SAT 93; O2SAT 94
--- NOTE | 2020-06-04 13:12 | CPS ---
PATIENT C/O FUNNY FEELING TO ARMS AND LEGS WHILE WALKING. SHE WAS RAPIDLY BREATHING. I EDUCATED HER ON PURSED LIP BREATHING WHICH SHE PRACTICED DURING THE TEST, PERIODIC REMINDERS GIVEN THROUGHOUT TESTING. SHE RATES HER BASELINE STATUS AT 1/2 ON 10 SCALE. NO OXYGEN REQUIRED DURING TESTING. ENCOURAGED CONTINUED PRACTICE OF PURSED LIP BREATHING TECHNIQUE WELL SMOKING CESSATION
--- NOTE | 2020-06-06 08:30 | PCM.PSN.6M ---
PSN 6 Minute Walk Test - 6 Minute Walk Test 6 Minute Walk Test: 6 Minute Walk Test PSN:6-Minute Walk Test Start: 06/04/20 12:59 Freq: Status: Active Protocol: RESP.6MINW Document 06/04/20 13:00 [facility] (Rec: 06/04/20 13:18 [facility] [id number]) 6 Minute Walk Test Date Performed 06/04/20 Time Performed 12:30 Height 5 ft Weight: 300 lb Weight in Pounds 300.[address]: Pedro Johnson Assistive device used: None Pre-test Oxygen Delivery Method Room Air Pulse Ox (%) 94 Pulse Rate (60-100 beats/min) 82 Dyspnea Kristine Scale (0-10) 1 1st minute Oxygen Delivery Method Room Air Pulse Ox (%) 93 Pulse Rate (60-100 beats/min) 99 Dyspnea Kristine Scale (0-10) 3 Number of Rests Taken 1 Reported Symptoms Increased Work of Breathing 2nd minute Oxygen Delivery Method Room Air Pulse Ox (%) 94 Pulse Rate (60-100 beats/min) 94 Dyspnea Kristine Scale (0-10) 3 Number of Rests Taken 0 Reported Symptoms Increased Work of Breathing 3rd minute Oxygen Delivery Method Room Air Pulse Ox (%) 94 Pulse Rate (60-100 beats/min) 97 Dyspnea Kristine Scale (0-10) 4 Number of Rests Taken 1 Reported Symptoms Increased Work of Breathing 4th minute Oxygen Delivery Method Room Air Pulse Ox (%) 93 Pulse Rate (60-100 beats/min) 100 Dyspnea Kristine Scale (0-10) 4 Number of Rests Taken 0 Reported Symptoms Increased Work of Breathing 5th minute Oxygen Delivery Method Room Air Pulse Ox (%) 94 Pulse Rate (60-100 beats/min) 101 H Dyspnea Kristine Scale (0-10) 5 Number of Rests Taken 1 Reported Symptoms Increased Work of Breathing 6th minute Oxygen Delivery Method Room Air Pulse Ox (%) 93 Pulse Rate (60-100 beats/min) 98 Dyspnea Kristine Scale (0-10) 5 Number of Rests Taken 0 Reported Symptoms Increased Work of Breathing Post-test Oxygen Delivery Method Room Air Pulse Ox (%) 94 Pulse Rate (60-100 beats/min) 78 Dyspnea Kristine Scale (0-10) 2 Full Laps Walked 5 Partial Lap, Number of Tiles Walked 36 Total Distance Walked (ft) 331 06/04/20 13:12 Cardiopulmonary Services by Faith Ward PATIENT C/O FUNNY FEELING TO ARMS AND LEGS WHILE WALKING. SHE WAS RAPIDLY BREATHING. I EDUCATED HER ON PURSED LIP BREATHING WHICH SHE PRACTICED DURING THE TEST, PERIODIC REMINDERS GIVEN THROUGHOUT TESTING. SHE RATES HER BASELINE STATUS AT 1/2 ON 10 SCALE. NO OXYGEN REQUIRED DURING TESTING. ENCOURAGED CONTINUED PRACTICE OF PURSED LIP BREATHING TECHNIQUE WELL SMOKING CESSATION Initialized on 06/04/20 13:12 - END OF NOTE - Interpretation Interpretation: The patient ambulated 331 feet over the course of 6 minutes beginning on room air without assistive devices. Pretesting oxygen saturation was noted to be 94% on room air. With ambulation, the galina oxygen saturation was 93%. Although there was evidence of impaired walk distance, there was no significant exertional oxygen desaturation. - Recommendations Recommendations: There is no indication for the use of supplemental oxygen at this time.
== END ==
PROVIDERS: PCP Family Medicine; Referring Provider Internal Medicine Critical Care Medicine; Visit Provider Internal Medicine Critical Care Medicine
DX: G47.33 Obstructive sleep apnea (adult) (pediatric) (principal)
CPT/HCPCS: 94618

== ENCOUNTER → 2020-06-04 20:00 | Outpatient (CLI) | payer MEDICAID, SELFPAY ==
[2020-05-14 14:23] VITALS: BMI 58.8
== END ==
PROVIDERS: PCP Family Medicine; Visit Provider Internal Medicine Critical Care Medicine
DX: G47.33 Obstructive sleep apnea (adult) (pediatric) (principal); J44.9 Chronic obstructive pulmonary disease, unspecified
CPT/HCPCS: 94618; 95811

== ENCOUNTER → 2020-07-13 12:17 | Outpatient (CLI) | payer MEDICAID, SELFPAY ==
--- NOTE | 2020-07-13 12:25 | RAD_ITS ---
STUDY: X-RAY - THORACIC SPINE REASON FOR EXAM: Female, 45 years old. BILATERAL FLANK PAIN AND MUSCLE SPASM, NKI TECHNIQUE: 3 view(s) of the thoracic spine were obtained. COMPARISON: None. FINDINGS: Normal kyphosis of the thoracic spine. There is no substantial scoliosis. Mild degree of spondylosis in the upper and lower dorsal vertebrae with minimal disc space narrowing. Calcified left hilar lymph nodes. RAD/Thoracic Spine 3 Views IMPRESSION: Mild degree of disc space narrowing and spondylosis Electronically Signed: Rohit Mendez MD at 12:47 EST , Service support ,
== END ==
PROVIDERS: PCP Family Medicine; Referring Provider Family Medicine; Visit Provider Family Medicine
DX: M54.6 Pain in thoracic spine (principal); R25.2 Cramp and spasm
CPT/HCPCS: 36415; 72072

== ENCOUNTER → 2021-01-08 | Outpatient (CLI) | payer MEDICAID, SELFPAY ==
[2020-09-18 13:15] VITALS: BMI 61.4
== END | disposition home or self-care (01) ==
PROVIDERS: PCP Family Medicine; Referring Provider Family Medicine; Visit Provider Family Medicine
DX: Z20.822 Contact with and (suspected) exposure to COVID-19 (principal)
CPT/HCPCS: 87635; U0005; U0003

== ENCOUNTER → 2021-03-09 | Outpatient (CLI) | payer MEDICAID, SELFPAY | END | disposition home or self-care (01) | LOC: LABSPEC 07:52 | PROVIDERS: PCP Family Medicine; Referring Provider Family Medicine; Visit Provider Family Medicine | DX: R06.00 Dyspnea, unspecified (principal) | CPT/HCPCS: 87635; U0005; U0003 ==

== ENCOUNTER → 2021-04-16 14:03 | Outpatient (CLI) | payer MEDICAID, SELFPAY ==
--- NOTE | 2021-04-16 14:09 | CT_ITS ---
STUDY: CT MAXILLOFACIAL SINUSES REASON FOR EXAM: Female, 46 years old. CHRONIC SINUSITIS RADIATION DOSAGE (If Supplied By Facility): CTDIvol = ( 33.06 ) mGy, DLP = ( 627.24 ) mGycm TECHNIQUE: The patient was scanned in a multi detector CT scanner. High resolution axial imaging was performed without the administration of intravenous contrast material. Sagittal and coronal images were reconstructed. Individualized dose optimization techniques were used for this CT. COMPARISON: None. FINDINGS: The styloid processes are elongated bilaterally. This is suggestive of [place] syndrome. A tiny calculus is seen in the deep left pharyngeal tonsil. FRONTAL SINUSES: Normal aeration, without mucosal inflammatory disease. ETHMOIDAL SINUSES: Normal aeration, without mucosal inflammatory disease. MAXILLARY SINUSES: Normal aeration, without mucosal inflammatory disease. SPHENOIDAL SINUSES: Normal aeration, without mucosal inflammatory disease. There is patency of the bilateral maxillary infundibuli with normal uncinate processes, ethmoid bullae, and hiatus semilunaris. Normal bilateral middle turbinates. Normal bilateral inferior turbinates. Normal midline nasal septum. There is patency of the bilateral nasal airways. The visualized osseous structures are normal. The visualized bilateral orbital contents are normal. 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 Electronically Signed: Rohit Mendez MD at 14:51 EST , Service support ,
== END ==
PROVIDERS: PCP Family Medicine; Referring Provider Otolaryngology; Visit Provider Otolaryngology
DX: J32.8 Other chronic sinusitis (principal)
CPT/HCPCS: 70486

== ENCOUNTER 2021-09-14 13:40 | Emergency (ER) | payer MEDICAID, SELFPAY ==
[2021-09-14] VITALS (7 sets, daily range): BP systolic 111–115; BP diastolic 71–91; PULSE 77–79; RESP 18–20; TEMP 36.5; O2SAT 95–99; BMI 61.6
--- NOTE | 2021-09-14 13:53 | EKG12_ITS ---
Test Reason : CP Blood Pressure : / mmHG Vent. Rate : 082 BPM Atrial Rate : 082 BPM P-R Int : 142 ms QRS Dur : 078 ms QT Int : 416 ms P-R-T Axes : 047 007 013 degrees QTc Int : 486 ms Normal sinus rhythm Prolonged QT Abnormal ECG Confirmed by HAMILTON CHAUDHRY, PERLITA ([id number]), order editor JOSÉ MIGUEL KNUTSON ([id number]) on 09/18/2021 11:15:22 AM Referred By: NAGI Confirmed By:PERLITA VILLASENOR MD
--- NOTE | 2021-09-14 13:53 | RAD_ITS ---
STUDY: X-RAY CHEST REASON FOR EXAM: Female, 46 years old. chest pain TECHNIQUE: AP COMPARISON: 03/02/2020 FINDINGS: EKG leads project over the chest. The lungs are clear and expanded. There is no demonstrated pleural abnormality. Normal size heart. Normal mediastinum and autumn. Normal visualized pulmonary arteries. Normal visualized aortic arch and descending thoracic aorta. Normal visualized thoracic spine. Normal visualized ribs, clavicles, and shoulders. There is no demonstrated abnormality of the visualized soft tissue structures of the upper abdomen. RAD/Chest 1 View (Portable) IMPRESSION: Nonacute portable x-ray examination of the chest. Electronically Signed: Kartik Berrios MD ([place]) at 14:57 EDT ,
--- NOTE | 2021-09-14 13:56 | ED.VIS.CHEST ---
HPI History of Present Illness Chief Complaint: Chest Pain Narrative Narrative: Patient with past medical history of coronary artery disease, COPD, former smoker, presents with chest pain and shortness of breath that she is had since this afternoon. She cannot say whether it has been minutes to hours. She denies any nausea or vomiting. She states that she has felt tired and weak over the last 2 days but denies any dysuria or hematuria. She called the squad because she took a nitroglycerin which was ineffective at her chest pressure. She states it feels as if there is a hippo sitting on my chest. No exacerbating or alleviating factors. She states that she is concerned because while she has a BiPAP/CPAP machine at home, she does not wear oxygen at home although she has been fighting to get it. She also has extensive heart history and was concerned because the nitroglycerin that she took was not working. [facility] Medical History Atherosclerosis of coronary artery without angina pectoris Chest pain Crohns disease Depression Essential (primary) hypertension H/O gestational diabetes mellitus, not currently Headache History of kidney stones Hyperlipidemia IBS (irritable bowel syndrome) Left ventricular diastolic dysfunction Long QT interval Maternal hypertension affecting puerperium Morbid obesity Nicotine dependence Panic attacks Recurrent urinary tract infection Tachycardia Third trimester Transient elevated blood pressure Ulcerative colitis Home Medications aspirin 325 mg tablet,delayed release 325 mg PO DAILY tab 09/02/19 [History Last Taken 10/14/19] albuterol 90 mcg/actuation aerosol inhaler 90 mcg INHALATION 05/11/20 [History Last Taken Unknown] ranolazine 500 mg tablet,extended release,12 hr 500 mg PO DAILY #60 tab 09/07/20 [Rx Last Taken Unknown] isosorbide mononitrate 60 mg tablet,extended release 24 hr 60 mg PO BID #180 tab 04/02/21 [Rx Last Taken Unknown] metoprolol tartrate 50 mg tablet 50 mg PO BID #180 tab 05/20/21 [Rx Last Taken Unknown] cetirizine 10 mg capsule 10 mg PO HS #30 cap 06/05/21 [Rx Last Taken Unknown] fluticasone propionate 50 mcg/actuation nasal spray,suspension 2 spray INTRANASAL DAILY #16 g 06/05/21 [Rx Last Taken Unknown] montelukast 10 mg tablet 10 mg PO DAILY tab 06/05/21 [History Last Taken Unknown] tizanidine 2 mg tablet 2 mg PO QHS tab 06/05/21 [History Last Taken Unknown] umeclidinium 62.5 mcg-vilanterol 25 mcg/actuation powdr for inhalation 1 inh INHALATION Q24H #60 ea 06/05/21 [Rx Last Taken Unknown] lisinopril 10 mg tablet 10 mg PO DAILY #90 tab 06/13/21 [Rx Last Taken Unknown] clopidogrel 75 mg tablet 75 mg PO DAILY #90 tab 06/17/21 [Rx Last Taken Unknown] nitroglycerin 0.4 mg sublingual tablet 0.4 mg SUBLINGUAL Q5-15M PRN #25 tab 08/02/21 [Rx Last Taken Unknown] atorvastatin 80 mg tablet 80 mg PO QHS #30 tab 09/10/21 [Rx Last Taken Unknown] prednisone 40 mg PO DAILY #14 tab 09/14/21 [Rx Last Taken Unknown] Allergy/AdvReac Type Severity Reaction Status Date / Time hydrocodone bitartrate Allergy Itching Verified 09/14/21 13:41 [From Vicodin] ondansetron HCl Allergy Other Verified 09/14/21 13:41 [From Zofran (as hydrochloride)] Penicillins [PCN] Allergy Rash Verified 09/14/21 13:41 metoclopramide [From Reglan] AdvReac Other Verified 09/14/21 13:41 Family History Mother Hypertension Father Hypertension CAD (coronary artery disease) Sister Diabetes Myocardial infarction, Onset Age: 45 Sudden cardiac , Onset Age: 45 Surgical History History of coronary artery stent placement (10/14/19) History of tubal ligation Hx of cholecystectomy Previous section S/P hernia repair Social History Smoking Status: Former smoker quit date: 04/27/20 alcohol intake: current alcohol intake frequency: a few times a month Alcohol type: wine ROS ROS ED ROS Narrative Constitutional: No fever, no chills. Positive malaise and fatigue. HEENT: No sore throat. No neck pain. No loss of vision. No rhinorrhea. Cardiovascular: Positive chest pressure/chest pain. No palpitations. No pedal edema. Respiratory: No cough, positive shortness of breath. Abdominal: No abdominal pain. No nausea. No vomiting. Genitourinary: No dysuria. No hematuria. Musculoskeletal: No myalgias. No arthralgias. Neurologic: No headaches. No dizziness. No lightheadedness. Skin: No rash. No change in color. Psychiatric: No depression. No anxiety. EXAM Physical Exam Narrative Exam Narrative: Afebrile. Vital signs noted. HEENT: Normocephalic. Atraumatic. PERRL, EOMI. Neck soft and supple. No point tenderness or step off. Cardiovascular: Regular rate and rhythm. No murmurs, rubs, or gallops appreciated. Respiratory: No tachypnea. Lungs clear to auscultation bilaterally. Gastrointestinal: Abdomen soft, obese, nontender, with normoactive bowel sounds. No rebound or guarding. Neurological: Awake. Alert. Nonfocal, nonlateralizing. Skin: No rash. Normal color. No pallor. Musculoskeletal: No pedal edema. Full range of motion extremities. Const Vital Signs: 09/14/21 13:42 09/14/21 13:54 09/14/21 13:59 Temperature 97.7 F L Temperature Source Temporal Pulse Rate 79 Respiratory Rate 18 Respiratory Pattern Normal Blood Pressure 111/91 H Blood Pressure Mean 97 Pulse Ox 95 98 Oxygen Delivery Method Room Air Nasal Cannula Oxygen Flow Rate (L/min) 2 09/14/21 14:19 09/14/21 15:10 09/14/21 15:23 Temperature Temperature Source Pulse Rate 78 78 Respiratory Rate 20 H 18 Respiratory Pattern Tachypnea Blood Pressure 115/71 Blood Pressure Mean 85 Pulse Ox 99 98 Oxygen Delivery Method Nasal Cannula Nasal Cannula Oxygen Flow Rate (L/min) 2 2 09/14/21 15:56 Temperature Temperature Source Pulse Rate 77 Respiratory Rate 18 Respiratory Pattern Blood Pressure 114/72 Blood Pressure Mean 86 Pulse Ox 96 Oxygen Delivery Method Room Air Oxygen Flow Rate (L/min) MDM MDM MDM Narrative Medical decision making narrative: EKG demonstrates normal sinus rhythm at 82 bpm without ectopy or acute ST changes. CBC shows normal white count of 10.2, hemoglobin stable 11.6, hematocrit 35.2. Platelet count normal at 228. Her electrolyte panel is grossly unremarkable. High-sensitivity troponin is less than 3. As this is a 0-hour less than 3 troponin I do feel that she has been ruled out for cardiac pathology. She was ordered sublingual nitroglycerin because she stated that the squads was ineffective. However, according to the RN, patient became upset because she wants Nitropaste instead. Upon repeat examination, her blood pressure is still low in the 111-115 range systolically. She states that she still feels chest tightness. I do not think that this is related to coronary artery disease, and additionally I do not feel that Nitropaste would be helpful. Instead, she will be given a DuoNeb aerosolized treatment and prednisone 60 mg because she states that her chest feels tight. Chest x-ray in 1 view interpreted by myself shows no evidence of an infiltrate or pneumothorax. This was confirmed by radiology. I do feel that her chest tightness may be more related to bronchospasm and COPD. Upon repeat examination, she is feeling mildly improved. She will be given a prescription for prednisone burst for the next week of 40 mg. She did express that she has been trying to get on home oxygen. I do feel that this is best advised and follow-up through her manager furniture. She will call the office on Thursday for an appointment. I feel she be discharged safely home with follow-up. Return instructions to the emergency department were reviewed. Disposition is discharged home in stable condition. Lab Data Labs: Laboratory Results - last 24 hr 09/14/21 09/14/21 09/14/21 14:15 14:15 14:15 WBC 10.2 RBC 3.95 L Hgb 11.6 L Hct 35.2 L MCV 89.1 MCH 29.4 MCHC 33.0 RDW Std Deviation 47.2 H RDW Coeff of Martin 14.7 H Plt Count 228 MPV 11.2 Immature Gran % (Auto) 1.700 H Neut % (Auto) 72.4 H Lymph % (Auto) 17.4 L Ector % (Auto) 5.7 Eos % (Auto) 2.3 Baso % (Auto) 0.5 Absolute Neuts (auto) 7.4 Absolute Lymphs (auto) 1.77 Nucleated RBC % 0 Sodium 136 Potassium 3.7 Chloride 103 Carbon Dioxide 28.0 Anion Gap 5 BUN 14 Creatinine 0.96 Estim Creat Clear Calc 53.72 Est GFR (MDRD) Af Amer 81 Est GFR (MDRD) Non-Af 67 BUN/Creatinine Ratio 14.5 Glucose 100 Calcium 9.5 Troponin I High Sens B-Natriuretic Peptide 9.2 Serum , Qual Urine Color Urine Clarity Urine pH Ur Specific [place] Urine Protein Urine Glucose (UA) Urine Ketones Urine Occult Blood Urine Nitrite Urine Bilirubin Urine Urobilinogen Ur Leukocyte Esterase Urine RBC Urine WBC Ur Squamous Epith Cells Urine Bacteria Urine Mucus 09/14/21 09/14/21 09/14/21 14:15 14:15 14:49 WBC RBC Hgb Hct MCV MCH MCHC RDW Std Deviation RDW Coeff of Martin Plt Count MPV Immature Gran % (Auto) Neut % (Auto) Lymph % (Auto) Ector % (Auto) Eos % (Auto) Baso % (Auto) Absolute Neuts (auto) Absolute Lymphs (auto) Nucleated RBC % Sodium Potassium Chloride Carbon Dioxide Anion Gap BUN Creatinine Estim Creat Clear Calc Est GFR (MDRD) Af Amer Est GFR (MDRD) Non-Af BUN/Creatinine Ratio Glucose Calcium Troponin I High Sens < 3 L B-Natriuretic Peptide Serum , Qual NEGATIVE Urine Color Yellow Urine Clarity Clear Urine pH 5.0 Ur Specific [place] 1.010 Urine Protein Negative Urine Glucose (UA) Normal Urine Ketones Negative Urine Occult Blood Negative Urine Nitrite Negative Urine Bilirubin Negative Urine Urobilinogen Normal Ur Leukocyte Esterase Negative Urine RBC 0 SEEN Urine WBC 0 SEEN Ur Squamous Epith Cells 0-5 SEEN Urine Bacteria 1+ Urine Mucus 0 SEEN Radiography Diagnostic Testing: Clinical Impression(s) from Imaging Studies Chest X-Ray 09/14/21 13:53 IMPRESSION: Nonacute portable x-ray examination of the chest. Electronically Signed: Kartik Berrios MD (Brooks) at 14:57 EDT Reading Location ID and State: [facility] / ID , Service support , Discharge Plan Triage Chief Complaint: Chest Pain ED Provider: Scotty Arellano Dx/Rx/DC Orders Clinical Impression: Chest tightness, COPD exacerbation Instructions: ED COPD Flare, ED Chest Pain, Uncertain Cause Prescriptions: New prednisone 20 mg tablet 40 mg PO DAILY Qty: 14 RF: 0 No Action aspirin 325 mg tablet,delayed release (DR/EC) 325 mg PO DAILY RF: 0 albuterol 90 mcg/actuation aerosol inhaler 90 mcg/actuation aerosol 90 mcg INHALATION RF: 0 tizanidine 2 mg tablet 2 mg PO QHS RF: 0 montelukast 10 mg tablet 10 mg PO DAILY RF: 0 Anoro Ellipta 62.5-25 mcg/actuation blister with device 1 inh INHALATION Q24H Qty: 60 RF: 6 fluticasone propionate 50 mcg/actuation spray,suspension 2 spray intranasal DAILY Qty: 16 RF: 3 cetirizine 10 mg capsule 10 mg PO HS Qty: 30 RF: 3 ranolazine [Ranexa] 500 mg tablet extended release 12 hr 500 mg PO DAILY Qty: 60 RF: 11 isosorbide mononitrate 60 mg tablet extended release 24 hr 60 mg PO BID Qty: 180 RF: 3 metoprolol tartrate 50 mg tablet 50 mg PO BID Qty: 180 RF: 3 lisinopril 10 mg tablet 10 mg PO DAILY Qty: 90 RF: 3 clopidogrel [Plavix] 75 mg tablet 75 mg PO DAILY Qty: 90 RF: 3 nitroglycerin 0.4 mg tablet, sublingual 0.4 mg SUBLINGUAL Q5-15M PRN (Reason: chest pain) Qty: 25 RF: 3 atorvastatin 80 mg tablet 80 mg PO QHS Qty: 30 RF: 0 Primary Care Provider: Care Physician,No Primary Referrals: Care Physician,No Primary [Primary Care Provider] - Activity Restrictions/Additional Instructions: Follow-up with your manager furniture on Thursday. Medications as directed. Disposition Disposition: Home, Self Care
--- NOTE | 2021-09-14 13:59 | ED.RN ---
PT REQUESTING OXYGEN. STATES SHE IS HAVING DIFFICULTY TALKING WITHOUT IT AND STATES SHE HAS BEEN REQUESTING OXYGEN FOR HOME USE FROM HER DOCTOR. PT CURRENT OXYGEN LEVELS BETWEEN 93-95% ON ROOM AIR. 98% ON 2L NC
[2021-09-14 14:26] LABS: Absolute Lymphocyte Count 1.77 X10^3/uL (0.83-4.51); Absolute Neutrophil Count 7.4 X10^3/uL (2.0-7.7); Basophil# 0.05 X10^3/uL; Basophil% 0.5 % (0-1); Eosinophil# 0.23 X10^3/uL; Eosinophils% 2.3 % (0-5); Hematocrit 35.2 % (37-47); Hemoglobin 11.6 g/dL (12.0-15.0); Lymphocyte # 1.77 X10^3/ul (0.83-4.51); Lymphocyte % 17.4 % (19-41); Mean Corpuscular Hgb 29.4 pg (27.0-32.0); Mean Corpuscular Volume 89.1 fL (81-99); Mean Platelet Vol. 11.2 fl (6.2-12.0); Monocyte# 0.58 X10^3/uL; Monocyte% 5.7 % (0-10); NRBC Flagged by Analyzer 0 % (0-5); Neutrophil # 7.38 X10^3/uL (2.7-7.7); Neutrophil % 72.4 % (47-70); Platelet Count 228 K/mm3 (150-450); RBC Distribution Width CV 14.7 % (11.6-14.6); RBC Distribution Width SD 47.2 fl (35.1-43.9); Red Blood Count 3.95 M/mm3 (4.2-5.4); White Blood Count 10.2 K/mm3 (4.4-11.0)
[2021-09-14 14:38] LABS: Anion Gap 5 (5-15); BUN 14 mg/dL (7-18); BUN/Creat Ratio 14.5 RATIO (10-20); Calcium,Total 9.5 mg/dL (8.5-10.1); Chloride 103 mmol/L (98-107); Creatinine, Serum 0.96 mg/dL (0.55-1.02); EST Glomerular Filtration Rate 67 mL/min (>60); Est Glom Filt Rate - Afr Amer 81 mL/min (>60); Estimated Creatinine Clearance 53.72 ml/min; Glucose 100 mg/dL (74-106); Potassium 3.7 mmol/L (3.5-5.1); Sodium Level 136 mmol/L (136-145)
[2021-09-14 14:42] LABS: Troponin-I HS (w/2H Reflex) < 3 pg/mL (3.0-54.0)
--- NOTE | 2021-09-14 14:54 | ED.RN ---
Told pt, Dr. Arellano ordered SL nitro. She requests I ask the doctor for nitro past. I made her request to Dr. Arellano. he came into the room to talk with the pt.
[2021-09-14 14:56] LABS: Mucous, Urine 0 SEEN /hpf (<or=2+); Red Blood Cells-Urine 0 SEEN /hpf (0-5); White Blood Cells 0 SEEN /hpf (0-5)
[2021-09-14 14:58] LABS: Color, Urine Yellow (Yellow); Glucose, Dipstick Normal (Normal); Ketone-Dipstick Negative (Negative); Leukocyte Esterase-Dipstick Negative /ul (Negative); Nitrite-Dipstick Negative (Negative); Occult Blood-Urine Negative /ul (Negative); Protein-Dipstick Negative (Negative); Urine Bilirubin Dipstick Negative (Negative); Urine Clarity Clear (Clear); Urine Urobilinogen Normal (Normal)
[2021-09-14] MEDS: predniSONE 20 MG Tablet 60 MG PO (15:05)
[2021-09-14 15:09] LABS: BNP,B-Type NATRIURETIC PEPTIDE 9.2 pg/mL (0-100)
[2021-09-14] MEDS: Ipratropium/Albuterol Sulfate 3 ML AMPUL.NEB INHALATION (15:10)
[2021-09-14 15:11] LABS: Bacteria 1+ /hpf (None Seen); Squamous Epithelial Cells - UA 0-5 SEEN /hpf (5-10)
[2021-09-14 15:19] LABS: Internal QC Validated? YES +Cl - CLEAR BKGD; Pregnancy, Serum, hCG Quali. NEGATIVE Negative
[2021-09-14 16:20] LABS: Reflex Troponin-HS? (from REC) Y
== END 2021-09-14 16:26 | disposition home or self-care (01) ==
PROVIDERS: Emergency Provider Emergency Medicine; Visit Provider Emergency Medicine
DX: J44.1 Chronic obstructive pulmonary disease with (acute) exacerbation (principal); K50.90 Crohn's disease, unspecified, without complications; E66.01 Morbid (severe) obesity due to excess calories; Z68.44 Body mass index [BMI] 60.0-69.9, adult; R07.89 Other chest pain; I25.10 Atherosclerotic heart disease of native coronary artery without angina pectoris; I10 Essential (primary) hypertension; E78.5 Hyperlipidemia, unspecified; Z79.899 Other long term (current) drug therapy; Z87.891 Personal history of nicotine dependence; Z79.82 Long term (current) use of aspirin; Z79.52 Long term (current) use of systemic steroids; R06.02 Shortness of breath
CPT/HCPCS: 71045; 80048; 81001; 83880; 84484; 84703; 85025; 93005; 94640; 99285; A4216

== ENCOUNTER 2021-09-14 22:02 | Emergency (ER) | payer MEDICAID, SELFPAY ==
[2021-09-14 22:03] VITALS: BP 137/91; PULSE 106; RESP 21; TEMP 36.6; O2SAT 95; BMI 59.5
[2021-09-14 22:10] VITALS: BP 107/62; PULSE 107; RESP 21; TEMP 36.9; O2SAT 94; O2SAT 98
[2021-09-14 22:11] VITALS: O2SAT 96
--- NOTE | 2021-09-14 22:42 | EKG12_ITS ---
Test Reason : SOB Blood Pressure : / mmHG Vent. Rate : 099 BPM Atrial Rate : 099 BPM P-R Int : 132 ms QRS Dur : 082 ms QT Int : 394 ms P-R-T Axes : 052 031 039 degrees QTc Int : 505 ms Normal sinus rhythm Prolonged QT Abnormal ECG When compared with ECG of 14-SEP-2021 13:44, MANUAL COMPARISON REQUIRED, DATA IS UNCONFIRMED Confirmed by DENIZ CHAUDHRY, ELAN ([id number]), content editor ELLY DARBY ([id number]) on 09/20/2021 1:28:18 PM Referred By: JENNIFER Confirmed By:GIOVANI GUAMAN MD
--- NOTE | 2021-09-14 22:46 | EDS_ITS ---
HPI History of Present Illness Chief Complaint: Shortness of Breath Narrative Narrative: Patient is a 46-year-old female with past medical history of COPD but does not require supplemental oxygen at home. She states she been having increased shortness of breath mainly with exertion and reports her pulse ox is dropped as low as 85% on room air at home. She was seen earlier today because of this and her pulse ox was in the mid 90s and her work-up did not reveal any significant finding. She was started on steroids and discharged home. Patient states that once at home she had another episode where her pulse ox dropped into the 80s and secondary to this returns for repeat evaluation. [facility] Medical History Atherosclerosis of coronary artery without angina pectoris Chest pain Crohns disease Depression Essential (primary) hypertension H/O gestational diabetes mellitus, not currently Headache History of kidney stones Hyperlipidemia IBS (irritable bowel syndrome) Left ventricular diastolic dysfunction Long QT interval Maternal hypertension affecting puerperium Morbid obesity Nicotine dependence Panic attacks Recurrent urinary tract infection Tachycardia Third trimester Transient elevated blood pressure Ulcerative colitis Home Medications aspirin 325 mg tablet,delayed release 325 mg PO DAILY tab 09/02/19 [History Last Taken 10/14/19] albuterol 90 mcg/actuation aerosol inhaler 90 mcg INHALATION 05/11/20 [History Last Taken Unknown] ranolazine 500 mg tablet,extended release,12 hr 500 mg PO DAILY #60 tab 09/07/20 [Rx Last Taken Unknown] isosorbide mononitrate 60 mg tablet,extended release 24 hr 60 mg PO BID #180 tab 04/02/21 [Rx Last Taken Unknown] metoprolol tartrate 50 mg tablet 50 mg PO BID #180 tab 05/20/21 [Rx Last Taken Unknown] cetirizine 10 mg capsule 10 mg PO HS #30 cap 06/05/21 [Rx Last Taken Unknown] fluticasone propionate 50 mcg/actuation nasal spray,suspension 2 spray INTRANASAL DAILY #16 g 06/05/21 [Rx Last Taken Unknown] montelukast 10 mg tablet 10 mg PO DAILY tab 06/05/21 [History Last Taken Unknown] tizanidine 2 mg tablet 2 mg PO QHS tab 06/05/21 [History Last Taken Unknown] umeclidinium 62.5 mcg-vilanterol 25 mcg/actuation powdr for inhalation 1 inh INHALATION Q24H #60 ea 06/05/21 [Rx Last Taken Unknown] lisinopril 10 mg tablet 10 mg PO DAILY #90 tab 06/13/21 [Rx Last Taken Unknown] clopidogrel 75 mg tablet 75 mg PO DAILY #90 tab 06/17/21 [Rx Last Taken Unknown] nitroglycerin 0.4 mg sublingual tablet 0.4 mg SUBLINGUAL Q5-15M PRN #25 tab 08/02/21 [Rx Last Taken Unknown] atorvastatin 80 mg tablet 80 mg PO QHS #30 tab 09/10/21 [Rx Last Taken Unknown] prednisone 40 mg PO DAILY #14 tab 09/14/21 [Rx Last Taken Unknown] Allergy/AdvReac Type Severity Reaction Status Date / Time hydrocodone bitartrate Allergy Itching Verified 09/14/21 22:03 [From Vicodin] ondansetron HCl Allergy Other Verified 09/14/21 22:03 [From Zofran (as hydrochloride)] Penicillins [PCN] Allergy Rash Verified 09/14/21 22:03 metoclopramide [From Reglan] AdvReac Other Verified 09/14/21 22:03 Family History Mother Hypertension Father Hypertension CAD (coronary artery disease) Sister Diabetes Myocardial infarction, Onset Age: 45 Sudden cardiac , Onset Age: 45 Surgical History History of coronary artery stent placement (10/14/19) History of tubal ligation Hx of cholecystectomy Previous section S/P hernia repair Social History (Updated 09/14/21 @ 22:[address] Maritza Burleson MD) household members: spouse Smoking Status: Former smoker quit date: 04/27/20 alcohol intake: current alcohol intake frequency: a few times a month Alcohol type: wine substance use type: does not use ROS ROS ED Constitutional Constitutional ED: Denies chills or fever(s) ENT ENT ED: Denies sore throat Cardiovascular Cardiovascular: Denies chest pain Respiratory/Chest Respiratory/Chest: Reports cough, dyspnea and dyspnea on exertion Gastrointestinal Gastrointestinal: Denies abdominal pain, diarrhea, nausea or vomiting Genitourinary Genitourinary ED: Denies dysuria Musculoskeletal Musculoskeletal: Denies myalgias Integumentary Denies rash Neurologic Neurologic: Denies headache(s) Psychiatric Psychiatric: Reports anxiety Hematologic/Lymphatic Hematologic/Lymphatic: Denies easy bleeding or easy bruising EXAM Physical Exam Const Vital Signs: 09/14/21 22:03 09/14/21 22:10 09/14/21 22:11 Temperature 97.8 F 98.5 F Temperature Source Temporal Temporal Pulse Rate 106 H 107 H Respiratory Rate 21 H 21 H Respiratory Effort Short of Breath Blood Pressure 137/91 H 107/62 Blood Pressure Mean 106 77 Pulse Ox 95 98 Oxygen Delivery Method Room Air Room Air Room Air Positive well nourished, well developed and obese General Appearance ED: well developed Nutritional Appearance: obese HEENT Reports moist mucous membranes HEENT Narrative: No tongue or lip swelling no oral lesions no airway edema or compromise Eyes PERRL and EOMs intact bilaterally Neck supple and no JVD Resp normal respiratory effort Resp Narrative: Breath sounds are slight diminished throughout with faint expiratory wheeze diffusely but otherwise no nasal flaring retractions tachypnea or accessory muscle use Cardio regular rhythm Rate: tachycardic and other Other Details: Slightly tachycardic rate with regular rhythm radial pulses are +2-4 bilaterally are equal and symmetric GI normal to inspection, nondistended, normoactive bowel sounds, non-tender, non- distended and no masses Auscultation: normoactive bowel sounds Palpation: soft Extremity normal to inspection Extremity Narrative: Nonpitting edema to the bilateral lower extremities. Negative Homans' sign bilaterally Neuro oriented x3 and CN's II-XII intact bilaterally Sensorium / Orientation: alert Motor Exam: strength 5/5 throughout Psych Mood & Affect: anxious Skin no rashes or lesions noted MDM MDM MDM Narrative Medical decision making narrative: Patient arrived to the ER just slightly tachycardic but afebrile and satting in the mid 90s on room air at rest. She reported that her pulse ox was dropping to the mid 80s with ambulation. We discussed repeating blood work and adding a CTA at this time because of her negative work-up earlier today. She did agree to this but stated that she wanted to have a walking pulse ox obtained prior to any studies being drawn. With a walking pulse ox she did drop to 88% on room air and after resting did rebound in the mid 90. However as though walking test did confirm her hypoxia at home and she has history of COPD she will qualify for oxygen at this time. Therefore oxygen was provided and patient no longer wants any imaging or blood work as her work-up from earlier today was normal. Therefore at this time she will be placed on oxygen for her COPD and hypoxia with ambulation and will follow up with your family doctor and transitional living specialist for further care. Discharge Plan Triage Chief Complaint: Shortness of Breath ED Provider: Ray Marie Dx/Rx/DC Orders Clinical Impression: COPD (chronic obstructive pulmonary disease), Hypoxia Instructions: COPD: Wheezing and Chest Tightness, Pulmonary Rehab Prescriptions: No Action aspirin 325 mg tablet,delayed release (DR/EC) 325 mg PO DAILY RF: 0 albuterol 90 mcg/actuation aerosol inhaler 90 mcg/actuation aerosol 90 mcg INHALATION RF: 0 tizanidine 2 mg tablet 2 mg PO QHS RF: 0 montelukast 10 mg tablet 10 mg PO DAILY RF: 0 Anoro Ellipta 62.5-25 mcg/actuation blister with device 1 inh INHALATION Q24H Qty: 60 RF: 6 fluticasone propionate 50 mcg/actuation spray,suspension 2 spray intranasal DAILY Qty: 16 RF: 3 cetirizine 10 mg capsule 10 mg PO HS Qty: 30 RF: 3 prednisone 20 mg tablet 40 mg PO DAILY Qty: 14 RF: 0 ranolazine [Ranexa] 500 mg tablet extended release 12 hr 500 mg PO DAILY Qty: 60 RF: 11 isosorbide mononitrate 60 mg tablet extended release 24 hr 60 mg PO BID Qty: 180 RF: 3 metoprolol tartrate 50 mg tablet 50 mg PO BID Qty: 180 RF: 3 lisinopril 10 mg tablet 10 mg PO DAILY Qty: 90 RF: 3 clopidogrel [Plavix] 75 mg tablet 75 mg PO DAILY Qty: 90 RF: 3 nitroglycerin 0.4 mg tablet, sublingual 0.4 mg SUBLINGUAL Q5-15M PRN (Reason: chest pain) Qty: 25 RF: 3 atorvastatin 80 mg tablet 80 mg PO QHS Qty: 30 RF: 0 Primary Care Provider: Jose Oakes Referrals: Jose Oakes DO [Primary Care Provider] - Disposition Disposition: Home, Self Care
--- NOTE | 2021-09-14 22:57 | ED.RN ---
Patient ambulated with Pulse Ox on RA and walked 30 yards. Pulse Ox 93% sitting and dropped to 88 for less than 1 minute.
--- NOTE | 2021-09-14 23:25 | ED.RN ---
patient ambulated 30 yards with oxygen nC 2L and returned to room. Maintained SPO2 at 92-94%
--- NOTE | 2021-09-14 23:28 | ED.RN ---
Patient declined IV
--- NOTE | 2021-09-14 23:33 | ED.RN ---
Patient requires oxygen and is ambulatory in the home.
[2021-09-14 23:38] VITALS: RESP 17; O2SAT 97
--- NOTE | 2021-09-16 16:20 | CASEMGMT ---
ELIER LEE ED O2 f/u call: 152: Pt discharged home on 09-14-21 w/O2 from ED. Call placed to pt's # listed on pt's chart. Recording received The number you have dialed has not been recognized. Attempted x 2 more attempts w/receipt of same recording. Call placed to pt's . No answer. Pt returned call to this ELIER LEE. She was made aware of recorded message @ her #. ELIER LEE confirmed w/pt the correct # is listed. She states she has been told by several others that they have not been able to reach her at her phone # and she is not sure why, but plans to look into it. Pt states she is doing much better since ED visit and states It's easier to walk now with the oxygen. Pt states she has been wearing the oxygen continuously. Pt made aware, when tested in ED, pulse ox was good on RA and O2 not needed @ rest, only w/exertion. Pt states It's been dropping some at rest now, reporting it has gone as low as 91% on RA @ rest. ELIER LEE informed her Oxygen not needed unless oxygen drops below 89%. Pt states she does feel better with the oxygen on. She inquired how long she would be able to keep oxygen at home. ELIER LEE informed her to f/u with Dr Johnson, pulmonology, and can have further discussion w/him re: this. Pt voices understanding. She states she sent message on My-chart for f/u appt w/Dr Johnson, but has not heard back from them yet. ELIER LEE encouraged she place phone call to Dr Johnson's office to schedule an appt. Pt states she was sent home on steroid from ED. She states she did pick it up and is taking as prescribed. Pt did state she would like to get the attachment on her W/C to attach oxygen tank to it. ELIRE LEE informed her to f/u w/Dr Johnson re: same when she goes into her f/u appt. She denies having other questions or concerns. 1620: Call placed to Dr Johnson's office and spoke w/school attendance secretary. She states she just left a message on pt's 's # for return call to schedule f/u appt. She was made aware pt will need 6-min walking test completed d/t home O2 set up from ED. She states will schedule this w/ the f/u appt. Arlyn TORRESN RN CM
--- NOTE | 2021-09-18 15:55 | CASEMGMT ---
Pt is scheduled for pulm appt 09/19/21 with Ruby Aragon then to see Dr. Johnson in December 2021. Karon THAPA CM
== END 2021-09-14 23:59 | disposition home or self-care (01) ==
PROVIDERS: Emergency Provider Emergency Medicine; PCP Family Medicine; Visit Provider Emergency Medicine
DX: J44.9 Chronic obstructive pulmonary disease, unspecified (principal); K50.90 Crohn's disease, unspecified, without complications; E66.01 Morbid (severe) obesity due to excess calories; Z68.43 Body mass index [BMI] 50.0-59.9, adult; I25.10 Atherosclerotic heart disease of native coronary artery without angina pectoris; I10 Essential (primary) hypertension; E78.5 Hyperlipidemia, unspecified; Z87.891 Personal history of nicotine dependence; Z79.899 Other long term (current) drug therapy; Z79.02 Long term (current) use of antithrombotics/antiplatelets; Z79.82 Long term (current) use of aspirin; Z95.5 Presence of coronary angioplasty implant and graft
CPT/HCPCS: 93005; 99282; A4216

== ENCOUNTER → 2022-02-07 | Outpatient (CLI) | payer MEDICAID, SELFPAY ==
[2022-02-07 13:38] VITALS: PULSE 71; PULSE 72; PULSE 91; PULSE 93; PULSE 95; PULSE 96; O2SAT 93; O2SAT 94; O2SAT 95; O2SAT 96; O2SAT 97; O2SAT 98
--- NOTE | 2022-02-07 13:42 | CPS ---
Patient wears 3 lpm O2 at home since August 2021. Patient came in on own tank. SpO2 96% on room air before starting testing, O2 off for 10+ minutes. Patient stated she was moderately short of breath since shutting off the oxygen. Patient walked about 240 ft in the first 3 minutes of testing, on room air, galina SpO2 94%. Patient wanted to stop at this time due to muscle weakness and dizziness as well as stating her SOB was becoming severe. Patient started walking again for approximately another 114 ft before wanting to be done with testing. This was just under 6 minutes. Patient was feeling weak again and we did not want her to be at risk of falling.
--- NOTE | 2022-02-07 14:43 | WT_ITS ---
PSN 6 Minute Walk Test 6 Minute Walk Test 6 Minute Walk Test: 6 Minute Walk Test PSN:6-Minute Walk Test Start: 02/07/22 13:38 Freq: Status: Active Protocol: [id number].[id number] Document 02/07/22 13:38 PATRICIASVITLANA (Rec: 02/07/22 13:48 ELROY [id number]) 6 Minute Walk Test Date Performed 02/07/22 Time Performed 12:30 Height 5 ft Weight: 147.418 kg Weight in Pounds 325.[address]: Pedro Johnson Assistive device used: None Pre-test Oxygen Delivery Method Room Air Pulse Ox (%) 96 Pulse Rate (60-100 beats/min) 72 Dyspnea Kristine Scale (0-10) 3 Exertion Kristine Scale (6-20) 6 1st minute Oxygen Delivery Method Room Air Pulse Ox (%) 97 Pulse Rate (60-100 beats/min) 93 2nd minute Oxygen Delivery Method Room Air Pulse Ox (%) 95 Pulse Rate (60-100 beats/min) 95 3rd minute Oxygen Delivery Method Room Air Pulse Ox (%) 94 Pulse Rate (60-100 beats/min) 96 Dyspnea Kristine Scale (0-10) 5 4th minute Oxygen Delivery Method Room Air Pulse Ox (%) 95 Pulse Rate (60-100 beats/min) 91 5th minute Oxygen Delivery Method Room Air Pulse Ox (%) 93 Pulse Rate (60-100 beats/min) 93 Dyspnea Kristine Scale (0-10) 5 Exertion Kristine Scale (6-20) 15 Post-test Oxygen Delivery Method Room Air Pulse Ox (%) 98 Pulse Rate (60-100 beats/min) 71 Full Laps Walked 6 Partial Lap, Number of Tiles Walked 0 Total Distance Walked (ft) 354 02/07/22 13:42 Cardiopulmonary Services by Angela Batres Patient wears 3 lpm O2 at home since August 2021. Patient came in on own tank. SpO2 96% on room air before starting testing, O2 off for 10+ minutes. Patient stated she was moderately short of breath since shutting off the oxygen. Patient walked about 240 ft in the first 3 minutes of testing, on room air, galina SpO2 94%. Patient wanted to stop at this time due to muscle weakness and dizziness as well as stating her SOB was becoming severe. Patient started walking again for approximately another 114 ft before wanting to be done with testing. This was just under 6 minutes. Patient was feeling weak again and we did not want her to be at risk of falling. Initialized on 02/07/22 13:42 - END OF NOTE Interpretation Interpretation: Patient reportedly has been on 3 L/min since August 2021. Therefore, patient was given 5 minutes on room air prior to initiation of testing. Patient was initially noted to be 96% on room air. The patient did stop after the third minute secondary to reported dizziness and weakness and again after the fifth minute stating that her muscles were too weak. In total, the patient traveled 3 54 feet over the course of 6 minutes on room air with no assistive devices and 2 breaks. Patient experienced no significant desaturation or tachycardia with testing. These findings are consistent with a musculoskeletal limitation exercise tolerance. Recommendations Recommendations: No supplemental oxygen is indicated at this time.
== END | disposition home or self-care (01) ==
LOC: PSN 12:36
PROVIDERS: PCP Clinical Nurse Specialist; Referring Provider Internal Medicine Critical Care Medicine; Visit Provider Internal Medicine Critical Care Medicine
DX: J96.11 Chronic respiratory failure with hypoxia (principal)
CPT/HCPCS: 94618

== ENCOUNTER → 2022-02-13 | Outpatient (CLI) | payer MEDICAID, SELFPAY ==
[2022-02-13 14:35] LABS: Absolute Lymphocyte Count 1.95 X10^3/uL (0.83-4.51); Absolute Neutrophil Count 7.4 X10^3/uL (2.0-7.7); Basophil# 0.05 X10^3/uL; Basophil% 0.5 % (0-1); Eosinophil# 0.16 X10^3/uL; Eosinophils% 1.5 % (0-5); Hematocrit 35.8 % (37-47); Hemoglobin 11.4 g/dL (12.0-15.0); Lymphocyte # 1.95 X10^3/ul (0.83-4.51); Lymphocyte % 18.8 % (19-41); Mean Corp Hgb Conc 31.8 g/dL (32-36); Mean Corpuscular Hgb 28.9 pg (27.0-32.0); Mean Corpuscular Volume 90.6 fL (81-99); Mean Platelet Vol. 11.8 fl (6.2-12.0); Monocyte# 0.63 X10^3/uL; Monocyte% 6.1 % (0-10); NRBC Flagged by Analyzer 0 % (0-5); Neutrophil # 7.42 X10^3/uL (2.7-7.7); Neutrophil % 71.4 % (47-70); Platelet Count 237 K/mm3 (150-450); RBC Distribution Width CV 14.9 % (11.6-14.6); RBC Distribution Width SD 49.3 fl (35.1-43.9); Red Blood Count 3.95 M/mm3 (4.2-5.4); White Blood Count 10.4 K/mm3 (4.4-11.0)
[2022-02-13 15:00] LABS: BNP,B-Type NATRIURETIC PEPTIDE 68.8 pg/mL (0-100)
[2022-02-13 15:04] LABS: Anion Gap 6 (5-15); BUN 14 mg/dL (7-18); BUN/Creat Ratio 14.5 RATIO (10-20); Calcium,Total 8.9 mg/dL (8.5-10.1); Chloride 102 mmol/L (98-107); Creatinine, Serum 0.96 mg/dL (0.55-1.02); EST Glomerular Filtration Rate 67 mL/min (>60); Est Glom Filt Rate - Afr Amer 81 mL/min (>60); Glucose 102 mg/dL (74-106); Potassium 3.9 mmol/L (3.5-5.1); Sodium Level 137 mmol/L (136-145); T4 Free Direct 0.99 ng/dL (0.76-1.46)
== END | disposition home or self-care (01) ==
LOC: LAB 13:58
PROVIDERS: PCP Clinical Nurse Specialist; Visit Provider Nurse Practitioner Gerontology
DX: R06.00 Dyspnea, unspecified (principal); R00.2 Palpitations; R53.83 Other fatigue
CPT/HCPCS: 36415; 80048; 83735; 83880; 84439; 84443; 85025

== ENCOUNTER → 2022-02-14 | Outpatient (CLI) | payer MEDICAID, SELFPAY ==
--- NOTE | 2022-02-17 10:46 | PFTCOMP_ITS ---
COMPLETE PULMONARY FUNCTION TEST INTERPRETATION Brief HPI: Patient is a 46-year-old female, currently under the care of Dr. Johnson, who presents to [facility] for complete pulmonary function tests secondary to diagnosis of COPD. Respiratory therapist reports good effort and reproducible results. Interpretation: Forced expiration spirometry shows a moderately severe large airways obstructive ventilatory defect with an FEV1 of 55% predicted. There is no significant bronchodilator response by strict ATS criteria. Spirograms are of good quality and plateau slowly, indicating slowly emptying areas of the lungs. The respiratory flow volume loop shows decreased expiratory flow rates at all lung volumes consistent with airway obstruction. Lung volumes by body plethysmography show a normal total lung capacity at 3.7 L, 88% predicted. FRC and RV are elevated out of proportion. Lung volume measurements are consistent with air-trapping. Diffusion capacity by carbon monoxide is decreased at 45% predicted. The airway resistance is normal. Compared to previous pulmonary function tests from 04/26/2020, there is been a significant decline in FVC, FEV1 and TLC by 19%, 21% and 18% respectively. Impression: Irreversible moderately severe large airways obstructive ventilatory defect with a symmetric reduction in diffusion capacity, resulting in air trapping. There has been worsening compared to 2019.
== END | disposition home or self-care (01) ==
LOC: PSN 13:03
PROVIDERS: PCP Clinical Nurse Specialist; Referring Provider Internal Medicine Critical Care Medicine; Visit Provider Internal Medicine Critical Care Medicine
DX: J44.9 Chronic obstructive pulmonary disease, unspecified (principal)
CPT/HCPCS: 94060; 94726; 94729

== ENCOUNTER → 2022-02-19 | Outpatient (CLI) | payer MEDICAID, SELFPAY | END | disposition home or self-care (01) | LOC: PSN 09:09 | PROVIDERS: PCP Clinical Nurse Specialist; Referring Provider Nurse Practitioner Gerontology; Visit Provider Nurse Practitioner Gerontology | DX: R00.2 Palpitations (principal) | CPT/HCPCS: 93225; 93226 ==

== ENCOUNTER → 2022-02-27 | Outpatient (CLI) | payer MEDICAID, SELFPAY ==
--- NOTE | 2022-02-27 15:20 | ECHOD_ITS ---
Reason For Study: DYSPNEA/SOB Procedure This was a 2D Doppler, Color Flow transthoracic echocardiogram. Exam performed in department. Left Ventricle Normal LV size. Left ventricular systolic function is normal. The estimated ejection fraction is 55 %. Normal diastology for age. No regional wall motion abnormalities noted. Right Ventricle Normal RV size. Normal systolic function. Atria Normal left atrium. Normal right atrium. Mitral Valve Normal mitral valve. Tricuspid Valve The tricuspid valve is not well visualized. Aortic Valve The aortic valve is not well visualized. Pulmonic Valve The pulmonic valve is not well visualized. Great Vessels Normal aortic root. The pulmonary artery is normal size. Normal inferior vena cava. MMode/2D Measurements & Calculations LVIDd: 4.4 cm IVSd: 0.89 cm Ao root diam: 3.0 cm LVIDs: 2.4 cm LVPWd: 1.4 cm RVDd: 2.8 cm FS: 45.1 % LAV(MOD-bp): 42.9 ml LVAd ap4: 22.8 cm2 SV(MOD-sp4): 37.9 ml LAV(MOD-bp) Indexed: 19.3 ml/m2 LVLd ap4: 6.9 cm LAV(MOD-sp2): 40.1 ml EDV(MOD-sp4): 62.1 ml LAV(MOD-sp4): 43.8 ml EDV(sp4-el): 63.6 ml LVAs ap4: 12.3 cm2 LVLs ap4: 5.3 cm ESV(MOD-sp4): 24.2 ml ESV(sp4-el): 24.1 ml EF(MOD-sp4): 61.0 % EF(sp4-el): 62.2 % SV(sp4-el): 39.5 ml LA dimension(2D): 3.3 cm LA A4 area: 17.3 cm2 RA A4 area: 14.9 cm2 Time Measurements MV dec time: 0.23 sec Doppler Measurements & Calculations MV E max mohinder: 78.1 cm/sec Lat Peak E' Mohinder: 7.6 cm/sec Med Peak E' Mohinder: 8.7 cm/sec MV A max mohinder: 61.0 cm/sec E/E' lat: 10.2 E/E' med: 9.0 MV E/A: 1.3 MV V2 max: 83.8 cm/sec Ao V2 max: 116.8 cm/sec MV max P.8 mmHg MV dec slope: 336.6 cm/sec2 Ao max P.5 mmHg MV V2 mean: 55.2 cm/sec Ao V2 mean: 85.3 cm/sec MV mean P.3 mmHg Ao mean P.3 mmHg MV V2 VTI: 28.0 cm Ao V2 VTI: 26.0 cm LV V1 max: 105.7 cm/sec PA V2 max: 69.8 cm/sec LV V1 max P.5 mmHg PA V2 mean: 45.9 cm/sec LV V1 mean P.4 mmHg LV V1 mean: 72.0 cm/sec LV V1 VTI: 20.6 cm ECHO/Echo Complete Interpretation Summary Normal LV size. Left ventricular systolic function is normal. The estimated ejection fraction is 55 %. Structurally normal valves. Ordering Physician: Azalea Patel Performed By: Marii Fry RCS
== END | disposition home or self-care (01) ==
LOC: CVS 15:03
PROVIDERS: PCP Clinical Nurse Specialist; Visit Provider Nurse Practitioner Gerontology
DX: R06.02 Shortness of breath (principal); R07.9 Chest pain, unspecified
CPT/HCPCS: 93306

== ENCOUNTER → 2022-03-18 | Outpatient (CLI) | payer MEDICAID, SELFPAY ==
--- NOTE | 2022-03-18 09:07 | CDU_ITS ---
Reason For Study: dizziness Rt. Velocities/BP Lt. Velocities/BP Prox CCA 81.5/23.0 cm/sec. Prox CCA 76.8/20.1 cm/sec. Mid CCA 80.6/24.8 cm/sec. Mid CCA 66.4/17.3 cm/sec. Dist CCA 88.1/21.1 cm/sec. Dist CCA 56.0/16.3 cm/sec. Prox ICA 49.4/15.4 cm/sec. Prox ICA 65.5/19.2 cm/sec. Mid ICA 57.0/20.1 cm/sec. Mid ICA 67.4/19.2 cm/sec. Dist ICA 70.2/22.0 cm/sec. Dist ICA 65.5/27.7 cm/sec. Rt. ICA/CCA = .9. Lt. ICA/CCA = 1.0. Prox ECA 44.7/8.8 cm/sec. Prox ECA 69.2/10.7 cm/sec. Rt. Vert. 40.0/14.5 cm/sec. Lt. Vert. 50.4/14.5 cm/sec. Right Extracranial There is intimal thickening but no significant atherosclerotic plaque noted in the right common carotid artery. There is intimal thickening but no significant atherosclerotic plaque noted in the right internal carotid artery. There is intimal thickening but no significant atherosclerotic plaque noted in the right external carotid artery. Antegrade flow is noted in the right vertebral artery. Left Extracranial There is intimal thickening but no significant atherosclerotic plaque noted in the left common carotid artery. There is intimal thickening but no significant atherosclerotic plaque noted in the left internal carotid artery. There is intimal thickening but no significant atherosclerotic plaque noted in the left external carotid artery. Antegrade flow is noted in the left vertebral artery. Procedure Carotid Duplex 88139. This is a Carotid Duplex examination using B-mode, color flow and specral Doppler. The exam was diagnostic. Difficult study due to pt body habitus. Exam performed in department. VL/Carotid Duplex Ultrasound Interpretation Summary Normal right extracranial internal carotid. Normal left extracranial internal carotid. Patent and antegrade vertebrals bilaterally. Ordering Physician: Azalea Patel Performed By: Francisco Mcgrath RVT
== END | disposition home or self-care (01) ==
LOC: CVS 09:06
PROVIDERS: PCP Clinical Nurse Specialist; Referring Provider Nurse Practitioner Gerontology; Visit Provider Nurse Practitioner Gerontology
DX: R42 Dizziness and giddiness (principal)
CPT/HCPCS: 93880

== ENCOUNTER 2022-04-17 10:58 | Day surgery (SDC) | payer MEDICAID, SELFPAY ==
[2022-04-17 10:59] VITALS: BP 122/65; PULSE 69; RESP 22; TEMP 36.4; O2SAT 97; BMI 57.0
--- NOTE | 2022-04-17 11:10 | EKG12_ITS ---
Test Reason : CP Blood Pressure : / mmHG Vent. Rate : 063 BPM Atrial Rate : 063 BPM P-R Int : 136 ms QRS Dur : 082 ms QT Int : 472 ms P-R-T Axes : 046 007 012 degrees QTc Int : 483 ms Normal sinus rhythm Low voltage QRS Prolonged QT Abnormal ECG Confirmed by DENIZ CHAUDHRY, ELAN ([id number]), editor & co founder ELLY DARBY ([id number]) on 04/22/2022 9:13:20 A M Referred By: Confirmed By:GIOVANI GUAMAN MD
[2022-04-17 11:16] VITALS: O2SAT 99
[2022-04-17] MEDS: Morphine 4 MG/ML Syringe IV (11:18)
[2022-04-17 11:25] LABS: Absolute Lymphocyte Count 1.56 X10^3/uL (0.83-4.51); Absolute Neutrophil Count 7.2 X10^3/uL (2.0-7.7); Basophil# 0.06 X10^3/uL; Basophil% 0.6 % (0-1); Eosinophil# 0.13 X10^3/uL; Eosinophils% 1.3 % (0-5); Hematocrit 37.7 % (37-47); Hemoglobin 12.4 g/dL (12.0-15.0); Lymphocyte # 1.56 X10^3/ul (0.83-4.51); Lymphocyte % 16.1 % (19-41); Mean Corp Hgb Conc 32.9 g/dL (32-36); Mean Corpuscular Hgb 28.9 pg (27.0-32.0); Mean Corpuscular Volume 87.9 fL (81-99); Mean Platelet Vol. 10.6 fl (6.2-12.0); Monocyte# 0.61 X10^3/uL; Monocyte% 6.3 % (0-10); NRBC Flagged by Analyzer 0 % (0-5); Neutrophil # 7.19 X10^3/uL (2.7-7.7); Neutrophil % 74.1 % (47-70); Platelet Count 284 K/mm3 (150-450); RBC Distribution Width CV 15.8 % (11.6-14.6); Red Blood Count 4.29 M/mm3 (4.2-5.4); White Blood Count 9.7 K/mm3 (4.4-11.0)
[2022-04-17 11:33] VITALS: BP 87/52; PULSE 63; RESP 15; O2SAT 98
--- NOTE | 2022-04-17 11:35 | RAD_ITS ---
STUDY: X-RAY CHEST REASON FOR EXAM: Female, 47 years old. Chest pain TECHNIQUE: Single AP portable view of the chest. COMPARISON: Comparison is made with prior study dated 09/14/2021. FINDINGS: EKG electrodes are seen. The lungs are clear and expanded. Scattered calcified granulomas. There is no demonstrated pleural abnormality. Normal size heart. Normal mediastinum and autumn. Normal visualized pulmonary arteries. Normal visualized aortic arch and descending thoracic aorta. Normal visualized thoracic spine. Normal visualized ribs, clavicles, and shoulders. There is no demonstrated abnormality of the visualized soft tissue structures of the upper abdomen. RAD/Chest 1 View (Portable) IMPRESSION: Normal x-ray examination of the chest. Electronically Signed: Rohit Mendez MD at 12:12 [facility] [[email or web address]] ,
[2022-04-17 11:37] LABS: Prothrombin Time (Protime)PT. 13.2 SECONDS (11.7-14.9)
[2022-04-17 11:38] LABS: Partial Thromboplast Time 28.6 Seconds (24.1-36.2)
[2022-04-17 11:44] LABS: Anion Gap 6 (5-15); BUN 12 mg/dL (7-18); Calcium,Total 9.4 mg/dL (8.5-10.1); Chloride 102 mmol/L (98-107); Creatinine, Serum 0.92 mg/dL (0.55-1.02); EST Glomerular Filtration Rate 70 mL/min (>60); Est Glom Filt Rate - Afr Amer 85 mL/min (>60); Estimated Creatinine Clearance 58.27 ml/min; Glucose 97 mg/dL (74-106); Potassium 4.1 mmol/L (3.5-5.1); Sodium Level 136 mmol/L (136-145); Troponin-I HS 4 pg/mL (3.0-54.0)
--- NOTE | 2022-04-17 12:02 | ED.VIS.CHEST ---
HPI History of Present Illness Chief Complaint: Chest Pain Informant: patient, family and PCP ([facility], Dr. Story) Narrative Narrative: Present here from cardiology office Dr. Story, for evaluation planned heart cath today. History of coronary disease 3 stents total on aspirin and Plavix she took her antiplatelets this morning. She has been having little over a week of chest pressure is been constant on and off even at rest. Denies cough. She states mild dyspnea and occasional nausea. Last coronary stenting was 2 years ago. She reports she went to [facility] biology internship for second opinion this past week had a outpatient nuclear stress 2 days ago that was negative. She saw Dr. Story in the office today, he can on the ED for potential anginal symptoms with plans for heart cath. She is on 3 L chronic oxygen history of COPD. Hypertension hyperlipidemia, family history of MIs. Reports current heaviness and pressure in her chest. Denies any significant nausea currently. Remote smoker for 25 years in the past. Prior Similar Symptoms: Yes CVD Risk Factors: Positive for Hypertension, Hypercholesterolemia and Family History 1' </=55 PFSH PFSH Medical History Atherosclerosis of coronary artery without angina pectoris Chest pain Crohns disease Depression Essential (primary) hypertension H/O gestational diabetes mellitus, not currently Headache History of kidney stones Hyperlipidemia IBS (irritable bowel syndrome) Left ventricular diastolic dysfunction Long QT interval Maternal hypertension affecting puerperium Morbid obesity Nicotine dependence Panic attacks Recurrent urinary tract infection Tachycardia Third trimester Transient elevated blood pressure Ulcerative colitis Home Medications aspirin 325 mg tablet,delayed release 325 mg PO DAILY heart health 09/02/19 [History Last Taken 04/17/22] montelukast 10 mg tablet 10 mg PO DAILY ALLERGIES 06/05/21 [History Last Taken 04/17/22] nitroglycerin 0.4 mg sublingual tablet 0.4 mg sublingual Q5-15M PRN chest pain #25 tabs 08/02/21 [Rx Last Taken 04/16/22] albuterol sulfate 90 mcg/actuation aerosol inhaler (ProAir HFA) 2 puff inhalation Q4H PRN shortness of breath or wheezing 04/17/22 [History Last Taken 04/17/22] atorvastatin 80 mg tablet 80 mg PO QHS CHOLESTEROL 04/17/22 [History Last Taken 04/16/22] cetirizine 10 mg capsule 10 mg PO HS ALLERGIES 04/17/22 [History Last Taken 04/16/22] clopidogrel 75 mg tablet (Plavix) 75 mg PO DAILY BLOOD THINNER 04/17/22 [History Last Taken 04/17/22] escitalopram oxalate 10 mg tablet 10 tablet PO DAILY DEPRESSION 04/17/22 [History Last Taken 04/17/22] famotidine 20 mg tablet 20 mg PO QHS ACID REFLUX 04/17/22 [History Last Taken 04/16/22] fluticasone fur. 200 mcg-umeclid 62.5 mcg-vilant 25 mcg inhalat.powder (Trelegy Ellipta) 1 inh inhalation DAILY COPD 04/17/22 [History Last Taken 04/17/22] fluticasone propionate 50 mcg/actuation nasal spray,suspension 2 spray intranasal DAILY NASAL CONGESTION 04/17/22 [History Last Taken 04/17/22] ipratropium 0.5 mg-albuterol 3 mg (2.5 mg base)/3 mL nebulization soln 3 ml inhalation Q4H PRN COPD 04/17/22 [History Last Taken 1 Month Ago ~03/17/22] isosorbide mononitrate 60 mg tablet,extended release 24 hr 60 mg PO BID ANGINA 04/17/22 [History Last Taken 04/17/22] lisinopril 10 mg tablet 10 mg PO DAILY BLOOD PRESSURE 04/17/22 [History Last Taken 04/17/22] metoprolol tartrate 25 mg tablet 25 mg PO BID BLOOD PRESSURE 04/17/22 [History Last Taken 04/17/22] ranolazine 500 mg tablet,extended release,12 hr (Ranexa) 500 mg PO BID ANGINA 04/17/22 [History Last Taken 04/17/22] Allergy/AdvReac Type Severity Reaction Status Date / Time hydrocodone bitartrate Allergy Itching Verified 04/17/22 11:01 [From Vicodin] ondansetron HCl Allergy Other Verified 04/17/22 11:01 [From Zofran (as hydrochloride)] Penicillins [PCN] Allergy Rash Verified 04/17/22 11:01 metoclopramide [From Reglan] AdvReac Other Verified 04/17/22 11:01 Family History Mother Hypertension Father Hypertension CAD (coronary artery disease) Sister Diabetes Myocardial infarction, Onset Age: 45 Sudden cardiac , Onset Age: 45 Surgical History History of coronary artery stent placement (10/14/19) History of tubal ligation Hx of cholecystectomy Previous section S/P hernia repair Social History household members: spouse Smoking Status: Former smoker quit date: 04/27/20 Electronic Cigarette Use: not used second hand exposure: No alcohol intake: current alcohol intake frequency: a few times a month Alcohol type: wine substance use type: does not use ROS ROS ED Constitutional Constitutional ED: Denies chills, fever(s) or sweats Eyes Eyes: Denies change in vision ENT ENT ED: Denies dysphagia or sore throat Cardiovascular Cardiovascular: Reports chest pain; Denies leg edema, palpitations or racing heartbeat Respiratory/Chest Respiratory/Chest: Reports dyspnea; Denies cough or dyspnea on exertion Gastrointestinal Gastrointestinal: Denies abdominal pain, diarrhea, nausea or vomiting Genitourinary Genitourinary ED: Denies dysuria, hematuria or urinary frequency Musculoskeletal Musculoskeletal: Denies back pain, extremity pain or neck pain Integumentary Denies rash or wounds Neurologic Neurologic: Denies headache(s), paresthesias or weakness EXAM Physical Exam Const Vital Signs: 04/17/22 10:59 04/17/22 11:16 04/17/22 11:21 Temperature 97.6 F L Temperature Source Temporal Pulse Rate 69 Respiratory Rate 22 H Respiratory Effort Short of Breath Blood Pressure 122/65 H Blood Pressure Mean 84 Pulse Ox 97 99 Oxygen Delivery Method Nasal Cannula Nasal Cannula Oxygen Flow Rate (L/min) 4 3 04/17/22 11:33 04/17/22 12:16 Temperature 97.2 F L Temperature Source Temporal Pulse Rate 63 63 Respiratory Rate 15 27 H Respiratory Effort Blood Pressure 87/52 L 113/77 Blood Pressure Mean 63 89 Pulse Ox 98 98 Oxygen Delivery Method Nasal Cannula Nasal Cannula Oxygen Flow Rate (L/min) 3 3 Positive well nourished, well developed and obese Constitutional Narrative: 3 L nasal cannula no respiratory distress. General Appearance ED: well developed and NAD Nutritional Appearance: obese HEENT Reports moist mucous membranes normocephalic and atraumatic Eyes PERRL, EOMs intact bilaterally and conjunctivae normal General Eye ED: Yes normal appearance of both eyes Neck no lymphadenopathy and supple General: Negative for tenderness Chest Wall Chest: Negative for tenderness Resp normal respiratory effort and normal air movement Effort and Inspection: symmetric chest movement; Negative for respiratory distress Cardio regular rate, regular rhythm and no murmurs Peripheral Pulses: pulses 2+ throughout GI normal to inspection, nondistended, normoactive bowel sounds and non-tender Palpation: Negative for guarding or rebound tenderness present Back/Spine no CVA tenderness and no thoracic nor lumbar tenderness Extremity normal to inspection General Extremety ED: Negative for edema or tenderness General Extremity: Negative for edema Neuro oriented x3 and no sensory deficits noted Sensorium / Orientation: awake and alert Skin no rashes or lesions noted and no wounds Heart Score History: Moderately Suspicious ECG: Nonspecific Repolarization Age: </= 45 years Risk Factors: >/= 3 Risk Factors or History of CAD Troponin: </= Normal Limit Score: 4 MDM MDM MDM Narrative Medical decision making narrative: EKG nonspecific T wave inversion leads III. Labs are ordered, given morphine for her symptoms. Was continued on her home oxygen. After morphine blood pressure did drop from 120s to 87 systolic, she is given 500 cc bolus. Laboratory work all stable creatinine 0.92. Initial troponin is 4. Potassium 4.1. Hemoglobin 12.4. 1 view chest x-ray reviewed by myself shows no acute process. She took her antiplatelets this morning. I spoke with hospitalist Dr. Lerner for admission to PCU with cardiology plans for catheterization today. She will be placed in observation at this time. Lab Data Attestation: I reviewed the patient's lab results. Labs: Laboratory Results - last 24 hr 04/17/22 04/17/22 04/17/22 11:18 11:18 11:18 WBC 9.7 RBC 4.29 Hgb 12.4 Hct 37.7 MCV 87.9 MCH 28.9 MCHC 32.9 RDW Std Deviation 50.0 H RDW Coeff of Martin 15.8 H Plt Count 284 MPV 10.6 Immature Gran % (Auto) 1.600 H Neut % (Auto) 74.1 H Lymph % (Auto) 16.1 L [place] % (Auto) 6.3 Eos % (Auto) 1.3 Baso % (Auto) 0.6 Absolute Neuts (auto) 7.2 Absolute Lymphs (auto) 1.56 Nucleated RBC % 0 PT 13.2 INR 1.0 APTT 28.6 Sodium 136 Potassium 4.1 Chloride 102 Carbon Dioxide 28.0 Anion Gap 6 BUN 12 Creatinine 0.92 Estim Creat Clear Calc 58.27 Est GFR (MDRD) Af Amer 85 Est GFR (MDRD) Non-Af 70 BUN/Creatinine Ratio 13.0 Glucose 97 Calcium 9.4 Troponin I High Sens 4 Radiography Diagnostic Testing: Clinical Impression(s) from Imaging Studies Chest X-Ray 04/17/22 11:35 IMPRESSION: Normal x-ray examination of the chest. Electronically Signed: Rohit Mendez MD at 12:12 EST , EKG Initial EKG: Attestation: I personally reviewed and interpreted this EKG as follows: Comments: Sinus rhythm, isolated T wave version leads III nonspecific. No [address] changes. Discharge Plan Dx/Rx/DC Orders Clinical Impression: Chest pain, Hyperlipidemia, History of coronary artery stent placement, COPD (chronic obstructive pulmonary disease) Disposition Disposition: Acute Care Hospital [facility] Discharge Date/Time: 04/17/22 12:21
[2022-04-17 12:16] VITALS: BP 113/77; PULSE 63; RESP 27; TEMP 36.2; O2SAT 98
--- NOTE | 2022-04-17 12:18 | HP.PCM.HOS_ITS ---
HPI - General General Date of Admission: 04/17/22 Date of Service: 04/17/22 Chief Complaint: Chest pain HPI Narrative DEANNA BRADEN, is a 47 F who presents to the emergency room at [facility] after being directed to go there by her it application development manager office, she went for a cardiology visit today and told her physician that she has had intermittent chest pain over the last week which she describes as a severe pressure (like an elephant sitting on my chest) along with radiation of the discomfort into her left arm. Patient has had a history of occlusive coronary artery disease and she had stents placed in 2020-1 episode in August, the other episode in October. Patient followed up recently with a different it application development manager and underwent a stress test 2 days ago that was negative for reversible ischemia. She presented to Dr. Sebastián lyons's office today and it was felt prudent that she undergo a cardiac catheterization today to rule out any occlusive coronary disease. Labs obtained in the emergency room showed a normal CBC, chemistry profile was unremarkable, troponin was unremarkable, chest x-ray showed no abnormality. Patient's EKG showed a sinus bradycardia with T wave inversions in V1. Patient's pulse ox on her home oxygen setting of 3 L was 98%. Patient will undergo cardiac catheterization and subsequently will be placed into observation status on PCU for further care. [facility] Medical History Atherosclerosis of coronary artery without angina pectoris Chest pain Crohns disease Depression Essential (primary) hypertension H/O gestational diabetes mellitus, not currently Headache History of kidney stones Hyperlipidemia IBS (irritable bowel syndrome) Left ventricular diastolic dysfunction Long QT interval Maternal hypertension affecting puerperium Morbid obesity Nicotine dependence Panic attacks Recurrent urinary tract infection Tachycardia Third trimester Transient elevated blood pressure Ulcerative colitis Home Medications aspirin 325 mg tablet,delayed release 325 mg PO DAILY heart health 09/02/19 [History Last Taken 04/17/22] montelukast 10 mg tablet 10 mg PO DAILY ALLERGIES 06/05/21 [History Last Taken 04/17/22] nitroglycerin 0.4 mg sublingual tablet 0.4 mg sublingual Q5-15M PRN chest pain #25 tabs 08/02/21 [Rx Last Taken 04/16/22] albuterol sulfate 90 mcg/actuation aerosol inhaler (ProAir HFA) 2 puff inhalation Q4H PRN shortness of breath or wheezing 04/17/22 [History Last Taken 04/17/22] atorvastatin 80 mg tablet 80 mg PO QHS CHOLESTEROL 04/17/22 [History Last Taken 04/16/22] cetirizine 10 mg capsule 10 mg PO HS ALLERGIES 04/17/22 [History Last Taken 04/16/22] clopidogrel 75 mg tablet (Plavix) 75 mg PO DAILY BLOOD THINNER 04/17/22 [History Last Taken 04/17/22] escitalopram oxalate 10 mg tablet 10 tablet PO DAILY DEPRESSION 04/17/22 [History Last Taken 04/17/22] famotidine 20 mg tablet 20 mg PO QHS ACID REFLUX 04/17/22 [History Last Taken 04/16/22] fluticasone fur. 200 mcg-umeclid 62.5 mcg-vilant 25 mcg inhalat.powder (Trelegy Ellipta) 1 inh inhalation DAILY COPD 04/17/22 [History Last Taken 04/17/22] fluticasone propionate 50 mcg/actuation nasal spray,suspension 2 spray intranasal DAILY NASAL CONGESTION 04/17/22 [History Last Taken 04/17/22] ipratropium 0.5 mg-albuterol 3 mg (2.5 mg base)/3 mL nebulization soln 3 ml inhalation Q4H PRN COPD 04/17/22 [History Last Taken 1 Month Ago ~03/17/22] isosorbide mononitrate 60 mg tablet,extended release 24 hr 60 mg PO BID ANGINA 04/17/22 [History Last Taken 04/17/22] lisinopril 10 mg tablet 10 mg PO DAILY BLOOD PRESSURE 04/17/22 [History Last Taken 04/17/22] metoprolol tartrate 25 mg tablet 25 mg PO BID BLOOD PRESSURE 04/17/22 [History Last Taken 04/17/22] ranolazine 500 mg tablet,extended release,12 hr (Ranexa) 500 mg PO BID ANGINA 04/17/22 [History Last Taken 04/17/22] Allergy/AdvReac Type Severity Reaction Status Date / Time hydrocodone bitartrate Allergy Itching Verified 04/17/22 11:01 [From Vicodin] ondansetron HCl Allergy Other Verified 04/17/22 11:01 [From Zofran (as hydrochloride)] Penicillins [PCN] Allergy Rash Verified 04/17/22 11:01 metoclopramide [From Reglan] AdvReac Other Verified 04/17/22 11:01 Family History Mother Hypertension Father Hypertension CAD (coronary artery disease) Sister Diabetes Myocardial infarction, Onset Age: 45 Sudden cardiac , Onset Age: 47 Surgical History History of coronary artery stent placement (10/14/19) History of tubal ligation Hx of cholecystectomy Previous section S/P hernia repair Social History household members: spouse Smoking Status: Former smoker quit date: 04/27/20 Electronic Cigarette Use: not used second hand exposure: No alcohol intake: current alcohol intake frequency: a few times a month Alcohol type: wine substance use type: does not use ROS Constitutional Constitutional: Denies anorexia, change in weight, chills, fatigue, fever(s), malaise, night sweats or weakness Eyes Eyes: Denies blurry vision, change in vision, discharge from eye(s) or eye pain Cardiovascular Cardiovascular: Reports dyspnea on exertion; Denies chest pain, claudication, edema, lightheadedness or palpitations Respiratory/Chest Respiratory/Chest: Reports dyspnea; Denies cough, hemoptysis or shortness of breath with exertion Gastrointestinal Gastrointestinal: Denies abdominal pain, constipation, diarrhea, hematemesis, hematochezia, melena, nausea or vomiting Genitourinary Genitourinary: Denies dysuria, hematuria, urinary frequency, urinary hesitancy, urinary incontinence or urinary urgency Musculoskeletal Musculoskeletal: Reports arthralgias; Denies back pain, joint pain, joint stiffness, joint swelling, myalgias or neck pain Neurologic Neurologic: Denies abnormal gait, abnormal speech, dizziness, focal weakness, headache(s), loss of vision, numbness, other visual disturbances, paresthesias, syncope or tingling Psychiatric Psychiatric: Denies anxiety, cognitive impairment, depression, irritability, mood swings or suicidal ideation Endocrine Endocrinology: Denies change in body appearance, cold intolerance, excessive sweating, heat intolerance, polydipsia or polyuria Hematologic/Lymphatic Hematologic/Lymphatic: Denies none, anemia, easy bleeding, easy bruising or lymphadenopathy Allergic/Immunologic Allergic/Immunologic: Denies rhinitis, urticaria, eczemia or asthma Vital Signs Vital Signs Vital Signs: 04/17/22 10:59 04/17/22 11:16 04/17/22 11:21 Temperature 97.6 F L Temperature Source Temporal Pulse Rate 69 Respiratory Rate 22 H Respiratory Effort Short of Breath Blood Pressure 122/65 H Blood Pressure Mean 84 Pulse Ox 97 99 Oxygen Delivery Method Nasal Cannula Nasal Cannula Oxygen Flow Rate (L/min) 4 3 04/17/22 11:33 04/17/22 12:16 Temperature 97.2 F L Temperature Source Temporal Pulse Rate 63 63 Respiratory Rate 15 27 H Respiratory Effort Blood Pressure 87/52 L 113/77 Blood Pressure Mean 63 89 Pulse Ox 98 98 Oxygen Delivery Method Nasal Cannula Nasal Cannula Oxygen Flow Rate (L/min) 3 3 Weight Weight: 136.985 kg Body Mass Index (BMI) 57.0 Physical Exam Const alert, oriented x3 and no apparent distress Constitutional Narrative: Patient appears older than her stated age, she is morbidly obese General Appearance: cooperative, well kempt and well developed Orientation / Consciousness: awake, oriented to person, oriented to place and oriented to time HEENT normocephalic, head/scalp atraumatic, hearing grossly normal bilaterally and moist oral mucous membranes Eyes PERRL, EOMs intact bilaterally and conjunctivae normal Neck supple, no JVD, thyroid normal and no carotid bruits General: trachea midline Resp normal respiratory effort, no retractions, no use of accessory muscles and clear to auscultation bilaterally Auscultation: Negative for rales, rhonchi or wheezes Cardio regular rate, regular rhythm, S1 normal heart sound, S2 normal heart sound, no murmurs, no rub and no gallops GI normal to inspection, nondistended, normoactive bowel sounds, soft to palpation, non-tender and non-distended Extremity no clubbing, cyanosis or edema Skin no rashes or lesions noted General Skin Exam: no breakdown Neuro oriented x3, CN's II-XII intact bilaterally, no focal motor deficits and no sensory deficits noted Sensorium / Orientation: awake and alert Speech: speech normal Psych affect normal Results Lab / Micro Data Result Diagrams: 04/17/22 11:18 04/17/22 11:18 Labs: Laboratory Results - last 24 hr 04/17/22 11:18: WBC 9.7, RBC 4.29, Hgb 12.4, Hct 37.7, MCV 87.9, MCH 28.9, MCHC 32.9, RDW Std Deviation 50.0 H, RDW Coeff of Martin 15.8 H, Plt Count 284, MPV 10.6, Immature Gran % (Auto) 1.600 H, Neut % (Auto) 74.1 H, Lymph % (Auto) 16.1 L, [place] % (Auto) 6.3, Eos % (Auto) 1.3, Baso % (Auto) 0.6, Absolute Neuts (auto) 7.2, Absolute Lymphs (auto) 1.56, Nucleated RBC % 0 04/17/22 11:18: PT 13.2, INR 1.0, APTT 28.6 04/17/22 11:18: Sodium 136, Potassium 4.1, Chloride 102, Carbon Dioxide 28.0, Anion Gap 6, BUN 12, Creatinine 0.92, Estim Creat Clear Calc 58.27, Est GFR (MDRD) Af Amer 85, Est GFR (MDRD) Non-Af 70, BUN/Creatinine Ratio 13.0, Glucose 97, Calcium 9.4, Troponin I High Sens 4 Radiology Impression Chest X-Ray 04/17/22 11:35 IMPRESSION: Normal x-ray examination of the chest. Electronically Signed: Rohit Mendez MD at 12:12 EST Reading Location ID and State: [address] [place] [address] , Service support , Assessment & Plan Assessment/Plan (1) Chest pain: PLAN: Plan 1. Chest pain in a patient with known coronary artery disease-patient will undergo diagnostic cardiac catheterization today, she will remain on her present medications with any adjustments made by cardiology. #2 chronic hypoxic respiratory failure-patient is chronically on 3 L of oxygen via nasal cannula #3 chronic obstructive pulmonary disease-patient will remain on aerosol treatments during her hospitalization #4 essential hypertension-patient will remain on her present blood pressure medications #5 obstructive sleep apnea-patient is on BiPAP therapy at night, this will be continued #6 morbid obesity-complicates care, management, recovery, and prognosis Charges/Coding Visit Charges OBSV E&M: 34494 Initial observation care L3
--- NOTE | 2022-04-17 14:14 | CL.D_ITS ---
Patient Name: DEANNA BRADEN Study Date: 04/17/2022 Performing: Chriss Story MD Ht: 61 inches 154.94 cm : 1975 Wt: 301.99 lbs 136.98 kg Age: 47 Gender: female BSA: 2.25 PROCEDURE(S) PERFORMED [id number])[facility] CLINICAL PROFILE AND INDICATIONS Indications: Suspected CAD Heart Failure: None Stress/Imaging Date: 03/17/22Stress Test with SPECT MPI: Negative CAD Presentations: Symptom unlikely to be ischemic. CONCLUSIONS Patent coronary arteries with previously placed stents which are noted to be patent. Moderate disease noted in the circumflex artery nonobstructive. Preserved ejection fraction. RECOMMENDATIONS Medical therapy DESCRIPTION OF PROCEDURE The patient arrived to the procedure lab. The risks and benefits of the procedure as well as a full description of our services here and current unavailability of surgical backup were fully explained to the patient and/or their significant other prior to the catheterization. The Timeout was completed, verifying the correct patient and procedure. The patient's procedural site was prepped and draped in the usual fashion. Local anesthetic was given subcutaneously to right radial region with Lidocaine 2%. Using a modified Seldinger technique, arterial access was obtained via the right radial artery, a 6Fr sheath was inserted. Right Coronary Artery selective angiography was then performed in multiple views using a 5 Fr. 4.0 [place] catheter. Left Coronary Artery selective angiography was performed in multiple views using a 5 Fr. 4.0 [place] catheter. Left Coronary Artery selective angiography was performed in multiple views using a 5 Fr. JL4 catheter.The arterial sheath was pulled and a TR Band was applied for hemostasis CORONARY ANGIOGRAPHY DOMINANCE: Right Dominant LEFT HEART ASSESSMENT Left Ventricular Ejection Fraction: by LV Gram 65 % Normal LV wall motion Normal Left Ventricular systolic function LEFT MAIN: Angiographically normal LEFT ANTERIOR DESCENDING ARTERY: Previously placed stent is patent CIRCUMFLEX ARTERY: Mild luminal irregularities less than 30% OM 1: Proximal - Moderate luminal irregularities up to 50% RIGHT CORONARY ARTERY: PROX RCA: Mild luminal irregularities DISTAL RCA: Previously placed stent is patent COMPLICATIONS No Complications PROCEDURE MEDICATIONS Fentanyl 50 mcg IV Versed 1 mg IV Versed 1 mg IV Fentanyl 50 mcg IV Oxygen: 2 L/min via nasal cannula SUMMARY OF HEMODYNAMIC DATA Time AIR REST ECG 12:31:27 AO 110/74 (92) SA 12:48:29 LV 131/22, 27 13:00:24 LV 122/20, 27 13:00:30 LV 114/23, 30 13:01:17 LVp 115/20, 32 13:01:23 AOp 118/50 (91) 13:01:28 ECG 13:22:44 Signed By Chriss Story MD On 04/17/2022 14:13:46 Chriss Story MD
== END 2022-04-17 16:20 | disposition home or self-care (01) ==
LOC: ED 12:07 → ICU 12:14 → CLINP 16:16 → CLSP 16:37
PROVIDERS: Emergency Provider Emergency Medicine; PCP Clinical Nurse Specialist; Visit Provider Internal Medicine
DX: I25.10 Atherosclerotic heart disease of native coronary artery without angina pectoris (principal); J44.9 Chronic obstructive pulmonary disease, unspecified; F39 Unspecified mood [affective] disorder; K50.90 Crohn's disease, unspecified, without complications; J96.11 Chronic respiratory failure with hypoxia; E66.01 Morbid (severe) obesity due to excess calories; R07.9 Chest pain, unspecified; I10 Essential (primary) hypertension; E78.5 Hyperlipidemia, unspecified; K58.9 Irritable bowel syndrome, unspecified; G47.33 Obstructive sleep apnea (adult) (pediatric); Z87.891 Personal history of nicotine dependence; Z79.82 Long term (current) use of aspirin; Z79.899 Other long term (current) drug therapy; Z95.5 Presence of coronary angioplasty implant and graft; Z99.81 Dependence on supplemental oxygen
CPT/HCPCS: 71045; 80048; 84484; 85025; 85610; 85730; 93005; 93454; 99152; 99153; 99285; J7030; J7040; A4216; C1769; C1894; Q9967

== ENCOUNTER → 2022-04-25 | Outpatient (CLI) | payer MEDICAID, SELFPAY ==
--- NOTE | 2022-04-25 09:04 | VDLE_ITS ---
Reason For Study: Swelling Procedure LEFT This is a venous duplex using B-mode, color GSV is normal. flow and spectral Doppler. CFV is compressible, spontaneous, phasic, Exam performed in department. competent, and demonstrates normal A preliminary report was called and/or faxed augmentation. to [facility]. FV is compressible, spontaneous, phasic, competent and demonstrates normal augmentation. POP V is compressible, spontaneous, phasic, competent and demonstrates normal augmentation. T/P Trunk is compressible. PTV is compressible. LT PerV is compressible. VL/Venous Duplex US, Unilateral Interpretation Summary Deep veins of the left lower extremity are patent and compressible segmentally. There is no evidence of left lower extremity deep vein thrombosis. The left great saphenous vein nafisa ears patent and compressible segmentally. Ordering Physician: Ruby Babin Referring Physician: Zayra Ramirez Performed By: Aura John RVT
== END | disposition home or self-care (01) ==
LOC: CVS 09:03
PROVIDERS: PCP Clinical Nurse Specialist; Referring Provider Nurse Practitioner Acute Care; Visit Provider Nurse Practitioner Acute Care
DX: M79.89 Other specified soft tissue disorders (principal)
CPT/HCPCS: 93971

== ENCOUNTER 2022-06-22 16:54 | Emergency (ER) | payer MEDICAID, SELFPAY ==
[2022-06-22 16:55] VITALS: BP 127/73; PULSE 69; RESP 26; TEMP 36.6; O2SAT 97; BMI 63.0
[2022-06-22 16:59] VITALS: O2SAT 98
--- NOTE | 2022-06-22 17:10 | EKG12_ITS ---
Test Reason : SOB Blood Pressure : / mmHG Vent. Rate : 064 BPM Atrial Rate : 064 BPM P-R Int : 136 ms QRS Dur : 084 ms QT Int : 484 ms P-R-T Axes : 068 020 036 degrees QTc Int : 499 ms Normal sinus rhythm Low voltage QRS Prolonged QT Abnormal ECG Confirmed by KATHARINA CHAUDHRY, KATHERINE ([id number]), commissioning editor ELLY DARBY ([id number]) on 06/24/2022 9:30:11 AM Referred By: Confirmed By:KATHERINE POSADAS MD
--- NOTE | 2022-06-22 17:30 | RAD_ITS ---
INDICATION: Shortness of breath EXAMINATION/TECHNIQUE: X-RAY - XR Chest 1 View COMPARISON: None. FINDINGS: LINES/DEVICES: None. LUNGS: There are somewhat nodular patchy opacities within the right upper lung. MEDIASTINUM AND CARDIOVASCULAR STRUCTURES: Cardiac silhouette not enlarged. Central airways and mediastinal contour are unremarkable. BONES AND SOFT TISSUES: Unremarkable. RAD/Chest 1 View (Portable) IMPRESSION: Nodular patchy opacities within the right upper lung, may reflect pneumonia. Electronically Signed: Yesi Canas MD at 17:46 EST ,
[2022-06-22 17:34] LABS: Absolute Neutrophil Count 5.9 X10^3/uL (2.0-7.7); Basophil# 0.02 X10^3/uL; Basophil% 0.3 % (0-1); Eosinophil# 0.06 X10^3/uL; Eosinophils% 0.9 % (0-5); Hemoglobin 10.2 g/dL (12.0-15.0); Lymphocyte % 4.5 % (19-41); Mean Corp Hgb Conc 31.9 g/dL (32-36); Mean Corpuscular Hgb 29.3 pg (27.0-32.0); Mean Platelet Vol. 10.8 fl (6.2-12.0); Monocyte% 4.5 % (0-10); NRBC Flagged by Analyzer 0 % (0-5); Neutrophil # 5.86 X10^3/uL (2.7-7.7); Neutrophil % 88.6 % (47-70); POSITIVE DIFFERENTIAL YES; Platelet Count 180 K/mm3 (150-450); RBC Distribution Width SD 53.9 fl (35.1-43.9); Red Blood Count 3.48 M/mm3 (4.2-5.4); White Blood Count 6.6 K/mm3 (4.4-11.0)
--- NOTE | 2022-06-22 17:41 | EDS_ITS ---
HPI History of Present Illness Chief Complaint: Shortness of Breath Narrative Narrative: Patient presents with loss of taste, cough congestion and fevers yesterday. She also feels more weak than normal. Her son has similar symptoms. She tells me she has a harder time breathing although she has significant COPD sleep apnea and CHF and she is on 3 L of oxygen chronically. She has no pleuritic component. No worsening lower extremity edema although she does have chronic edema. [facility] Medical History Atherosclerosis of coronary artery without angina pectoris Chest pain Crohns disease Depression Essential (primary) hypertension H/O gestational diabetes mellitus, not currently Headache History of kidney stones Hyperlipidemia IBS (irritable bowel syndrome) Left ventricular diastolic dysfunction Long QT interval Maternal hypertension affecting puerperium Morbid obesity Nicotine dependence Panic attacks Recurrent urinary tract infection Tachycardia Third trimester Transient elevated blood pressure Ulcerative colitis Home Medications aspirin 325 mg tablet,delayed release 325 mg PO DAILY heart health 09/02/19 [History Last Taken 04/17/22] montelukast 10 mg tablet 10 mg PO DAILY ALLERGIES 06/05/21 [History Last Taken 04/17/22] nitroglycerin 0.4 mg sublingual tablet 0.4 mg sublingual Q5-15M PRN chest pain #25 tabs 08/02/21 [Rx Last Taken 04/16/22] albuterol sulfate 90 mcg/actuation aerosol inhaler (ProAir HFA) 2 puff inhalation Q4H PRN shortness of breath or wheezing 04/17/22 [History Last Taken 04/17/22] atorvastatin 80 mg tablet 80 mg PO QHS CHOLESTEROL 04/17/22 [History Last Taken 04/16/22] cetirizine 10 mg capsule 10 mg PO HS ALLERGIES 04/17/22 [History Last Taken 04/16/22] clopidogrel 75 mg tablet (Plavix) 75 mg PO DAILY BLOOD THINNER 04/17/22 [History Last Taken 04/17/22] escitalopram oxalate 10 mg tablet 10 tablet PO DAILY DEPRESSION 04/17/22 [Histo ry Last Taken 04/17/22] famotidine 20 mg tablet 20 mg PO QHS ACID REFLUX 04/17/22 [History Last Taken 04/16/22] fluticasone fur. 200 mcg-umeclid 62.5 mcg-vilant 25 mcg inhalat.powder (Trelegy Ellipta) 1 inh inhalation DAILY COPD 04/17/22 [History Last Taken 04/17/22] fluticasone propionate 50 mcg/actuation nasal spray,suspension 2 spray intranasal DAILY NASAL CONGESTION 04/17/22 [History Last Taken 04/17/22] ipratropium 0.5 mg-albuterol 3 mg (2.5 mg base)/3 mL nebulization soln 3 ml inhalation Q4H PRN COPD 04/17/22 [History Last Taken 1 Month Ago ~03/17/22] isosorbide mononitrate 60 mg tablet,extended release 24 hr 60 mg PO BID ANGINA 04/17/22 [History Last Taken 04/17/22] lisinopril 10 mg tablet 10 mg PO DAILY BLOOD PRESSURE 04/17/22 [History Last Taken 04/17/22] metoprolol tartrate 25 mg tablet 25 mg PO BID BLOOD PRESSURE 04/17/22 [History Last Taken 04/17/22] ranolazine 500 mg tablet,extended release,12 hr (Ranexa) 500 mg PO BID ANGINA 04/17/22 [History Last Taken 04/17/22] meclizine 25 mg tablet 25 mg PO DAILY PRN dizziness #60 tabs 04/24/22 [Rx Last Taken Unknown] guaifenesin 1,200 mg tablet, extended release 12 hr 1,200 mg PO Q12H #60 tabs 05/12/22 [Rx Last Taken Unknown] doxycycline hyclate 100 mg capsule 100 mg PO BID #20 caps 06/22/22 [Rx Last Taken Unknown] oseltamivir 75 mg capsule (Tamiflu) 75 mg PO BID 5 days #10 caps 06/22/22 [Rx Last Taken Unknown] Allergy/AdvReac Type Severity Reaction Status Date / Time hydrocodone bitartrate Allergy Itching Verified 04/24/22 13:28 [From Vicodin] ondansetron HCl Allergy Other Verified 04/24/22 13:28 [From Zofran (as hydrochloride)] Penicillins [PCN] Allergy Rash Verified 04/24/22 13:28 metoclopramide [From Reglan] AdvReac Other Verified 04/24/22 13:28 Family History Mother Hypertension Father Hypertension CAD (coronary artery disease) Sister Diabetes Myocardial infarction, Onset Age: 45 Sudden cardiac , Onset Age: 45 Surgical History History of coronary artery stent placement (10/14/19) History of tubal ligation Hx of cholecystectomy Previous section S/P hernia repair Social History household members: spouse Smoking Status: Former smoker quit date: 04/27/20 Electronic Cigarette Use: not used second hand exposure: No alcohol intake: current alcohol intake frequency: a few times a month Alcohol type: wine substance use type: does not use ROS ROS ED ROS Narrative Past medical history: Reviewed Medications: Reviewed Social history: Noncontributory Review of systems: All systems negative except as indicated General: Fevers yesterday no fever today Eyes: No visual changes ENT: No upper airway congestion, normal voice. She does claim muscle taste Neck: No neck pain Cardiovascular: No chest pain Respiratory: As in HPI Gastrointestinal: No abdominal pain, nausea vomiting or diarrhea Genitourinary: No dysuria Musculoskeletal: Denies myalgias Skin: No rash Neurological: No focal weakness EXAM Physical Exam Narrative Exam Narrative: Physical exam General: Morbidly obese, she appears relatively comfortable. Head: Normocephalic, Atraumatic Eyes: Conjunctiva not pale ENT: Moist mucous membranes, she does not show any signs of dehydration Neck: Supple, Nontender, No lymphadenopathy Cardiovascular: Regular rate, Regular rhythm Respiratory: Coarse bilateral breath sounds, some scant wheezing. Abdomen: Soft, Nontender, Nondistended Back: Nontender, Normal Inspection. Negative for: CVA tenderness Extremities: Nontender, symmetric bilateral lower extremity edema which is chronic Skin: Normal color, No rash Neurological: Alert, Normal Strength, Normal Sensation Psychological: Normal affect Const Vital Signs: 06/22/22 16:55 06/22/22 16:55 06/22/22 16:59 Temperature 97.9 F Temperature Source Temporal Pulse Rate 69 Respiratory Rate 26 H Respiratory Effort Short of Breath Respiratory Depth Normal Respiratory Pattern Normal Blood Pressure 127/73 H Blood Pressure Mean 91 Pulse Ox 97 Oxygen Delivery Method Nasal Cannula Nasal Cannula Oxygen Flow Rate (L/min) 4 4 06/22/22 18:55 Temperature Temperature Source Pulse Rate 67 Respiratory Rate 23 H Respiratory Effort Respiratory Depth Respiratory Pattern Blood Pressure 132/77 H Blood Pressure Mean 95 Pulse Ox 97 Oxygen Delivery Method Nasal Cannula Oxygen Flow Rate (L/min) 4 MDM MDM MDM Narrative Medical decision making narrative: Patient is found to have influenza a. She appears well she is on her home oxygen and is not desaturating. Because of all her symptoms and the fact that her onset of symptoms are less than 48 hours ago I will give her Tamiflu. Per radiologist there is the possibility of a upper lobe pneumonia which I did not see on my x-ray however because of her comorbidities I will put her on doxycycline. Otherwise if anything changes she is to return. I discussed with the boyfriend who was in the room. A. Problems addressed ( does not have to be diagnoses) Dyspnea, influenza, possible pneumonia. B. Amount and/or complexity of the data (2 out of 3) 1. CBC CMP and influenza tests were reviewed by me including troponin. I discussed the patient with who was in the room 2. Independent interpretation of test Telemetry: Sinus rhythm with a rate in the 60s without ectopy C. Risk of complications and/or morbidity Differential diagnosis: Without about a PE, however the patient has fevers she has documented influenza therefore I do not believe a work-up is needed at this time. I thought about CHF exacerbation however the x-ray does not support this. I talked about possible admission however she is on her home oxygen, she can get outpatient antibiotics and Tamiflu and she seems quite reliable if anything changes she can be return. She does have COPD which could exacerbate her breathing, she is on home oxygen therefore I told her that if anything worsens she is to return right away. Because of the wheezing I believe the influenza did have an impact on her COPD and likely started moderate COPD exacerbation. However because of influenza I do not believe the patient needs steroids. Lab Data Labs: Laboratory Results - last 24 hr 06/22/22 06/22/22 06/22/22 17:23 17:23 17:23 WBC 6.6 RBC 3.48 L Hgb 10.2 L Hct 32.0 L MCV 92.0 MCH 29.3 MCHC 31.9 L RDW Std Deviation 53.9 H RDW Coeff of Martin 16.0 H Plt Count 180 MPV 10.8 Immature Gran % (Auto) 1.200 H Neut % (Auto) 88.6 H Lymph % (Auto) 4.5 L [place] % (Auto) 4.5 Eos % (Auto) 0.9 Baso % (Auto) 0.3 Absolute Neuts (auto) 5.9 Absolute Lymphs (auto) 0.30 L Nucleated RBC % 0 Differential Comment SEE COMMENT Platelet Estimate ADEQUATE Plt Morphology Comment LARGE RBC Morphology N CHROM Anisocytosis RARE Macrocytosis RARE Sodium 136 Potassium 3.8 Chloride 104 Carbon Dioxide 28.0 Anion Gap 4 L BUN 7 Creatinine 0.95 Estim Creat Clear Calc 53.72 Est GFR (MDRD) Af Amer 81 Est GFR (MDRD) Non-Af 67 BUN/Creatinine Ratio 7.3 L Glucose 85 Lactic Acid 0.9 Calcium 8.3 L Total Bilirubin 0.40 AST 14 L ALT 19 Alkaline Phosphatase 99 Troponin I High Sens < 3 L Total Protein 7.0 Albumin 3.1 L Globulin 3.9 Albumin/Globulin Ratio 0.8 L Lipase 70 L Radiography Diagnostic Testing: Clinical Impression(s) from Imaging Studies Chest X-Ray 06/22/22 17:30 IMPRESSION: Nodular patchy opacities within the right upper lung, may reflect pneumonia. Electronically Signed: Yesi Canas MD at 17:46 EST , Chest x-ray read by [place] is normal. However the radiologist thinks there may be a right upper lobe infiltrate. Discharge Plan Triage Chief Complaint: Shortness of Breath ED Provider: Castro Handy Dx/Rx/DC Orders Clinical Impression: Influenza, COPD exacerbation, Acute dyspnea, Pneumonia Instructions: ED Influenza (Adult) Prescriptions: New doxycycline hyclate 100 mg capsule 100 mg PO BID Qty: 20 0RF oseltamivir [Tamiflu] 75 mg capsule 75 mg PO BID 5 Days Qty: 10 0RF No Action aspirin 325 mg tablet,delayed release (DR/EC) 325 mg PO DAILY Label Comments: take 1 tablet by mouth once daily montelukast 10 mg tablet 10 mg PO DAILY meclizine 25 mg tablet 25 mg PO DAILY PRN (Reason: dizziness) Qty: 60 0RF escitalopram oxalate 10 mg tablet 10 tablet PO DAILY ipratropium-albuterol [DuoNeb] 0.5 mg-3 mg(2.5 mg base)/3 mL Solution For Nebulization 3 ml INHALATION Q4H PRN (Reason: COPD) famotidine 20 mg tablet 20 mg PO QHS atorvastatin 80 mg tablet 80 mg PO QHS clopidogrel [Plavix] 75 mg tablet 75 mg PO DAILY isosorbide mononitrate 60 mg tablet extended release 24 hr 60 mg PO BID lisinopril 10 mg tablet 10 mg PO DAILY albuterol sulfate [ProAir HFA] 90 mcg/actuation HFA aerosol inhaler 2 puff inhalation Q4H PRN (Reason: shortness of breath or wheezing) fluticasone propionate 50 mcg/actuation spray,suspension 2 spray intranasal DAILY metoprolol tartrate 25 mg tablet 25 mg PO BID ranolazine [Ranexa] 500 mg tablet extended release 12 hr 500 mg PO BID cetirizine 10 mg capsule 10 mg PO HS Trelegy Ellipta 200-62.5-25 mcg blister with device 1 inh inhalation DAILY nitroglycerin 0.4 mg tablet, sublingual 0.4 mg SUBLINGUAL Q5-15M PRN (Reason: chest pain) Qty: 25 3RF guaifenesin 1,200 mg tablet extended release 12hr 1,200 mg PO Q12H Qty: 60 6RF Primary Care Provider: Zayra Ramirez NP Referrals: Zayra Ramirez NP, [facility] [Primary Care Provider] - 3-5 Days Disposition Disposition: Home, Self Care
[2022-06-22 17:43] LABS: Differential Indicated SCAN CRITERIA MET
[2022-06-22 17:55] LABS: Anisocytosis RARE; Macrocytosis RARE; Platelet Estimate ADEQUATE (ADEQ); Platelet Morphology LARGE; Red Cell Morphology N CHROM NORMAL (NORM C&C)
[2022-06-22 18:02] LABS: ALB/GLOB Ratio 0.8 RATIO (0.9-2.4); AST(SGOT) 14 U/L (15-37); Alanine Aminotransfer ALT/SGPT 19 U/L (13-56); Albumin, Serum 3.1 g/dL (3.2-5.0); Alkaline Phosphatase 99 U/L (45-117); Anion Gap 4 (5-15); BUN 7 mg/dL (7-18); BUN/Creat Ratio 7.3 RATIO (10-20); Calcium,Total 8.3 mg/dL (8.5-10.1); Chloride 104 mmol/L (98-107); Creatinine, Serum 0.95 mg/dL (0.55-1.02); EST Glomerular Filtration Rate 67 mL/min (>60); Est Glom Filt Rate - Afr Amer 81 mL/min (>60); Estimated Creatinine Clearance 53.72 ml/min; Globulin 3.9 g/dL (2.2-4.2); Glucose 85 mg/dL (74-106); Lactic Acid 0.9 mmol/L (0.4-1.9); Lipase 70 U/L (73-393); Potassium 3.8 mmol/L (3.5-5.1); Sodium Level 136 mmol/L (136-145); Troponin-I HS < 3 pg/mL (3.0-54.0)
[2022-06-22 18:55] VITALS: BP 132/77; PULSE 67; RESP 23; O2SAT 97
[2022-06-22] MEDS: Doxycycline 100 MG CAPSULE PO (19:18)
[2022-06-22] MEDS: Oseltamivir Phosphate 75 MG Capsule PO (19:18)
[2022-06-22 19:32] VITALS: O2SAT 98
== END 2022-06-22 19:32 | disposition home or self-care (01) ==
PROVIDERS: Emergency Provider Emergency Medicine; PCP Clinical Nurse Specialist; Visit Provider Emergency Medicine
DX: J10.00 Influenza due to other identified influenza virus with unspecified type of pneumonia (principal); J44.1 Chronic obstructive pulmonary disease with (acute) exacerbation; I50.9 Heart failure, unspecified; I11.0 Hypertensive heart disease with heart failure; I25.10 Atherosclerotic heart disease of native coronary artery without angina pectoris; G47.33 Obstructive sleep apnea (adult) (pediatric); E78.5 Hyperlipidemia, unspecified; Z87.891 Personal history of nicotine dependence
CPT/HCPCS: 71045; 80053; 83605; 83690; 84484; 85025; 87040; 87428; 93005; 99285; A4216